=== PATIENT | female | born 1945 | race Caucasian/White ===

== ENCOUNTER → 2016-05-12 | Outpatient (CLI) | payer OTHER ==
[~2016-05-12] MED LIST: ADVIN25050 INH; ALBUAER INH; ALBUAER2 INH; AMOX500C3 PO; ASPCH81X PO; ATOR10TA88 PO; FLUO20CA20 PO; LISI-461 PO
--- NOTE | 2016-05-12 15:21 | MAMMOGRAPHY REPORT ---
BILATERAL DIGITAL SCREENING MAMMOGRAM WITH CAD: 05/12/2016 CLINICAL HISTORY: Routine screening examination. TECHNIQUE: Bilateral CC and MLO views were obtained. Current study was also evaluated with a Comput er Aided Detection (CAD) system. COMPARISON: Comparison is made to exams dated: 03/15/2015 mammogram, 03/14/2014 mammogram, 03/06/2013 m ammogram, and 02/27/2010 mammogram - [facility]. BREAST COMPOSITION: There are scattered areas of fibroglandular density in both breasts. FINDINGS: There are possible clustered microcalcifications in the central left breast, for which ad ditional spot magnification views are recommended. There are mild vascular calcifications and benign rim calcifications elsewhere in the breasts. No ot her suspicious mass, architectural distortion or cluster of microcalcifications is seen. IMPRESSION: ACR BI-RADS CATEGORY 0: INCOMPLETE EVALUATION: NEED ADDITIONAL IMAGING EVALUATION The possible clustered microcalcifications in the central left breast needs additional evaluation. The patient will be called to schedule an appointment. Approximately 10% of breast cancers are not detected with mammography. A negative mammographic repor t should not delay biopsy if a clinically suggestive mass is present. Viry Dey M.D. ay/:05/12/2016 12:51:31 Nuclear Control Operator: Ivanna THOMAS(Gay)(M), [facility] letter sent: Addl Imaging 0 BI-RADS Code: ACR BI-RADS Category 0: Incomplete Evaluation: Need Additional Imaging Evaluation
== END | disposition home or self-care (01) ==
LOC: C.MAMM 11:00
PROVIDERS: ATTEND Obstetrics & Gynecology
DX: Z12.31 Encounter for screening mammogram for malignant neoplasm of breast (principal); R92.8 Other abnormal and inconclusive findings on diagnostic imaging of breast

== ENCOUNTER → 2016-05-21 | Outpatient (CLI) | payer OTHER ==
--- NOTE | 2016-05-21 12:40 | MAMMOGRAPHY REPORT ---
UNILATERAL LEFT DIGITAL DIAGNOSTIC MAMMOGRAM: 05/21/2016 CLINICAL HISTORY: Callback from screening mammogram for left breast calcifications. TECHNIQUE: Spot magnification left CC and ML views were obtained. COMPARISON: Comparison is made to exams dated: 05/12/2016 mammogram, 03/15/2015 mammogram, 03/04/2012 m ammogram, 03/14/2014 mammogram, 03/06/2013 mammogram, and 03/03/2011 mammogram - [facility]. BREAST COMPOSITION: There are scattered areas of fibroglandular density in the left breast. FINDINGS: Spot magnification views of the left breast demonstrate scattered benign-appearing calcif ications within the left breast, which are predominantly coarse and therefore clearly benign, with a few fainter calcifications seen within the left central breast. On spot magnification views, the c alcifications appear stable dating back to at least the March 2014 exam, and are considered benign given the long-term stability and benign morphology. No suspicious or new cluster of calcification s is seen. IMPRESSION: ACR BI-RADS CATEGORY 2: BENIGN The left breast calcifications appear stable dating back to the 2014 exam, and are considered benign given the long-term stability and morphology. There is no mammographic evidence of malignancy. A 1 year screening mammogram is recommended. The patient has been verbally notified of the results. Approximately 10% of breast cancers are not detected with mammography. A negative mammographic repor t should not delay biopsy if a clinically suggestive mass is present. Ginger David M.D. ah/:05/21/2016 10:15:01 Patient Registration Representative: Ivanna ASHLEY)(Natali), [facility] letter sent: Normal 1/2 BI-RADS Code: ACR BI-RADS Category 2: Benign
== END | disposition home or self-care (01) ==
LOC: C.MAMM 09:54
PROVIDERS: ATTEND Obstetrics & Gynecology
DX: R92.1 Mammographic calcification found on diagnostic imaging of breast (principal)

== ENCOUNTER → 2016-07-31 | Outpatient (CLI) | payer OTHER ==
[~2016-07-31] MED LIST changes: +ATOR10TA82 PO; -ATOR10TA88 PO
== END | disposition home or self-care (01) ==
LOC: C.PATHSPEC 14:14
PROVIDERS: ATTEND Dermatology
DX: C44.112 Basal cell carcinoma of skin of right eyelid, including canthus (principal)

== ENCOUNTER → 2016-08-20 | Outpatient (CLI) | payer OTHER | END | disposition home or self-care (01) | LOC: C.PATHSPEC 16:55 | PROVIDERS: ATTEND Plastic Surgery | DX: C44.112 Basal cell carcinoma of skin of right eyelid, including canthus (principal) ==

== ENCOUNTER → 2016-09-18 | Outpatient (CLI) | payer OTHER ==
[~2016-09-18] MED LIST changes: -ATOR10TA82 PO; +ATOR10TA88 PO
--- NOTE | 2016-09-18 14:54 | DIAGNOSTIC IMAGING REPORT ---
CHEST 2 VIEWS ROUTINE CLINICAL HISTORY: Cough. Dyspnea on exertion. COMPARISON STUDY: 12/10/2010 FINDINGS: The cardiac and mediastinal contours are normal. There is no evidence of focal pulmonary consolidation. There is no evidence of failure. No pleural effusions are visualized.[ IMPRESSION: No active disease in the chest. Electronically signed by: Jordan De Luna M.D. 09/18/2016 2:53 PM Dictated Date/Time: 09/18/2016 2:52 PM
== END | disposition home or self-care (01) ==
LOC: C.RAD1850 14:41
PROVIDERS: ATTEND Nurse Practitioner
DX: R06.09 Other forms of dyspnea (principal)

== ENCOUNTER → 2016-10-23 | Outpatient (CLI) | payer OTHER | END | disposition home or self-care (01) | LOC: C.LABBFT 13:22 | PROVIDERS: ATTEND Physician Assistant Medical | DX: J02.9 Acute pharyngitis, unspecified (principal) ==

== ENCOUNTER → 2017-03-18 | Outpatient (CLI) | payer OTHER ==
[~2017-03-18] MED LIST changes: +ATOR10TA82 PO; -ATOR10TA88 PO
[2017-03-18 17:46] LABS: BASO % 0.2 %; BASO ABS # 0.02 K/uL (0-0.2); EOS % 6.5 %; EOS ABS # 0.57 K/uL (0-0.5); HEMATOCRIT 42.1 % (37-47); HEMOGLOBIN 13.5 g/dL (12.0-16.0); IG# 0.01 K/uL (0.00-0.02); LYMPH % 34.7 %; LYMPH ABS # 3.06 K/uL (1.2-3.4); MEAN CELL VOLUME 92.5 fL (80-100); MEAN CORPUSCULAR HEMOGLOBIN 29.7 pg (25-34); MEAN CORPUSCULAR HGB CONC 32.1 g/dl (32-36); MEAN PLATELET VOLUME 11.3 fL (7.4-10.4); MONO % 5.5 %; MONO ABS # 0.49 K/uL (0.11-0.59); NEUT ABS # 4.68 K/uL (1.4-6.5); PLATELET COUNT 215 K/uL (130-400); RED CELL DISTRIBUTION WIDTH CV 13.3 % (11.5-14.5); RED CELL DISTRIBUTION WIDTH SD 44.9 fL (36.4-46.3); WHITE BLOOD COUNT 8.83 K/uL (4.8-10.8)
[2017-03-18 18:21] LABS: ALBUMIN 3.8 gm/dl (3.4-5.0); ALT/SGPT 28 U/L (12-78); AST/SGOT 17 U/L (15-37); BLOOD UREA NITROGEN 22 mg/dl (7-18); CALCIUM 9.4 mg/dl (8.5-10.1); CARBON DIOXIDE 31 mmol/L (21-32); CHOLESTEROL 165 mg/dl (0-200); CREATININE 0.48 mg/dl (0.60-1.20); GLUCOSE 95 mg/dl (70-99); POTASSIUM 4.3 mmol/L (3.5-5.1); SODIUM 138 mmol/L (136-145); TOTAL PROTEIN 7.7 gm/dl (6.4-8.2)
[2017-03-18 18:24] LABS: ALKALINE PHOSPHATASE 65 U/L (45-117); LDL CHOLESTEROL CALCULATED 73 mg/dl
[2017-03-19 07:07] LABS: HEMOGLOBIN A1C 5.8 % (4.5-5.6)
== END | disposition home or self-care (01) ==
LOC: C.LABBFT 13:09
PROVIDERS: ATTEND Nurse Practitioner
DX: E78.5 Hyperlipidemia, unspecified (principal); R73.01 Impaired fasting glucose; R06.09 Other forms of dyspnea

== ENCOUNTER → 2017-05-25 | Outpatient (CLI) | payer OTHER ==
--- NOTE | 2017-05-25 14:58 | MAMMOGRAPHY REPORT ---
BILATERAL DIGITAL SCREENING MAMMOGRAM TOMOSYNTHESIS WITH CAD: 05/25/2017 CLINICAL HISTORY: Routine screening. Patient has no complaints. TECHNIQUE: Breast tomosynthesis in addition to standard 2D mammography was performed. Current study was also evaluated with a Computer Aided Detection (CAD) system. COMPARISON: Comparison is made to exams dated: 05/21/2016 mammogram, 05/12/2016 mammogram, 03/15/2015 mandy mogram, 03/14/2014 mammogram, 03/06/2013 mammogram, and 03/04/2012 mammogram - [facility]. BREAST COMPOSITION: There are scattered areas of fibroglandular density in both breasts. FINDINGS: No suspicious masses, calcifications, or areas of architectural distortion are noted in ei ther breast. There has been no significant interval change compared to prior exams. Scattered bilater al benign-appearing calcifications are not significantly changed. IMPRESSION: ACR BI-RADS CATEGORY 2: BENIGN There is no mammographic evidence of malignancy. A 1 year screening mammogram is recommended. The pa tient will receive written notification of the results. Approximately 10% of breast cancers are not detected with mammography. A negative mammographic report should not delay biopsy if a clinically suggestive mass is present. Ginger David M.D. /:05/25/2017 12:48:24 Support Associate: Danielle ASHLEY)(Natali), [facility] letter sent: Normal 1/2 BI-RADS Code: ACR BI-RADS Category 2: Benign
== END | disposition home or self-care (01) ==
LOC: C.MAMM 11:07
PROVIDERS: ATTEND Obstetrics & Gynecology
DX: Z12.31 Encounter for screening mammogram for malignant neoplasm of breast (principal)

== ENCOUNTER 2018-07-02 14:19 | Inpatient (IN) ==
[2018-07-02] MEDS ORDERED: ALBUT/IPRATROP 3MG/0.5MG NEB 3 ML VIAL INH STA (14:35)
[2018-07-02] MEDS ORDERED: LEVOFLOXACIN/D5W 750 MG/150 ML BAG IV STA (14:35)
[2018-07-02] MEDS ORDERED: methylPREDNISolone 125 MG/2 ML VIAL IV STA (14:35)
[2018-07-02] MEDS ORDERED: SODIUM CHLORIDE 0.9% 1000ML 1,000 ML IV SCH (14:45)
[2018-07-02 14:53] LABS: Base Excess VBG 3.9 mEq/L; Oxygen Saturation VBG 76.8 %; pH VBG 7.34 (7.36-7.41)
--- NOTE | 2018-07-02 14:54 | XRay Report ---
XR chest 1V portable CLINICAL HISTORY: Dyspnea dyspnea COMPARISON STUDY: 11/07/2009 FINDINGS: The bones soft tissues and hemidiaphragms are normal. The cardiomediastinal silhouette is n ormal. The lungs are clear. The pulmonary vasculature is normal. IMPRESSION: Negative chest. The above report was generated using voice recognition software. It may contain grammatical, syntax or spelling errors. Electronically signed by: Brent Wu M.D. 07/02/2018 2:53 PM
[2018-07-02 14:55] LABS: Basophils # (auto) 0.02 K/uL (0-0.2); Basophils % (auto) 0.2 %; Eosinophils # (auto) 0.28 K/uL (0-0.5); Hematocrit (blood only) 40.7 % (37-47); Hemoglobin 13.2 g/dL (12.0-16.0); Immature Granulocytes # (auto) 0.01 K/uL (0.00-0.02); Immature Granulocytes % (auto) 0.1 %; Lymphocytes # (auto) 1.31 K/uL (1.2-3.4); Lymphocytes % (auto) 13.8 %; Mean Corpuscular Hgb Conc 32.4 g/dL (32-36); Mean Corpuscular Volume 91.5 fL (80-100); Mean Platelet Volume 11.1 fL (7.4-10.4); Monocytes # (auto) 0.61 K/uL (0.11-0.59); Monocytes % (auto) 6.4 %; Neutrophils # (auto) 7.26 K/uL (1.4-6.5); Neutrophils % (auto) 76.5 %; Platelet Count 170 K/uL (130-400); RDW Coefficient of Variation 12.9 % (11.5-14.5); RDW Standard Deviation 43.4 fL (36.4-46.3); Red Blood Count 4.45 M/uL (4.2-5.4); White Blood Count 9.49 K/uL (4.8-10.8)
[2018-07-02 15:12] LABS: INR 1.1 (0.9-1.1); Partial Thromboplastin Ratio 0.9; Partial Thromboplastin Time 25.4 Seconds (21.0-31.0); Prothrombin Time 11.4 Seconds (9.0-12.0)
[2018-07-02 15:13] LABS: Alanine Aminotransferase 27 U/L (12-78); Albumin Level 3.8 gm/dl (3.4-5.0); Aspartate Aminotransferase 19 U/L (15-37); Blood Urea Nitrogen 20 mg/dl (7-18); Calcium 9.1 mg/dl (8.5-10.1); Carbon Dioxide 31 mmol/L (21-32); Chloride 101 mmol/L (98-107); Creatinine Clr Calc Pharmacy 100.6 ml/min; Est GFR (African American) 111.2; Glucose 103 mg/dl (70-99); Potassium 3.9 mmol/L (3.5-5.1); Sodium 135 mmol/L (136-145)
[2018-07-02 15:17] LABS: Influenza A virus by PCR Neg for Influ A (Neg); Influenza B virus by PCR Neg for Influ B (Neg)
[2018-07-02 15:18] LABS: Albumin Globulin Ratio 0.9 (0.9-2); Alkaline Phosphatase 75 U/L (45-117); Bilirubin,Total 0.4 mg/dl (0.2-1); Globulin 4.3 gm/dl (2.5-4.0); Total Protein 8.1 gm/dl (6.4-8.2); Troponin I < 0.015 ng/ml (0-0.045)
[2018-07-02 15:20] LABS: D Dimer 710 ug/L FEU (0-500)
[2018-07-02] MEDS ORDERED: OPTIRAY 320 125ml IV PRN (16:03)
--- NOTE | 2018-07-02 16:15 | CT Scan Report ---
CT angio chest PE protocol CT DOSE: 578.29 mGy.cm HISTORY: Dyspnea. Chest pain. +dd sob, tachy TECHNIQUE: Multiaxial CT images of the chest were performed following the intravenous administration of contrast to evaluate the pulmonary arteries. Maximal intensity projection images were also obtaine d. A dose lowering technique was utilized adhering to the principles of ALARA. COMPARISON STUDY: None. FINDINGS: Moderate atherosclerotic change thoracic aorta. The pulmonary vasculature enhances appropri ately. There are no significant filling defects. Evaluation of lung parenchyma shows the lungs to be generally clear. There are minimal interstitial changes in the left infrahilar region with atelectati c changes at the right posterior costophrenic angle. Findings of mild hepatosplenomegaly. IMPRESSION: 1. No evidence for pulmonary embolus. 2. Lungs are grossly clear with only minimal basilar interstitial and atelectatic change. 3. Mild hepatosplenomegaly. 4. Considerable degenerative change throughout the entire thoracic spine. No evidence for compression deformity. The above report was generated using voice recognition software. It may contain grammatical, syntax or spelling errors. Electronically signed by: Brent Wu M.D. 07/02/2018 4:12 PM
--- NOTE | 2018-07-02 17:11 | Emergency Department Note ---
Entered by Vincent Giraldo acting as a scribe for Surjit Maldonado DO History of Present Illness General Chief complaint: Shortness of Breath/Dyspnea Stated complaint: SOB Time Seen by Provider: 07/02/18 14:24 Source: patient History of Present Illness Onset (ago): day(s) 2 Location: chest (lungs) Pain Consistency: + other (persistent) Quality: + other (shortness of breath) Relieved By: + other (inhalers) Associated symptoms: + other (chills); no chest pain, no cough and no nausea/vomiting The patient is a 72 year old female with asthma who presents to the Emergency Room with complaints of persistent shortness of breath beginning two days ago. The patient reports that her symptoms started with chills and tickling in the throat. The nurse states that the patients oxygen saturation was in the low 80s prior to arrival. The patient reports that her symptoms have been improved with inhalers. She states that she does not wear supplemental oxygen or use CPAP at home. She denies chest pain, coughing, congestion, nausea, vomiting, diarrhea, leg swelling, or history of CHF. She notes that she has felt similar symptoms in the past associated with pneumonia but is unsure if she had a cough at that time. Home Medications Home Medications Medication Instructions Recorded Confirmed Type albuterol sulfate 90 mcg/actuation 2 puffs INH Q6H PRN 11/18/17 07/02/18 History breath activated powder inhaler atorvastatin 10 mg tablet 10 mg PO QPM 11/18/17 07/02/18 History fluoxetine 20 mg capsule 20 mg PO QPM 11/18/17 07/02/18 History fluticasone 250 mcg-salmeterol 50 1 inha INH BID 11/18/17 07/02/18 History mcg/dose blistr powdr for inhalation lisinopril 10 mg tablet 10 mg PO QPM 11/18/17 07/02/18 History meloxicam 15 mg tablet 15 mg PO DAILY #30 tab 05/25/18 07/02/18 Rx aspirin-caffeine 500 mg-32.5 mg 1 tab PO BID PRN tab 06/28/18 07/02/18 History tablet gabapentin 300 mg capsule See Rx Instructions PO TID cap 06/28/18 07/02/18 History Allergies Allergy/AdvReac Type Severity Reaction Status Date / Time Bactrim Allergy Unknown RASH Verified 09/11/15 10:06 hydrochlorothiazide Allergy Unknown UNKN Verified 07/02/18 15:09 sulfamethoxazole Allergy Unknown RASH Verified 07/02/18 15:09 trimethoprim Allergy Unknown RASH Verified 07/02/18 15:09 Past Med/Surg History Medical History Hypertension (Chronic) Lumbar spinal stenosis (Chronic) Moderate to severe at L4-5 Asthma uses prn inh 1-2 x daily. 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 Cardiac murmur Depression Hyperlipidemia Hypertension Osteoarthritis Spinal stenosis Surgical History History of colonoscopy w/ polypectomy History of total knee replacement left Family History Brother Family history of diabetes mellitus Social History Preferred Language: Congolese Communication Ability: Effective Hearing Ability: Normal Beliefs That Will Affect Care: None marital status: / Current Living Situation: Family Current Living Situation Comment: lives w/ great nephew current occupational status: retired Feels Safe at Home: Yes Smoking Status: Never smoker Second Hand Exposure: No Hx Alcohol Use: No Hx Substance Use: No Review of Systems See HPI for pertinent positives & negatives. and A total of 10 systems reviewed and were otherwise negative Physical Exam Vital Signs Vital Signs - 24 hr 07/02/18 14:21 07/02/18 14:32 07/02/18 14:38 Temperature 37 C Temperature Source Oral Sepsis Recent Fever Within 48 Hours No Sepsis New/Unexplained Change in Mental Status No Sepsis Action Taken by Nursing No Action Required Pulse Rate 109 H Pulse Rate [Left Finger] Respiratory Rate 24 Respiratory Effort / Characteristics Non-Labored Respiratory Depth Normal Respiratory Pattern Blood Pressure 153/67 H Blood Pressure [Left Arm] Blood Pressure Mean 95 Blood Pressure Mean [Left Arm] Pulse Oximetry 83 L 92 Oxygen Delivery Method Room Air Nasal Cannula Nasal Cannula Oxygen Flow Rate 3 07/02/18 14:58 07/02/18 15:36 07/02/18 16:30 Temperature Temperature Source Sepsis Recent Fever Within 48 Hours Sepsis New/Unexplained Change in Mental Status Sepsis Action Taken by Nursing Pulse Rate Pulse Rate [Left Finger] 102 H 103 H Respiratory Rate 18 15 15 Respiratory Effort / Characteristics Spontaneous Labored Non-Labored Non-Labored Respiratory Depth Normal Normal Respiratory Pattern Regular Regular Blood Pressure Blood Pressure [Left Arm] 101/79 114/66 Blood Pressure Mean Blood Pressure Mean [Left Arm] 86 82 Pulse Oximetry 96 100 94 Oxygen Delivery Method Nasal Cannula Nebulizer Room Air Oxygen Flow Rate 3 GENERAL: sitting up in bed, dyspneic with conversation, on 3 L nasal cannula EYE EXAM: normal conjunctiva. OROPHARYNX: no exudate, no erythema, lips, buccal mucosa, and tongue normal and mucous membranes are moist NECK: supple, no nuchal rigidity, no adenopathy, non-tender LUNGS: Poor air movement with diffuse wheezing. Normal chest wall mechanics HEART: no murmurs, S1 normal and S2 normal ABDOMEN: abdomen soft, non-tender, normo-active bowel sounds, no masses, no rebound or guarding. BACK: Back is symmetrical on inspection and there is no deformity, no midline tenderness, no CVA tenderness. Tenderness in the right lateral lower lumbar r egion SKIN: no rashes and no bruising UPPER EXTREMITIES: upper extremities are grossly normal. LOWER EXTREMITIES: No pitting edema. Calves are equal bilaterally. NEURO EXAM: Normal sensorium, cranial nerves II-XII grossly intact, normal speech, no gross weakness of arms, no gross weakness of legs. Gross sensation intact. Course ED COURSE: Vital signs were reviewed and showed hypoxia The patients medical record was reviewed The above diagnostic studies were performed and reviewed. ED treatments and interventions as stated above. 1428: The patient was evaluated in room A3. A complete history and physical examination was performed. 1618: I updated the patient on current results. 1623: I consulted [facility] Chan[facility] Hospitalist. The patient will be reevaluated for hospitalization. Based on the patients age, coexisting illnesses, exam and lab findings the decision to treat as an inpatient was made. The patient remained stable while under my care. The patient will be evaluated for further management. Administered Medications Ioversol (Optiray 320 125ml) 119 ml IV ONCE PRN PRN Reason: Interaction Checking Stop: 07/06/18 16:02 Last Admin: 07/02/18 16:03 Dose: 119 ml Documented by: [id number] Discontinued Medications Albuterol (Duoneb) 9 ml INH NOW STA Stop: 07/02/18 14:36 Last Admin: 07/02/18 14:57 Dose: 9 ml Documented by: [id number] Levofloxacin/Dextrose (Levaquin/D5w) 750 mg in 150 mls @ 100 mls/hr IV NOW STA Stop: 07/02/18 16:04 Last Infusion: 07/02/18 16:45 Dose: 0 mls/hr Documented by: [id number] Admin: 07/02/18 14:53 Dose: 100 mls/hr Documented by: [id number] Sodium Chloride (Nss 1000ml) 1,000 mls @ 999 mls/hr IV .Q1H1M LUNA Stop: 07/02/18 15:45 Last Infusion: 07/02/18 15:51 Dose: 0 mls/hr Documented by: [id number] Admin: 07/02/18 14:53 Dose: 999 mls/hr Documented by: [id number] Methylprednisolone (Solumedrol) 60 mg IV NOW STA Stop: 07/02/18 14:36 Last Admin: 07/02/18 14:53 Dose: 60 mg Documented by: [id number] Medical Decision Making Differential Diagnosis Differential diagnoses includes but is not limited to pneumonia, bronchitis, COPD/Asthma exacerbation, pneumothorax, pulmonary embolism, congestive heart failure, acute coronary syndrome Medical Records Attestation: I reviewed the patient's medical records. Home Medications Current Medication List: was personally reviewed by me Laboratory Data Attestation: I reviewed the patient's lab results. Result diagrams: 07/02/18 14:45 07/02/18 14:45 Lab Results 07/02/18 07/02/18 07/02/18 Range/Units 14:39 14:42 14:45 WBC 9.49 (4.8-10.8) K/uL RBC 4.45 (4.2-5.4) M/uL Hgb 13.2 (12.0-16.0) g/dL Hct 40.7 (37-47) % MCV 91.5 (80-100) fL MCH 29.7 (25-34) pg MCHC 32.4 (32-36) g/dL RDW Std Deviation 43.4 (36.4-46.3) fL RDW Coeff of Giulia 12.9 (11.5-14.5) % Plt Count 170 (130-400) K/uL MPV 11.1 H (7.4-10.4) fL Immature Gran % (Auto) 0.1 % Neut % (Auto) 76.5 % Lymph % (Auto) 13.8 % Aurora % (Auto) 6.4 % Eos % (Auto) 3.0 % Baso % (Auto) 0.2 % Immature Gran # (Auto) 0.01 (0.00-0.02) K/uL Neut # (Auto) 7.26 H (1.4-6.5) K/uL Lymph # (Auto) 1.31 (1.2-3.4) K/uL Aurora # (Auto) 0.61 H (0.11-0.59) K/uL Eos # (Auto) 0.28 (0-0.5) K/uL Baso # (Auto) 0.02 (0-0.2) K/uL PT (9.0-12.0) Seconds INR (0.9-1.1) APTT (21.0-31.0) Seconds PTT Ratio D-Dimer (0-500) ug/L FEU VBG pH 7.34 L (7.36-7.41) VBG pCO2 59 H (38-50) mmHg VBG pO2 44 mmHg VBG HCO3 31 mmol/L VBG O2 Saturation 76.8 % VBG Base Excess 3.9 mEq/L Barometric Pressure 725.0 mm/Hg Sodium (136-145) mmol/L Potassium (3.5-5.1) mmol/L Chloride (98-107) mmol/L Carbon Dioxide (21-32) mmol/L Anion Gap (3-11) BUN (7-18) mg/dl Creatinine (0.6-1.2) mg/dl Est Cr Clr Drug Dosing ml/min Est GFR ( Amer) Est GFR (Non-Af Amer) BUN/Creatinine Ratio (10-20) Glucose (70-99) mg/dl Calcium (8.5-10.1) mg/dl Total Bilirubin (0.2-1) mg/dl AST (15-37) U/L ALT (12-78) U/L Alkaline Phosphatase (45-117) U/L Troponin I (0-0.045) ng/ml Total Protein (6.4-8.2) gm/dl Albumin (3.4-5.0) gm/dl Globulin (2.5-4.0) gm/dl Albumin/Globulin Ratio (0.9-2) Influenza Type A (PCR) Neg for Influ A (Neg) Influenza Type B (PCR) Neg for Influ B (Neg) 07/02/18 07/02/18 Range/Units 14:45 14:45 WBC (4.8-10.8) K/uL RBC (4.2-5.4) M/uL Hgb (12.0-16.0) g/dL Hct (37-47) % MCV (80-100) fL MCH (25-34) pg MCHC (32-36) g/dL RDW Std Deviation (36.4-46.3) fL RDW Coeff of Giulia (11.5-14.5) % Plt Count (130-400) K/uL MPV (7.4-10.4) fL Immature Gran % (Auto) % Neut % (Auto) % Lymph % (Auto) % Aurora % (Auto) % Eos % (Auto) % Baso % (Auto) % Immature Gran # (Auto) (0.00-0.02) K/uL Neut # (Auto) (1.4-6.5) K/uL Lymph # (Auto) (1.2-3.4) K/uL Aurora # (Auto) (0.11-0.59) K/uL Eos # (Auto) (0-0.5) K/uL Baso # (Auto) (0-0.2) K/uL PT 11.4 (9.0-12.0) Seconds INR 1.1 (0.9-1.1) APTT 25.4 (21.0-31.0) Seconds PTT Ratio 0.9 D-Dimer 710 H* (0-500) ug/L FEU VBG pH (7.36-7.41) VBG pCO2 (38-50) mmHg VBG pO2 mmHg VBG HCO3 mmol/L VBG O2 Saturation % VBG Base Excess mEq/L Barometric Pressure mm/Hg Sodium 135 L (136-145) mmol/L Potassium 3.9 (3.5-5.1) mmol/L Chloride 101 (98-107) mmol/L Carbon Dioxide 31 (21-32) mmol/L Anion Gap 3.0 (3-11) BUN 20 H (7-18) mg/dl Creatinine 0.49 L (0.6-1.2) mg/dl Est Cr Clr Drug Dosing 100.6 ml/min Est GFR ( Amer) 111.2 Est GFR (Non-Af Amer) 96.0 BUN/Creatinine Ratio 40.0 H (10-20) Glucose 103 H (70-99) mg/dl Calcium 9.1 (8.5-10.1) mg/dl Total Bilirubin 0.4 (0.2-1) mg/dl AST 19 (15-37) U/L ALT 27 (12-78) U/L Alkaline Phosphatase 75 (45-117) U/L Troponin I < 0.015 (0-0.045) ng/ml Total Protein 8.1 (6.4-8.2) gm/dl Albumin 3.8 (3.4-5.0) gm/dl Globulin 4.3 H (2.5-4.0) gm/dl Albumin/Globulin Ratio 0.9 (0.9-2) Influenza Type A (PCR) (Neg) Influenza Type B (PCR) (Neg) Imaging Data Radiologist's Impression: Radiology results as stated below per my review and the radiologist's interpretation: CT angio chest PE protocol CT DOSE: 578.29 mGy.cm HISTORY: Dyspnea. Chest pain. +dd sob, tachy TECHNIQUE: Multiaxial CT images of the chest were performed following the intravenous administration of contrast to evaluate the pulmonary arteries. Maximal intensity projection images were also obtained. A dose lowering technique was utilized adhering to the principles of ALARA. COMPARISON STUDY: None. FINDINGS: Moderate atherosclerotic change thoracic aorta. The pulmonary vasculature enhances appropriately. There are no significant filling defects. Evaluation of lung parenchyma shows the lungs to be generally clear. There are minimal interstitial changes in the left infrahilar region with atelectatic changes at the right posterior costophrenic angle. Findings of mild hepatosplenomegaly. IMPRESSION: 1. No evidence for pulmonary embolus. 2. Lungs are grossly clear with only minimal basilar interstitial and atelectatic change. 3. Mild hepatosplenomegaly. 4. Considerable degenerative change throughout the entire thoracic spine. No evidence for compression deformity. The above report was generated using voice recognition software. It may contain grammatical, syntax or spelling errors. Electronically signed by: Brent Wu M.D. 07/02/2018 4:12 PM XR chest 1V portable CLINICAL HISTORY: Dyspnea dyspnea COMPARISON STUDY: 11/07/2009 FINDINGS: The bones soft tissues and hemidiaphragms are normal. The cardiomediastinal silhouette is normal. The lungs are clear. The pulmonary vasculature is normal. IMPRESSION: Negative chest. The above report was generated using voice recognition software. It may contain grammatical, syntax or spelling errors. Electronically signed by: Brent Wu M.D. 07/02/2018 2:53 PM ECG Data Attestation: I personally reviewed and interpreted this ECG as follows: Indication: SOB/dyspnea Rate (beats per minute): 100 Rhythm: sinus tachycardia Findings: + other (normal axis); no PVC Blood Pressure Blood Pressure Findings: Normal blood pressure Blood Pressure Disposition: did not require urgent referral MDM Narrative Patient is a 72-year-old female with past medical history of asthma presents the ER for shortness of breath. Upon presentation she was found to be hypoxic at 82% on room air. She was placed on 4 L nasal cannula. IV was established blood work was obtained. Only complaints are weakness and shortness of breath since this past . Labs show no significant leukocytosis or anemia. D-dimer was positive and consequently a CT PE was performed but that was unremarkable. VBG pH 7.34. CO2 was slightly elevated at 59. BMP was unremarkable along with LFTs bilirubin and a negative troponin. Influenza was negative. Patient was given IV steroids, Levaquin and 3 neb treatments. She did have improvement of her symptoms. Chest x-ray was unremarkable. EKG was unremarkable. Case was discussed with hospitalist. Pulse ox improved to mid 90s on nasal cannula patient was admitted to the hospital for further work-up. Impression & Plan Hypoxia, Asthma exacerbation Critical Care Time I have personally spent 35 minutes of critical care time in the direct management of this patient. This includes bedside care, interpretation of diagnostic studies, and testing, discussion with consultants, patient, and family members, and other required patient management activities. This 35 minutes is in excess of all separately billable procedures. Critical Care Time: Yes Total Critical Care Time: 35 Discharge Plan Visit Data Chief Complaint: Shortness of Breath/Dyspnea Stated Complaint: SOB ED Provider: Surjit Maldonado Discharge Problem: Hypoxia, Asthma exacerbation Patient Disposition: Being Evaluated by Hospitalist Forms Stand Alone Forms: My [facility] Prescriptions Prescriptions: No Action fluticasone propion-salmeterol [Advair Diskus] 250-50 mcg/dose blister with de vice 1 inha INH BID RF: 0 atorvastatin 10 mg tablet 10 mg PO QPM RF: 0 lisinopril 10 mg tablet 10 mg PO QPM RF: 0 fluoxetine 20 mg capsule 20 mg PO QPM RF: 0 albuterol sulfate 90 mcg/actuation aerosol powdr breath activated 2 puffs INH Q6H PRN (Reason: Shortness Of Breath) RF: 0 meloxicam 15 mg tablet 15 mg PO DAILY Qty: 30 RF: 2 Audrey Back and Body 500-32.5 mg tablet 1 tab PO BID PRN (Reason: Pain) RF: 0 gabapentin 300 mg capsule See Patient Comments mg PO TID RF: 0 Referrals Referrals: Neymar Lopes MD [Primary Care Provider] - Discharge Problem: Asthma exacerbation Qualifiers: Asthma severity: unspecified severity Asthma persistence: unspecified Qualified Code(s): J45.901 - Unspecified asthma with (acute) exacerbation The scribe's documentation has been prepared under my direction and personally reviewed by me in its entirety. I confirm that the note above accurately reflects all work, treatment, procedures, and medical decision making performed by me.
--- NOTE | 2018-07-02 17:38 | History & Physical Report ---
Date of Service July 02, 2018 Assessment & Plan (1) Asthma exacerbation: Mild wheezing on exam with new, mild O2 requirement (88-89% on room air in the ED). CTA chest on 07/02 did not show any infiltrate. - DuoNebs standing and PRN - Continue home Advair - Prednisone - Procalcitonin - Hold abx. unless procalcitonin returns positive as her CTA showed no pneumonia - Sputum cx - Wean O2 as able (2) Hypertension: BP was 125/75 in the ED. - Continue home lisinopril (3) DVT prophylaxis: SCDs - Low risk per admission calculator History of Present Illness Primary Care Provider: Wade Lopes MD 72-year-old female with a history of asthma who presents with asthma exacerbation. Patient reports that she was in her normal state of health until evening when she began to experience increased shortness of breath and cough. The cough is nonproductive. Shortness of breath improves with her albuterol inhaler, but returns prior to her 4 hours. She has had no other associated symptoms, denying any fevers, chills, nausea, vomiting, sweats, pain in the chest or abdomen. She has some haziness about whether she takes her Advair every single day versus as needed. We did discuss good inhaler usage. Allergies Allergy/AdvReac Type Severity Reaction Status Date / Time Bactrim Allergy Unknown RASH Verified 09/11/15 10:06 hydrochlorothiazide Allergy Unknown UNKN Verified 07/02/18 15:09 sulfamethoxazole Allergy Unknown RASH Verified 07/02/18 15:09 trimethoprim Allergy Unknown RASH Verified 07/02/18 15:09 Home Medications Home Medications Medication Instructions Recorded Confirmed Type albuterol sulfate 90 mcg/actuation 2 puffs INH Q6H PRN 11/18/17 07/02/18 History breath activated powder inhaler atorvastatin 10 mg tablet 10 mg PO QPM 11/18/17 07/02/18 History fluoxetine 20 mg capsule 20 mg PO QPM 11/18/17 07/02/18 History fluticasone 250 mcg-salmeterol 50 1 inha INH BID 11/18/17 07/02/18 History mcg/dose blistr powdr for inhalation lisinopril 10 mg tablet 10 mg PO QPM 11/18/17 07/02/18 History meloxicam 15 mg tablet 15 mg PO DAILY #30 tab 05/25/18 07/02/18 Rx aspirin-caffeine 500 mg-32.5 mg 1 tab PO BID PRN tab 06/28/18 07/02/18 History tablet gabapentin 300 mg capsule See Rx Instructions PO TID cap 06/28/18 07/02/18 History Past Med/Surg History Medical History Hypertension (Chronic) Lumbar spinal stenosis (Chronic) Moderate to severe at L4-5 Asthma uses prn inh 1-2 x daily. 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 Cardiac murmur Depression Hyperlipidemia Hypertension Osteoarthritis Spinal stenosis Surgical History History of colonoscopy w/ polypectomy History of total knee replacement left Family History Brother Family history of diabetes mellitus Social History Preferred Language: Setswana Communication Ability: Effective Hearing Ability: Normal Mail Technician Required: No Beliefs That Will Affect Care: None marital status: / Current Living Situation: Family Current Living Situation Comment: lives with great nephew current occupational status: retired Other Information That Helps Us Care for You: No Feels Safe at Home: Yes Safety Concerns: Feels Safe At This Time Smoking Status: Former smoker Do You Dip or Chew Tobacco: No Second Hand Exposure: No Tobacco Cessation Education Requested by Patient: No Hx Alcohol Use: No Hx Substance Use: No Review of Systems Constitutional: no fever, no chills and no sweats Eyes: no diplopia Ear, Nose, Mouth, Throat: no ear trauma, no nasal discharge and no dental pain Respiratory: + cough and + dyspnea; no chest congestion Cardiovascular: no chest pain, no dyspnea on exertion, no palpitations and no syncope Gastrointestinal: no abdominal pain, no belching, no constipation, no diarrhea/loose stools, no blood in stools and no melena Musculoskeletal: no back pain, no joint pain and no muscle weakness Integumentary: no rash, no skin ulcer and no erythema Neurologic: no generalized weakness, no loss of sensation, no numbness and no paresthesia Psychiatric: no depression and no anxiety Endocrine: no fatigue, no polydipsia and no polyphagia Physical Exam Constitutional: WD/WN, vitals as above + acute distress and cooperative Eyes: EOM intact bilaterally; no conjunctival abnormality ENMT: external ear and nose normal, oropharynx normal Neck: trachea midline, no thyromegaly normal visual inspection Respiratory: normal respiratory effort, lungs clear to auscultation no respiratory distress Auscultation: + diminished lung sounds and + wheezes Cardiovascular: RRR, no murmur, no edema Gastrointestinal (Abdomen): Inspection/Auscultation: abdomen normal to inspection; abdomen not distended Musculoskeletal: no cyanosis or clubbing, extremities motor strength 5/5 Skin: no rashes, warm and dry Neurologic: moves all extremities and awake Psychiatric: Orientation: alert, oriented to person and cooperative Results & Data Vital Signs (Past 12 Hours) Vital Signs Temp Pulse Pulse Resp BP BP Pulse Ox 07/02/18 17:31 95 H 15 124/74 93 07/02/18 16:30 103 H 15 114/66 94 07/02/18 15:36 102 H 15 101/79 100 07/02/18 14:58 18 96 07/02/18 14:38 92 07/02/18 14:21 37 C 109 H 24 153/67 H 83 L (1) Asthma exacerbation Asthma persistence: unspecified Asthma severity: unspecified severity Qualified Code(s): J45.901 - Unspecified asthma with (acute) exacerbation
[2018-07-02] MEDS ORDERED: ACETAMINOPHEN 325 MG TAB PO PRN (20:24)
[2018-07-02] MEDS: ALBUT/IPRATROP 3MG/0.5MG NEB 3 ML VIAL NEB SCH ×2 (21:00→23:33)
[2018-07-02] MEDS: LISINOPRIL 10 MG TAB PO SCH (22:10)
[2018-07-02] MEDS: FLUTICASONE/SALMETEROL 250/50 (ADVAIR) 14 PUFF/1 INHALER INH SCH (22:10)
[2018-07-02] MEDS: FLUOXETINE HCL 20 MG CAP PO SCH (22:11)
[2018-07-02] MEDS: ATORVASTATIN 10 MG TAB PO SCH (22:11)
[2018-07-03] MEDS: ALBUT/IPRATROP 3MG/0.5MG NEB 3 ML VIAL NEB SCH ×6 (03:55→23:02)
[2018-07-03 06:46] LABS: Hematocrit (blood only) 38.5 % (37-47); Hemoglobin 12.1 g/dL (12.0-16.0); Mean Corpuscular Hgb Conc 31.4 g/dL (32-36); Mean Corpuscular Volume 91.4 fL (80-100); Mean Platelet Volume 10.8 fL (7.4-10.4); Platelet Count 162 K/uL (130-400); RDW Coefficient of Variation 12.9 % (11.5-14.5); RDW Standard Deviation 43.3 fL (36.4-46.3); Red Blood Count 4.21 M/uL (4.2-5.4); White Blood Count 9.09 K/uL (4.8-10.8)
[2018-07-03 07:21] LABS: BUN Creatinine Ratio 32.8 (10-20); Calcium 8.9 mg/dl (8.5-10.1); Creatinine Clr Calc Pharmacy 104.9 ml/min; Est GFR (African American) 112.8; Est GFR (Non-African American) 97.3; Magnesium 1.9 mg/dl (1.8-2.4); Potassium 3.8 mmol/L (3.5-5.1)
[2018-07-03] MEDS: predniSONE 50 MG TAB PO SCH (07:26)
[2018-07-03] MEDS: FLUTICASONE/SALMETEROL 250/50 (ADVAIR) 14 PUFF/1 INHALER INH SCH ×2 (07:26→21:50)
--- NOTE | 2018-07-03 11:53 | Hospitalist Progress Note ---
Date of Service July 03, 2018 Assessment & Plan (1) Asthma exacerbation: Improving with oral steroid therapy and nebulizers. (2) Acute bronchitis: Intravenous Levaquin, day 1. Obtain sputum culture if sputum is produced Present on Admission?: Yes (3) Hypoxia: Resolved. The patient is now on room air. Present on Admission?: Yes (4) Hypertension: Stable. Continue home lisinopril (5) DVT prophylaxis: SCDs - Low risk per admission calculator Subjective The patient is feeling better. She is receiving oral prednisone and nebulizer treatments. She does have a cough consistent with bronchitis but is unable to to produce any sputum for culture. There is no evidence of pneumonia on chest x-ray or CT scan. No evidence of pulmonary embolism either. Room air oxygen saturation has improved. Hopefully she will be able to go home in a day or 2. Review of Systems Review of Systems: All systems reviewed & are unremarkable except as noted in HPI & below Respiratory: + cough and + wheezing Physical Exam Constitutional: WD/WN, vitals as above no acute distress Eyes: PERRL, conjunctivae normal, anicteric sclerae ENMT: external ear and nose normal, oropharynx normal Neck: trachea midline, no thyromegaly Respiratory: normal respiratory effort and + cough; does not use accessory muscles Auscultation: + wheezes Cardiovascular: RRR, no murmur, no edema Gastrointestinal (Abdomen): normal bowel sounds, soft, nontender, no hepatosplenomegaly Musculoskeletal: no cyanosis or clubbing, extremities motor strength 5/5 Skin: no rashes, warm and dry Neurologic: CN's II-XI intact bilaterally; no focal motor deficits Results & Data Vital Signs (Past 12 Hours) Vital Signs Temp Pulse Resp BP BP Pulse Ox 07/03/18 11:08 96 H 18 90 07/03/18 07:40 36.3 C L 104 H 20 147/72 H 97 07/03/18 07:05 106 H 16 90 07/03/18 03:55 102 H 16 91 07/03/18 00:50 37 C 107 H 20 161/75 H 93 Laboratory Results 07/03/18 06:36 07/03/18 06:36 (1) Asthma exacerbation Asthma persistence: unspecified Asthma severity: unspecified severity Qualified Code(s): J45.901 - Unspecified asthma with (acute) exacerbation
[2018-07-03] MEDS: LEVOFLOXACIN/D5W 500 MG/100 ML BAG IV SCH (14:36)
[2018-07-03] MEDS: LISINOPRIL 10 MG TAB PO SCH (21:51)
[2018-07-03] MEDS: FLUOXETINE HCL 20 MG CAP PO SCH (21:51)
[2018-07-03] MEDS: ATORVASTATIN 10 MG TAB PO SCH (21:51)
[2018-07-04] MEDS: ALBUT/IPRATROP 3MG/0.5MG NEB 3 ML VIAL NEB SCH ×6 (03:19→23:16)
[2018-07-04] MEDS: FLUTICASONE/SALMETEROL 250/50 (ADVAIR) 14 PUFF/1 INHALER INH SCH ×2 (07:45→20:57)
[2018-07-04] MEDS: predniSONE 50 MG TAB PO SCH (07:45)
[2018-07-04] MEDS: LEVOFLOXACIN/D5W 500 MG/100 ML BAG IV SCH (14:30)
--- NOTE | 2018-07-04 15:39 | Hospitalist Progress Note ---
Date of Service July 04, 2018 Assessment & Plan (1) Asthma exacerbation: Improving with oral steroid therapy and nebulizers. May have an element of COPD - patient smoked until about 10 years ago. She doesn't have any PFTs that I can find in her outpatient records nor has she been seen by a heavy line technician. She will need to do both on follow up 2 step today showed a need continuous O2 when she has never needed before. Will repeat again tomorrow. (2) Acute bronchitis: Intravenous Levaquin started 07/03. Sputum culture showed normal axel (3) Hypoxia: As above (4) Hypertension: Stable. Continue home lisinopril (5) DVT prophylaxis: SCDs - Low risk per admission calculator Dispo: hopefully another day of treatment will lead to further improvement and we can avoid sending her home with O2. Will keep her tonight and repeat 2 step tomorrow. Likely dc tomorrow. Subjective Ms. Dotson feels better today however she is still requiring O2. Cough is improving. Review of Systems Review of Systems: All systems reviewed & are unremarkable except as noted in HPI & below Physical Exam Physical Exam: General: no distress Eyes: normal inspection, PERLL Respiratory: chest non tender, clear to auscultation, normal breath sounds, no respiratory distress, no accessory muscle use Cardiac: regular rate and rhythm, no rub or gallop, no murmur, no edema, no jvd GI/: active bowel sounds, no abd pain or tenderness, soft, non distended Extremities: normal range of motion, normal strength, non tender Neuro/Psych: alert and oriented x 3, normal mood and affect Skin: normal color, dry Results & Data Vital Signs (Past 12 Hours) Vital Signs Temp Pulse Pulse Pulse Pulse Pulse Pulse 07/04/18 15:18 95 H 07/04/18 11:40 98 H 107 H 118 H 100 H 90 07/04/18 11:11 93 H 07/04/18 07:29 36.9 C 90 07/04/18 07:27 109 H Resp Resp Resp Resp Resp Resp BP 07/04/18 15:18 18 07/04/18 11:40 18 20 20 18 18 07/04/18 11:11 18 07/04/18 07:29 18 151/77 H 07/04/18 07:27 18 Pulse Ox Pulse Ox Pulse Ox Pulse Ox Pulse Ox Pulse Ox 07/04/18 15:18 93 07/04/18 11:40 92 91 86 L 93 86 L 07/04/18 11:11 92 07/04/18 07:29 94 07/04/18 07:27 87 L (1) Asthma exacerbation Asthma persistence: unspecified Asthma severity: unspecified severity Qualified Code(s): J45.901 - Unspecified asthma with (acute) exacerbation
[2018-07-04] MEDS: ATORVASTATIN 10 MG TAB PO SCH (20:57)
[2018-07-04] MEDS: LISINOPRIL 10 MG TAB PO SCH (20:57)
[2018-07-04] MEDS: FLUOXETINE HCL 20 MG CAP PO SCH (20:57)
[2018-07-05] MEDS: ALBUT/IPRATROP 3MG/0.5MG NEB 3 ML VIAL NEB SCH ×4 (03:32→15:12)
[2018-07-05] MEDS: predniSONE 50 MG TAB PO SCH (08:13)
[2018-07-05] MEDS: FLUTICASONE/SALMETEROL 250/50 (ADVAIR) 14 PUFF/1 INHALER INH SCH (08:13)
[2018-07-05] MEDS ORDERED: SODIUM CHLORIDE 0.65% NA SOLN 45 ML (OCEAN) ONE (08:14)
[2018-07-05 09:38] LABS: Basophils # (auto) 0.03 K/uL (0-0.2); Basophils % (auto) 0.3 %; Eosinophils # (auto) 0.29 K/uL (0-0.5); Eosinophils % (auto) 3.1 %; Hematocrit (blood only) 38.5 % (37-47); Hemoglobin 12.3 g/dL (12.0-16.0); Immature Granulocytes # (auto) 0.02 K/uL (0.00-0.02); Immature Granulocytes % (auto) 0.2 %; Lymphocytes # (auto) 2.62 K/uL (1.2-3.4); Lymphocytes % (auto) 28.1 %; Mean Corpuscular Hgb Conc 31.9 g/dL (32-36); Mean Corpuscular Volume 92.5 fL (80-100); Mean Platelet Volume 10.5 fL (7.4-10.4); Monocytes # (auto) 0.79 K/uL (0.11-0.59); Monocytes % (auto) 8.5 %; Neutrophils # (auto) 5.57 K/uL (1.4-6.5); Neutrophils % (auto) 59.8 %; Platelet Count 177 K/uL (130-400); RDW Coefficient of Variation 13.2 % (11.5-14.5); RDW Standard Deviation 44.4 fL (36.4-46.3); Red Blood Count 4.16 M/uL (4.2-5.4); White Blood Count 9.32 K/uL (4.8-10.8)
[2018-07-05 10:14] LABS: BUN Creatinine Ratio 40.3 (10-20); Calcium 8.9 mg/dl (8.5-10.1); Est GFR (African American) 108.4; Est GFR (Non-African American) 93.5; Potassium 3.3 mmol/L (3.5-5.1)
[2018-07-05] MEDS ORDERED: POTASSIUM CHLORIDE 20 MEQ TABCR PO STA (13:30)
[2018-07-05] MEDS: LEVOFLOXACIN/D5W 500 MG/100 ML BAG IV SCH (13:48)
--- NOTE | 2018-07-05 14:12 | Discharge Summary ---
Date of Service July 05, 2018 Admission HPI Per Admitting Provider 72-year-old female with a history of asthma who presents with asthma exacerbation. Patient reports that she was in her normal state of health until evening when she began to experience increased shortness of breath and cough. The cough is nonproductive. Shortness of breath improves with her albuterol inhaler, but returns prior to her 4 hours. She has had no other associated symptoms, denying any fevers, chills, nausea, vomiting, sweats, pain in the chest or abdomen. She has some haziness about whether she takes her Advair every single day versus as needed. We did discuss good inhaler usage. Principal Diagnosis Asthma exacerbation Discharge Exam Constitutional WD/WN, vitals as above Respiratory normal respiratory effort; no respiratory distress and no labored breathing Auscultation: + wheezes (faint, bilateral) Cardiovascular Rate/Rhythm: regular rate and regular rhythm Heart Sounds: + murmur Gastrointestinal (Abdomen) normal bowel sounds, soft, nontender, no hepatosplenomegaly Musculoskeletal no cyanosis or clubbing, extremities motor strength 5/5 Skin no rashes, warm and dry Neurologic moves all extremities and awake Psychiatric A+Ox3, euthymic affect Discharge Data Allergies Allergy/AdvReac Type Severity Reaction Status Date / Time Bactrim Allergy Unknown RASH Verified 09/11/15 10:06 hydrochlorothiazide Allergy Unknown UNKN Verified 07/02/18 15:09 sulfamethoxazole Allergy Unknown RASH Verified 07/02/18 15:09 trimethoprim Allergy Unknown RASH Verified 07/02/18 15:09 Consultations 07/02/18 16:26 ED Decision to Admit Stat Ordered Studies 07/02/18 15:30 CT angio chest PE protocol Stat Hospital Course (1) Asthma exacerbation: Improving with oral steroid therapy and nebulizers. May have an element of COPD - patient smoked until about 10 years ago. She doesn't have any PFTs that I can find in her outpatient records nor has she been seen by a mental health coordinator. She will need to do both on follow up Discharge with 12 day steroid taper and Combivent 2 step showed a need continuous O2 which will be provided at discharge (2) Acute bronchitis: Intravenous Levaquin started 07/03. Sputum culture showed normal axel Will give 2 more days for a five day total regimen (3) Hypoxia: As above (4) Hypertension: Stable. Continue home lisinopril (5) DVT prophylaxis: SCDs - Low risk per admission calculator Total Time Total Time Spent Total Time Spent (In Minutes): greater than 30 minutes Discharge Plan Discharge Items Patient Disposition: Home - Self-Care Reason For Visit: ASTHMA/COPD EXACERBATION Discharge Diagnosis: asthma/copd exacerbation Discharge Goals: Improve disease control Activity: Resume your previous activity Non-emergency contact: Primary Care Provider Call non-emergency contact if: you have any medication questions Follow-up/Referrals: Neymar Lopes MD [Primary Care Provider] - 07/11/18 2:00 pm (Please, follow up at Dr. Lopes's office with his associate, Katlyn PACE, on WednesdayJuly 11 at 2:00 pm. *If you need to change this appointment, call the office at [phone].) Gia Carrington PA-C [Physician Soap Chipper] - 07/18/18 10:15 am (Please, follow up at [facility] Pul[facility] Office with Gia Carrington PA-C on WednesdayJuly 18 at 10:15 am. *This office is located in [address] of [facility] - the big building located next to this [facility]. If you need to change this appointment, call the office at [phone].) Diet: Regular Addtl Provider Instructions: Please continue to use your oxygen 2 liters at night and 3 liters with exertion until you follow up with pulmonology. I have added a new inhaler called Combivent for you to use four times per day as needed. This medication has albuterol (the inhaler you were using) combined with another medication to help open your airways. Prescriptions: New prednisone 20 mg tablet 20 mg PO DAILY Qty: 15 RF: 0 levofloxacin 500 mg tablet 500 mg PO DAILY 2 Days Qty: 2 RF: 0 Combivent Respimat 20-100 mcg/actuation mist 1 puffs INH Q6H Qty: 4 RF: 0 Continued fluticasone propion-salmeterol [Advair Diskus] 250-50 mcg/dose blister with device 1 inha INH BID RF: 0 atorvastatin 10 mg tablet 10 mg PO QPM RF: 0 lisinopril 10 mg tablet 10 mg PO QPM RF: 0 fluoxetine 20 mg capsule 20 mg PO QPM RF: 0 albuterol sulfate 90 mcg/actuation aerosol powdr breath activated 2 puffs INH Q6H PRN (Reason: Shortness Of Breath) RF: 0 meloxicam 15 mg tablet 15 mg PO DAILY Qty: 30 RF: 2 Audrey Back and Body 500-32.5 mg tablet 1 tab PO BID PRN (Reason: Pain) RF: 0 gabapentin 300 mg capsule See Patient Comments mg PO TID RF: 0 Stand-Alone Forms: [facility]/Other Patient Handouts: Ipratropium [place] Albuterol Sulfate Inhaler Discharge Orders: Discharge Order (Routine); Ordered 07/05/18 Ordered By: Selam Dixon Admission Data Admit Date/Time: 07/02/18 17:19 Attending Provider: Sreekanth Amador Admit Provider: Fletcher Chanel Primary Care Provider: Neymar Lopes Other Providers: Fletcher Chanel ; Selam Dixon Service: Medical Other Interventions: Discharge Summary Assessment (RN) Last Done: 07/05/18 12:07 DC Date/Time DO NOT enter until pt leaves facility: 07/05/18 16:17
[2018-07-06] MEDS ORDERED: predniSONE 20 MG TAB PO SCH (09:00)
== END 2018-07-05 16:17 | disposition home or self-care (01) | DRG 202 ==
LOC: ED 14:19 → 4E 17:19 → SUATTDRO 17:19 → 4E 18:14
DX: E78.5 Hyperlipidemia, unspecified; J44.0 Chronic obstructive pulmonary disease with (acute) lower respiratory infection; J20.9 Acute bronchitis, unspecified; Z88.1 Allergy status to other antibiotic agents; Z79.899 Other long term (current) drug therapy; R09.02 Hypoxemia; Z88.8 Allergy status to other drugs, medicaments and biological substances; R79.1 Abnormal coagulation profile; Z79.82 Long term (current) use of aspirin; Z88.2 Allergy status to sulfonamides; F32.9 Major depressive disorder, single episode, unspecified; I10 Essential (primary) hypertension; Z87.891 Personal history of nicotine dependence; J45.901 Unspecified asthma with (acute) exacerbation

== ENCOUNTER 2020-12-16 20:30 | Observation (INO) ==
--- NOTE | 2020-12-16 22:09 | XRay Report ---
XR chest 1V portable INDICATION: MN ^SOB . TECHNIQUE: Single frontal radiograph of the chest was obtained. Comparison: Comparison is made to chest one view 07/02/2018 FINDINGS: No lines and tubes are seen. The aorta is tortuous. The remainder of the cardiomediastinal silhouette is unremarkable. The lungs are clear. No evidence of pleural effusion or pneumothorax. IMPRESSION: No acute chest disease. ACT 112: Negative or not required by law. Electronically signed by: Jeromy Robertson M.D. 12/16/2020 10:08 PM
[2020-12-16] MEDS ORDERED: methylPREDNISolone 125 MG/2 ML VIAL IV STA (22:15)
[2020-12-16] MEDS ORDERED: ALBUT/IPRATROP 3MG/0.5MG NEB 3 ML VIAL NEB STA (22:15)
[2020-12-16 22:32] LABS: Basophils # (auto) 0.01 K/uL (0-0.2); Basophils % (auto) 0.1 %; Eosinophils # (auto) 0.57 K/uL (0-0.5); Eosinophils % (auto) 5.9 %; Hematocrit (blood only) 41.5 % (37-47); Hemoglobin 13.4 g/dL (12.0-16.0); Immature Granulocytes # (auto) 0.02 K/uL (0.00-0.02); Immature Granulocytes % (auto) 0.2 %; Lymphocytes # (auto) 1.13 K/uL (1.2-3.4); Lymphocytes % (auto) 11.6 %; Mean Corpuscular Hgb Conc 32.3 g/dL (32-36); Mean Corpuscular Volume 92.8 fL (80-100); Mean Platelet Volume 10.8 fL (7.4-10.4); Monocytes # (auto) 0.75 K/uL (0.11-0.59); Monocytes % (auto) 7.7 %; Neutrophils # (auto) 7.25 K/uL (1.4-6.5); Neutrophils % (auto) 74.5 %; Platelet Count 194 K/uL (130-400); RDW Coefficient of Variation 13.3 % (11.5-14.5); RDW Standard Deviation 45.3 fL (36.4-46.3); Red Blood Count 4.47 M/uL (4.2-5.4); White Blood Count 9.73 K/uL (4.8-10.8)
[2020-12-16 22:41] LABS: INR 1.1 (0.9-1.1); Partial Thromboplastin Time 25.4 Seconds (21.0-31.0); Prothrombin Time 10.9 Seconds (9.0-12.0)
[2020-12-16 22:56] LABS: Alanine Aminotransferase 28 U/L (12-78); Albumin Level 3.7 gm/dl (3.4-5.0); Aspartate Aminotransferase 23 U/L (15-37); BUN Creatinine Ratio 19.1 (10-20); Blood Urea Nitrogen 13 mg/dl (7-18); Calcium 9.3 mg/dl (8.5-10.1); Carbon Dioxide 31 mmol/L (21-32); Chloride 101 mmol/L (98-107); Creatinine Clr Calc Pharmacy 68.4 ml/min; Est GFR (Non-African American) 84.6 ml/min; Glucose 135 mg/dl (70-99); Potassium 4.2 mmol/L (3.5-5.1); Sodium 137 mmol/L (136-145)
[2020-12-16 23:01] LABS: Albumin Globulin Ratio 0.8 (0.9-2); Alkaline Phosphatase 76 U/L (45-117); Bilirubin,Total 0.4 mg/dl (0.2-1); Globulin 4.4 gm/dl (2.5-4.0); NT Pro B Type Natriuretic Pept 118 pg/ml (0-1800); Total Protein 8.1 gm/dl (6.4-8.2); Troponin I < 0.015 ng/ml (0-0.045)
[2020-12-17] MEDS ORDERED: ALBUT/IPRATROP 3MG/0.5MG NEB 3 ML VIAL NEB STA (01:31)
--- NOTE | 2020-12-17 01:35 | Emergency Department Note ---
History of Present Illness General Chief complaint: Respiratory Problems Stated complaint: COLD,CAN'T BREATHE History of Present Illness Maximum Pain Intensity: 0 This 74-year-old with COPD presents to the ER complaining of COPD exacerbation Location: Chest Quality: Hard to breathe Severity: Moderate Duration: Past few days Timing: Started few days ago Context: Symptoms got worse and patient came in Modifying factors: better with oxygen; worse with activity Patient states she does not normally wear oxygen during the day. She has been having to wear it the past few days. Patient denies chest pain, fevers, abdominal pain, flulike illness. She has received the Covid vaccine. Home Medications Medication Instructions Recorded Confirmed Type ipratropium 20 mcg-albuterol 100 1 puffs INHALATION Q6H PRN #4 gm 07/27/19 12/17/20 Rx mcg/actuation mist for inhalation (Combivent Respimat) aspirin 81 mg tablet,delayed 81 mg PO DAILY #90 tab 04/04/20 12/17/20 Rx release atorvastatin 10 mg tablet 10 mg PO QPM #90 tab 04/04/20 12/17/20 Rx lisinopril 10 mg tablet 10 mg PO QPM #90 tab 04/04/20 12/17/20 Rx albuterol sulfate 90 mcg/actuation 2 puff INH QID PRN #6.7 gm 04/29/20 12/17/20 Rx aerosol inhaler (Ventolin HFA) triamcinolone acetonide 0.1 % 1 applic TOPICAL BID #30 g 07/23/20 12/17/20 Rx topical cream isosorbide mononitrate 30 mg 30 mg PO DAILY #90 tab 09/09/20 12/17/20 Rx tablet,extended release 24 hr meloxicam 15 mg tablet 15 mg PO DAILY #30 tab 11/18/20 12/17/20 Rx omeprazole 20 mg capsule,delayed 20 mg PO DAILY #30 cap 12/05/20 12/17/20 Rx release ciprofloxacin HCl 250 mg tablet 250 mg PO BID 7 Days #14 tab 12/13/20 12/17/20 Rx fluoxetine 10 mg capsule 10 mg PO DAILY #30 cap 12/16/20 12/17/20 Rx fluoxetine 20 mg capsule 20 mg PO DAILY 12/17/20 12/17/20 History fluticasone 250 mcg-salmeterol 50 1 inh INH BID 12/17/20 12/17/20 History mcg/dose blistr powdr for inhalation (Advair Diskus) Allergies Allergy/AdvReac Type Severity Reaction Status Date / Time sulfamethoxazole [Bactrim] Allergy Mild RASH Verified 12/17/20 01:31 trimethoprim [Bactrim] Allergy Mild RASH Verified 12/17/20 01:31 hydrochlorothiazide Allergy Unknown UNKN Verified 12/17/20 01:31 Past Med/Surg History Medical History Acute bronchitis Aortic stenosis Asthma uses prn inh 1-2 x daily. 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 Dr. Drew Family History Brother Family history of diabetes mellitus Diabetes Coronary arteriosclerosis Mother Myocardial infarction Coronary arteriosclerosis Coronary heart disease Father Myocardial infarction Coronary arteriosclerosis Coronary heart disease Denies family history of Ovarian cancer Prostate cancer Breast cancer Colorectal cancer Social History (Updated 12/17/20 @ 02:46 by Stacey Pelletier DO) Smoking Status: Former smoker Tobacco Type: Cigarettes Age Started Using Tobacco: 14; Age Quit Using Tobacco: 59; Second Hand Exposure: No; Hx Alcohol Use: No Hx Substance Use: No Preferred Language: Spanish Communication Ability: Effective Hearing Ability: Normal 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 Beliefs That Will Affect Care: None marital status: / Current Living Situation: Family Current Living Situation Comment: Granddaughter and live with her current occupational status: retired Feels Safe at Home: Yes Childhood Exposure to Second-Hand Smoke: Yes caffeine: Yes during the past year weight has: remained stable Dental Care, Regularly: No Physical Activity Frequency: Does not Exercise Seatbelt Use: always Sunscreen Use: Yes Review of Systems A total of 10 systems reviewed and were otherwise negative Physical Exam Vital Signs Vital Signs - 24 hr 12/16/20 20:44 12/16/20 22:25 10/11/21 22:27 Temperature 36.7 C Temperature Source Temporal Artery Scan Pulse Rate 104 H Pulse Rate [Finger] 107 H 105 H Pulse Rhythm [Finger] Regular Respiratory Rate 22 22 22 Respiratory Effort / Characteristics Non-Labored Spontaneous Spontaneous Labored Retracting Short of Breath SOB on Exertion Respiratory Depth Normal Respiratory Pattern Regular Blood Pressure 152/81 H Blood Pressure [Right Arm] Blood Pressure Mean 104 Blood Pressure Mean [Right Arm] Blood Pressure Position Sitting Pulse Oximetry 96 92 93 Oxygen Delivery Method Nasal Cannula Nasal Cannula Nasal Cannula Oxygen Flow Rate 3 4 Sepsis Recent Fever Within 48 Hours No Sepsis New/Unexplained Change in Mental Status No Sepsis Action Taken by Nursing No Action Required 12/17/20 01:05 12/17/20 01:06 12/17/20 01:30 Temperature Temperature Source Pulse Rate 75 Pulse Rate [Finger] 95 H Pulse Rhythm [Finger] Respiratory Rate 20 20 18 Respiratory Effort / Characteristics Non-Labored Spontaneous Non-Labored Spontaneous Respiratory Depth Normal Respiratory Pattern Blood Pressure Blood Pressure [Right Arm] 180/138 H Blood Pressure Mean Blood Pressure Mean [Right Arm] 152 Blood Pressure Position Pulse Oximetry 95 95 93 Oxygen Delivery Method Nasal Cannula Nasal Cannula Nasal Cannula Oxygen Flow Rate 3 3 3 Sepsis Recent Fever Within 48 Hours Sepsis New/Unexplained Change in Mental Status Sepsis Action Taken by Nursing 12/17/20 01:43 Temperature Temperature Source Pulse Rate Pulse Rate [Finger] 92 H Pulse Rhythm [Finger] Respiratory Rate 20 Respiratory Effort / Characteristics Spontaneous SOB on Exertion Respiratory Depth Respiratory Pattern Blood Pressure Blood Pressure [Right Arm] Blood Pressure Mean Blood Pressure Mean [Right Arm] Blood Pressure Position Pulse Oximetry 91 Oxygen Delivery Method Nasal Cannula Oxygen Flow Rate 4 Sepsis Recent Fever Within 48 Hours Sepsis New/Unexplained Change in Mental Status Sepsis Action Taken by Nursing VITALS: Vitals are noted on the nurse's note and reviewed by myself. Vital signs 85% on room air which improved on nasal cannula. GENERAL: Elderly female working to breathe, SKIN: The skin was without rashes, erythema, edema, or bruising. There is no tenting of the skin. Capillary reflex less than 2 seconds. HEAD: Normocephalic atraumatic. EARS: External auditory canals clear, EYES: Pupils equal round and reactive to light and accommodation. Conjunctivae without injection, sclerae without icterus. Extraocular movements intact. NOSE: Patent, turbinates without inflammation or discharge. MOUTH: Mucous membranes moist. Pharynx without erythema or exudate. Uvula midline. Airway patent. Tongue does not deviate. NECK: Supple without nuchal rigidity. No lymphadenopathy. No thyromegaly. Cervical spine is nontender. No JVD. HEART: Regular rate and rhythm LUNGS: Diffuse inspiratory and end expiratory wheezes, rales or rhonchi. No retractions or accessory muscle use. ABDOMEN: Positive bowel sounds x 4. Normal tympanic percussion. Soft, nontender, without masses or organomegaly. Suggs sign negative. No guarding or rebound tenderness. No CVA tenderness MUSCULOSKELETAL: No muscle atrophy, noted. NEURO: Patient was alert and oriented to person place and time. Normal sensation to light and sharp touch. No focal neurological deficits. Course Administered Medications Discontinued Medications Albuterol (Albut/Ipratrop 3mg/0.5mg Neb 3 Ml Vial) 3 ml NEB NOW STA Stop: 12/16/20 22:16 Last Admin: 12/16/20 22:27 Dose: 3 ml Documented by: [id number] Albuterol (Albut/Ipratrop 3mg/0.5mg Neb 3 Ml Vial) 3 ml NEB NOW STA Stop: 12/17/20 01:32 Last Admin: 12/17/20 01:43 Dose: 3 ml Documented by: [id number] Azithromycin (Azithromycin 250 Mg Tab) 500 mg PO NOW ONE Stop: 12/17/20 02:21 Last Admin: 12/17/20 02:25 Dose: 500 mg Documented by: [id number] Methylprednisolone (Methylprednisolone 125 Mg/2 Ml Vial) 125 mg IV NOW STA Stop: 12/16/20 22:16 Last Admin: 12/16/20 22:34 Dose: 125 mg Documented by: [id number] Medical Decision Making Medical Records Attestation: I reviewed the patient's medical records. Home Medications Current Medication List: was personally reviewed by me Laboratory Data Attestation: I reviewed the patient's lab results. Result diagrams: 12/16/20 22:15 12/16/20 22:15 Lab Results 12/16/20 12/16/20 12/16/20 Range/Units 22:15 22:15 22:15 WBC 9.73 (4.8-10.8) K/uL RBC 4.47 (4.2-5.4) M/uL Hgb 13.4 (12.0-16.0) g/dL Hct 41.5 (37-47) % MCV 92.8 (80-100) fL MCH 30.0 (25-34) pg MCHC 32.3 (32-36) g/dL RDW Std Deviation 45.3 (36.4-46.3) fL RDW Coeff of Giulia 13.3 (11.5-14.5) % Plt Count 194 (130-400) K/uL MPV 10.8 H (7.4-10.4) fL Immature Gran % (Auto) 0.2 % Neut % (Auto) 74.5 % Lymph % (Auto) 11.6 % Meagher % (Auto) 7.7 % Eos % (Auto) 5.9 % Baso % (Auto) 0.1 % Neut # (Auto) 7.25 H (1.4-6.5) K/uL Lymph # (Auto) 1.13 L (1.2-3.4) K/uL Meagher # (Auto) 0.75 H (0.11-0.59) K/uL Eos # (Auto) 0.57 H (0-0.5) K/uL Baso # (Auto) 0.01 (0-0.2) K/uL Immature Gran # (Auto) 0.02 (0.00-0.02) K/uL PT 10.9 (9.0-12.0) Seconds INR 1.1 (0.9-1.1) APTT 25.4 (21.0-31.0) Seconds PTT Ratio 1.0 Sodium 137 (136-145) mmol/L Potassium 4.2 (3.5-5.1) mmol/L Chloride 101 (98-107) mmol/L Carbon Dioxide 31 (21-32) mmol/L Anion Gap 5.0 (3-11) BUN 13 (7-18) mg/dl Creatinine 0.69 (0.6-1.2) mg/dl Est Cr Clr Drug Dosing 68.4 ml/min Est GFR ( Amer) 98.0 ml/min Est GFR (Non-Af Amer) 84.6 ml/min BUN/Creatinine Ratio 19.1 (10-20) Glucose 135 H (70-99) mg/dl Calcium 9.3 (8.5-10.1) mg/dl Magnesium 2.0 (1.8-2.4) mg/dl Total Bilirubin 0.4 (0.2-1) mg/dl AST 23 (15-37) U/L ALT 28 (12-78) U/L Alkaline Phosphatase 76 (45-117) U/L Troponin I < 0.015 (0-0.045) ng/ml NT-Pro-B Natriuret Pep 118 (0-1800) pg/ml Total Protein 8.1 (6.4-8.2) gm/dl Albumin 3.7 (3.4-5.0) gm/dl Globulin 4.4 H (2.5-4.0) gm/dl Albumin/Globulin Ratio 0.8 L (0.9-2) COVID-19 Eval Order SARS-CoV-2 (PCR) (Negative) 12/16/20 12/16/20 Range/Units 22:15 22:15 WBC (4.8-10.8) K/uL RBC (4.2-5.4) M/uL Hgb (12.0-16.0) g/dL Hct (37-47) % MCV (80-100) fL MCH (25-34) pg MCHC (32-36) g/dL RDW Std Deviation (36.4-46.3) fL RDW Coeff of Giulia (11.5-14.5) % Plt Count (130-400) K/uL MPV (7.4-10.4) fL Immature Gran % (Auto) % Neut % (Auto) % Lymph % (Auto) % Meagher % (Auto) % Eos % (Auto) % Baso % (Auto) % Neut # (Auto) (1.4-6.5) K/uL Lymph # (Auto) (1.2-3.4) K/uL Meagher # (Auto) (0.11-0.59) K/uL Eos # (Auto) (0-0.5) K/uL Baso # (Auto) (0-0.2) K/uL Immature Gran # (Auto) (0.00-0.02) K/uL PT (9.0-12.0) Seconds INR (0.9-1.1) APTT (21.0-31.0) Seconds PTT Ratio Sodium (136-145) mmol/L Potassium (3.5-5.1) mmol/L Chloride (98-107) mmol/L Carbon Dioxide (21-32) mmol/L Anion Gap (3-11) BUN (7-18) mg/dl Creatinine (0.6-1.2) mg/dl Est Cr Clr Drug Dosing ml/min Est GFR ( Amer) ml/min Est GFR (Non-Af Amer) ml/min BUN/Creatinine Ratio (10-20) Glucose (70-99) mg/dl Calcium (8.5-10.1) mg/dl Magnesium (1.8-2.4) mg/dl Total Bilirubin (0.2-1) mg/dl AST (15-37) U/L ALT (12-78) U/L Alkaline Phosphatase (45-117) U/L Troponin I (0-0.045) ng/ml NT-Pro-B Natriuret Pep (0-1800) pg/ml Total Protein (6.4-8.2) gm/dl Albumin (3.4-5.0) gm/dl Globulin (2.5-4.0) gm/dl Albumin/Globulin Ratio (0.9-2) COVID-19 Eval Order Covid19 at [facility] SARS-CoV-2 (PCR) NEGATIVE (Negative) Imaging Data Attestation: I personally reviewed and interpreted this imaging study as follows: Radiologist's Impression: Chest X-Ray 12/16/20 21:58 XR chest 1V portable INDICATION: MN ^SOB . TECHNIQUE: Single frontal radiograph of the chest was obtained. Comparison: Comparison is made to chest one view 07/02/2018 FINDINGS: No lines and tubes are seen. The aorta is tortuous. The remainder of the cardiomediastinal silhouette is unremarkable. The lungs are clear. No evidence of pleural effusion or pneumothorax. IMPRESSION: No acute chest disease. ACT 112: Negative or not required by law. Electronically signed by: Jeromy Robertson M.D. 12/16/2020 10:08 PM [facility] Narrative Prior records/ancillary studies reviewed. Triage Nursing notes reviewed. Additional history obtained from the family. The patient's history was concerning for respiratory difficulties. Differential diagnosis: Etiologies such as infections, reactive airway disease, pneumonia, pneumothorax, COPD, CHF, cardiac ischemia, pulmonary embolism, musculoskeletal, gastrointestinal, as well as others were entertained. Physical examination: As above. ER treatment provided: An order was placed for continuous cardiac monitoring. The monitor shows a rate of 60-1 20 with a sinus rhythm. Nebulizer, Solu-Medrol On reassessment the patient felt better. Diagnostic interpretation by me: The electrocardiogram was negative for acute ischemic or pathologic change. Order for dyspnea EKG: Poor baseline, no acute ST-T wave changes, rate of 105. Normal axis. Impression sinus tachycardia interpreted by myself I think arrhythmia is unlikely. EKG shows normal sinus rhythm with no interval abnormalities such as QT prolongation or WPW. There are no findings to suggest Brugada syndrome. Cardiac monitoring in the emergency department reveals no tachycardic or bradycardic dysrhythmia. Hypertrophic cardiomyopathy was considered but there are no clear historical elements pointing toward this. EKG is not suggestive. The QRS voltage is not extremely large and there are no suggestive Q waves. The labs revealed negative Covid, negative troponin Imaging studies: Chest x-ray as above. Consultation: A consultation was placed with the hospitalist. The case was discussed and diagnostics were reviewed. The patient was evaluated in the ER for further treatment. This appears to be consistent with COPD exacerbation who is hypoxic. She was given steroids and nebulizers. Ambulation trial was attempted and failed. Patient is agreeable yo treatment plan admission. Medicine was consulted. By the evaluation outlined above emergent etiologies such as CHF, cardiac ischemia, pulmonary embolism, reactive airway disease, pneumonia, pneumothorax, musculoskeletal, serious bacterial infections, as well as others were deemed relatively unlikely. The pt informed about the findings as listed above. All questions were answered and pleased with the treatment. The chart was completed utilizing [employer] Speech voice recognition software. Grammatical errors, random word insertions, pronoun errors, and incomplete sentences are an occassional consequence of this system due to software limitations, ambient noise, and hardware issues. Any formal questions or concerns about the content, text, or information contained within the body of this dictation should be directly addressed to the physician academic affairs assistant for clarification. Impression & Plan Acute exacerbation of chronic obstructive airways disease Discharge Plan Visit Data Chief Complaint: Respiratory Problems Stated Complaint: COLD,CAN'T BREATHE ED Provider: Marshal Gonsalez ED Midlevel Provider: Daisy Mcgee Discharge Problem: Acute exacerbation of chronic obstructive airways disease Patient Disposition: Admitted As Inpatient Condition: Fair
[2020-12-17] MEDS ORDERED: IPRATROPIUM BROMIDE/ALBUTEROL respimat INH INH PRN (02:20)
[2020-12-17] MEDS ORDERED: AZITHROMYCIN 250 MG TAB PO ONE (02:20)
--- NOTE | 2020-12-17 02:39 | History & Physical Report ---
Date of Service December 17, 2020 Assessment & Plan (1) Acute exacerbation of chronic obstructive airways disease: (2) Prediabetes: (3) Depression: (4) Hypertension: (5) Hyperlipidemia: (6) Urinary tract infection: Plan: 74 yo F Hx COPD, impaired fasting glucose, HTN, HLD, depression admitted for acute hypoxic respiratory failure 2/2 COPD exacerbation. Acute hypoxic respiratory failure, COPD exacerbation: Presented with increased oxygen demand; patient has recommendations for ambulatory O2 however does not often use it. Symptoms in the setting of recent contact with family member with non-COVID 19 URI. Received Solumedrol 125mg IV x1 in the ER; will continue Solumedrol 40mg IV q8h and transition when able to PO prednisone. Scheduled Duonebs with albuterol nebs q2h prn SOB/wheezing. Guaifenesin 1200mg BID. Continue home Advair BID. Currently saturating to 91% on 4LNC; titrate oxygen as able. Two step on discharge to ultimately determine oxygen need. Further education on need for oxygen by day team. Can consider CT Chest if symptoms worsening despite treatment. Prediabetes: A1c 6.2% on 09/2020. BSG on admission of 135. DM2 diet with qACHS BSG checks given robust IV steroid dosing. UTI: Prescribed Abx cipro for UTI 7 day course, to complete on 12/20. Will continue while admitted. No current urinary symptoms. HTN, HLD: Continue home lisinopril, atorvastatin. Depression: Continue home fluoxetine. Code Status: FULL CODE FEN: DM2 diet DVT ppx: Lovenox 40mg BID Dispo: Med/Surg with Telemetry History of Present Illness Chief Complaint: shortness of breath, cough Primary Care Provider: Wade Lopes MD 74 yo F Hx COPD, impaired fasting glucose, HTN, HLD, depression presented to [facility] ER for URI symptoms since Wednesday, with development of worsening SOB particularly on exertion requiring her to use her home supplemental oxygen. She was spending time with her grandchild over the weekend and he had a URI. She denies chest pain, lightheadedness, nausea or vomiting, fevers or chills. She is currently on cipro for a UTI (completes her regimen on 12/20). No current UTI symptoms. She has O2 at home but admits that she only uses it "when she needs it", which is not often. She states that typically she is about 92% on room air at rest. She had an appointment with Pulmonology in 08/2019 during which a two step revealed hypoxia to 89% with activity. She is vaccinated against COVID 19. In the ER patient was hypoxic to 85% on room air, and at time of my interview is on 4LNC saturating to 91%. CBC normal no elevated WBC count. BMP normal with glu of 135. Negative troponin, COVID 19 testing negative. XR without evidence of pulmonary edema or pneumonia. Patient reported significant improvement in symptoms following a nebulizer treatment. Allergies Allergy/AdvReac Type Severity Reaction Status Date / Time sulfamethoxazole [Bactrim] Allergy Mild RASH Verified 12/17/20 01:31 trimethoprim [Bactrim] Allergy Mild RASH Verified 12/17/20 01:31 hydrochlorothiazide Allergy Unknown UNKN Verified 12/17/20 01:31 Home Medications Medication Instructions Recorded Confirmed Type ipratropium 20 mcg-albuterol 100 1 puffs INHALATION Q6H PRN #4 gm 07/27/19 12/17/20 Rx mcg/actuation mist for inhalation (Combivent Respimat) aspirin 81 mg tablet,delayed 81 mg PO DAILY #90 tab 04/04/20 12/17/20 Rx release atorvastatin 10 mg tablet 10 mg PO QPM #90 tab 04/04/20 12/17/20 Rx lisinopril 10 mg tablet 10 mg PO QPM #90 tab 04/04/20 12/17/20 Rx albuterol sulfate 90 mcg/actuation 2 puff INH QID PRN #6.7 gm 04/29/20 12/17/20 Rx aerosol inhaler (Ventolin HFA) triamcinolone acetonide 0.1 % 1 applic TOPICAL BID #30 g 07/23/20 12/17/20 Rx topical cream isosorbide mononitrate 30 mg 30 mg PO DAILY #90 tab 09/09/20 12/17/20 Rx tablet,extended release 24 hr meloxicam 15 mg tablet 15 mg PO DAILY #30 tab 11/18/20 12/17/20 Rx omeprazole 20 mg capsule,delayed 20 mg PO DAILY #30 cap 12/05/20 12/17/20 Rx release ciprofloxacin HCl 250 mg tablet 250 mg PO BID 7 Days #14 tab 12/13/20 12/17/20 Rx fluoxetine 10 mg capsule 10 mg PO DAILY #30 cap 12/16/20 12/17/20 Rx fluoxetine 20 mg capsule 20 mg PO DAILY 12/17/20 12/17/20 History fluticasone 250 mcg-salmeterol 50 1 inh INH BID 12/17/20 12/17/20 History mcg/dose blistr powdr for inhalation (Advair Diskus) Past Med/Surg History Medical History Acute bronchitis Aortic stenosis Asthma uses prn inh 1-2 x daily. 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 Dr. Drew Family History Brother Family history of diabetes mellitus Diabetes Coronary arteriosclerosis Mother Myocardial infarction Coronary arteriosclerosis Coronary heart disease Father Myocardial infarction Coronary arteriosclerosis Coronary heart disease Denies family history of Ovarian cancer Prostate cancer Breast cancer Colorectal cancer Social History (Updated 12/17/20 @ 02:46 by Stacey Pelletier DO) Smoking Status: Former smoker Tobacco Type: Cigarettes Age Started Using Tobacco: 14; Age Quit Using Tobacco: 59; Second Hand Exposure: No; Hx Alcohol Use: No Hx Substance Use: No Preferred Language: Georgian Communication Ability: Effective Hearing Ability: Normal Machine Iii Coremaker Required: No Beliefs That Will Affect Care: None marital status: / Current Living Situation: Family Current Living Situation Comment: Granddaughter and live with her current occupational status: retired Other Information That Helps Us Care for You: No Feels Safe at Home: Yes Safety Concerns: Feels Safe At This Time Childhood Exposure to Second-Hand Smoke: Yes caffeine: Yes during the past year weight has: remained stable Dental Care, Regularly: No Physical Activity Frequency: Does not Exercise Seatbelt Use: always Sunscreen Use: Yes Assistive Devices: Oxygen - Continuous Assistive Devices Comment: upper here, lower at home Review of Systems Review of Systems: All systems reviewed & are unremarkable except as noted in HPI & below Constitutional: no fever, no chills and no malaise Respiratory: + cough and + dyspnea Cardiovascular: no chest pain, no palpitations and no edema Gastrointestinal: no abdominal pain, no constipation and no diarrhea/loose stools Genitourinary: no dysuria and no hematuria Physical Exam Constitutional: WD/WN, vitals as above + obese; no acute distress Eyes: PERRL, conjunctivae normal, anicteric sclerae ENMT: external ear and nose normal, oropharynx normal Neck: normal visual inspection Respiratory: good air movement, however with inspiratory and expiratory wheezes diffusely and bilaterally No decreased breath sounds Cardiovascular: Rate/Rhythm: regular rate and regular rhythm Heart Sounds: + murmur (2/6 systolic RUSB murmur) Extremities: + edema (trace) Gastrointestinal (Abdomen): normal bowel sounds, soft, nontender, no hepatosplenomegaly protuberant abdomen Musculoskeletal: no cyanosis or clubbing, extremities motor strength 5/5 Skin: no rashes, warm and dry Neurologic: AAOx3, normal speech. Bilateral UE, LE, and face without sensory or motor deficits. Psychiatric: A+Ox3, euthymic affect Results & Data Results & Data ([facility]) Vital Signs (Past 12 Hours) Vital Signs Temp Pulse Pulse Resp BP BP Pulse Ox 12/17/20 01:43 92 H 20 91 12/17/20 01:30 95 H 18 180/138 H 93 12/17/20 01:06 75 20 95 12/17/20 01:05 20 95 12/16/20 22:27 105 H 22 93 12/16/20 22:25 107 H 22 92 12/16/20 20:44 36.7 C 104 H 22 152/81 H 96 Code Status & VTE Plan VTE Prophylaxis Plan VTE Prophylaxis will be ordered: Yes Supervising Physician Co-Signing Physician Notes Attending addendum: I have physically seen this patient, have supervised the medical residents activities, and agree with the H&P unless as otherwise noted. Assessment and Plan: Acute respiratory failure with hypoxia/COPD exacerbation- Give Solu-Medrol 125 mg IV now then 40 mg IV every 8 hours Duonebs every 4 hours while awake and every 2 hours when necessary. Continue nasal cannula oxygen, titrate to keep pulse ox 92 to 94% Guaifenesin extended release 12 mg p.o. twice daily Azithromycin 500 mg IV daily Urinary tract infection- 7-day course of Cipro to be completed on 12/20, will continue treatment while admitted Remaining orders and notations as noted Resident Activity Tracking Resident Involvement: Resident Care Provided Care Provided: Adult Hospital Medicine
[2020-12-17] MEDS ORDERED: ALBUTEROL 0.083% NEBU SOLN 3 ML VIAL NEB PRN (03:17)
[2020-12-17] MEDS ORDERED: ACETAMINOPHEN 325 MG TAB PO PRN (03:38)
[2020-12-17] MEDS ORDERED: ONDANSETRON INJ 2 MG/ML 2 ML VIAL IV PRN (03:38)
[2020-12-17] MEDS ORDERED: POLYETHYLENE (MIRALAX) 17 GM PACK PO PRN (03:38)
[2020-12-17] MEDS: ALBUT/IPRATROP 3MG/0.5MG NEB 3 ML VIAL INH SCH ×3 (07:11→19:38)
[2020-12-17 07:30] LABS: Basophils # (auto) 0.01 K/uL (0-0.2); Basophils % (auto) 0.1 %; Hematocrit (blood only) 42.8 % (37-47); Hemoglobin 13.8 g/dL (12.0-16.0); Immature Granulocytes # (auto) 0.02 K/uL (0.00-0.02); Immature Granulocytes % (auto) 0.2 %; Lymphocytes % (auto) 5.8 %; Mean Corpuscular Hemoglobin 30.1 pg (25-34); Mean Corpuscular Hgb Conc 32.2 g/dL (32-36); Mean Corpuscular Volume 93.2 fL (80-100); Mean Platelet Volume 10.6 fL (7.4-10.4); Monocytes # (auto) 0.06 K/uL (0.11-0.59); Monocytes % (auto) 0.7 %; Neutrophils # (auto) 8.09 K/uL (1.4-6.5); Neutrophils % (auto) 93.2 %; Platelet Count 205 K/uL (130-400); RDW Coefficient of Variation 13.2 % (11.5-14.5); RDW Standard Deviation 45.1 fL (36.4-46.3); Red Blood Count 4.59 M/uL (4.2-5.4); White Blood Count 8.68 K/uL (4.8-10.8)
[2020-12-17 08:12] LABS: BUN Creatinine Ratio 19.5 (10-20); Calcium 9.3 mg/dl (8.5-10.1); Creatinine Clr Calc Pharmacy 74.9 ml/min; Est GFR (Non-African American) 87.1 ml/min; Potassium 4.4 mmol/L (3.5-5.1)
[2020-12-17] MEDS: guaiFENesin 600 MG TABCR PO SCH ×2 (08:58→21:49)
[2020-12-17] MEDS: MELOXICAM 7.5 MG TAB PO SCH (08:58)
[2020-12-17] MEDS: ENOXAPARIN INJ 40 MG/0.4 ML SYR SQ SCH ×2 (08:58→21:49)
[2020-12-17] MEDS: methylPREDNISolone 40 MG in SYRINGE 0 ML IV SCH ×2 (08:58→19:34)
[2020-12-17] MEDS: ISOSORBIDE MONO EXTENDED REL 30 MG TABCR PO SCH (08:59)
[2020-12-17] MEDS: ASPIRIN 81 MG ECTAB PO SCH (08:59)
[2020-12-17] MEDS: CIPROFLOXACIN 250 MG TAB PO SCH ×2 (08:59→21:49)
[2020-12-17] MEDS: FLUoxetine HCL 10 MG CAP PO SCH (08:59)
[2020-12-17] MEDS: PANTOprazole 40 MG TAB PO SCH (08:59)
[2020-12-17] MEDS: FLUoxetine HCL 20 MG CAP PO SCH (08:59)
[2020-12-17] MEDS: FLUTICASONE/VILANTEROL 200/25MCG 14 PUFFS/INHALER INH SCH (09:07)
[2020-12-17 09:35] LABS: Estimated Average Glucose 128 mg/dl; Hemoglobin A1C 6.1 % (4.5-5.6)
--- NOTE | 2020-12-17 15:19 | Electrocardiogram Report ---
Test Reason : Blood Pressure : / mmHG Vent. Rate : 105 BPM Atrial Rate : 105 BPM P-R Int : 122 ms QRS Dur : 078 ms QT Int : 338 ms P-R-T Axes : 067 086 065 degrees QTc Int : 446 ms Poor data quality, interpretation may be adversely affected Sinus tachycardia Nonspecific ST abnormality Abnormal ECG When compared with ECG of 02-JUL-2018 14:35, No significant change was found Confirmed by Jeremy Rojas ([id number]) on 12/17/2020 3:18:40 PM Referred By: REFERRED SELF Confirmed By:Jeremy Rojas
--- NOTE | 2020-12-17 18:51 | Hospitalist Progress Note ---
Date of Service December 17, 2020 Assessment & Plan (1) Acute exacerbation of chronic obstructive airways disease: Plan: - Appears she has an underlying restrictive lung disease; do not see PFTs to review - Presents with acute hypoxic respiratory failure - improving - At baseline does have O2 for ambulation but reports she normally doesnt use it and doesn't need O2 at rest - Will continue Solu-Medrol 40 mg IV Q8H and likely can convert to orals maybe even tomorrow pending on clinical status - Continue Duonebs; Mucinex 1200 mg BID (2) Prediabetes: Plan: - A1c 6.1 - Maintain dietary control; may run slightly higher given steroids (3) Urinary tract infection: Plan: - Found as outpatient - reports symptom resolution - Continue Cipro BID until 12/20 (4) Hypertension: Plan: - (5) Hyperlipidemia: Plan: - Fluctuating and will monitor - Continue Lisinopril 10 mg daily (6) Depression: Plan: - Continue Fluoxetine 20 mg daily Plan: - Continue active treatment and pending on clinical improvement may be able to D/C next 1-2 days; does have home O2 Admission and Anticipated Discharge Date Admission Date: December 17, 2020 Subjective Reports feeling a bit better since admission early this AM. Has weaned down to 2 L on mask but still with expiratory wheeze. Remains afebrile. Completing treatment for UTI and reports no issues there. Review of Systems Review of Systems: REVIEW OF SYSTEMS General/Constitutional: Denies fever/chills, fatigue, weakness ENT: Denies nasal drainage, sore throat, trouble swallowing Cardiovascular: Denies chest pain, palpitations, edema Respiratory: + SOB (improving), + cough GI: Denies nausea, vomiting, abdominal pain, constipation, diarrhea : Denies dysuria Musculoskeletal: Denies joint/muscle aches Neurologic: Denies dizziness/lightheadedness Skin: Denies rash, itch Physical Exam Physical Exam: PHYSICAL EXAM General Appearance: WDWN in NAD who is A&O x 3 HEENT: Head is normocephalic/atraumatic; Hearing grossly intact; Mucous membranes moist Neck: Supple; Trachea midline; Neg JVD Heart: RRR with no M/G/R Lungs: Exp wheeze noted diffusely; diminished at bases; Respirations unlabored; Neg accessory muscle use Abdomen: Soft, non-tender, non-distended; Positive BS x 4 quadrants Extremities: Neg cyanosis or edema Neurological: Speech clear; Gross motor/sensory function intact; Neg focal neurologic deficits Psychiatric: Appropriate mood/affect Skin: Normal Color; Warm/Dry Results & Data Results & Data ([facility]) Vital Signs (Past 12 Hours) Vital Signs Temp Pulse Pulse Resp BP BP Pulse Ox 12/17/20 18:23 36.7 C 94 H 20 142/65 H 93 12/17/20 17:22 36.8 C 92 H 23 150/83 H 94 12/17/20 16:30 94 12/17/20 16:20 95 12/17/20 16:10 92 12/17/20 16:00 91 12/17/20 15:50 93 12/17/20 15:40 94 12/17/20 15:30 94 12/17/20 15:20 93 12/17/20 15:10 93 12/17/20 15:00 95 12/17/20 14:50 97 H 16 92 12/17/20 14:40 97 H 23 93 12/17/20 14:30 105 H 20 90 12/17/20 14:20 100 H 19 91 12/17/20 14:10 95 H 19 92 12/17/20 14:00 92 H 20 93 12/17/20 13:50 98 H 21 92 12/17/20 13:40 101 H 18 90 12/17/20 13:30 97 H 22 92 12/17/20 13:20 105 H 22 92 12/17/20 13:10 110 H 15 90 12/17/20 13:00 102 H 17 90 12/17/20 12:51 105 H 19 98/70 L 93 12/17/20 12:50 105 H 23 98/70 L 88 L 12/17/20 12:40 91 H 18 98 12/17/20 12:30 89 88 16 96 12/17/20 12:20 93 12/17/20 12:10 92 12/17/20 12:00 92 12/17/20 11:50 92 12/17/20 11:40 94 12/17/20 11:30 94 12/17/20 11:20 93 12/17/20 11:10 93 12/17/20 11:00 94 12/17/20 10:50 96 12/17/20 10:40 93 12/17/20 10:30 94 12/17/20 10:20 21 94 12/17/20 10:10 108 H 25 H 92 12/17/20 10:00 102 H 15 92 12/17/20 09:50 99 H 18 94 12/17/20 09:40 97 H 17 95 12/17/20 09:36 97 H 17 132/106 H 94 12/17/20 09:30 97 H 22 92 12/17/20 09:20 106 H 21 92 12/17/20 09:10 106 H 23 92 12/17/20 09:00 104 H 106 H 16 161/113 H 161/113 H 94 12/17/20 08:50 92 12/17/20 08:40 93 12/17/20 08:30 88 20 94 12/17/20 08:20 99 H 18 95 12/17/20 07:18 90 19 140/97 98 12/17/20 07:11 90 20 92 PG Care Time/CCT Total # of Minutes Spent Total Time Spent with Patient: Total time spent is greater than 50% in coordination of care (as documented) at patient's floor/unit and/or counseling patient: Coding Level of Care Code None Diagnoses Acute exacerbation of chronic obstructive airways disease J44.1 Prediabetes R73.03 Urinary tract infection N39.0 Hypertension I10 Hyperlipidemia E78.5 Depression F32.9
[2020-12-17] MEDS: TRIAMCINOLONE ACET 0.1% CR 15 GM TUBE TOP SCH ×2 (20:27→21:48)
[2020-12-17] MEDS: ATORVASTATIN 10 MG TAB PO SCH (21:49)
[2020-12-17] MEDS: lisinopril 10 MG TAB PO SCH (21:49)
--- NOTE | 2020-12-17 22:43 | Billing Data ---
Date of Service December 17, 2020 Coding Level of Care Code 74969 Initial Inpt Care Lvl 3
[2020-12-18] MEDS: ALBUT/IPRATROP 3MG/0.5MG NEB 3 ML VIAL INH SCH ×2 (00:35→07:21)
[2020-12-18] MEDS: methylPREDNISolone 40 MG in SYRINGE 0 ML IV SCH ×3 (01:25→17:19)
[2020-12-18] MEDS: FLUTICASONE/VILANTEROL 200/25MCG 14 PUFFS/INHALER INH SCH (08:43)
[2020-12-18] MEDS: FLUoxetine HCL 20 MG CAP PO SCH (08:44)
[2020-12-18] MEDS: AZITHROMYCIN 250 MG TAB PO SCH (08:44)
[2020-12-18] MEDS: FLUoxetine HCL 10 MG CAP PO SCH (08:44)
[2020-12-18] MEDS: guaiFENesin 600 MG TABCR PO SCH ×2 (08:44→21:28)
[2020-12-18] MEDS: ISOSORBIDE MONO EXTENDED REL 30 MG TABCR PO SCH (08:44)
[2020-12-18] MEDS: MELOXICAM 7.5 MG TAB PO SCH (08:44)
[2020-12-18] MEDS: TRIAMCINOLONE ACET 0.1% CR 15 GM TUBE TOP SCH ×2 (08:45→21:24)
[2020-12-18] MEDS: CIPROFLOXACIN 250 MG TAB PO SCH ×2 (08:45→21:28)
[2020-12-18] MEDS: ASPIRIN 81 MG ECTAB PO SCH (08:45)
[2020-12-18] MEDS: PANTOprazole 40 MG TAB PO SCH (08:45)
[2020-12-18] MEDS: ENOXAPARIN INJ 40 MG/0.4 ML SYR SQ SCH ×2 (09:58→21:28)
--- NOTE | 2020-12-18 17:07 | Hospitalist Progress Note ---
Date of Service December 18, 2020 Assessment & Plan (1) Acute exacerbation of chronic obstructive airways disease: Plan: - Appears she has an underlying restrictive lung disease; do not see PFTs to review - Presents with acute hypoxic respiratory failure - improving - At baseline does have O2 for ambulation but reports she normally doesnt use it and doesn't need O2 at rest - Will continue Solu-Medrol 40 mg IV Q8H and likely can convert to orals maybe even tomorrow pending on clinical status - Continue Duonebs; Mucinex 1200 mg BID (2) Prediabetes: Plan: - A1c 6.1 - Maintain dietary control; may run slightly higher given steroids (3) Urinary tract infection: Plan: - Found as outpatient - reports symptom resolution - Continue Cipro BID until 12/20 (4) Hypertension: Plan: - Continue Lisinopril 10 mg daily (5) Hyperlipidemia: Plan: - Continue Atorvastatin 10 mg daily (6) Depression: Plan: - Continue Fluoxetine 20 mg daily Plan: - Continue active treatment and pending on clinical improvement may be able to D/C next 1-2 days; does have home O2 Admission and Anticipated Discharge Date Admission Date: December 17, 2020 Subjective Continues to improve. Less wheezing this afternoon but requiring supplemental O2. She feels like she has some mucous she cannot cough up but otherwise feels like she is improving. Review of Systems Review of Systems: REVIEW OF SYSTEMS General/Constitutional: Denies fever/chills, fatigue, weakness ENT: Denies nasal drainage, sore throat, trouble swallowing Cardiovascular: Denies chest pain, palpitations, edema Respiratory: + SOB (improving), + cough GI: Denies nausea, vomiting, abdominal pain, constipation, diarrhea : Denies dysuria Musculoskeletal: Denies joint/muscle aches Neurologic: Denies dizziness/lightheadedness Skin: Denies rash, itch Physical Exam Physical Exam: PHYSICAL EXAM General Appearance: WDWN in NAD who is A&O x 3 HEENT: Head is normocephalic/atraumatic; Hearing grossly intact; Mucous membranes moist Neck: Supple; Trachea midline; Neg JVD Heart: RRR with no M/G/R Lungs: Exp wheeze noted mostly just lower lobes b/l; Respirations unlabored; Neg accessory muscle use Abdomen: Soft, non-tender, non-distended; Positive BS x 4 quadrants Extremities: Neg cyanosis or edema Neurological: Speech clear; Gross motor/sensory function intact; Neg focal neurologic deficits Psychiatric: Appropriate mood/affect Skin: Normal Color; Warm/Dry Results & Data Results & Data ([facility]) Vital Signs (Past 12 Hours) Vital Signs Temp Pulse Pulse Resp BP Pulse Ox 12/18/20 16:08 95 H 12/18/20 15:14 36.9 C 88 20 126/73 90 12/18/20 11:26 36.6 C 96 H 20 117/65 92 12/18/20 11:00 90 12/18/20 07:40 36.9 C 103 H 20 126/59 L 12/18/20 07:22 78 20 84 L PG Care Time/CCT Total # of Minutes Spent Total Time Spent with Patient: Total time spent is greater than 50% in coordination of care (as documented) at patient's floor/unit and/or counseling patient: Coding Level of Care Code 38605 Subseq Hosp Care Lvl 3 Diagnoses Acute exacerbation of chronic obstructive airways disease J44.1 Prediabetes R73.03 Urinary tract infection N39.0 Hypertension I10 Hyperlipidemia E78.5 Depression F32.9
[2020-12-18] MEDS: lisinopril 10 MG TAB PO SCH (21:28)
[2020-12-18] MEDS: ATORVASTATIN 10 MG TAB PO SCH (21:28)
[2020-12-19] MEDS: methylPREDNISolone 40 MG in SYRINGE 0 ML IV SCH ×2 (02:06→08:43)
[2020-12-19] MEDS: PANTOprazole 40 MG TAB PO SCH (08:37)
[2020-12-19] MEDS: AZITHROMYCIN 250 MG TAB PO SCH (08:38)
[2020-12-19] MEDS: MELOXICAM 7.5 MG TAB PO SCH (08:38)
[2020-12-19] MEDS: FLUoxetine HCL 20 MG CAP PO SCH (08:38)
[2020-12-19] MEDS: ISOSORBIDE MONO EXTENDED REL 30 MG TABCR PO SCH (08:39)
[2020-12-19] MEDS: ASPIRIN 81 MG ECTAB PO SCH (08:40)
[2020-12-19] MEDS: guaiFENesin 600 MG TABCR PO SCH (08:41)
[2020-12-19] MEDS: CIPROFLOXACIN 250 MG TAB PO SCH (08:41)
[2020-12-19] MEDS: ENOXAPARIN INJ 40 MG/0.4 ML SYR SQ SCH (08:41)
[2020-12-19] MEDS: FLUoxetine HCL 10 MG CAP PO SCH (08:42)
[2020-12-19] MEDS: FLUTICASONE/VILANTEROL 200/25MCG 14 PUFFS/INHALER INH SCH (08:43)
[2020-12-19] MEDS: TRIAMCINOLONE ACET 0.1% CR 15 GM TUBE TOP SCH (08:44)
--- NOTE | 2020-12-19 18:56 | Discharge Summary ---
Date of Service December 19, 2020 Admission HPI Per Admitting Provider 74 yo F Hx COPD, impaired fasting glucose, HTN, HLD, depression presented to the ER for URI symptoms since Wednesday, with development of worsening SOB particularly on exertion requiring her to use her home supplemental oxygen. She was spending time with her grandchild over the weekend and he had a URI. She denies chest pain, lightheadedness, nausea or vomiting, fevers or chills. She is currently on cipro for a UTI (completes her regimen on 12/20). No current UTI symptoms. She has O2 at home but admits that she only uses it "when she needs it", which is not often. She states that typically she is about 92% on room air at rest. She had an appointment with Pulmonology in 08/2019 during which a two step revealed hypoxia to 89% with activity. She is vaccinated against COVID 19. In the ER patient was hypoxic to 85% on room air, and at time of my interview is on 4LNC saturating to 91%. CBC normal no elevated WBC count. BMP normal with glu of 135. Negative troponin, COVID 19 testing negative. XR without evidence of pulmonary edema or pneumonia. Patient reported significant improvement in symptoms following a nebulizer treatment. Principal Diagnosis Acute Exacerbation of COPD Discharge Exam PHYSICAL EXAM General Appearance: WDWN in NAD who is A&O x 3 HEENT: Head is normocephalic/atraumatic; Hearing grossly intact; Mucous membranes moist Neck: Supple; Trachea midline; Neg JVD Heart: RRR with no M/G/R Lungs: Exp wheeze noted mid lung b/l but good aeration; Respirations unlabored; Neg accessory muscle use; mildly moist cough Abdomen: Soft, non-tender, non-distended; Positive BS x 4 quadrants Extremities: Neg cyanosis or edema Neurological: Speech clear; Gross motor/sensory function intact; Neg focal n eurologic deficits Psychiatric: Appropriate mood/affect Skin: Normal Color; Warm/Dry Discharge Data Allergies Allergy/AdvReac Type Severity Reaction Status Date / Time sulfamethoxazole [Bactrim] Allergy Mild RASH Verified 12/17/20 01:31 trimethoprim [Bactrim] Allergy Mild RASH Verified 12/17/20 01:31 hydrochlorothiazide Allergy Unknown UNKN Verified 12/17/20 01:31 Consultations 12/17/20 01:30 ED Decision to Admit Stat Ordered Studies Chest X-Ray 12/16/20 21:58 XR chest 1V portable INDICATION: MN ^SOB . TECHNIQUE: Single frontal radiograph of the chest was obtained. Comparison: Comparison is made to chest one view 07/02/2018 FINDINGS: No lines and tubes are seen. The aorta is tortuous. The remainder of the cardiomediastinal silhouette is unremarkable. The lungs are clear. No evidence of pleural effusion or pneumothorax. IMPRESSION: No acute chest disease. ACT 112: Negative or not required by law. Electronically signed by: Jeromy Robertson M.D. 12/16/2020 10:08 PM Hospital Course (1) Acute exacerbation of chronic obstructive airways disease: - Appears she has an underlying restrictive lung disease; do not see PFTs to review - Presents with acute hypoxic respiratory failure - improving - At baseline does have O2 for ambulation but reports she normally doesn't use it and doesn't need O2 at rest -- She does have adequate O2 supplies at home and two step suggests 2 L with rest and 3 L with ambulation. Patient has nebulizer machine at home as well. She is very knowledgeable about the management of this a feel she can safely transition home with supplemental O2 and monitor her O2 saturations and wean as needed - Treated with IV steroids and converted to Prednisone 40 mg daily and will taper down - Continue Duonebs; home inhalers, Mucinex 1200 mg BID, and will cover with 2 more days of Zithromax (2) Prediabetes: - A1c 6.1 - Maintain dietary control; may run slightly higher given steroids however no intervention needed at this time (3) Urinary tract infection: - Found as outpatient - reports symptom resolution - Continue Cipro BID until 12/20 to complete treatment course (4) Hypertension: - Continue Lisinopril 10 mg daily (5) Hyperlipidemia: - Continue Atorvastatin 10 mg daily (6) Depression: - Continue Fluoxetine 20 mg daily - Recommend follow-up with PCP to monitor for continued improvement - Did renew her albuterol inhaler and nebs Total Time Total Time Spent Total Time Spent (In Minutes): Spent greater than 30 minutes preparing patient for discharge. This includes discussion with patient/family, assessment, intervention, medication reconciliation, and coordination of care. Discharge Plan Discharge Items Patient Disposition: Home - Self-Care Reason For Visit: COPD EXACERBATION Discharge Diagnosis: COPD Exacerbation Condition on Discharge: Fair Activity: Resume your previous activity Non-emergency contact: Primary Care Provider Call non-emergency contact if: you have any medication questions, your symptoms worsen and you have a fever Follow-up/Referrals: Wade Lopes MD [Primary Care Provider] - 12/30/20 11:00 am Diet: Carb Consistent or DM2 Addtl Attending Provider Instructions: Exacerbation of COPD/Restrictive Lung Disease: - You were admitted due to an exacerbation of your restrictive lung disease. - Luckily there is no pneumonia on your imaging and should feel better each day but definitely want to take it easy for the next few days. Get plenty of rest and stay hydrated - Recommend to continue your nebulizer and inhalers. - For now, recommend to wear 2 L of oxygen at rest and 3 L with walking. - You will finish a course of Prednisone as follows. Start this tomorrow as you had steroids today -- Prednisone 40 mg x 3 days then 30 mg x 3 days, then 20 mg x 3 days then 10 mg x 3 days - Continue the Mucinex twice a day - We will also do two more days of Zithromax and you can start this tomorrow since you had a dose today UTI: - Please continue your antibiotics for the urine as previously prescribed Home Medications: - Please continue home medications as previously prescribed as we did not make adjustments to these Pending Studies at Discharge: No Stand-Alone Forms: My [facility] [employer], Smoking Cessation Medications and DC Order Prescriptions: New azithromycin 250 mg Tablet 250 mg PO QAM Qty: 2 RF: 0 guaifenesin [Mucinex] 600 mg Tablet Extended Release 12hr 1,200 mg PO BID 7 Days Qty: 28 RF: 0 albuterol sulfate 2.5 mg /3 mL (0.083 %) Solution For Nebulization 2.5 mg NEB Q4H PRN (Reason: shortness of breath or wheezing) 14 Days Qty: 90 RF: 0 prednisone 10 mg tablet 10 mg PO UD Qty: 30 RF: 0 Continued Combivent Respimat 20-100 mcg/actuation mist 1 puffs inhalation Q6H PRN (Reason: shortness of breath or wheezing) Qty: 4 RF: 3 aspirin 81 mg tablet,delayed release (DR/EC) 81 mg PO DAILY Qty: 90 RF: 3 atorvastatin 10 mg tablet 10 mg PO QPM Qty: 90 RF: 3 lisinopril 10 mg tablet 10 mg PO QPM Qty: 90 RF: 3 meloxicam 15 mg tablet 15 mg PO DAILY Qty: 30 RF: 11 ciprofloxacin HCl 250 mg tablet 250 mg PO BID 7 Days Qty: 14 RF: 0 fluoxetine 10 mg capsule 10 mg PO DAILY Qty: 30 RF: 3 triamcinolone acetonide 0.1 % cream 1 applic topical BID Qty: 30 RF: 2 isosorbide mononitrate 30 mg tablet extended release 24 hr 30 mg PO DAILY Qty: 90 RF: 2 omeprazole 20 mg capsule,delayed release(DR/EC) 20 mg PO DAILY Qty: 30 RF: 5 fluticasone propion-salmeterol [Advair Diskus] 250-50 mcg/dose blister with device 1 inh INH BID RF: 0 fluoxetine 20 mg capsule 20 mg PO DAILY RF: 0 albuterol sulfate [Ventolin HFA] 90 mcg/actuation HFA aerosol inhaler 2 puff INH QID PRN (Reason: shortness of breath or wheezing) Qty: 6.7 RF: 3 Discharge Orders: Discharge Order (Routine); Ordered 12/19/20 Ordered By: Shelley Agrawal/Other Patient Handouts: A1C, Prediabetes, 5 Steps for Eating Healthier Admission Data Admit Date/Time: 12/17/20 02:20 Attending Provider: Jeromy Stack Admit Provider: Stacey Pelletier Primary Care Provider: Wade Lopes Other Providers: Julio Holliday Other Interventions: Discharge Summary Assessment (RN) Last Done: 12/19/20 15:13 Supervising Physician Co-Signing Physician Notes Attending note: patient seen and examined with Shelley Flores PA-C. I agree with her discharge summary. I personally reviewed the labs and imaging findings. patient doing much better, breathing easier, no fever, minimal cough, no chest pain she confirms that she feels well enough to go home - COPD exacerbation, chronic hypoxic respiratory failure discharge on Prednisone taper, has nebulizers at home has home oxygen, needs 2L at rest and 3L on exertion based on 2 step evaluation Coding Level of Care Code D/C DAY MANAGEMENT >30 MINS Diagnoses Acute exacerbation of chronic obstructive airways disease J44.1 Prediabetes R73.03 Urinary tract infection N39.0 Hypertension I10 Hyperlipidemia E78.5 Depression F32.9
== END 2020-12-19 16:26 | disposition home or self-care (01) ==
LOC: ED 20:30 → SUATTDRO 12-17 02:20 → EDINP 12-17 02:20 → INTOOBSV 12-17 02:20 → EDINP 12-17 03:20 → 2W 12-17 18:04

== ENCOUNTER 2022-05-06 14:22 | Observation (INO) ==
[2022-05-06 15:18] LABS: Basophils # (auto) 0.03 K/uL (0-0.2); Basophils % (auto) 0.4 %; Eosinophils # (auto) 0.55 K/uL (0-0.50); Eosinophils % (auto) 6.9 %; Hemoglobin 8.5 g/dl (12.0-16.0); Immature Granulocytes # (auto) 0.02 K/uL (0.01-0.20); Immature Granulocytes % (auto) 0.3 %; Lymphocytes # (auto) 2.11 K/uL (1.2-3.4); Lymphocytes % (auto) 26.6 %; Mean Corpuscular Hemoglobin 25.7 pg (25.0-34.0); Mean Corpuscular Hgb Conc 30.4 g/dL (32.0-36.0); Mean Corpuscular Volume 84.6 fL (80.0-100.0); Mean Platelet Volume 11.1 fL (9.4-12.4); Monocytes # (auto) 0.49 K/uL (0.11-0.59); Monocytes % (auto) 6.2 %; Neutrophils # (auto) 4.72 K/uL (1.40-6.50); Neutrophils % (auto) 59.6 %; Platelet Count 269 K/uL (130-400); RDW Coefficient of Variation 14.1 % (11.5-14.5); RDW Standard Deviation 43.3 fL (36.4-46.3); Red Blood Count 3.31 M/uL (4.20-5.40); White Blood Count 7.92 K/ul (4.8-10.8)
--- NOTE | 2022-05-06 15:29 | Electrocardiogram Report ---
Test Reason : Blood Pressure : / mmHG Vent. Rate : 083 BPM Atrial Rate : 083 BPM P-R Int : 142 ms QRS Dur : 082 ms QT Int : 382 ms P-R-T Axes : 063 074 065 degrees QTc Int : 448 ms Poor data quality, interpretation may be adversely affected Normal sinus rhythm Nonspecific ST abnormality Abnormal ECG When compared with ECG of 18-FEB-2022 12:52, No significant change was found Confirmed by Jeremy Rojas ([id number]) on 05/06/2022 3:29:22 PM Referred By: Confirmed By:Jeremy Rojas
--- NOTE | 2022-05-06 15:32 | XRay Report ---
XR chest 2V PA/lateral HISTORY: Shortness of breath. COMPARISON: Chest 02/18/2022. FINDINGS: The lungs are clear. The cardiac silhouette remains borderline enlarged. No pleural effusio ns. No pneumothorax. No evidence for pulmonary edema. There are calcifications within the aortic knob . Degenerative changes within the thoracic spine. IMPRESSION: No significant change compared to the prior study. No acute process. ACT 112: Negative or not required by law. Electronically signed by: Chalo Arroyo M.D. 05/06/2022 3:30 PM
[2022-05-06 15:38] LABS: Alanine Aminotransferase 12 U/L (7-52); Albumin Globulin Ratio 1.3 (0.9-2); Albumin Level 4.1 gm/dl (3.4-5.0); Alkaline Phosphatase 64 U/L (34-104); Anion Gap 4 (3-11); Aspartate Aminotransferase 15 U/L (13-39); BUN Creatinine Ratio 36.7 (10-20); Bilirubin,Total 0.3 mg/dl (0.2-1.0); Blood Urea Nitrogen 22 mg/dl (6-23); Calcium 9.4 mg/dl (8.5-10.1); Carbon Dioxide 30 mmol/L (21-32); Chloride 105 mmol/L (98-107); Est GFR (African American) 101.2 ml/min; Est GFR (Non-African American) 87.3 ml/min; Globulin 3.1 gm/dl (2.5-4.0); Glucose 112 mg/dl (70-99(Fasting)); Magnesium 1.9 mg/dl (1.7-2.4); Sodium 139 mmol/L (136-145); Total Protein 7.2 gm/dl (6.0-8.3)
[2022-05-06 15:43] LABS: INR 1.1 (0.9-1.1); Partial Thromboplastin Ratio 0.8; Partial Thromboplastin Time 23.1 Seconds (21.0-31.0)
[2022-05-06 15:44] LABS: Troponin I High Sensitivity 4.6 pg/ml (0-14)
[2022-05-06 15:46] LABS: Influenza A virus by PCR Negative (Neg); Influenza B virus by PCR Negative (Neg); RSV by PCR Negative (Neg); SARS CoV2 RNA(COVID-19) Ceph NEGATIVE (Negative)
--- NOTE | 2022-05-06 15:59 | Emergency Department Note ---
History of Present Illness General Chief complaint: Shortness of Breath/Dyspnea Stated complaint: SHORT OF BREATH Time Seen by Provider: 05/06/22 15:33 Source: patient, RN notes reviewed and old records reviewed Mode of arrival: ambulatory Limitations: no limitations History of Present Illness Maximum Pain Intensity: 9 This patient is 76-year-old female who comes in after feeling short of breath for the last couple days she staying with her brother lives on the third floor is mostly dyspnea on exertion. No chest pain no cough no fever no blood or melena stool no abdominal pain she has chronic back pain from spinal stenosis which is unchanged no lower extremity pain or swelling no focal numbness or weakness. No abdominal pain. She does have a history of breast cancer was recently diagnosed about 3 weeks ago she had a right-sided lumpectomy and has not yet had chemo or radiation she says she is waiting on the results denies history of diabetes or cardiac disease she has asthma and uses inhalers but fe els that stable and this is not different. She has no history of GI bleed or stomach issues. Home Medications Medication Instructions Recorded Confirmed Type albuterol sulfate 90 mcg/actuation 2 puff inhalation QID PRN 02/25/22 05/06/22 Rx aerosol inhaler (Ventolin HFA) shortness of breath or wheezing #8.5 grams fluticasone 250 mcg-salmeterol 50 1 inh inhalation BID #60 ea 02/25/22 05/06/22 Rx mcg/dose blistr powdr for inhalation (Advair Diskus) ipratropium 20 mcg-albuterol 100 1 puff inhalation Q6H PRN 02/25/22 05/06/22 Rx mcg/actuation mist for inhalation shortness of breath or wheezing #4 (Combivent Respimat) grams aspirin 81 mg tablet,delayed 81 mg PO HS 02/26/22 05/06/22 History release atorvastatin 10 mg tablet 10 mg PO HS 02/26/22 05/06/22 History fluoxetine 40 mg capsule 40 mg PO HS 02/26/22 05/06/22 History lisinopril 10 mg tablet 10 mg PO HS 02/26/22 05/06/22 History meloxicam 15 mg tablet 15 mg PO HS 02/26/22 05/06/22 History omeprazole 20 mg capsule,delayed 20 mg PO HS 02/26/22 05/06/22 History release isosorbide mononitrate 30 mg 30 mg PO HS 05/06/22 05/06/22 History tablet,extended release 24 hr Allergies Allergy/AdvReac Type Severity Reaction Status Date / Time hydrochlorothiazide Allergy Intermediate Rash Verified 05/06/22 17:04 sulfamethoxazole [Bactrim] Allergy Intermediate RASH Verified 05/06/22 17:04 trimethoprim [Bactrim] Allergy Intermediate RASH Verified 05/06/22 17:04 Past Med/Surg History Medical History Aortic stenosis Moderate to severe AV stenosis per 12/03/21 ECHO Asthma On inhalers Breast cancer Right Cancer Skin cancer to face- s/p removal Depression GERD (gastroesophageal reflux disease) History of COVID-19 07/2021, home test, not hosp; mild symptoms>resolved. Hyperlipidemia Hypertension Lumbar facet joint syndrome Lumbar spinal stenosis Moderate to severe at L4-5 Prediabetes Hgb A1C 6.0 06/2021 Surgical History H/O right breast biopsy (03/19/22) Right Breast Lumpectomy with Localization Using Wire Localization, Right Wallback Lymph Node Biopsy(Right) - Vincent Fierro DO History of cataract surgery lt/rt History of colonoscopy w/ polypectomy History of lumpectomy of right breast Wallback node biopsy. 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 Dr. Drew Family History Brother Family history of diabetes mellitus Diabetes Coronary arteriosclerosis Mother Myocardial infarction Coronary arteriosclerosis Coronary heart disease Heart disease Father Myocardial infarction Coronary arteriosclerosis Coronary heart disease Heart disease Other Breast cancer Denies family history of Ovarian cancer Prostate cancer Colorectal cancer Social History Smoking Status: Former smoker Tobacco Type: Cigarettes Age Started Using Tobacco: 14; Age Quit Using Tobacco: 59; Second Hand Exposure: No; Hx Alcohol Use: No Hx Substance Use: No Preferred Language: Tanzanian Communication Ability: Effective Visual Impairment: No Limitations Hearing Ability: Normal 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 Healthcare Required: No Beliefs That Will Affect Care: None marital status: / Current Living Situation: Family Current Living Situation Comment: Granddaughter + family and brother current occupational status: retired Feels Safe at Home: Yes Childhood Exposure to Second-Hand Smoke: Yes caffeine: Yes during the past year weight has: remained stable Dental Care, Regularly: No Physical Activity Frequency: Does not Exercise Seatbelt Use: sometimes Assistive Devices: Denture - Upper and Denture - Lower Immunizations: Family history- Parents CAD Social historydoes not smoke but quit 15 to 16 years ago. Denies alcohol or drug use. Review of Systems A total of 10 systems reviewed and were otherwise negative Physical Exam Vital Signs Vital Signs - 24 hr 05/06/22 14:32 05/06/22 16:15 05/06/22 14:36 Temperature 36.7 C Temperature Source Temporal Artery Scan Pulse Rate 83 81 Respiratory Rate 22 Respiratory Effort / Characteristics Non-Labored Spontaneous Respiratory Depth Normal Respiratory Pattern Regular Blood Pressure 116/58 L Blood Pressure Mean 77 Pulse Oximetry 96 Oxygen Delivery Method Room Air Room Air Sepsis Recent Fever Within 48 Hours No Sepsis New/Unexplained Change in Mental Status No Sepsis Action Taken by Nursing No Action Required 05/06/22 20:27 Temperature Temperature Source Pulse Rate 79 Respiratory Rate Respiratory Effort / Characteristics Respiratory Depth Respiratory Pattern Blood Pressure Blood Pressure Mean Pulse Oximetry Oxygen Delivery Method Sepsis Recent Fever Within 48 Hours Sepsis New/Unexplained Change in Mental Status Sepsis Action Taken by Nursing General: Well developed well nourished older female who appears in no acute distress, breathing comfortably on room air. Normal speech HEENT: Normal cephalic atraumatic. Pupils are equal round and reactive to light. Extraocular movements are intact. Oropharynx is pink with moist mucous membranes. No swelling of the mouth lips or tongue. Neck: Supple with a midline trachea. No meningeal signs or stiffness, no JVD or bruits. No Stridor. Chest: Clear to auscultation bilaterally. No wheezes or rhonchi. No increased work of breathing. Heart: Regular rate and rhythm without murmurs or gallops. Abdomen: Soft nontender, nondistended without rebound guarding or rigidity. Rectal: Performed in the presence of female nurse shipper/receiver. Brown stool. Guaiac positive. Extremities: No cyanosis clubbing or edema. No calf tenderness or assymetry Spine/Back. Non tender to palpation. No CVA tenderness Skin: Good turgor without rashes. Neurologic exam: Cranial nerves two through 12 are intact. Motor and sensation are intact and symmetrical throughout. Medical Decision Making Differential Diagnosis Acute coronary syndrome, arrhythmia, infection, CHF, electrolyte or metabolic abnormality, PE, anemia Medical Records Attestation: I reviewed the patient's medical records. Home Medications Current Medication List: was personally reviewed by me Laboratory Data Attestation: I reviewed the patient's lab results. 05/06/22 14:50 05/06/22 14:50 Lab Results 05/06/22 05/06/22 05/06/22 Range/Units 14:50 14:50 14:50 WBC 7.92 (4.8-10.8) K/ul RBC 3.31 L (4.20-5.40) M/uL Hgb 8.5 L (12.0-16.0) g/dl Hct 28.0 L (37.0-47.0) % MCV 84.6 (80.0-100.0) fL MCH 25.7 (25.0-34.0) pg MCHC 30.4 L (32.0-36.0) g/dL RDW Std Deviation 43.3 (36.4-46.3) fL RDW Coeff of Giulia 14.1 (11.5-14.5) % Plt Count 269 (130-400) K/uL MPV 11.1 (9.4-12.4) fL Immature Gran % (Auto) 0.3 % Neut % (Auto) 59.6 % Lymph % (Auto) 26.6 % Branch % (Auto) 6.2 % Eos % (Auto) 6.9 % Baso % (Auto) 0.4 % Neut # (Auto) 4.72 (1.40-6.50) K/uL Lymph # (Auto) 2.11 (1.2-3.4) K/uL Branch # (Auto) 0.49 (0.11-0.59) K/uL Eos # (Auto) 0.55 H (0-0.50) K/uL Baso # (Auto) 0.03 (0-0.2) K/uL Immature Gran # (Auto) 0.02 (0.01-0.20) K/uL PT 12.0 (9.0-12.0) Seconds INR 1.1 (0.9-1.1) APTT 23.1 (21.0-31.0) Seconds PTT Ratio 0.8 D-Dimer (0-500) ug/L FEU Sodium 139 (136-145) mmol/L Potassium 4.0 (3.5-5.1) mmol/L Chloride 105 (98-107) mmol/L Carbon Dioxide 30 (21-32) mmol/L Anion Gap 4 (3-11) BUN 22 (6-23) mg/dl Creatinine 0.60 (0.6-1.2) mg/dl Est Cr Clr Drug Dosing Not Reportable Est GFR ( Amer) 101.2 ml/min Est GFR (Non-Af Amer) 87.3 ml/min BUN/Creatinine Ratio 36.7 H (10-20) Glucose 112 H (70-99(Fasting)) mg/dl Calcium 9.4 (8.5-10.1) mg/dl Magnesium 1.9 (1.7-2.4) mg/dl Total Bilirubin 0.3 (0.2-1.0) mg/dl AST 15 (13-39) U/L ALT 12 (7-52) U/L Alkaline Phosphatase 64 (34-104) U/L Troponin I High Sens 4.6 (0-14) pg/ml B-Natriuretic Peptide (0-100) pg/ml Total Protein 7.2 (6.0-8.3) gm/dl Albumin 4.1 (3.4-5.0) gm/dl Globulin 3.1 (2.5-4.0) gm/dl Albumin/Globulin Ratio 1.3 (0.9-2) SARS-CoV-2 (PCR) (Negative) Influenza Type A (PCR) (Neg) Influenza Type B (PCR) (Neg) RSV (RT-PCR) (Neg) Blood Type Antibody Screen Crossmatch 05/06/22 05/06/22 05/06/22 Range/Units 14:50 16:03 16:03 WBC (4.8-10.8) K/ul RBC (4.20-5.40) M/uL Hgb (12.0-16.0) g/dl Hct (37.0-47.0) % MCV (80.0-100.0) fL MCH (25.0-34.0) pg MCHC (32.0-36.0) g/dL RDW Std Deviation (36.4-46.3) fL RDW Coeff of Giulia (11.5-14.5) % Plt Count (130-400) K/uL MPV (9.4-12.4) fL Immature Gran % (Auto) % Neut % (Auto) % Lymph % (Auto) % Branch % (Auto) % Eos % (Auto) % Baso % (Auto) % Neut # (Auto) (1.40-6.50) K/uL Lymph # (Auto) (1.2-3.4) K/uL Branch # (Auto) (0.11-0.59) K/uL Eos # (Auto) (0-0.50) K/uL Baso # (Auto) (0-0.2) K/uL Immature Gran # (Auto) (0.01-0.20) K/uL PT (9.0-12.0) Seconds INR (0.9-1.1) APTT (21.0-31.0) Seconds PTT Ratio D-Dimer 620 H* (0-500) ug/L FEU Sodium (136-145) mmol/L Potassium (3.5-5.1) mmol/L Chloride (98-107) mmol/L Carbon Dioxide (21-32) mmol/L Anion Gap (3-11) BUN (6-23) mg/dl Creatinine (0.6-1.2) mg/dl Est Cr Clr Drug Dosing Est GFR ( Amer) ml/min Est GFR (Non-Af Amer) ml/min BUN/Creatinine Ratio (10-20) Glucose (70-99(Fasting)) mg/dl Calcium (8.5-10.1) mg/dl Magnesium (1.7-2.4) mg/dl Total Bilirubin (0.2-1.0) mg/dl AST (13-39) U/L ALT (7-52) U/L Alkaline Phosphatase (34-104) U/L Troponin I High Sens (0-14) pg/ml B-Natriuretic Peptide 129 H (0-100) pg/ml Total Protein (6.0-8.3) gm/dl Albumin (3.4-5.0) gm/dl Globulin (2.5-4.0) gm/dl Albumin/Globulin Ratio (0.9-2) SARS-CoV-2 (PCR) NEGATIVE (Negative) Influenza Type A (PCR) Negative (Neg) Influenza Type B (PCR) Negative (Neg) RSV (RT-PCR) Negative (Neg) Blood Type Antibody Screen Crossmatch 05/06/22 Range/Units 16:47 WBC (4.8-10.8) K/ul RBC (4.20-5.40) M/uL Hgb (12.0-16.0) g/dl Hct (37.0-47.0) % MCV (80.0-100.0) fL MCH (25.0-34.0) pg MCHC (32.0-36.0) g/dL RDW Std Deviation (36.4-46.3) fL RDW Coeff of Giulia (11.5-14.5) % Plt Count (130-400) K/uL MPV (9.4-12.4) fL Immature Gran % (Auto) % Neut % (Auto) % Lymph % (Auto) % Branch % (Auto) % Eos % (Auto) % Baso % (Auto) % Neut # (Auto) (1.40-6.50) K/uL Lymph # (Auto) (1.2-3.4) K/uL Branch # (Auto) (0.11-0.59) K/uL Eos # (Auto) (0-0.50) K/uL Baso # (Auto) (0-0.2) K/uL Immature Gran # (Auto) (0.01-0.20) K/uL PT (9.0-12.0) Seconds INR (0.9-1.1) APTT (21.0-31.0) Seconds PTT Ratio D-Dimer (0-500) ug/L FEU Sodium (136-145) mmol/L Potassium (3.5-5.1) mmol/L Chloride (98-107) mmol/L Carbon Dioxide (21-32) mmol/L Anion Gap (3-11) BUN (6-23) mg/dl Creatinine (0.6-1.2) mg/dl Est Cr Clr Drug Dosing Est GFR ( Amer) ml/min Est GFR (Non-Af Amer) ml/min BUN/Creatinine Ratio (10-20) Glucose (70-99(Fasting)) mg/dl Calcium (8.5-10.1) mg/dl Magnesium (1.7-2.4) mg/dl Total Bilirubin (0.2-1.0) mg/dl AST (13-39) U/L ALT (7-52) U/L Alkaline Phosphatase (34-104) U/L Troponin I High Sens (0-14) pg/ml B-Natriuretic Peptide (0-100) pg/ml Total Protein (6.0-8.3) gm/dl Albumin (3.4-5.0) gm/dl Globulin (2.5-4.0) gm/dl Albumin/Globulin Ratio (0.9-2) SARS-CoV-2 (PCR) (Negative) Influenza Type A (PCR) (Neg) Influenza Type B (PCR) (Neg) RSV (RT-PCR) (Neg) Blood Type O Positive Antibody Screen NEGATIVE Crossmatch See Detail Imaging Data Attestation: I personally reviewed and interpreted this imaging study as follows: My Impression: Chest x-rayno acute infiltrate, failure, pneumothorax seen Radiologist's Impression: Chest X-Ray 05/06/22 14:36 XR chest 2V PA/lateral HISTORY: Shortness of breath. COMPARISON: Chest 02/18/2022. FINDINGS: The lungs are clear. The cardiac silhouette remains borderline enlarged. No pleural effusions. No pneumothorax. No evidence for pulmonary edema. There are calcifications within the aortic knob. Degenerative changes within the thoracic spine. IMPRESSION: No significant change compared to the prior study. No acute process. ACT 112: Negative or not required by law. Electronically signed by: Chalo Arroyo M.D. 05/06/2022 3:30 PM ECG Data Attestation: I personally reviewed and interpreted this ECG as follows: Indication: + SOB/dyspnea Rate (beats per minute): 83 Rhythm: + normal sinus ECG Intervals/blocks: + Normal QRS, + Normal QT and + Normal CO ECG [place]: + Normal ECG ST segments: + Nonspecific ST abnormalities ECG Findings: no PACs or no PVCs Comparison ECG Date: from (02/18/22) Change: no significant change MDM Narrative This patient is a 76-year-old female who comes in after an dyspnea on exertion. I did see her out in triage initially to help expedite her care. Blood work had been previously ordered. EKG shows some nonspecific ST abnormalities which are unchanged compared to old. Her hemoglobin was low at 8.5 she reports no GI bleeding type symptoms. It was 11 on the February 18 of last year and December 2019 was 13.8 so she has had a drop. Some that could be from recent surgery. Chest x-ray shows no acute infiltrate, failure, pneumothorax. She has no significant electrolyte or metabolic abnormalities. I did do a rectal exam and while it was grossly did not look melanotic or bloody it was guaiac positive. This was done in the presence of female nurse shipper/receiver. Her D-dimer is mildly elevated do not think she likely has a PE I think this is all related to a GI bleed her symptoms are dyspnea on exertion I have typed and crossed her for possible transfusion if her symptoms get worse. I have discussed the case with the [facility] hospitalist team and they will be admitted for further inpatient treatment and evaluation. Continuous cardiac monitoring: An order was placed in EMR for continuous compliance monitor. Upon my interpretation the patient was noted to be in normal sinus rhythm rate of 80 Impression & Plan Acute GI bleeding, Weakness, RIOS (dyspnea on exertion), Anemia, Lab test negative for COVID-19 virus Discharge Plan Visit Data Chief Complaint: Shortness of Breath/Dyspnea Stated Complaint: SHORT OF BREATH ED Provider: Mike Desir Discharge Problem: Acute GI bleeding, Weakness, RIOS (dyspnea on exertion), Anemia, Lab test negative for COVID-19 virus Forms Stand Alone Forms: My [facility] Prescriptions Prescriptions: No Action albuterol sulfate [Ventolin HFA] 90 mcg/actuation HFA aerosol inhaler 2 puff INH QID PRN (Reason: shortness of breath or wheezing) Qty: 8.5 3RF Combivent Respimat 20-100 mcg/actuation mist 1 puff inhalation Q6H PRN (Reason: shortness of breath or wheezing) Qty: 4 3RF fluticasone propion-salmeterol [Advair Diskus] 250-50 mcg/dose blister with device 1 inh INH BID Qty: 60 3RF Rx Instructions: inhale 1 dose INH BID; fluoxetine 40 mg capsule 40 mg PO HS Rx Instructions: 40 mg orally every evening; atorvastatin 10 mg tablet 10 mg PO HS meloxicam 15 mg tablet 15 mg PO HS Rx Instructions: 15 mg orally every evening; aspirin 81 mg tablet,delayed release (DR/EC) 81 mg PO HS Rx Instructions: 81 mg orally every evening; lisinopril 10 mg tablet 10 mg PO HS omeprazole 20 mg capsule,delayed release(DR/EC) 20 mg PO HS isosorbide mononitrate 30 mg tablet extended release 24 hr 30 mg PO HS Referrals Referrals: Wade Lopes MD [Primary Care Provider] -
[2022-05-06] MEDS ORDERED: SODIUM CHLORIDE 0.9% 250 ML IV PRN (16:43)
[2022-05-06 17:16] LABS: D Dimer 620 ug/L FEU (0-500)
--- NOTE | 2022-05-06 18:07 | History & Physical Report ---
Date of Service May 06, 2022 Assessment & Plan (1) Anemia: Plan: Patient was admitted with RIOS and found to have anemia with Hgb 8.5 down from 11 in February and in December Heme + stool - Admit to PCU - Clear liquid diet - NPO at midnight - Protonix 40mg IV BID - Continue to monitor H&H - Transfuse if necessary - Continue to monitor stools for evidence of active bleeding - Consult GI - Hold meloxicam - Monitor Hgb q 8H x 3 (2) RIOS (dyspnea on exertion): Plan: Will continue to monitor see above #1 Hx of asthma Resume inhalers (3) Hypertension: Plan: - Continue Isosorbide - Continue Lisinopril (4) Hyperlipidemia: Plan: - continue Atorvastatin (5) Vitamin D deficiency: Plan: last vitamin D level 27.3 06/2021 repeat vitamin D level (6) Aortic stenosis: Plan: Follows with Dr Gao Last echo 11/2021 Admitted to PCU (severe with ABLA) D Dimer 620 BNP 129 (7) Restrictive lung disease: Plan: follows with Dr Johnson Continue inhalers History of Present Illness Chief Complaint: Dyspnea on exertion Primary Care Provider: Wade Lopes MD Skye Olivo is a 76 year old female with a past medical history of moderate to severe AV stenosis, newly diagnosed Right Breast cancer, HTN, hyperlipidemia, lumbar spinal stenosis and prediabetes who presented to the ER today for complaints of progressive dyspnea on exertion x the past 4-5 days. patient's brother was admitted last week to the 4th floor here at [facility] and she noticed that walking from the parking garage to the elevator she was having SOB and needed to stop and rest. She denies any chest pain. She states she does have a hx of asthma and does not feel it was her asthma. She denies any congestion, cough. She does admit to having a dark black stool X one today. She denies any nausea, vomiting, hematemesis, hematochezia, or BRB WY. She states she had a colonoscopy here about 5 years ago and she thinks she had some polyps. She denies ever having a EGD in the past. She does admit to some indigestion but denies any abdominal pain. She was found to have a Hgb of 8.5 (down from 11 in February and 13 prior to that. ) She denies ever having a GI bleeding the past and only takes an occasional IBU for headaches. BUT patient is on Meloxicam daily for OA. Allergies Allergy/AdvReac Type Severity Reaction Status Date / Time hydrochlorothiazide Allergy Intermediate Rash Verified 05/06/22 17:04 sulfamethoxazole [Bactrim] Allergy Intermediate RASH Verified 05/06/22 17:04 trimethoprim [Bactrim] Allergy Intermediate RASH Verified 05/06/22 17:04 Home Medications Medication Instructions Recorded Confirmed Type albuterol sulfate 90 mcg/actuation 2 puff inhalation QID PRN 02/25/22 05/06/22 Rx aerosol inhaler (Ventolin HFA) shortness of breath or wheezing #8.5 grams fluticasone 250 mcg-salmeterol 50 1 inh inhalation BID #60 ea 02/25/22 05/06/22 Rx mcg/dose blistr powdr for inhalation (Advair Diskus) ipratropium 20 mcg-albuterol 100 1 puff inhalation Q6H PRN 02/25/22 05/06/22 Rx mcg/actuation mist for inhalation shortness of breath or wheezing #4 (Combivent Respimat) grams aspirin 81 mg tablet,delayed 81 mg PO HS 02/26/22 05/06/22 History release atorvastatin 10 mg tablet 10 mg PO HS 02/26/22 05/06/22 History fluoxetine 40 mg capsule 40 mg PO HS 02/26/22 05/06/22 History lisinopril 10 mg tablet 10 mg PO HS 02/26/22 05/06/22 History meloxicam 15 mg tablet 15 mg PO HS 02/26/22 05/06/22 History omeprazole 20 mg capsule,delayed 20 mg PO HS 02/26/22 05/06/22 History release isosorbide mononitrate 30 mg 30 mg PO HS 05/06/22 05/06/22 History tablet,extended release 24 hr Past Med/Surg History Medical History Aortic stenosis Moderate to severe AV stenosis per 12/03/21 ECHO Asthma On inhalers Breast cancer Right Cancer Skin cancer to face- s/p removal Depression GERD (gastroesophageal reflux disease) History of COVID-19 07/2021, home test, not hosp; mild symptoms>resolved. Hyperlipidemia Hypertension Lumbar facet joint syndrome Lumbar spinal stenosis Moderate to severe at L4-5 Prediabetes Hgb A1C 6.0 06/2021 Surgical History H/O right breast biopsy (03/19/22) Right Breast Lumpectomy with Localization Using Wire Localization, Right [place] Lymph Node Biopsy(Right) - Vincent Fierro, History of cataract surgery lt/rt History of colonoscopy w/ polypectomy History of lumpectomy of right breast [place] node biopsy. 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 Dr. Drew Family History Brother Family history of diabetes mellitus Diabetes Coronary arteriosclerosis Mother Myocardial infarction Coronary arteriosclerosis Coronary heart disease Heart disease Father Myocardial infarction Coronary arteriosclerosis Coronary heart disease Heart disease Other Breast cancer Denies family history of Ovarian cancer Prostate cancer Colorectal cancer Social History Smoking Status: Former smoker Tobacco Type: Cigarettes Age Started Using Tobacco: 14; Age Quit Using Tobacco: 59; Second Hand Exposure: No; Hx Alcohol Use: No Hx Substance Use: No Preferred Language: Citizen Of [place] Communication Ability: Effective Visual Impairment: No Limitations Hearing Ability: Normal Pricing Lead Required: No Beliefs That Will Affect Care: None marital status: / Current Living Situation: Family Current Living Situation Comment: Granddaughter + family and brother current occupational status: retired Feels Safe at Home: Yes Childhood Exposure to Second-Hand Smoke: Yes caffeine: Yes during the past year weight has: remained stable Dental Care, Regularly: No Physical Activity Frequency: Does not Exercise Seatbelt Use: sometimes Assistive Devices: Denture - Upper and Denture - Lower Review of Systems 2 Review of Systems: All ROS negative unless what was stated + in the HPI Physical Exam Constitutional: WD/WN, vitals as above Eyes: Conjunctival pallor ENMT: external ear and nose normal, oropharynx normal Neck: trachea midline, no thyromegaly Respiratory: normal respiratory effort, lungs clear to auscultation Cardiovascular: Rate/Rhythm: regular rate and regular rhythm Heart Sounds: normal S1, normal S2 and + murmur Extremities: normal capillary refill; no calf tenderness and no edema Gastrointestinal (Abdomen): normal bowel sounds, soft, nontender, no hepatosplenomegaly Per ER physician rectal was brown Heme + stool Skin: + pallor Neurologic: PERRL, EOMI, accommodation nl, no face palsy, no dysarthria Results & Data Results & Data ([facility]) Vital Signs (Past 12 Hours) Vital Signs Temp Pulse Resp BP Pulse Ox O2 Del Method 05/06/22 14:36 Room Air 05/06/22 16:15 81 05/06/22 14:32 36.7 C 83 22 116/58 L 96 Room Air Laboratory Results Abnormal lab results 05/06/22 05/06/22 05/06/22 Range/Units 14:50 14:50 16:03 RBC 3.31 L (4.20-5.40) M/uL Hgb 8.5 L (12.0-16.0) g/dl Hct 28.0 L (37.0-47.0) % MCHC 30.4 L (32.0-36.0) g/dL Eos # (Auto) 0.55 H (0-0.50) K/uL D-Dimer 620 H* (0-500) ug/L FEU BUN/Creatinine Ratio 36.7 H (10-20) Glucose 112 H (70-99(Fasting)) mg/dl B-Natriuretic Peptide (0-100) pg/ml Crossmatch 05/06/22 05/06/22 Range/Units 16:03 16:47 RBC (4.20-5.40) M/uL Hgb (12.0-16.0) g/dl Hct (37.0-47.0) % MCHC (32.0-36.0) g/dL Eos # (Auto) (0-0.50) K/uL D-Dimer (0-500) ug/L FEU BUN/Creatinine Ratio (10-20) Glucose (70-99(Fasting)) mg/dl B-Natriuretic Peptide 129 H (0-100) pg/ml Crossmatch See Detail Diagnostic Findings Chest X-Ray 05/06/22 14:36 XR chest 2V PA/lateral HISTORY: Shortness of breath. COMPARISON: Chest 02/18/2022. FINDINGS: The lungs are clear. The cardiac silhouette remains borderline enlarged. No pleural effusions. No pneumothorax. No evidence for pulmonary edema. There are calcifications within the aortic knob. Degenerative changes within the thoracic spine. IMPRESSION: No significant change compared to the prior study. No acute process. ACT 112: Negative or not required by law. Electronically signed by: Chalo Arroyo M.D. 05/06/2022 3:30 PM Supervising Physician Co-Signing Physician Notes Patient seen and examined, chart reviewed, case discussed with Pamela Whitaker PA-C and I agree with the assessment and plan as above except as otherwise noted.Labs and images reviewed. seen at the bedside, comfortable in no acute distress. Mild pallor. Presents with anemia, fatigue, and an episode of melena. Hemoglobin is downtrending, but she is hemodynamically stable at bedside. Agree with PPI twice daily and trend hemoglobin. Hemoglobin transfusion threshold 7.0. Iron studies ordered. Patient agreeable to blood if required. At bedside no abdominal tenderness, no lightheadedness, no dizziness, no chest pain. Heart rate is regular. Agree with management above PG Care Time/CCT Total # of Minutes Spent Total Time Spent with Patient: Total time spent is greater than 50% in coordination of care (as documented) at patient's floor/unit and/or counseling patient: Coding Level of Care Code 82434 INT INP/OBS CARE 2/55MIN Diagnoses Anemia D64.9 Anemia type: unspecified type RIOS (dyspnea on exertion) R06.09 Hypertension I10 Hyperlipidemia E78.5 Vitamin D deficiency E55.9 Aortic stenosis I35.0 Restrictive lung disease J98.4 (1) Anemia Anemia type: unspecified type Qualified Code(s): D64.9 - Anemia, unspecified
[2022-05-06] MEDS ORDERED: ACETAMINOPHEN 325 MG TAB PO PRN (22:54)
[2022-05-06] MEDS ORDERED: ALBUTEROL HFA 8 GM INHALER INH PRN (22:54)
[2022-05-06] MEDS: FLUoxetine HCL 20 MG CAP PO SCH (23:46)
[2022-05-06] MEDS: ATORVASTATIN 10 MG TAB PO SCH (23:46)
[2022-05-06] MEDS: PANTOprazole 40 MG in SYRINGE 0 ML IV SCH (23:47)
[2022-05-06 23:56] LABS: Hematocrit (blood only) 28.7 % (37.0-47.0); Mean Corpuscular Hemoglobin 25.9 pg (25.0-34.0); Mean Corpuscular Hgb Conc 31.4 g/dL (32.0-36.0); Mean Corpuscular Volume 82.7 fL (80.0-100.0); Mean Platelet Volume 10.8 fL (9.4-12.4); Platelet Count 272 K/uL (130-400); RDW Coefficient of Variation 14.1 % (11.5-14.5); RDW Standard Deviation 42.1 fL (36.4-46.3); Red Blood Count 3.47 M/uL (4.20-5.40); White Blood Count 8.96 K/ul (4.8-10.8)
[2022-05-07 07:31] LABS: Hematocrit (blood only) 26.5 % (37.0-47.0); Hemoglobin 8.3 g/dl (12.0-16.0); Mean Corpuscular Hemoglobin 25.7 pg (25.0-34.0); Mean Corpuscular Hgb Conc 31.3 g/dL (32.0-36.0); Mean Platelet Volume 10.4 fL (9.4-12.4); Platelet Count 253 K/uL (130-400); RDW Coefficient of Variation 14.1 % (11.5-14.5); RDW Standard Deviation 41.9 fL (36.4-46.3); Red Blood Count 3.23 M/uL (4.20-5.40); White Blood Count 7.14 K/ul (4.8-10.8)
[2022-05-07 07:52] LABS: BUN Creatinine Ratio 26.8 (10-20); Calcium 9.3 mg/dl (8.5-10.1); Creatinine Clr Calc Pharmacy 77.5 ml/min; Est GFR (African American) 103.5 ml/min; Est GFR (Non-African American) 89.3 ml/min; Potassium 3.9 mmol/L (3.5-5.1)
[2022-05-07] MEDS: FLUTICASONE/VILANTEROL 200/25MCG 14 PUFFS/INHALER INH SCH (09:00)
[2022-05-07] MEDS: PANTOprazole 40 MG in SYRINGE 0 ML IV SCH ×2 (09:00→20:09)
--- NOTE | 2022-05-07 10:07 | Gastrointestinal Consultation ---
Date of Consultation May 07, 2022 Assessment & Plan (1) Anemia: (2) Heme positive stool: Plan Discussed with Dr. Richards who helped advise on plan. It does not seem that she is having any active GI bleeding. BUN/creatinine unremarkable. Patient tells me she had a sudden progression in shortness of breath. Her D dimer was elevated and she has a recent diagnosis of breast cancer which increases her risk of having a pulmonary emboli. Would recommend she have CTA of chest for further evaluation. - continue PPI BID. - avoid nsaids. - recommend Chest CTA to further evaluate sudden dyspnea on exertion with an elevated D dimer. - no plans for endoscopy at this time since she does not seem to be actively bleeding. - follow hgb/hct and transfuse as needed. Supervising Physician Co-Signing Physician Notes Agree with QUINTIN Mccain as above Abd: Soft, NT, ND, +BS Continue current therapy and supportive care No BM's today History of Present Illness Reason for Consultation: GIB Requesting Physician: Daisy Whitaker PA-C Attending Physician: Kanchan Torres MD History of Present Illness Patient is a 76 year old female with past medical history of aortic stenosis, htn, hyperlipidemia, asthma, newly diagnosed breast cancer 03/2022, who came to ED for evaluation of progressive shortness of breath over the past few days. She tells me that she feels fine with sitting but as soon as she goes to move around she becomes very short of breath which is abnormal for her. Upon evaluation in the ED her hgb was 9. She had rectal exam showing brown, heme positive stools. she denies any black stools to me but tells me stools have been a darker brown. she does admit to daily meloxicam use and occasional ibuprofen use for headaches. She tells me she has not moved her bowels since admission. she typically moves bowels once daily. no brbpr. Patient denies any current issues with nausea, vomiting, dysphagia, heartburn, abdominal pain, unintentional weight loss. Colonoscopy 2016 diverticulosis, internal hemorrhoids, and hyperplastic colon polyp. 05/07/22 hgb 8.3, hct 26.5, wbc 7.14, platelets 253, inr 1.1, D dimer 620, BUN 15, creatinine .56, lfts normal. Allergies Allergy/AdvReac Type Severity Reaction Status Date / Time hydrochlorothiazide Allergy Intermediate Rash Verified 05/06/22 17:04 sulfamethoxazole [Bactrim] Allergy Intermediate RASH Verified 05/06/22 17:04 trimethoprim [Bactrim] Allergy Intermediate RASH Verified 05/06/22 17:04 Home Medications Medication Instructions Recorded Confirmed Type albuterol sulfate 90 mcg/actuation 2 puff inhalation QID PRN 02/25/22 05/06/22 Rx aerosol inhaler (Ventolin HFA) shortness of breath or wheezing #8.5 grams fluticasone 250 mcg-salmeterol 50 1 inh inhalation BID #60 ea 02/25/22 05/06/22 Rx mcg/dose blistr powdr for inhalation (Advair Diskus) ipratropium 20 mcg-albuterol 100 1 puff inhalation Q6H PRN 02/25/22 05/06/22 Rx mcg/actuation mist for inhalation shortness of breath or wheezing #4 (Combivent Respimat) grams aspirin 81 mg tablet,delayed 81 mg PO HS 02/26/22 05/06/22 History release atorvastatin 10 mg tablet 10 mg PO HS 02/26/22 05/06/22 History fluoxetine 40 mg capsule 40 mg PO HS 02/26/22 05/06/22 History lisinopril 10 mg tablet 10 mg PO HS 02/26/22 05/06/22 History meloxicam 15 mg tablet 15 mg PO HS 02/26/22 05/06/22 History omeprazole 20 mg capsule,delayed 20 mg PO HS 02/26/22 05/06/22 History release isosorbide mononitrate 30 mg 30 mg PO HS 05/06/22 05/06/22 History tablet,extended release 24 hr Patient History Medical History Aortic stenosis Moderate to severe AV stenosis per 12/03/21 ECHO Asthma On inhalers Breast cancer Right Cancer Skin cancer to face- s/p removal Depression GERD (gastroesophageal reflux disease) History of COVID-19 07/2021, home test, not hosp; mild symptoms>resolved. Hyperlipidemia Hypertension Lumbar facet joint syndrome Lumbar spinal stenosis Moderate to severe at L4-5 Prediabetes Hgb A1C 6.0 06/2021 Surgical History H/O right breast biopsy (03/19/22) Right Breast Lumpectomy with Localization Using Wire Localization, Right [place] Lymph Node Biopsy(Right) - Vincent Fierro DO History of cataract surgery lt/rt History of colonoscopy w/ polypectomy History of lumpectomy of right breast [place] node biopsy. 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 Dr. Drew Family History Brother Family history of diabetes mellitus Diabetes Coronary arteriosclerosis Mother Myocardial infarction Coronary arteriosclerosis Coronary heart disease Heart disease Father Myocardial infarction Coronary arteriosclerosis Coronary heart disease Heart disease Other Breast cancer Denies family history of Ovarian cancer Prostate cancer Colorectal cancer Social History Smoking Status: Never smoker Tobacco Type: Cigarettes Age Started Using Tobacco: 14; Age Quit Using Tobacco: 59; Second Hand Exposure: No; Hx Alcohol Use: No Hx Substance Use: No Preferred Language: Sinhala Communication Ability: Effective Visual Impairment: No Limitations Hearing Ability: Normal 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 Beliefs That Will Affect Care: None marital status: / Current Living Situation: Family Current Living Situation Comment: Granddaughter + family and brother current occupational status: retired Feels Safe at Home: Yes Childhood Exposure to Second-Hand Smoke: Yes caffeine: Yes during the past year weight has: remained stable Dental Care, Regularly: No Physical Activity Frequency: Does not Exercise Seatbelt Use: sometimes Assistive Devices: None Review of Systems Review of Systems: All systems reviewed & are unremarkable except as noted in HPI & below Respiratory: + dyspnea on exertion Physical Exam Constitutional: WD/WN, vitals as above Respiratory: normal respiratory effort, lungs clear to auscultation Cardiovascular: RRR, no murmur, no edema Gastrointestinal (Abdomen): normal bowel sounds, soft, nontender, no hepatosplenomegaly Skin: no rashes, warm and dry Psychiatric: Orientation: alert and oriented x 3 Affect: euthymic affect Results & Data ([facility]) Vital Signs (Past 12 Hours) Vital Signs Temp Pulse Pulse Resp BP Pulse Ox O2 Del Method 05/07/22 07:56 Room Air 05/07/22 07:27 78 05/07/22 06:51 36.7 C 89 18 127/73 92 Room Air 05/07/22 03:16 36.6 C 81 16 123/68 92 Room Air 05/06/22 22:54 05/06/22 23:41 72 05/06/22 22:56 Room Air 05/06/22 22:56 36.8 C 79 18 170/72 H 92 Room Air 05/06/22 22:09 87 14 172/100 H 98 O2 Del Method 05/07/22 07:56 05/07/22 07:27 05/07/22 06:51 05/07/22 03:16 05/06/22 22:54 Room Air 05/06/22 23:41 05/06/22 22:56 05/06/22 22:56 05/06/22 22:09 PG Care Time/CCT Total # of Minutes Spent Total Time Spent with Patient: Total time spent is greater than 50% in coordination of care (as documented) at patient's floor/unit and/or counseling patient: Coding Level of Care Code 99898 INT INP/OBS CARE 2/55MIN Diagnoses Anemia D64.9 Anemia type: unspecified type Heme positive stool R19.5 Time Spent (min) 58 (1) Anemia Anemia type: unspecified type Qualified Code(s): D64.9 - Anemia, unspecified
[2022-05-07 16:07] LABS: Hematocrit (blood only) 29.2 % (37.0-47.0); Mean Corpuscular Hemoglobin 25.1 pg (25.0-34.0); Mean Corpuscular Hgb Conc 30.8 g/dL (32.0-36.0); Mean Corpuscular Volume 81.6 fL (80.0-100.0); Mean Platelet Volume 10.6 fL (9.4-12.4); Platelet Count 285 K/uL (130-400); RDW Coefficient of Variation 14.3 % (11.5-14.5); RDW Standard Deviation 42.2 fL (36.4-46.3); Red Blood Count 3.58 M/uL (4.20-5.40); White Blood Count 8.38 K/ul (4.8-10.8)
--- NOTE | 2022-05-07 19:05 | Hospitalist Progress Note ---
Date of Service May 07, 2022 Assessment & Plan (1) Anemia: Plan: Patient was admitted with RIOS and found to have anemia with Hgb 8.5 down from 11 in February and 13 in December Heme + stool Microcytic anemia with MCV of 81 On chronic NSAIDs and baby aspirin, with 1 dark stool the day of admission Seems most likely to be an upper GI bleed-likely slow bleed given the microcytic anemia, but with 1 black stool on the day of admission might have had an increase in the bleeding Likely related to NSAID and aspirin use Hemoglobin down to 8.3 this morning but back to 9.0 in the afternoon GI consulted-recommended CTA chest to further evaluate for PE as a cause of her dyspnea and elevated D-dimer. Also recommended no plans for endoscopy as she does not seem to be actively bleeding -Continue Protonix 40mg IV BID for now and convert to p.o. at discharge - Continue to monitor CBC in the morning - Transfuse if necessary - Continue to monitor stools for evidence of active bleeding -Discontinue meloxicam permanently, but can continue aspirin on discharge given history of moderate to severe aortic stenosis and likely CAD (2) RIOS (dyspnea on exertion): Plan: Likely secondary to worsening anemia Does have a history of asthma but no wheezing Chest x-ray is negative. [id number] all negative EKG with normal sinus rhythm, no ischemic changes. Troponin negative Pulse ox low 90s on room air, no chest pain, but given elevated D-dimer and breast cancer, will check CTA chest-negative for PE Hx of asthma Continue home inhalers (3) Hypertension: Plan: Blood pressure stable Home isosorbide and lisinopril are on hold in case of hypotension from bleeding (4) Hyperlipidemia: Plan: - continue Atorvastatin (5) Vitamin D deficiency: Plan: last vitamin D level 27.3 06/2021 (6) Aortic stenosis: Plan: Follows with Dr Gao Last echo 11/2021 with moderate-severe aortic stenosis Follow as an outpatient (7) Restrictive lung disease: Plan: follows with Dr Johnson Continue inhalers (8) Pulmonary nodule: Plan: 10 mm nodule in the left upper lobe seen on CT of chest Follow-up with repeat imaging with pulmonary Also being followed for breast cancer (9) Breast cancer, right: Plan: With recent mastectomy and sentinel lymph node biopsy Has seen radiation oncology and medical oncology and is awaiting further test results before determination will be made to pursue chemotherapy prior to radiation Follow-up with oncology after discharge Plan DVT prophylaxis-SCDs Disposition-continued stay but likely discharged home tomorrow if stable Admission and Anticipated Discharge Date Admission Date: May 06, 2022 Subjective Patient reports some dyspnea with walking long distances. Denies chest pains. Had no bowel movement since admission. Denies heartburn or abdominal pains. Telemetry with normal sinus rhythm with rates in the 90s Review of Systems Review of Systems: All systems reviewed & are unremarkable except as noted in HPI & below Physical Exam Constitutional: WD/WN, vitals as above Respiratory: normal respiratory effort, lungs clear to auscultation Cardiovascular: Rate/Rhythm: regular rate and regular rhythm Heart Sounds: + murmur (3/6 JANIE at the [facility]) Gastrointestinal (Abdomen): normal bowel sounds, soft, nontender, no hepatosplenomegaly Neurologic: no focal motor deficits and not confused Psychiatric: A+Ox3, euthymic affect Results & Data Results & Data ([facility]) Vital Signs (Past 12 Hours) Vital Signs Temp Pulse Pulse Resp BP Pulse Ox O2 Del Method 05/07/22 16:00 36.8 C 81 16 121/58 L 91 Room Air 05/07/22 15:00 71 05/07/22 11:47 37.0 C 72 17 140/64 93 Room Air 05/07/22 07:56 Room Air 05/07/22 07:27 78 Laboratory Results CBC, BMP, BNP, LFTs all reviewed Diagnostic Findings Chest CTA 05/07/22 19:04 CT angio chest PE protocol CLINICAL HISTORY: PE TECHNIQUE: Multidetector row helical CT of the chest was performed with angiographic protocol. Coronal and sagittal reformations were obtained. Coronal and sagittal MIPS were obtained from the axial data set and were submitted for review. Automated dose lowering techniques and/or adjustment according to patient size were utilized for this exam. CT DOSE: 463.22 mGy.cm Comparison: Comparison is made to CT chest 07/02/2018 FINDINGS: Lungs and pleura: There is a 10 mm groundglass nodule in the left upper lobe ( series 4 image 151). Bronchomalacia is incidentally noted. Heart and pericardium: Aortic valvular calcifications are seen. Vessels: Severe atherosclerotic changes in the aorta and coronary arteries. Mediastinum and lonnie: Unremarkable. Chest wall and lower neck: Unremarkable. Abdomen: Unremarkable. Bones: Degenerative changes in the thoracic spine. IMPRESSION: 1. No pulmonary embolus is seen. 2. 10 mm groundglass nodule is in the right left upper lobe, new from prior exam this may represent infectious/inflammatory process however 3 month follow- up is recommended to exclude adenocarcinoma. 3. Suggestion of bronchomalacia. ACT 112: Negative or not required by law. Electronically signed by: Jeromy Robertson M.D. 05/07/2022 7:52 PM PG Care Time/CCT Total # of Minutes Spent Total Time Spent with Patient: Total time spent is greater than 50% in coordination of care (as documented) at patient's floor/unit and/or counseling patient: Coding Level of Care Code 06042 SUB INP/OBS CARE 3/50MIN Diagnoses Anemia D64.9 Anemia type: unspecified type RIOS (dyspnea on exertion) R06.09 Hypertension I10 Hyperlipidemia E78.5 Vitamin D deficiency E55.9 Aortic stenosis I35.0 Restrictive lung disease J98.4 Pulmonary nodule R91.1 Breast cancer, right C50.911 (1) Anemia Anemia type: unspecified type Qualified Code(s): D64.9 - Anemia, unspecified
[2022-05-07] MEDS ORDERED: OPTIRAY 320 500ml IV ONE (19:40)
--- NOTE | 2022-05-07 19:55 | CT Scan Report ---
CT angio chest PE protocol CLINICAL HISTORY: PE TECHNIQUE: Multidetector row helical CT of the chest was performed with angiographic protocol. Garcia l and sagittal reformations were obtained. Coronal and sagittal MIPS were obtained from the axial jacinta a set and were submitted for review. Automated dose lowering techniques and/or adjustment according to patient size were utilized for this exam. CT DOSE: 463.22 mGy.cm Comparison: Comparison is made to CT chest 07/02/2018 FINDINGS: Lungs and pleura: There is a 10 mm groundglass nodule in the left upper lobe (series 4 image 151). Br onchomalacia is incidentally noted. Heart and pericardium: Aortic valvular calcifications are seen. Vessels: Severe atherosclerotic changes in the aorta and coronary arteries. Mediastinum and lonnie: Unremarkable. Chest wall and lower neck: Unremarkable. Abdomen: Unremarkable. Bones: Degenerative changes in the thoracic spine. IMPRESSION: 1. No pulmonary embolus is seen. 2. 10 mm groundglass nodule is in the right left upper lobe, new from prior exam this may represent infectious/inflammatory process however 3 month follow-up is recommended to exclude adenocarcinoma. 3. Suggestion of bronchomalacia. ACT 112: Negative or not required by law. Electronically signed by: Jeromy Robertson M.D. 05/07/2022 7:52 PM
[2022-05-07] MEDS: FLUoxetine HCL 20 MG CAP PO SCH (20:08)
[2022-05-07] MEDS: ATORVASTATIN 10 MG TAB PO SCH (20:08)
[2022-05-08 07:07] LABS: Basophils # (auto) 0.05 K/uL (0-0.2); Basophils % (auto) 0.6 %; Eosinophils # (auto) 0.49 K/uL (0-0.50); Eosinophils % (auto) 5.9 %; Hematocrit (blood only) 28.1 % (37.0-47.0); Hemoglobin 8.7 g/dl (12.0-16.0); Immature Granulocytes # (auto) 0.03 K/uL (0.01-0.20); Immature Granulocytes % (auto) 0.4 %; Lymphocytes # (auto) 2.34 K/uL (1.2-3.4); Lymphocytes % (auto) 28.3 %; Mean Corpuscular Hemoglobin 25.5 pg (25.0-34.0); Mean Corpuscular Volume 82.4 fL (80.0-100.0); Mean Platelet Volume 11.1 fL (9.4-12.4); Monocytes # (auto) 0.66 K/uL (0.11-0.59); Neutrophils % (auto) 56.8 %; Platelet Count 271 K/uL (130-400); RDW Coefficient of Variation 14.2 % (11.5-14.5); RDW Standard Deviation 42.2 fL (36.4-46.3); Red Blood Count 3.41 M/uL (4.20-5.40); White Blood Count 8.27 K/ul (4.8-10.8)
[2022-05-08 07:57] LABS: BUN Creatinine Ratio 35.6 (10-20); Calcium 9.4 mg/dl (8.5-10.1); Creatinine Clr Calc Pharmacy 59.1 ml/min; Est GFR (African American) 91.4 ml/min; Est GFR (Non-African American) 78.9 ml/min; Potassium 3.9 mmol/L (3.5-5.1)
[2022-05-08] MEDS: FLUTICASONE/VILANTEROL 200/25MCG 14 PUFFS/INHALER INH SCH (08:24)
[2022-05-08] MEDS: PANTOprazole 40 MG in SYRINGE 0 ML IV SCH (08:24)
--- NOTE | 2022-05-08 10:15 | Communication Note ---
Date of Service: May 08, 2022 Patient tells me she feels well. she had one dark brown bowel movement last night but no melena. no brbpr. no nausea, vomiting, abdominal pain. she feels he r breathing has been better. hgb stable at 8.7. she prefers to have an outpatient EGD done. I have passed this along to our office to coordinate setting up.
--- NOTE | 2022-05-08 14:04 | Discharge Summary ---
Date of Service May 08, 2022 Admission HPI Per Admitting Provider Skye Olivo is a 76 year old female with a past medical history of moderate to severe AV stenosis, newly diagnosed Right Breast cancer, HTN, hyperlipidemia, lumbar spinal stenosis and prediabetes who presented to the ER today for complaints of progressive dyspnea on exertion x the past 4-5 days. patient's brother was admitted last week to the 4th floor here at [facility] and she noticed that walking from the parking garage to the elevator she was having SOB and needed to stop and rest. She denies any chest pain. She states she does have a hx of asthma and does not feel it was her asthma. She denies any conges tion, cough. She does admit to having a dark black stool X one today. She denies any nausea, vomiting, hematemesis, hematochezia, or BRB CT. She states she had a colonoscopy here about 5 years ago and she thinks she had some polyps. She denies ever having a EGD in the past. She does admit to some indigestion but denies any abdominal pain. She was found to have a Hgb of 8.5 (down from 11 in February and 13 prior to that. ) She denies ever having a GI bleeding the past and only takes an occasional IBU for headaches. BUT patient is on Meloxicam daily for OA. Principal Diagnosis Symptomatic anemia GI Bleeding Discharge Exam Constitutional WD/WN, vitals as above Respiratory normal respiratory effort, lungs clear to auscultation Cardiovascular Rate/Rhythm: regular rate and regular rhythm Heart Sounds: + murmur (3/6 JANIE at the [facility]) Gastrointestinal (Abdomen) normal bowel sounds, soft, nontender, no hepatosplenomegaly Neurologic no focal motor deficits and not confused Psychiatric A+Ox3, euthymic affect Discharge Data Allergies Allergy/AdvReac Type Severity Reaction Status Date / Time hydrochlorothiazide Allergy Intermediate Rash Verified 05/06/22 17:04 sulfamethoxazole [Bactrim] Allergy Intermediate RASH Verified 05/06/22 17:04 trimethoprim [Bactrim] Allergy Intermediate RASH Verified 05/06/22 17:04 Consultations 05/06/22 16:53 ED Decision to Admit Stat 05/06/22 22:54 Consult Gastroenterology Routine Ordered Studies 05/07/22 19:04 CT angio chest PE protocol Stat Hospital Course (1) Anemia: Patient was admitted with RIOS and found to have anemia with Hgb 8.5 down from 11 in February and 13 in December Heme + stool Microcytic anemia with MCV of 81 On chronic NSAIDs and baby aspirin, with 1 dark stool the day of admission Seems most likely to be an upper GI bleed-likely slow bleed given the microcytic anemia, but with 1 black stool on the day of admission might have had an increase in the bleeding Likely related to NSAID and aspirin use Hemoglobin down to 8.3 at lowest and remained stable at 8.7 on day of discharge GI consulted-recommended CTA chest to further evaluate for PE as a cause of her dyspnea and elevated D-dimer. CTA neg for PE. GI also recommended no plans for endoscopy as she does not seem to be actively bleeding-plan for outpt EGD -received Protonix 40mg IV BID and convert to prtonix 40mg p.o. bid x 2 months at discharge - Continue to monitor CBC with PCP as outpt - Continue to monitor stools for evidence of active bleeding at home but had brown stool on day of discharge -Discontinue meloxicam permanently, but can continue aspirin on discharge given history of moderate to severe aortic stenosis and likely CAD -start FeSO4 325mg po qAM on discharge (2) RIOS (dyspnea on exertion): Likely secondary to worsening anemia Does have a history of asthma but no wheezing Chest x-ray is negative. [id number] all negative EKG with normal sinus rhythm, no ischemic changes. Troponin negative Pulse ox low 90s on room air, no chest pain, but given elevated D-dimer and breast cancer, checked CTA chest-negative for PE but had [place] 10 mm nodule that needs outpt follow up Hx of asthma Continue home inhalers Improved by time of discharge (3) Hypertension: Blood pressure stable continue isosorbide and lisinopril (4) Hyperlipidemia: - continue Atorvastatin (5) Vitamin D deficiency: last vitamin D level 27.3 06/2021 (6) Aortic stenosis: Follows with Dr Gao Last echo 11/2021 with moderate-severe aortic stenosis Follow as an outpatient (7) Restrictive lung disease: follows with Dr Johnson Continue inhalers (8) Pulmonary nodule: 10 mm nodule in the left upper lobe seen on CT of chest Follow-up with repeat imaging with pulmonary Also being followed for breast cancer (9) Breast cancer, right: With recent mastectomy and sentinel lymph node biopsy Has seen radiation oncology and medical oncology and is awaiting further test results before determination will be made to pursue chemotherapy prior to radiation Follow-up with oncology after discharge Plan DVT prophylaxis-SCDs Disposition-dc to home today Total Time Total Time Spent Total Time Spent (In Minutes): 35 min Discharge Plan Discharge Items Patient Disposition: Home - Self-Care Reason For Visit: DYSPNEA, ?GIB, HX Discharge Diagnosis: Symptomatic anemia, GI Bleeding Activity: As commented below Lifting: Gradually increase as tolerated Bathing: No limitations Exercise/Sports: Gradually increase as tolerated Driving/Machine Use: No limitations Non-emergency contact: Primary Care Provider and Grounds Maintenance Supervisor Call non-emergency contact if: you have any medication questions and your symptoms worsen Follow-up/Referrals: Wade Lopes MD [Primary Care Provider] - (Please follow up within 1- 2 weeks.) Diet: Heart Healthy Addtl Attending Provider Instructions: You were admitted for shortness of breath related to anemia. You are slowly losing blood in your GI tract. Most likely it is oozing from an ulcer or gastritis from using meloxicam. You were started on an antacid medication called protonix twice a day to help this heal. You should STOP taking meloxicam, but can continue taking your baby aspirin. You should take an iron pill once a day to help you build your blood level back up. You were incidentally found to have a small nodule in your left lung. Please have your PCP or your oncologist follow up on this with a repeat CT scan in the future. Pending Studies at Discharge: No Stand-Alone Forms: My [facility], Smoking Cessation Medications and DC Order Prescriptions: New ferrous sulfate 325 mg (65 mg iron) Tablet,Delayed Release (Dr/Ec) 325 mg PO DAILY Qty: 30 0RF acetaminophen 325 mg Tablet 650 mg PO Q4H PRN (Reason: pain) Qty: 30 0RF Rx Instructions: OTC pantoprazole 40 mg Tablet,Delayed Release (Dr/Ec) 40 mg PO BID Qty: 60 1RF Continued albuterol sulfate [Ventolin HFA] 90 mcg/actuation HFA aerosol inhaler 2 puff INH QID PRN (Reason: shortness of breath or wheezing) Qty: 8.5 3RF Combivent Respimat 20-100 mcg/actuation mist 1 puff inhalation Q6H PRN (Reason: shortness of breath or wheezing) Qty: 4 3RF fluticasone propion-salmeterol [Advair Diskus] 250-50 mcg/dose blister with device 1 inh INH BID Qty: 60 3RF Rx Instructions: inhale 1 dose INH BID; fluoxetine 40 mg capsule 40 mg PO HS Rx Instructions: 40 mg orally every evening; atorvastatin 10 mg tablet 10 mg PO HS aspirin 81 mg tablet,delayed release (DR/EC) 81 mg PO HS Rx Instructions: 81 mg orally every evening; lisinopril 10 mg tablet 10 mg PO HS isosorbide mononitrate 30 mg tablet extended release 24 hr 30 mg PO HS Discontinued meloxicam 15 mg tablet 15 mg PO HS Rx Instructions: 15 mg orally every evening; omeprazole 20 mg capsule,delayed release(DR/EC) 20 mg PO HS Discharge Orders: Discharge Order (Routine); Ordered 05/08/22 Ordered By: Kanchan Torres Admission Data Admit Date/Time: 05/06/22 18:36 Attending Provider: Kanchan Torres Admit Provider: Daisy Whitaker Primary Care Provider: Wade Lopes Other Providers: Zurdo Banks ; Christiano Richards Coding Level of Care Code 91982 INP/OBS DISCH >30 MIN Diagnoses Anemia D64.9 Anemia type: unspecified type RIOS (dyspnea on exertion) R06.09 Hypertension I10 Hyperlipidemia E78.5 Vitamin D deficiency E55.9 Aortic stenosis I35.0 Restrictive lung disease J98.4 Pulmonary nodule R91.1 Breast cancer, right C50.911
[2022-05-08] MEDS ORDERED: FERROUS SULFATE 325 MG TAB PO SCH (17:00)
[2022-05-08] MEDS ORDERED: PANTOprazole 40 MG TAB PO SCH (21:00)
== END 2022-05-08 16:00 | disposition home or self-care (01) ==
LOC: ED 14:22 → INTOOBSV 18:36 → 2S 18:36 → SUATTDRO 18:36 → 2S 22:15

== ENCOUNTER 2022-06-10 15:29 | Observation (INO) ==
--- NOTE | 2022-06-10 16:35 | Electrocardiogram Report ---
Test Reason : Blood Pressure : / mmHG Vent. Rate : 082 BPM Atrial Rate : 082 BPM P-R Int : 132 ms QRS Dur : 076 ms QT Int : 378 ms P-R-T Axes : 055 068 063 degrees QTc Int : 441 ms Normal sinus rhythm Diffuse Minor Nonspecific ST abnormality Abnormal ECG When compared with ECG of 06-MAY-2022 14:44, No significant change was found Confirmed by Gordon Ruvalcaba ([id number]) on 06/10/2022 4:35:37 PM Referred By: Confirmed By:Gordon Ruvalcaba
[2022-06-10 16:40] LABS: Albumin Globulin Ratio 1.4 (0.9-2); Albumin Level 4.2 gm/dl (3.4-5.0); BUN Creatinine Ratio 39.3 (10-20); Bilirubin,Total 0.4 mg/dl (0.2-1.0); Calcium 9.1 mg/dl (8.6-10.3); Creatinine Clr Calc Pharmacy 70.5 ml/min; Est GFR (African American) 100.6 ml/min; Est GFR (Non-African American) 86.8 ml/min; Potassium 4.2 mmol/L (3.5-5.1); Total Protein 7.2 gm/dl (6.0-8.3)
[2022-06-10 16:47] LABS: Troponin I High Sensitivity 5.3 pg/ml (0-14)
[2022-06-10 17:02] LABS: Hematocrit (blood only) 22.9 % (37.0-47.0); Hemoglobin 6.8 g/dl (12.0-16.0); Mean Corpuscular Hemoglobin 23.8 pg (25.0-34.0); Mean Corpuscular Hgb Conc 29.7 g/dL (32.0-36.0); Mean Corpuscular Volume 80.1 fL (80.0-100.0); Mean Platelet Volume 10.5 fL (9.4-12.4); Platelet Count 280 K/uL (130-400); RDW Coefficient of Variation 16.3 % (11.5-14.5); RDW Standard Deviation 47.6 fL (36.4-46.3); Red Blood Count 2.86 M/uL (4.20-5.40); White Blood Count 7.65 K/ul (4.8-10.8)
[2022-06-10] MEDS ORDERED: SODIUM CHLORIDE 0.9% 250 ML IV PRN (17:02)
[2022-06-10 17:04] LABS: Basophils # (auto) 0.04 K/uL (0-0.2); Basophils % (auto) 0.5 %; Eosinophils # (auto) 0.17 K/uL (0-0.50); Eosinophils % (auto) 2.2 %; Hypochromasia Present; Immature Granulocytes # (auto) 0.03 K/uL (0.01-0.20); Immature Granulocytes % (auto) 0.4 %; Lymphocytes # (auto) 1.65 K/uL (1.2-3.4); Lymphocytes % (auto) 21.6 %; Monocytes # (auto) 0.49 K/uL (0.11-0.59); Monocytes % (auto) 6.4 %; Neutrophils # (auto) 5.27 K/uL (1.40-6.50); Neutrophils % (auto) 68.9 %
[2022-06-10] MEDS ORDERED: PANTOPRAZOLE BOLUS/DRIP 1 EACH IV STA (17:12)
[2022-06-10] MEDS ORDERED: PANTOprazole 80 MG in DEXTROSE 5% 100 ML IV ONE (17:12)
--- NOTE | 2022-06-10 17:29 | Emergency Department Note ---
Impression & Plan Symptomatic anemia, Upper gastrointestinal bleed, Gastritis ED Provider Note NAME: COCO CARBALLO AGE: 76 SEX: F ARRIVES VIA: Walk-In INFORMANT: Patient ED PROVIDER(S): Philipp Huber MD CHIEF COMPLAINT: SOB PLAN: Disposition: Admit MEDICAL DECISION MAKING: The patient is a pleasant 76-year-old woman with a past medical history of hypertension, hyperlipidemia, GERD/gastritis who presents to the emergency department for evaluation of ongoing shortness of breath with minimal exertion and generalized weakness for the Past couple of days. The patient presents in the setting of being admitted to this facility approximately a month ago for concern for upper GI bleed but given her H/H remained stable plan was for outpatient EGD for further evaluation. She had her EGD performed yesterday and this demonstrated gastritis. The patient reports she has intermittent black stool in the setting of taking iron supplementation. She denies any gross red blood. She denies taking any anticoagulation. She reports feeling lightheaded today and took her blood pressure at home and this was 80s/60s. She contacted her doctor and was referred to emergency department. On arrival the patient is fatigued appearing but no acute distress, afebrile stable vital signs. She appears clinically dry. She has mild pallor. Abdomen is benign WBC and platelets within normal limits. H/H 6.8/22.9 down from 8.7/28.9 4 weeks ago. Chemistry without metabolic acidosis. Electrolytes and LFTs without significant abnormality. High-sensitivity troponin 5.3, within normal limits. COVID-19 RNA, ABA test was negative. Given the patient's symptomatic anemia patient was consented for blood transfusion and crossed for 2 units of PRBCs but ordered for 1 unit to be transferred at this time. Additionally, Protonix bolus and drip was ordered. Case was d/w Dr. Rosa, [facility] [place] who will evaluate the patient for admission. Triage Nursing notes reviewed and agree them. Prior/outside medical records reviewed Vital Signs: reviewed Differential diagnosis: Reactive airway disease, pneumonia, pneumothorax, COPD, CHF, infections, cardiac ischemia, pulmonary embolism, musculoskeletal, gastrointestinal, as well as other pathologies. ER treatment provided: See below. Diagnostics interpreted by me: ECG: NSR, 82 bpm, no ectopy, non-specific ST abnormality, no overt ST elevation or depression, QTC 441, QRS 76. Cardiac Monitoring: An order for continuous cardiac monitoring was placed and d emonstrated NSR, 82 bpm, no ectopy. Laboratory studies: See below Imaging studies: See below Consultation(s): Case was d/w Dr. Rosa, [facility] [place]ist who will evaluate the patient for admission. HPI: The patient is a pleasant 76-year-old woman with a past medical history of hypertension, hyperlipidemia, GERD/gastritis who presents to the emergency department for evaluation of ongoing shortness of breath with minimal exertion and generalized weakness for the Past couple of days. The patient presents in the setting of being admitted to this facility approximately a month ago for concern for upper GI bleed but given her H/H remained stable plan was for outpatient EGD for further evaluation. She had her EGD performed yesterday and this demonstrated gastritis. The patient reports she has intermittent black stool in the setting of taking iron supplementation. She denies any gross red b lood. She denies taking any anticoagulation. She reports feeling lightheaded today and took her blood pressure at home and this was 80s/60s. She contacted her doctor and was referred to emergency department. ROS: See above HPI for pertinent positives & negatives. A total of 10 systems reviewed and were otherwise negative. VITALS:See Below PHYSICAL EXAMINATION: GENERAL: Awake, alert, fatigued-appearing, in no distress HENT: Normocephalic, atraumatic. Oropharynx with dry mucous membranes and otherwise unremarkable. EYES: Normal conjunctiva. Sclera non-icteric. NECK: Supple. No nuchal rigidity. FROM. No JVD. RESPIRATORY: Clear to auscultation. CARDIAC: Regular rate, normal rhythm. Extremities warm and well perfused. Pulses equal. ABDOMEN: Soft, non-distended. No tenderness to palpation. No rebound or guardin g. No masses. RECTAL: Deferred. MUSCULOSKELETAL: Chest examination reveals no tenderness. The back is symmetrical on inspection without obvious abnormality. There is no CVA tenderness to palpation. No joint edema. LOWER EXTREMITIES: Calves are equal size bilaterally and non-tender. No edema. No discoloration. NEURO: Normal sensorium. No sensory or motor deficits noted. SKIN: Mild pallor. No rash or jaundice noted. Critical Care: I have personally spent greater than 45 minutes of critical care time in the direct management of this patient. This includes bedside care, interpretation of diagnostic studies, and testing, discussion with consultants, patient, and family members, and other required patient management activities. This 45 minutes is in excess of all separately billable procedures. Philipp Huber MD Past Med/Surg History Medical History Aortic stenosis Moderate to severe AV stenosis per 12/03/21 ECHO; F/U DR. LOUIS, [place] Asthma On inhalers Breast cancer HX-Right Cancer Skin cancer to face- s/p removal Depression GERD (gastroesophageal reflux disease) History of COVID-19 07/2021, home test, not hosp; mild symptoms>resolved. Hyperlipidemia Hypertension Lumbar facet joint syndrome Lumbar spinal stenosis Moderate to severe at L4-5 Prediabetes Hgb A1C 6.0 06/2021 Surgical History H/O right breast biopsy (03/19/22) Right Breast Lumpectomy with Localization Using Wire Localization, Right [place] Lymph Node Biopsy(Right) - Vincent Fierro DO History of cataract surgery lt/rt History of colonoscopy w/ polypectomy History of lumpectomy of right breast [place] node biopsy. 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 Dr. Drew Family History Brother Family history of diabetes mellitus Diabetes Coronary arteriosclerosis Mother Myocardial infarction Coronary arteriosclerosis Coronary heart disease Heart disease Father Myocardial infarction Coronary arteriosclerosis Coronary heart disease Heart disease Other Breast cancer Denies family history of Ovarian cancer Prostate cancer Colorectal cancer Social History Smoking Status: Former smoker Tobacco Type: Cigarettes Age Started Using Tobacco: 14; Age Quit Using Tobacco: 59; Second Hand Exposure: Yes (HX); Hx Alcohol Use: No Hx Substance Use: No Preferred Language: Kyrgyz Communication Ability: Effective Visual Impairment: No Limitations Hearing Ability: Normal 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 Machine Operator Required: No Beliefs That Will Affect Care: None marital status: / Current Living Situation: Family Current Living Situation Comment: Granddaughter + family and brother current occupational status: retired Feels Safe at Home: Yes Childhood Exposure to Second-Hand Smoke: Yes caffeine: Yes during the past year weight has: remained stable Dental Care, Regularly: No Physical Activity Frequency: Does not Exercise Seatbelt Use: sometimes Assistive Devices: None Allergies Allergies Allergy/AdvReac Type Severity Reaction Status Date / Time hydrochlorothiazide Allergy Intermediate Rash Verified 06/10/22 17:37 sulfamethoxazole [Bactrim] Allergy Intermediate RASH Verified 06/10/22 17:37 trimethoprim [Bactrim] Allergy Intermediate RASH Verified 06/10/22 17:37 Home Meds Home Medications Medication Instructions Recorded Confirmed aspirin 81 mg tablet,delayed 81 mg PO HS 02/26/22 06/10/22 release fluoxetine 40 mg capsule 40 mg PO HS 02/26/22 06/10/22 lisinopril 10 mg tablet 10 mg PO HS 02/26/22 06/10/22 isosorbide mononitrate 30 mg 30 mg PO HS 05/06/22 06/10/22 tablet,extended release 24 hr ferrous sulfate 325 mg (65 mg 325 mg PO QAM 05/29/22 06/10/22 iron) tablet,delayed release Previous Rx's Medication Instructions Recorded fluticasone 250 mcg-salmeterol 50 1 inh inhalation BID #60 ea 02/25/22 mcg/dose blistr powdr for inhalation (Advair Diskus) ipratropium 20 mcg-albuterol 100 1 puff inhalation Q6H PRN 02/25/22 mcg/actuation mist for inhalation shortness of breath or wheezing #4 (Combivent Respimat) grams acetaminophen 325 mg tablet 650 mg PO Q4H PRN pain #30 tabs 05/08/22 pantoprazole 40 mg tablet,delayed 40 mg PO BID #60 tabs 05/08/22 release albuterol sulfate 90 mcg/actuation 2 puff inhalation QID PRN 05/18/22 aerosol inhaler (Ventolin HFA) shortness of breath or wheezing #8.5 grams atorvastatin 20 mg tablet 20 mg PO HS #90 tabs 05/18/22 Results & Data (ED) Vital Signs Vital Signs - 24 hr 06/10/22 15:30 06/10/22 17:28 06/10/22 18:42 Temperature 36.6 C 36.7 C Temperature Source Temporal Artery Scan Oral Pulse Rate 83 71 Pulse Rate from SpO2 Sensor Pulse Rhythm Respiratory Rate 18 16 Respiratory Effort / Characteristics Non-Labored Spontaneous Respiratory Depth Normal Respiratory Pattern Regular Blood Pressure 133/68 130/62 Blood Pressure Mean 89 84 Blood Pressure Position Sitting Pulse Oximetry 94 98 Oxygen Delivery Method Room Air Room Air Sepsis Recent Fever Within 48 Hours No Sepsis New/Unexplained Change in Mental Status N/A Sepsis Action Taken by Nursing No Action Required 06/10/22 18:33 06/10/22 18:40 06/10/22 18:40 Temperature Temperature Source Pulse Rate 72 Pulse Rate from SpO2 Sensor 74 75 Pulse Rhythm Respiratory Rate 10 L Respiratory Effort / Characteristics Respiratory Depth Respiratory Pattern Blood Pressure 130/62 Blood Pressure Mean 84 Blood Pressure Position Pulse Oximetry 93 97 Oxygen Delivery Method Sepsis Recent Fever Within 48 Hours Sepsis New/Unexplained Change in Mental Status Sepsis Action Taken by Nursing 06/10/22 18:58 06/10/22 19:13 06/10/22 19:43 Temperature 36.7 C 36.7 C 36.6 C Temperature Source Oral Oral Oral Pulse Rate 72 71 75 Pulse Rate from SpO2 Sensor Pulse Rhythm Regular Respiratory Rate 18 18 18 Respiratory Effort / Characteristics Respiratory Depth Respiratory Pattern Blood Pressure 135/44 L 127/61 116/46 L Blood Pressure Mean 74 83 69 Blood Pressure Position Sitting Pulse Oximetry 98 95 95 Oxygen Delivery Method Sepsis Recent Fever Within 48 Hours Sepsis New/Unexplained Change in Mental Status Sepsis Action Taken by Nursing Laboratory Data Attestation: I reviewed the patient's lab results. 06/10/22 15:51 06/10/22 15:51 Lab Results 06/10/22 06/10/22 06/10/22 Range/Units 15:51 15:51 15:51 WBC 7.65 (4.8-10.8) K/ul RBC 2.86 L (4.20-5.40) M/uL Hgb 6.8 L* (12.0-16.0) g/dl Hct 22.9 L (37.0-47.0) % MCV 80.1 (80.0-100.0) fL MCH 23.8 L (25.0-34.0) pg MCHC 29.7 L (32.0-36.0) g/dL RDW Std Deviation 47.6 H (36.4-46.3) fL RDW Coeff of Giulia 16.3 H (11.5-14.5) % Plt Count 280 (130-400) K/uL MPV 10.5 (9.4-12.4) fL Immature Gran % (Auto) 0.4 % Neut % (Auto) 68.9 % Lymph % (Auto) 21.6 % [place] % (Auto) 6.4 % Eos % (Auto) 2.2 % Baso % (Auto) 0.5 % Reticulocyte % (Auto) (0.5-2.0) % Neut # (Auto) 5.27 (1.40-6.50) K/uL Lymph # (Auto) 1.65 (1.2-3.4) K/uL [place] # (Auto) 0.49 (0.11-0.59) K/uL Eos # (Auto) 0.17 (0-0.50) K/uL Baso # (Auto) 0.04 (0-0.2) K/uL Reticulocyte # (0.02-0.10) 10^6/uL Immature Gran # (Auto) 0.03 (0.01-0.20) K/uL Hypochromasia Present PT Cancelled INR Cancelled APTT Cancelled PTT Ratio Cancelled Sodium 137 (136-145) mmol/L Potassium 4.2 (3.5-5.1) mmol/L Chloride 100 (98-107) mmol/L Carbon Dioxide 28 (21-32) mmol/L Anion Gap 9 (3-11) BUN 24 H (6-23) mg/dl Creatinine 0.61 (0.6-1.2) mg/dl Est Cr Clr Drug Dosing 70.5 ml/min Est GFR ( Amer) 100.6 ml/min Est GFR (Non-Af Amer) 86.8 ml/min BUN/Creatinine Ratio 39.3 H (10-20) Glucose 114 H (70-99(Fasting)) mg/dl Calcium 9.1 (8.6-10.3) mg/dl Iron 184 H (35-150) mcg/dl TIBC 437 (250-450) mcg/dl Unsaturated IBC 253 (155-355) mcg/dl Transferrin 326 (200-360) mg/dl Transferrin % Sat 42 (15-50) % Ferritin 12.5 (8-388) ng/ml Total Bilirubin 0.4 (0.2-1.0) mg/dl AST 18 (13-39) U/L ALT 13 (7-52) U/L Alkaline Phosphatase 56 (34-104) U/L Troponin I High Sens 5.3 (0-14) pg/ml Total Protein 7.2 (6.0-8.3) gm/dl Albumin 4.2 (3.4-5.0) gm/dl Globulin 3.0 (2.5-4.0) gm/dl Albumin/Globulin Ratio 1.4 (0.9-2) SARS-CoV-2, RNA, NAAT (NEGATIVE) Blood Type Antibody Screen Crossmatch 06/10/22 06/10/22 06/10/22 Range/Units 17:01 17:04 17:04 WBC (4.8-10.8) K/ul RBC (4.20-5.40) M/uL Hgb (12.0-16.0) g/dl Hct (37.0-47.0) % MCV (80.0-100.0) fL MCH (25.0-34.0) pg MCHC (32.0-36.0) g/dL RDW Std Deviation (36.4-46.3) fL RDW Coeff of Giulia (11.5-14.5) % Plt Count (130-400) K/uL MPV (9.4-12.4) fL Immature Gran % (Auto) % Neut % (Auto) % Lymph % (Auto) % [place] % (Auto) % Eos % (Auto) % Baso % (Auto) % Reticulocyte % (Auto) 1.7 (0.5-2.0) % Neut # (Auto) (1.40-6.50) K/uL Lymph # (Auto) (1.2-3.4) K/uL [place] # (Auto) (0.11-0.59) K/uL Eos # (Auto) (0-0.50) K/uL Baso # (Auto) (0-0.2) K/uL Reticulocyte # 0.05 (0.02-0.10) 10^6/uL Immature Gran # (Auto) (0.01-0.20) K/uL Hypochromasia PT 11.8 INR 1.1 APTT 24.2 PTT Ratio 0.9 Sodium (136-145) mmol/L Potassium (3.5-5.1) mmol/L Chloride (98-107) mmol/L Carbon Dioxide (21-32) mmol/L Anion Gap (3-11) BUN (6-23) mg/dl Creatinine (0.6-1.2) mg/dl Est Cr Clr Drug Dosing ml/min Est GFR ( Amer) ml/min Est GFR (Non-Af Amer) ml/min BUN/Creatinine Ratio (10-20) Glucose (70-99(Fasting)) mg/dl Calcium (8.6-10.3) mg/dl Iron (35-150) mcg/dl TIBC (250-450) mcg/dl Unsaturated IBC (155-355) mcg/dl Transferrin (200-360) mg/dl Transferrin % Sat (15-50) % Ferritin (8-388) ng/ml Total Bilirubin (0.2-1.0) mg/dl AST (13-39) U/L ALT (7-52) U/L Alkaline Phosphatase (34-104) U/L Troponin I High Sens (0-14) pg/ml Total Protein (6.0-8.3) gm/dl Albumin (3.4-5.0) gm/dl Globulin (2.5-4.0) gm/dl Albumin/Globulin Ratio (0.9-2) SARS-CoV-2, RNA, NAAT (NEGATIVE) Blood Type O Positive Antibody Screen NEGATIVE Crossmatch See Detail 06/10/22 06/10/22 Range/Units 17:09 17:20 WBC (4.8-10.8) K/ul RBC (4.20-5.40) M/uL Hgb (12.0-16.0) g/dl Hct (37.0-47.0) % MCV (80.0-100.0) fL MCH (25.0-34.0) pg MCHC (32.0-36.0) g/dL RDW Std Deviation (36.4-46.3) fL RDW Coeff of Giulia (11.5-14.5) % Plt Count (130-400) K/uL MPV (9.4-12.4) fL Immature Gran % (Auto) % Neut % (Auto) % Lymph % (Auto) % [place] % (Auto) % Eos % (Auto) % Baso % (Auto) % Reticulocyte % (Auto) (0.5-2.0) % Neut # (Auto) (1.40-6.50) K/uL Lymph # (Auto) (1.2-3.4) K/uL [place] # (Auto) (0.11-0.59) K/uL Eos # (Auto) (0-0.50) K/uL Baso # (Auto) (0-0.2) K/uL Reticulocyte # (0.02-0.10) 10^6/uL Immature Gran # (Auto) (0.01-0.20) K/uL Hypochromasia PT INR APTT PTT Ratio Sodium (136-145) mmol/L Potassium (3.5-5.1) mmol/L Chloride (98-107) mmol/L Carbon Dioxide (21-32) mmol/L Anion Gap (3-11) BUN (6-23) mg/dl Creatinine (0.6-1.2) mg/dl Est Cr Clr Drug Dosing ml/min Est GFR ( Amer) ml/min Est GFR (Non-Af Amer) ml/min BUN/Creatinine Ratio (10-20) Glucose (70-99(Fasting)) mg/dl Calcium (8.6-10.3) mg/dl Iron Cancelled (35-150) mcg/dl TIBC (250-450) mcg/dl Unsaturated IBC Cancelled (155-355) mcg/dl Transferrin Cancelled (200-360) mg/dl Transferrin % Sat (15-50) % Ferritin Cancelled (8-388) ng/ml Total Bilirubin (0.2-1.0) mg/dl AST (13-39) U/L ALT (7-52) U/L Alkaline Phosphatase (34-104) U/L Troponin I High Sens (0-14) pg/ml Total Protein (6.0-8.3) gm/dl Albumin (3.4-5.0) gm/dl Globulin (2.5-4.0) gm/dl Albumin/Globulin Ratio (0.9-2) SARS-CoV-2, RNA, NAAT NEGATIVE (NEGATIVE) Blood Type Antibody Screen Crossmatch Administered Medications Discontinued Medications Pantoprazole Sodium (Protonix Bolus/Drip) 0 mls @ 1 mls/hr IV ONE STA Stop: 06/10/22 17:13 Last Admin: 06/10/22 18:56 Dose: Not Given Documented By: NICOLASA Pantoprazole Sodium 80 mg/ (Dextrose) 120 mls @ 400 mls/hr IV NOW ONE Stop: 06/10/22 17:29 Last Infusion: 06/10/22 17:55 Dose: 0 mls/hr Documented By: Admin: 06/10/22 17:37 Dose: 400 mls/hr Documented By: RADHA Discharge Plan Visit Data Chief Complaint: Hypotension Stated Complaint: LOW BP ED Provider: Philipp Huber Discharge Problem: Symptomatic anemia, Upper gastrointestinal bleed, Gastritis Forms Stand Alone Forms: [facility] 2-Observe Prescriptions Prescriptions: No Action Combivent Respimat 20-100 mcg/actuation mist 1 puff inhalation Q6H PRN (Reason: shortness of breath or wheezing) Qty: 4 3RF fluticasone propion-salmeterol [Advair Diskus] 250-50 mcg/dose blister with device 1 inh INH BID Qty: 60 3RF Rx Instructions: inhale 1 dose INH BID; atorvastatin 20 mg tablet 20 mg PO HS Qty: 90 3RF albuterol sulfate [Ventolin HFA] 90 mcg/actuation HFA aerosol inhaler 2 puff INH QID PRN (Reason: shortness of breath or wheezing) Qty: 8.5 3RF fluoxetine 40 mg capsule 40 mg PO HS Rx Instructions: 40 mg orally every evening; aspirin 81 mg tablet,delayed release (DR/EC) 81 mg PO HS Rx Instructions: 81 mg orally every evening; lisinopril 10 mg tablet 10 mg PO HS isosorbide mononitrate 30 mg tablet extended release 24 hr 30 mg PO HS acetaminophen 325 mg Tablet 650 mg PO Q4H PRN (Reason: pain) Qty: 30 0RF Rx Instructions: OTC pantoprazole 40 mg Tablet,Delayed Release (Dr/Ec) 40 mg PO BID Qty: 60 1RF ferrous sulfate 325 mg (65 mg iron) tablet,delayed release (DR/EC) 325 mg PO QAM Referrals Referrals: Wade Lopes MD [Primary Care Provider] -
[2022-06-10] MEDS ORDERED: PANTOprazole 40 MG in DEXTROSE 5% 100 ML IV SCH (17:30)
[2022-06-10 17:45] LABS: Reticulocyte % 1.7 % (0.5-2.0); Reticulocytes # 0.05 10^6/uL (0.02-0.10)
[2022-06-10 17:48] LABS: INR 1.1 (0.9-1.1); Partial Thromboplastin Ratio 0.9; Partial Thromboplastin Time 24.2 Seconds (21.0-31.0); Prothrombin Time 11.8 Seconds (9.0-12.0)
[2022-06-10 17:53] LABS: Ferritin 12.5 ng/ml (8-388)
--- NOTE | 2022-06-10 18:19 | History & Physical Report ---
Date of Service June 10, 2022 Assessment & Plan (1) Acute blood loss anemia: Plan: Hemoglobin 6.8 on admission. Suspect ongoing blood loss from last admission as last hemoglobin on May 08 8.7. Although biopsy taken during EGD and symptoms since then raises possibility of more acute bleed from procedure therefore will be NPO at midnight and consult gastroenterology for tomorrow. Transfuse 1 unit packed RBCs, repeat Hgb following this. Transfusion threshold aim Hgb > 8 in setting of ongoing bleed. Pantoprazole 40mg IV BID (2) RIOS (dyspnea on exertion): Plan: With known aortic stenosis will repeat TTE as this was ongoing durng last admission and at home when she did not need a blood transfusion (3) Hypertension: Plan: Current concern for hypotension therefore will d/c lisinopril. Continue ISMN (4) Hyperlipidemia: Plan: Continue atorvastatin (5) Aortic stenosis: Plan: Repeat TTE (6) Breast cancer, right: Plan: Undergoing radiation Plan VTE Prophylaxis - chemical prophylaxis contraindicated in setting of acute GI bleed Diet - clear liquids, NPO after midnight Disposition - admit to med/surg Admission and Anticipated Discharge Date Admission Date: June 10, 2022 History of Present Illness Chief Complaint: Shortness of breath and lightheadedness Primary Care Provider: Wade Lopes MD Skye Olivo is a 76 year old female with recent GI bleed who presents to the ER with shortness of breath and lightheadedness. She was recently admitted from May 06 - 2022 with the same symptoms and given hemoglobin stable and > 8 she did not receive and blood transfusions. Since discharge she reports progressive worsening symptoms but much worse since her EGD yesterday. She has black stool since taking iron supplementations since her last admission - no acute changes since then. No nausea, vomiting, abdominal pain or hematemesis. She also has known aortic stenosis with last echocardiogram in November 2021. Not repeated on last admission. No syncope or presyncope. Allergies Allergy/AdvReac Type Severity Reaction Status Date / Time hydrochlorothiazide Allergy Intermediate Rash Verified 06/10/22 17:37 sulfamethoxazole [Bactrim] Allergy Intermediate RASH Verified 06/10/22 17:37 trimethoprim [Bactrim] Allergy Intermediate RASH Verified 06/10/22 17:37 Home Medications Medication Instructions Recorded Confirmed Type fluticasone 250 mcg-salmeterol 50 1 inh inhalation BID #60 ea 02/25/22 06/10/22 Rx mcg/dose blistr powdr for inhalation (Advair Diskus) ipratropium 20 mcg-albuterol 100 1 puff inhalation Q6H PRN 02/25/22 06/10/22 Rx mcg/actuation mist for inhalation shortness of breath or wheezing #4 (Combivent Respimat) grams aspirin 81 mg tablet,delayed 81 mg PO HS 02/26/22 06/10/22 History release fluoxetine 40 mg capsule 40 mg PO HS 02/26/22 06/10/22 History lisinopril 10 mg tablet 10 mg PO HS 02/26/22 06/10/22 History isosorbide mononitrate 30 mg 30 mg PO HS 05/06/22 06/10/22 History tablet,extended release 24 hr acetaminophen 325 mg tablet 650 mg PO Q4H PRN pain #30 tabs 05/08/22 06/10/22 Rx pantoprazole 40 mg tablet,delayed 40 mg PO BID #60 tabs 05/08/22 06/10/22 Rx release albuterol sulfate 90 mcg/actuation 2 puff inhalation QID PRN 05/18/22 06/10/22 Rx aerosol inhaler (Ventolin HFA) shortness of breath or wheezing #8.5 grams atorvastatin 20 mg tablet 20 mg PO HS #90 tabs 05/18/22 06/10/22 Rx ferrous sulfate 325 mg (65 mg 325 mg PO QAM 05/29/22 06/10/22 History iron) tablet,delayed release Past Med/Surg History Medical History Aortic stenosis Moderate to severe AV stenosis per 12/03/21 ECHO; F/U DR. [place], [place] Asthma On inhalers Breast cancer HX-Right Cancer Skin cancer to face- s/p removal Depression GERD (gastroesophageal reflux disease) History of COVID-19 07/2021, home test, not hosp; mild symptoms>resolved. Hyperlipidemia Hypertension Lumbar facet joint syndrome Lumbar spinal stenosis Moderate to severe at L4-5 Prediabetes Hgb A1C 6.0 06/2021 Surgical History H/O right breast biopsy (03/19/22) Right Breast Lumpectomy with Localization Using Wire Localization, Right [place] Lymph Node Biopsy(Right) - Vincent Fierro DO History of cataract surgery lt/rt History of colonoscopy w/ polypectomy History of lumpectomy of right breast [place] node biopsy. 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 Dr. Drew Family History Brother Family history of diabetes mellitus Diabetes Coronary arteriosclerosis Mother Myocardial infarction Coronary arteriosclerosis Coronary heart disease Heart disease Father Myocardial infarction Coronary arteriosclerosis Coronary heart disease Heart disease Other Breast cancer Denies family history of Ovarian cancer Prostate cancer Colorectal cancer Social History Smoking Status: Never smoker Tobacco Type: Cigarettes Age Started Using Tobacco: 14; Age Quit Using Tobacco: 59; Second Hand Exposure: No; Do You Dip or Chew Tobacco: No; Tobacco Cessation Education Requested by Patient: No Hx Alcohol Use: No Hx Substance Use: No Preferred Language: Macedonian Communication Ability: Effective Visual Impairment: No Limitations Hearing Ability: Normal 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 Beliefs That Will Affect Care: None marital status: / Current Living Situation: Spouse and Family Current Living Situation Comment: Granddaughter + family and brother current occupational status: retired Other Information That Helps Us Care for You: No Feels Safe at Home: Yes Safety Concerns: Feels Safe At This Time Childhood Exposure to Second-Hand Smoke: Yes caffeine: Yes during the past year weight has: remained stable Dental Care, Regularly: No Physical Activity Frequency: Does not Exercise Seatbelt Use: sometimes Assistive Devices: None Review of Systems Review of Systems: All systems reviewed & are unremarkable except as noted in HPI & below Physical Exam Constitutional: WD/WN, vitals as above ENMT: external ear and nose normal, oropharynx normal Respiratory: normal respiratory effort, lungs clear to auscultation Cardiovascular: Rate/Rhythm: regular rate and regular rhythm Heart Sounds: + murmur (systolic ejection murmur 4/6 LUSB) Extremities: normal capillary refill; no calf tenderness and no pedal edema Gastrointestinal (Abdomen): normal bowel sounds, soft, nontender, no hepatosplenomegaly Musculoskeletal: no cyanosis or clubbing, extremities motor strength 5/5 Skin: no rashes, warm and dry Neurologic: moves all extremities and awake; not confused Psychiatric: A+Ox3, euthymic affect Results & Data Results & Data Vital Signs (Past 12 Hours) Vital Signs Temp Pulse Resp BP Pulse Ox O2 Del Method 06/10/22 17:28 Room Air 06/10/22 15:30 36.6 C 83 18 133/68 94 Room Air Laboratory Results Abnormal lab results 06/10/22 06/10/22 06/10/22 Range/Units 15:51 15:51 17:04 RBC 2.86 L (4.20-5.40) M/uL Hgb 6.8 L* (12.0-16.0) g/dl Hct 22.9 L (37.0-47.0) % MCH 23.8 L (25.0-34.0) pg MCHC 29.7 L (32.0-36.0) g/dL RDW Std Deviation 47.6 H (36.4-46.3) fL RDW Coeff of Giulia 16.3 H (11.5-14.5) % BUN 24 H (6-23) mg/dl BUN/Creatinine Ratio 39.3 H (10-20) Glucose 114 H (70-99(Fasting)) mg/dl Iron 184 H (35-150) mcg/dl Crossmatch See Detail Medications Administered ER Medications Given: Pantoprazole 80mg IV 1 units packed RBCs ECG Rate (beats per minute): 82 Rhythm: normal sinus Findings: no acute ischemic change Comparison ECG Date: from (May 06, 2022) Change: no significant change Code Status & VTE Plan Code Status Full VTE Prophylaxis Plan VTE Prophylaxis will be ordered: No PG Care Time/CCT Total # of Minutes Spent Total Time Spent with Patient: Total time spent is greater than 50% in coordination of care (as documented) at patient's floor/unit and/or counseling patient: Coding Level of Care Code 16911 INT INP/OBS CARE 2/55MIN Diagnoses Acute blood loss anemia D62 RIOS (dyspnea on exertion) R06.09 Hypertension I10 Hyperlipidemia E78.5 Aortic stenosis I35.0 Breast cancer, right C50.911
[2022-06-10] MEDS ORDERED: ACETAMINOPHEN 325 MG TAB PO PRN (20:45)
[2022-06-10] MEDS ORDERED: ALBUTEROL HFA 8 GM INHALER INH PRN (20:45)
[2022-06-10] MEDS: ATORVASTATIN 20 MG TAB PO SCH (21:45)
[2022-06-10] MEDS: FLUoxetine HCL 20 MG CAP PO SCH (21:45)
[2022-06-10] MEDS: ISOSORBIDE MONO EXTENDED REL 30 MG TABCR PO SCH (21:45)
[2022-06-10] MEDS: PANTOprazole 40 MG in SYRINGE 0 ML IV SCH (21:45)
[2022-06-11 02:12] LABS: Hematocrit (blood only) 26.8 % (37.0-47.0); Hemoglobin 8.4 g/dl (12.0-16.0); Mean Corpuscular Hemoglobin 25.4 pg (25.0-34.0); Mean Corpuscular Hgb Conc 31.3 g/dL (32.0-36.0); Mean Platelet Volume 10.1 fL (9.4-12.4); Platelet Count 260 K/uL (130-400); RDW Coefficient of Variation 16.1 % (11.5-14.5); RDW Standard Deviation 47.6 fL (36.4-46.3); Red Blood Count 3.31 M/uL (4.20-5.40); White Blood Count 7.57 K/ul (4.8-10.8)
[2022-06-11 07:10] LABS: Hematocrit (blood only) 24.7 % (37.0-47.0); Hemoglobin 7.6 g/dl (12.0-16.0); Mean Corpuscular Hemoglobin 24.6 pg (25.0-34.0); Mean Corpuscular Hgb Conc 30.8 g/dL (32.0-36.0); Mean Corpuscular Volume 79.9 fL (80.0-100.0); Mean Platelet Volume 10.5 fL (9.4-12.4); Nucleated RBC # (auto) 0.02 K/uL (0-0.12); Nucleated RBC % (auto) 0.3 %; Platelet Count 251 K/uL (130-400); RDW Standard Deviation 46.5 fL (36.4-46.3); Red Blood Count 3.09 M/uL (4.20-5.40); White Blood Count 7.68 K/ul (4.8-10.8)
[2022-06-11 07:19] LABS: BUN Creatinine Ratio 31.5 (10-20); Calcium 8.9 mg/dl (8.6-10.3); Creatinine Clr Calc Pharmacy 80.1 ml/min; Est GFR (African American) 104.8 ml/min; Est GFR (Non-African American) 90.4 ml/min; Potassium 3.8 mmol/L (3.5-5.1)
[2022-06-11] MEDS ORDERED: SODIUM CHLORIDE 0.9% 250 ML IV PRN (08:22)
--- NOTE | 2022-06-11 08:29 | Hospitalist Progress Note ---
Date of Service June 11, 2022 Assessment & Plan (1) Acute blood loss anemia: Plan: Hemoglobin 6.8 on admission, reported LIGHTHEADED/DIZZINESS/Pre-Syncope symptoms and RIOS in setting of patient w/ known aortic stenosis, suspected worsened based on exam and CONFIRMED on ECHO today Possible ongoing blood loss from last admission as last hemoglobin on May 08 8.7, vs hemolysis from her ? Check LDH * Although biopsy taken during EGD and symptoms since then raises possibility of more acute bleed from procedure therefore will be NPO at midnight and consult gastroenterology for tomorrow. * She did state she resumed her aspirin following c-scope, placed on hold for now 1u prbc on admit, hgb <8 on repeat and additional 1u PRBC ordered GI consulted --> messaged this Am to see if any planned scope, NONE --> outpt f/u CTAP w/o intra-abdominal bleeding, CXR w/o acute process (did note atelectasis) Diet advanced Continue PPI BID, can convert to PO for tomorrow Iron studies obtained but ? if after already received unit of blood, iron 184 (she is on daily supplementation) Monitor CBC on repeat (2) RIOS (dyspnea on exertion): Plan: With known aortic stenosis will repeat TTE as this was ongoing durng last admission and at home when she did not need a blood transfusion On exam, quiet S2 and symptoms concerning for worsening aortic stenosis ECHO -- compared 12/03/2021, mild progression of SEVERE aortic stenosis and LVH, moderate pulmonary HTN now seen Lasix x 1 given w/ additional PRBC to prevent volume overload Will also check overnight overnight pox study given pulm HTN Moving to monitored bed to see if having any underlying athymias contributing to symptoms as well Cards consulted given worsening , ?consideration for TAVR (3) Hypertension: Plan: Current concern for hypotension given reports lightheaded/dizziness, lisinopril discontinued Continued on ISMN for now, will plan to resume lisinopril for AM if kidney function remaining stable w/ diueretics w/ blood Monitor -- BP currently 147/77 (4) Hyperlipidemia: Plan: Continue atorvastatin (5) Aortic stenosis: Plan: Repeat TTE as above, WORSENED Monitor on med tele/consult cards as above (6) Breast cancer, right: Plan: Undergoing radiation Of note, last admit w/ GI bleed, CTA done and noted 10mm ground-glass nodule in [place]. Infectious/inflammatory suspected, but 3mo f/u to exclude underlying adenocarcinoma recommended No obvious finding on CXR as above Underwent XRT for today as arranged by CCP Will need f/u CT chest in 2 months to ensure resolution and exclude underlying adenocarcinoma Plan VTE Prophylaxis - chemical prophylaxis contraindicated in setting of acute GI bleed Admission and Anticipated Discharge Date Admission Date: June 10, 2022 Supervising Physician Co-Signing Physician Notes The patient was not seen by me. The chart was reviewed. Case discussed with RICARDA Ashford. Agree with assessment and plan Subjective eval this morning, doing alright, getting 2u PRBC. Notes some darkened stools but only since being on iron. Prior meloxicam was dc. Recent EGD w/ bx, she did hold aspirin for several days prior, resumed and took one dose following. She notes feeling slightly better after d/c last admission but having ongoing lightheadedness/dizziness and had low BP on admission. No abdominal pain or cough/sputum production. Notes significant murmur on exam c/w aortic stenosis. she notes she did have ECHO performed this morning. Discussed any angina, which patient denies. Denied any palpitations along with dizziness. Discussed if any blood in stool/abdominal pain/increased SOB to alert. 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 She will be getting CXR/CT AP for further eval. Will feed following if no issues as GI no plans for inpatient scope currently. No recent fever/chills. Questions/concerns addressed at this time. Physical Exam Physical Exam: General: WD elderly female sitting up in bed, NAD, general pallor noted HEENT: head normocephalic, mmm, trachea midline Resp: slightly diminished in the bases, no significant wheezing/crackles, on room air CV: regular rate/rhythm, SIGNIFICANT systolic murmur 5/6, S1/QUIET S2, trace Le edema/calves nontender GI: +BS, soft/NT MSK/Neuro: no focal deficit Psych: AOx3, cooperative with care, pleasant Results & Data Results & Data Vital Signs (Past 12 Hours) Vital Signs Temp Pulse Pulse Resp BP BP Pulse Ox 06/11/22 07:30 36.8 C 82 16 115/62 94 06/10/22 22:32 36.8 C 73 18 129/67 95 06/10/22 20:43 36.7 C 78 18 123/71 98 06/10/22 20:51 36.7 C 18 98 O2 Del Method 06/11/22 07:30 Room Air 06/10/22 22:32 06/10/22 20:43 06/10/22 20:51 Room Air Laboratory Results 06/11/22 06/11/22 06/11/22 Range/Units 11:52 11:52 05:59 WBC 6.17 7.68 (4.8-10.8) K/ul RBC 3.49 L 3.09 L (4.20-5.40) M/uL Hgb 8.8 L 7.6 L (12.0-16.0) g/dl Hct 28.2 L 24.7 L (37.0-47.0) % MCV 80.8 79.9 L (80.0-100.0) fL MCH 25.2 24.6 L (25.0-34.0) pg MCHC 31.2 L 30.8 L (32.0-36.0) g/dL RDW Std Deviation 47.9 H 46.5 H (36.4-46.3) fL RDW Coeff of Giulia 16.2 H 16.0 H (11.5-14.5) % Plt Count 241 251 (130-400) K/uL MPV 9.7 10.5 (9.4-12.4) fL Absolute Nucleated RBC 0.02 (0-0.12) K/uL Nucleated RBC % (auto) 0.3 % Sodium (136-145) mmol/L Potassium (3.5-5.1) mmol/L Chloride (98-107) mmol/L Carbon Dioxide (21-32) mmol/L Anion Gap (3-11) BUN (6-23) mg/dl Creatinine (0.6-1.2) mg/dl Est Cr Clr Drug Dosing ml/min Est GFR ( Amer) ml/min Est GFR (Non-Af Amer) ml/min BUN/Creatinine Ratio (10-20) Glucose (70-99(Fasting)) mg/dl Calcium (8.6-10.3) mg/dl Ferritin (8-388) ng/ml Lactate Dehydrogenase 148 (86-244) U/L SARS-CoV-2, RNA, NAAT (NEGATIVE) Blood Type Antibody Screen Crossmatch 06/11/22 06/10/22 06/10/22 Range/Units 05:59 22:49 17:20 WBC 7.57 (4.8-10.8) K/ul RBC 3.31 L (4.20-5.40) M/uL Hgb 8.4 L (12.0-16.0) g/dl Hct 26.8 L (37.0-47.0) % MCV 81.0 (80.0-100.0) fL MCH 25.4 (25.0-34.0) pg MCHC 31.3 L (32.0-36.0) g/dL RDW Std Deviation 47.6 H (36.4-46.3) fL RDW Coeff of Giulia 16.1 H (11.5-14.5) % Plt Count 260 (130-400) K/uL MPV 10.1 (9.4-12.4) fL Absolute Nucleated RBC (0-0.12) K/uL Nucleated RBC % (auto) % Sodium 136 (136-145) mmol/L Potassium 3.8 (3.5-5.1) mmol/L Chloride 102 (98-107) mmol/L Carbon Dioxide 27 (21-32) mmol/L Anion Gap 7 (3-11) BUN 17 (6-23) mg/dl Creatinine 0.54 L (0.6-1.2) mg/dl Est Cr Clr Drug Dosing 80.1 ml/min Est GFR ( Amer) 104.8 ml/min Est GFR (Non-Af Amer) 90.4 ml/min BUN/Creatinine Ratio 31.5 H (10-20) Glucose 91 (70-99(Fasting)) mg/dl Calcium 8.9 (8.6-10.3) mg/dl Ferritin (8-388) ng/ml Lactate Dehydrogenase (86-244) U/L SARS-CoV-2, RNA, NAAT NEGATIVE (NEGATIVE) Blood Type Antibody Screen Crossmatch 06/10/22 06/10/22 Range/Units 17:04 15:51 WBC (4.8-10.8) K/ul RBC (4.20-5.40) M/uL Hgb (12.0-16.0) g/dl Hct (37.0-47.0) % MCV (80.0-100.0) fL MCH (25.0-34.0) pg MCHC (32.0-36.0) g/dL RDW Std Deviation (36.4-46.3) fL RDW Coeff of Giulia (11.5-14.5) % Plt Count (130-400) K/uL MPV (9.4-12.4) fL Absolute Nucleated RBC (0-0.12) K/uL Nucleated RBC % (auto) % Sodium (136-145) mmol/L Potassium (3.5-5.1) mmol/L Chloride (98-107) mmol/L Carbon Dioxide (21-32) mmol/L Anion Gap (3-11) BUN (6-23) mg/dl Creatinine (0.6-1.2) mg/dl Est Cr Clr Drug Dosing ml/min Est GFR ( Amer) ml/min Est GFR (Non-Af Amer) ml/min BUN/Creatinine Ratio (10-20) Glucose (70-99(Fasting)) mg/dl Calcium (8.6-10.3) mg/dl Ferritin 12.5 (8-388) ng/ml Lactate Dehydrogenase (86-244) U/L SARS-CoV-2, RNA, NAAT (NEGATIVE) Blood Type O Positive Antibody Screen NEGATIVE Crossmatch See Detail Diagnostic Findings Chest X-Ray 06/11/22 10:43 XR chest 1V portable CLINICAL HISTORY: Shortness of breath. COMPARISON STUDY: Chest radiograph May 06, [address] May 07, 2022. FINDINGS: Mild elevation of the right hemidiaphragm is unchanged. No pneumothorax or pleural effusion is present. Linear bibasilar opacities favor atelectasis. There is no consolidation to suggest pneumonia. No evidence for pulmonary edema. Cardiomediastinal silhouette is stable. IMPRESSION: 1. No acute cardiopulmonary findings. 2. Mild right basilar opacity which favors atelectasis. ACT 112: Negative or not required by law. Electronically signed by: Mike Hill M.D. 06/11/2022 11:03 AM Abdomen/Pelvis CT 06/11/22 10:48 CT abd pelvis IV con only CLINICAL HISTORY: anemia, eval bleeding TECHNIQUE: Helical axial images of the abdomen and pelvis were obtained and displayed. Automated dose lowering techniques and/or adjustment according to patient size were utilized for this exam3 This exam was performed with intravenous contrast. CT DOSE: 824.61 mGycm COMPARISON: Comparison is made to CT abdomen pelvis 05/06/2011 FINDINGS: Lower chest: No acute abnormality. Liver: Unremarkable. No focal lesions are seen. Gallbladder and biliary tree: No calcified gallstones. Normal caliber wall. No intra- or extrahepatic biliary ductal dilation. Pancreas: Unremarkable, no focal lesions. Spleen: Unremarkable. Adrenals: Unremarkable. Kidneys and ureters: Renal cysts are seen. Nonobstructive stones are seen. Bladder: Limited evaluation due to underdistention. Reproductive organs: Uterus is retroverted. Bowel: The appendix is normal. A hiatal hernia is seen. Lymph nodes Retroperitoneal: Subcentimeter lymph nodes are noted. Pelvic: Unremarkable. Mesenteric: Unremarkable. Peritoneum: Normal. Vessels: Atherosclerotic calcifications are seen. Abdominal wall: Unremarkable. Bones: Degenerative changes in the visualized spine. IMPRESSION: No acute abnormalities to suggest intra-abdominal bleeding. Additional findings as above. ACT 112: Negative or not required by law. Electronically signed by: eJromy Robertson M.D. 06/11/2022 11:55 AM ECHOCARDIOGRAM - Compared w12/03/2021, mild progression of SEVERE aortic stenosis and LVH, moderate pulmonary HTN now seen. LV systolic function is normal, EF 65-70%. LV wall motion normal. Moderate concentric LVH. Diastolic dysfunction, Grade II. SEVERE aortic stenosis. Moderate mitral regurgitation. RVSP elevated 40-50mmHg. PG Care Time/CCT Total # of Minutes Spent Total Time Spent with Patient: Total time spent is greater than 50% in coordination of care (as documented) at patient's floor/unit and/or counseling patient: Coding Level of Care Code 98750 SUB INP/OBS CARE 3/50MIN Diagnoses Acute blood loss anemia D62 RIOS (dyspnea on exertion) R06.09 Hypertension I10 Hyperlipidemia E78.5 Aortic stenosis I35.0 Breast cancer, right C50.911
[2022-06-11] MEDS: PANTOprazole 40 MG in SYRINGE 0 ML IV SCH ×2 (09:42→20:19)
[2022-06-11] MEDS: FLUTICASONE/VILANTEROL 200/25MCG 14 PUFFS/INHALER INH SCH (09:43)
--- NOTE | 2022-06-11 10:04 | Gastrointestinal Consultation ---
Date of Consultation June 11, 2022 Assessment & Plan (1) Symptomatic anemia: -Continue Protonix 40 mg BID -No plans for inpatient endoscopic evaluation in absence of overt GI bleeding; Can consider outpatient colonoscopy for further evaluation of GI bleeding, but would also advise consideration of other causes of anemia given the absence of overt bleeding despite her low hemoglobin. A previous CT scan of the chest showed what was considered likely infectious vs inflammatory process vs adenocarcinoma of the lung. She has shortness of breath, which certainly could be from her anemia, however she hasn't had a chest xray to exclude any acute issues that have changed since her last imaging. Could also consider CT abd/pelvis to exclude acute lower GI pathology that could be contributing to her clinical picture. If no findings on imaging, would proceed with colonoscopy, however would consider hematology evaluation as well. The patient is in agreement with this plan. Supervising Physician Co-Signing Physician Notes Agree with QUINTIN Quiñonez as above Abd: Soft, NT, ND, +BS Continue current therapy and supportive care CT abd/pelvis reviewed and normal Consider outpatient colonoscopy History of Present Illness Reason for Consultation: Anemia Attending Physician: Oliver Miller MD History of Present Illness Patient is a 76 yo female who presents to the office for further evaluation of anemia. The patient was noted to have a hemoglobin of 6.8 on outpatient labs and was referred to the hospital by her PCP. She has been undergoing a work-up for anemia as an outpatient. She had an EGD 3 days ago that was unremarkable. Biopsies of the stomach show chronic, inactive gastritis. She is on Protonix 40 mg BID as an outpatient. She denies abdominal pain. She denies overt GI bleeding. No hematemesis, melena, coffee-ground emesis, hematochezia. She is not sure of the date of her last colonoscopy. She has had imaging studies recently in May that indicated concern for infectious/inflammatory lung nodule that follow-up was recommended for. She notes worsening shortness of breath since her EGD. She is not anticoagulated. She has received PRBCs since admission and H/H is now 7.6/24.7. Of note, her BUN is entirely unremarkable at 17. Allergies Allergy/AdvReac Type Severity Reaction Status Date / Time hydrochlorothiazide Allergy Intermediate Rash Verified 06/10/22 17:37 sulfamethoxazole [Bactrim] Allergy Intermediate RASH Verified 06/10/22 17:37 trimethoprim [Bactrim] Allergy Intermediate RASH Verified 06/10/22 17:37 Home Medications Medication Instructions Recorded Confirmed Type fluticasone 250 mcg-salmeterol 50 1 inh inhalation BID #60 ea 02/25/22 06/10/22 Rx mcg/dose blistr powdr for inhalation (Advair Diskus) ipratropium 20 mcg-albuterol 100 1 puff inhalation Q6H PRN 02/25/22 06/10/22 Rx mcg/actuation mist for inhalation shortness of breath or wheezing #4 (Combivent Respimat) grams aspirin 81 mg tablet,delayed 81 mg PO HS 02/26/22 06/10/22 History release fluoxetine 40 mg capsule 40 mg PO HS 02/26/22 06/10/22 History lisinopril 10 mg tablet 10 mg PO HS 02/26/22 06/10/22 History isosorbide mononitrate 30 mg 30 mg PO HS 05/06/22 06/10/22 History tablet,extended release 24 hr acetaminophen 325 mg tablet 650 mg PO Q4H PRN pain #30 tabs 05/08/22 06/10/22 Rx pantoprazole 40 mg tablet,delayed 40 mg PO BID #60 tabs 05/08/22 06/10/22 Rx release albuterol sulfate 90 mcg/actuation 2 puff inhalation QID PRN 05/18/22 06/10/22 Rx aerosol inhaler (Ventolin HFA) shortness of breath or wheezing #8.5 grams atorvastatin 20 mg tablet 20 mg PO HS #90 tabs 05/18/22 06/10/22 Rx ferrous sulfate 325 mg (65 mg 325 mg PO QAM 05/29/22 06/10/22 History iron) tablet,delayed release Patient History Medical History Aortic stenosis Moderate to severe AV stenosis per 12/03/21 ECHO; F/U DR. [place], [place] Asthma On inhalers Breast cancer HX-Right Cancer Skin cancer to face- s/p removal Depression GERD (gastroesophageal reflux disease) History of COVID-19 07/2021, home test, not hosp; mild symptoms>resolved. Hyperlipidemia Hypertension Lumbar facet joint syndrome Lumbar spinal stenosis Moderate to severe at L4-5 Prediabetes Hgb A1C 6.0 06/2021 Surgical History H/O right breast biopsy (03/19/22) Right Breast Lumpectomy with Localization Using Wire Localization, Right [place] Lymph Node Biopsy(Right) - [facility]ierro, History of cataract surgery lt/rt History of colonoscopy w/ polypectomy History of lumpectomy of right breast [place] node biopsy. 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 Dr. Drew Family History Brother Family history of diabetes mellitus Diabetes Coronary arteriosclerosis Mother Myocardial infarction Coronary arteriosclerosis Coronary heart disease Heart disease Father Myocardial infarction Coronary arteriosclerosis Coronary heart disease Heart disease Other Breast cancer Denies family history of Ovarian cancer Prostate cancer Colorectal cancer Social History Smoking Status: Never smoker Tobacco Type: Cigarettes Age Started Using Tobacco: 14; Age Quit Using Tobacco: 59; Second Hand Exposure: No; Do You Dip or Chew Tobacco: No; Tobacco Cessation Education Requested by Patient: No Hx Alcohol Use: No Hx Substance Use: No Preferred Language: Wolof Communication Ability: Effective Visual Impairment: No Limitations Hearing Ability: Normal Mail Processing Clerk Required: No Beliefs That Will Affect Care: None marital status: / Current Living Situation: Spouse and Family Current Living Situation Comment: Granddaughter + family and brother current occupational status: retired Other Information That Helps Us Care for You: No Feels Safe at Home: Yes Safety Concerns: Feels Safe At This Time Childhood Exposure to Second-Hand Smoke: Yes caffeine: Yes during the past year weight has: remained stable Dental Care, Regularly: No Physical Activity Frequency: Does not Exercise Seatbelt Use: sometimes Assistive Devices: None Review of Systems Respiratory: + dyspnea on exertion Cardiovascular: no chest pain Physical Exam Constitutional: well developed Respiratory: normal respiratory effort Cardiovascular: Rate/Rhythm: regular rate Gastrointestinal (Abdomen): normal bowel sounds, soft, nontender, no hepatosplenomegaly Musculoskeletal: Head/Neck/Chest: normocephalic Psychiatric: Orientation: alert and oriented x 3 Results & Data Vital Signs (Past 12 Hours) Vital Signs Temp Pulse Pulse Resp BP BP Pulse Ox 06/11/22 09:50 36.8 C 78 18 115/71 94 06/11/22 09:20 36.4 C L 77 18 124/68 95 06/11/22 09:05 36.4 C L 76 18 114/70 94 06/11/22 08:49 36.7 C 93 H 18 122/59 L 94 06/11/22 07:30 36.8 C 82 16 115/62 94 06/10/22 22:32 36.8 C 73 18 129/67 95 O2 Del Method 06/11/22 09:50 06/11/22 09:20 06/11/22 09:05 06/11/22 08:49 06/11/22 07:30 Room Air 06/10/22 22:32 PG Care Time/CCT Total # of Minutes Spent Total Time Spent with Patient: Total time spent is greater than 50% in coordination of care (as documented) at patient's floor/unit and/or counseling patient: Coding Level of Care Code 98929 INT INP/OBS CARE 3/75MIN Diagnoses Symptomatic anemia D64.9
--- NOTE | 2022-06-11 11:04 | XRay Report ---
XR chest 1V portable CLINICAL HISTORY: Shortness of breath. COMPARISON STUDY: Chest radiograph May 06, [address] May 07, 2022. FINDINGS: Mild elevation of the right hemidiaphragm is unchanged. No pneumothorax or pleural effusion is present. Linear bibasilar opacities favor atelectasis. There is no consolidation to suggest pneum onia. No evidence for pulmonary edema. Cardiomediastinal silhouette is stable. IMPRESSION: 1. No acute cardiopulmonary findings. 2. Mild right basilar opacity which favors atelectasis. ACT 112: Negative or not required by law. Electronically signed by: Mike Hill M.D. 06/11/2022 11:03 AM
[2022-06-11] MEDS ORDERED: OPTIRAY 350 100ml IV ONE (11:44)
--- NOTE | 2022-06-11 11:57 | CT Scan Report ---
CT abd pelvis IV con only CLINICAL HISTORY: anemia, eval bleeding TECHNIQUE: Helical axial images of the abdomen and pelvis were obtained and displayed. Automated dose lowering techniques and/or adjustment according to patient size were utilized for this exam3 This ex am was performed with intravenous contrast. CT DOSE: 824.61 mGycm COMPARISON: Comparison is made to CT abdomen pelvis 05/06/2011 FINDINGS: Lower chest: No acute abnormality. Liver: Unremarkable. No focal lesions are seen. Gallbladder and biliary tree: No calcified gallstones. Normal caliber wall. No intra- or extrahepatic biliary ductal dilation. Pancreas: Unremarkable, no focal lesions. Spleen: Unremarkable. Adrenals: Unremarkable. Kidneys and ureters: Renal cysts are seen. Nonobstructive stones are seen. Bladder: Limited evaluation due to underdistention. Reproductive organs: Uterus is retroverted. Bowel: The appendix is normal. A hiatal hernia is seen. Lymph nodes Retroperitoneal: Subcentimeter lymph nodes are noted. Pelvic: Unremarkable. Mesenteric: Unremarkable. Peritoneum: Normal. Vessels: Atherosclerotic calcifications are seen. Abdominal wall: Unremarkable. Bones: Degenerative changes in the visualized spine. IMPRESSION: No acute abnormalities to suggest intra-abdominal bleeding. Additional findings as above. ACT 112: Negative or not required by law. Electronically signed by: Jeromy Robertson M.D. 06/11/2022 11:55 AM
[2022-06-11 12:19] LABS: Hematocrit (blood only) 28.2 % (37.0-47.0); Hemoglobin 8.8 g/dl (12.0-16.0); Mean Corpuscular Hemoglobin 25.2 pg (25.0-34.0); Mean Corpuscular Hgb Conc 31.2 g/dL (32.0-36.0); Mean Corpuscular Volume 80.8 fL (80.0-100.0); Mean Platelet Volume 9.7 fL (9.4-12.4); Platelet Count 241 K/uL (130-400); RDW Coefficient of Variation 16.2 % (11.5-14.5); RDW Standard Deviation 47.9 fL (36.4-46.3); Red Blood Count 3.49 M/uL (4.20-5.40); White Blood Count 6.17 K/ul (4.8-10.8)
--- NOTE | 2022-06-11 16:10 | XCELERA ---
[id number] \\[id number]
[2022-06-11] MEDS ORDERED: FUROSEMIDE 40 MG/4 ML VIAL IV ONE (18:00)
[2022-06-11] MEDS: FLUoxetine HCL 20 MG CAP PO SCH (20:18)
[2022-06-11] MEDS: ATORVASTATIN 20 MG TAB PO SCH (20:18)
[2022-06-11] MEDS: ISOSORBIDE MONO EXTENDED REL 30 MG TABCR PO SCH (20:19)
[2022-06-12 07:02] LABS: Hematocrit (blood only) 28.9 % (37.0-47.0); Hemoglobin 9.5 g/dl (12.0-16.0); Mean Corpuscular Hemoglobin 25.7 pg (25.0-34.0); Mean Corpuscular Hgb Conc 32.9 g/dL (32.0-36.0); Mean Corpuscular Volume 78.3 fL (80.0-100.0); Mean Platelet Volume 10.2 fL (9.4-12.4); Platelet Count 267 K/uL (130-400); RDW Coefficient of Variation 16.3 % (11.5-14.5); RDW Standard Deviation 46.9 fL (36.4-46.3); Red Blood Count 3.69 M/uL (4.20-5.40); White Blood Count 7.81 K/ul (4.8-10.8)
[2022-06-12 07:25] LABS: Albumin Globulin Ratio 1.4 (0.9-2); Albumin Level 4.1 gm/dl (3.4-5.0); BUN Creatinine Ratio 34.8 (10-20); Bilirubin,Total 0.6 mg/dl (0.2-1.0); Calcium 9.1 mg/dl (8.6-10.3); Creatinine Clr Calc Pharmacy 62.7 ml/min; Est GFR (African American) 96.6 ml/min; Est GFR (Non-African American) 83.4 ml/min; Globulin 2.9 gm/dl (2.5-4.0); Magnesium 1.9 mg/dl (1.7-2.4); Potassium 3.5 mmol/L (3.5-5.1)
--- NOTE | 2022-06-12 07:38 | Hospitalist Progress Note ---
Date of Service June 12, 2022 Assessment & Plan (1) RIOS (dyspnea on exertion): Plan: ADmitted for low hgb, but found w/ worsening aortic stenosis (With known aortic stenosis will repeat TTE as this was ongoing during last admission and at home when she did not need a blood transfusion) On exam, quiet S2 and symptoms concerning for worsening aortic stenosis ECHO -- compared 12/03/2021, mild progression of SEVERE aortic stenosis and LVH, moderate pulmonary HTN now seen. LDH not elevated. Lasix x 1 given w/ additional PRBC to prevent volume overload Will also check overnight overnight pox study given pulm HTN Moving to monitored bed to see if having any underlying athymias contributing to symptoms as well Cards consulted given worsening , ?consideration for TAVR (2) Acute blood loss anemia: Plan: Hemoglobin 6.8 on admission, reported LIGHTHEADED/DIZZINESS/Pre-Syncope symptoms and RIOS in setting of patient w/ known aortic stenosis, suspected worsened based on exam and CONFIRMED on ECHO today Possible ongoing blood loss from last admission as last hemoglobin on May 08 8.7, vs hemolysis from her ? Check LDH * Although biopsy taken during EGD and symptoms since then raises possibility of more acute bleed from procedure therefore will be NPO at midnight and consult gastroenterology for tomorrow. * She did state she resumed her aspirin following c-scope, placed on hold for now 1u prbc on admit, hgb <8 on repeat and additional 1u PRBC ordered lasix 40mg IV x 1 provided w/ second unit GI consulted --> messaged this Am to see if any planned scope, NONE --> outpt f/u CTAP w/o intra-abdominal bleeding, CXR w/o acute process (did note atelectasis) Diet advanced Continue PPI BID, can convert to PO for tomorrow Iron studies obtained, but ? if after already received unit of blood, iron 184 (she is on daily iron supplementation at home) Monitor CBC on repeat (3) Hypertension: Plan: Current concern for hypotension given reports lightheaded/dizziness, lisinopril discontinued Continued on ISMN for now, will plan to resume lisinopril for AM if kidney function remaining stable w/ diueretics w/ blood Monitor -- BP currently 147/77 (4) Hyperlipidemia: Plan: Continue atorvastatin (5) Aortic stenosis: Plan: Repeat TTE as above, WORSENED Monitor on med tele/consult cards as above (6) Breast cancer, right: Plan: Undergoing radiation Of note, last admit w/ GI bleed, CTA done and noted 10mm ground-glass nodule in [place]. Infectious/inflammatory suspected, but 3mo f/u to exclude underlying adenocarcinoma recommended No obvious finding on CXR as above Underwent XRT for today as arranged by CCP Will need f/u CT chest in 2 months to ensure resolution and exclude underlying adenocarcinoma Plan VTE Prophylaxis - chemical prophylaxis contraindicated in setting of acute GI bleed Admission and Anticipated Discharge Date Admission Date: June 10, 2022 Results & Data Results & Data Vital Signs (Past 12 Hours) Vital Signs Temp Pulse Pulse Pulse Resp BP BP 06/12/22 05:10 82 06/12/22 04:00 37.0 C 88 20 118/62 06/12/22 04:07 85 06/12/22 00:42 88 06/11/22 23:26 87 06/11/22 23:00 37.0 C 82 19 143/67 H 06/11/22 22:30 92 H 06/11/22 20:00 36.7 C 81 18 155/81 H 06/11/22 20:00 Pulse Ox Pulse Ox O2 Del Method O2 Del Method 06/12/22 05:10 91 Room Air 06/12/22 04:00 91 Room Air 06/12/22 04:07 88 L Room Air 06/12/22 00:42 90 Room Air 06/11/22 23:26 06/11/22 23:00 97 Room Air 06/11/22 22:30 96 Room Air 06/11/22 20:00 94 Room Air 06/11/22 20:00 Room Air Laboratory Results 06/12/22 06/12/22 06/12/22 Range/Units 06:12 06:12 06:12 WBC 7.81 (4.8-10.8) K/ul RBC 3.69 L (4.20-5.40) M/uL Hgb 9.5 L (12.0-16.0) g/dl Hct 28.9 L (37.0-47.0) % MCV 78.3 L (80.0-100.0) fL MCH 25.7 (25.0-34.0) pg MCHC 32.9 (32.0-36.0) g/dL RDW Std Deviation 46.9 H (36.4-46.3) fL RDW Coeff of Giulia 16.3 H (11.5-14.5) % Plt Count 267 (130-400) K/uL MPV 10.2 (9.4-12.4) fL Sodium 136 (136-145) mmol/L Potassium 3.5 (3.5-5.1) mmol/L Chloride 100 (98-107) mmol/L Carbon Dioxide 28 (21-32) mmol/L Anion Gap 8 (3-11) BUN 24 H (6-23) mg/dl Creatinine 0.69 (0.6-1.2) mg/dl Est Cr Clr Drug Dosing 62.7 ml/min Est GFR ( Amer) 96.6 ml/min Est GFR (Non-Af Amer) 83.4 ml/min BUN/Creatinine Ratio 34.8 H (10-20) Glucose 98 (70-99(Fasting)) mg/dl Calcium 9.1 (8.6-10.3) mg/dl Magnesium 1.9 (1.7-2.4) mg/dl Total Bilirubin 0.6 (0.2-1.0) mg/dl AST 15 (13-39) U/L ALT 12 (7-52) U/L Alkaline Phosphatase 54 (34-104) U/L Lactate Dehydrogenase (86-244) U/L Total Protein 7.0 (6.0-8.3) gm/dl Albumin 4.1 (3.4-5.0) gm/dl Globulin 2.9 (2.5-4.0) gm/dl Albumin/Globulin Ratio 1.4 (0.9-2) Vitamin B12 Pending Folate Pending Blood Type Antibody Screen Crossmatch 06/11/22 06/11/22 06/10/22 Range/Units 11:52 11:52 17:04 WBC 6.17 (4.8-10.8) K/ul RBC 3.49 L (4.20-5.40) M/uL Hgb 8.8 L (12.0-16.0) g/dl Hct 28.2 L (37.0-47.0) % MCV 80.8 (80.0-100.0) fL MCH 25.2 (25.0-34.0) pg MCHC 31.2 L (32.0-36.0) g/dL RDW Std Deviation 47.9 H (36.4-46.3) fL RDW Coeff of Giulia 16.2 H (11.5-14.5) % Plt Count 241 (130-400) K/uL MPV 9.7 (9.4-12.4) fL Sodium (136-145) mmol/L Potassium (3.5-5.1) mmol/L Chloride (98-107) mmol/L Carbon Dioxide (21-32) mmol/L Anion Gap (3-11) BUN (6-23) mg/dl Creatinine (0.6-1.2) mg/dl Est Cr Clr Drug Dosing ml/min Est GFR ( Amer) ml/min Est GFR (Non-Af Amer) ml/min BUN/Creatinine Ratio (10-20) Glucose (70-99(Fasting)) mg/dl Calcium (8.6-10.3) mg/dl Magnesium (1.7-2.4) mg/dl Total Bilirubin (0.2-1.0) mg/dl AST (13-39) U/L ALT (7-52) U/L Alkaline Phosphatase (34-104) U/L Lactate Dehydrogenase 148 (86-244) U/L Total Protein (6.0-8.3) gm/dl Albumin (3.4-5.0) gm/dl Globulin (2.5-4.0) gm/dl Albumin/Globulin Ratio (0.9-2) Vitamin B12 Folate Blood Type O Positive Antibody Screen NEGATIVE Crossmatch See Detail Diagnostic Findings Chest X-Ray 06/11/22 10:43 XR chest 1V portable CLINICAL HISTORY: Shortness of breath. COMPARISON STUDY: Chest radiograph May 06, [address] May 07, 2022. FINDINGS: Mild elevation of the right hemidiaphragm is unchanged. No pneumothorax or pleural effusion is present. Linear bibasilar opacities favor atelectasis. There is no consolidation to suggest pneumonia. No evidence for pulmonary edema. Cardiomediastinal silhouette is stable. IMPRESSION: 1. No acute cardiopulmonary findings. 2. Mild right basilar opacity which favors atelectasis. ACT 112: Negative or not required by law. Electronically signed by: Mike Hill M.D. 06/11/2022 11:03 AM Abdomen/Pelvis CT 06/11/22 10:48 CT abd pelvis IV con only CLINICAL HISTORY: anemia, eval bleeding TECHNIQUE: Helical axial images of the abdomen and pelvis were obtained and displayed. Automated dose lowering techniques and/or adjustment according to patient size were utilized for this exam3 This exam was performed with intravenous contrast. CT DOSE: 824.61 mGycm COMPARISON: Comparison is made to CT abdomen pelvis 05/06/2011 FINDINGS: Lower chest: No acute abnormality. Liver: Unremarkable. No focal lesions are seen. Gallbladder and biliary tree: No calcified gallstones. Normal caliber wall. No intra- or extrahepatic biliary ductal dilation. Pancreas: Unremarkable, no focal lesions. Spleen: Unremarkable. Adrenals: Unremarkable. Kidneys and ureters: Renal cysts are seen. Nonobstructive stones are seen. Bladder: Limited evaluation due to underdistention. Reproductive organs: Uterus is retroverted. Bowel: The appendix is normal. A hiatal hernia is seen. Lymph nodes Retroperitoneal: Subcentimeter lymph nodes are noted. Pelvic: Unremarkable. Mesenteric: Unremarkable. Peritoneum: Normal. Vessels: Atherosclerotic calcifications are seen. Abdominal wall: Unremarkable. Bones: Degenerative changes in the visualized spine. IMPRESSION: No acute abnormalities to suggest intra-abdominal bleeding. Additional findings as above. ACT 112: Negative or not required by law. Electronically signed by: Jeromy Robertson M.D. 06/11/2022 11:55 AM PG Care Time/CCT Total # of Minutes Spent Total Time Spent with Patient: Total time spent is greater than 50% in coordination of care (as documented) at patient's floor/unit and/or counseling patient: Coding Diagnoses RIOS (dyspnea on exertion) R06.09 Acute blood loss anemia D62 Hypertension I10 Hyperlipidemia E78.5 Aortic stenosis I35.0 Breast cancer, right C50.911
[2022-06-12 07:47] LABS: Vitamin B12 173 pg/ml (180-914)
[2022-06-12] MEDS: PANTOprazole 40 MG in SYRINGE 0 ML IV SCH (08:26)
[2022-06-12] MEDS: FLUTICASONE/VILANTEROL 200/25MCG 14 PUFFS/INHALER INH SCH (08:26)
--- NOTE | 2022-06-12 08:41 | Cardiology Consultation ---
Date of Consultation June 12, 2022 Assessment & Plan (1) RIOS (dyspnea on exertion): (2) Severe aortic stenosis: (3) Acute blood loss anemia: (4) Acute GI bleeding: Plan 76-year-old woman with COPD/restrictive lung disease, recently diagnosed right breast cancer, and severe aortic stenosis admitted with profound anemia felt secondary to GI bleeding who is doing well after receiving a blood transfusion. She has not had angina or syncope and only noted dyspnea during her periods of marked anemia. Given that her lumbar stenosis markedly restricts ambulation, she has not had lifestyle limiting dyspnea outside the context of this anemia. Based on this, if the rate of gastrointestinal bleeding is sufficiently slow that her hemoglobin remained stable, she would likely not have any symptoms which would prompt referral for transcatheter aortic valve replacement (TAVR). On the other hand, if she has recurrent or severe GI bleeding, it may be advisable to better isolate the etiology of GI bleeding to assess whether there is a correctable pathology, since this would impact her candidacy for TAVR. It is recognized that severe aortic stenosis increases bleeding tendency through acquired von Willebrand's syndrome (turbulent flow through valve damages platelets). In the past, GI bleeding was attributed to angiodysplasia secondary to the aortic stenosis, current thinking is that increased bleeding tendency simply leads to a higher incidence of angiodysplasia identification. Regardless, most patients will have at least temporary resolution of bleeding tendencies after valve replacement, but apparently a fair number of patients have recurrence of platelet dysfunction within 6 months, so it remains unclear as to whether the bleeding syndrome alone is an indication for valve replacement. An additional complicating factor in her case is the recently diagnosed breast carcinoma, which could potentially affect actuarial survival and therefore the role of TAVR (patient should have an expected longevity of greater than 2 years to qualify for TAVR). Regardless, she does not need urgent referral for TAVR, but should be followed from a hematologic standpoint to assess the stability of her hemoglobin, with further recommendations based upon the rate at which she develops recurrent anemia. Would recommend nonurgent follow-up appointment Dr. Gao within the next few months to reassess and further discuss the role of potential future TAVR. History of Present Illness Reason for Consultation: severe , syncopal/lightheaded, RIOS Requesting Physician: Oliver Miller MD Attending Physician: Oliver Miller MD History of Present Illness 76-year-old woman with COPD/restrictive lung disease, recently diagnosed right breast cancer, and severe aortic stenosis followed by Dr. Gao who was admitted 05/06/2022 with dyspnea on exertion and found to have significant anemia (hemoglobin 8.5), meloxicam was stopped and she ultimately underwent EGD as an outpatient which showed gastritis, she was readmitted 06/10/2022 with recurrent dyspnea exertion and progressive anemia (hemoglobin 6.8), cardiology consultation obtained to evaluate role of aortic stenosis and her current symptoms. This hospitalization she received transfusion, hemoglobin improved from 6.8 to current level of 9.5. She feels much better, she can ambulate to the bathroom without dyspnea. At baseline, lumbar stenosis limits activity, she ambulates short distances slowly due to orthopedic limitations and aside from her recent periods of anemia has not been noting any dyspnea on exertion. She denies chest pain, presyncope, or syncope at any time. At the time of my evaluation this morning, she was comfortable and had no somatic complaints at rest. Allergies Allergy/AdvReac Type Severity Reaction Status Date / Time hydrochlorothiazide Allergy Intermediate Rash Verified 06/10/22 17:37 sulfamethoxazole [Bactrim] Allergy Intermediate RASH Verified 06/10/22 17:37 trimethoprim [Bactrim] Allergy Intermediate RASH Verified 06/10/22 17:37 Home Medications Medication Instructions Recorded Confirmed Type fluticasone 250 mcg-salmeterol 50 1 inh inhalation BID #60 ea 02/25/22 06/10/22 Rx mcg/dose blistr powdr for inhalation (Advair Diskus) ipratropium 20 mcg-albuterol 100 1 puff inhalation Q6H PRN 02/25/22 06/10/22 Rx mcg/actuation mist for inhalation shortness of breath or wheezing #4 (Combivent Respimat) grams aspirin 81 mg tablet,delayed 81 mg PO HS 02/26/22 06/10/22 History release fluoxetine 40 mg capsule 40 mg PO HS 02/26/22 06/10/22 History lisinopril 10 mg tablet 10 mg PO HS 02/26/22 06/10/22 History isosorbide mononitrate 30 mg 30 mg PO HS 05/06/22 06/10/22 History tablet,extended release 24 hr acetaminophen 325 mg tablet 650 mg PO Q4H PRN pain #30 tabs 05/08/22 06/10/22 Rx pantoprazole 40 mg tablet,delayed 40 mg PO BID #60 tabs 05/08/22 06/10/22 Rx release albuterol sulfate 90 mcg/actuation 2 puff inhalation QID PRN 05/18/22 06/10/22 Rx aerosol inhaler (Ventolin HFA) shortness of breath or wheezing #8.5 grams atorvastatin 20 mg tablet 20 mg PO HS #90 tabs 05/18/22 06/10/22 Rx ferrous sulfate 325 mg (65 mg 325 mg PO QAM 05/29/22 06/10/22 History iron) tablet,delayed release Patient History Medical History (Updated 06/12/22 @ 08:58 by Gordon Ruvalcaba MD) Asthma On inhalers Breast cancer HX-Right Cancer Skin cancer to face- s/p removal Depression GERD (gastroesophageal reflux disease) History of basal cell carcinoma History of COVID-19 07/2021, home test, not hosp; mild symptoms>resolved. Hyperlipidemia Hypertension Lumbar facet joint syndrome Lumbar spinal stenosis Moderate to severe at L4-5 Prediabetes Hgb A1C 6.0 06/2021 Surgical History H/O right breast biopsy (03/19/22) Right Breast Lumpectomy with Localization Using Wire Localization, Right [place]ato Lymph Node Biopsy(Right) - Vincent Fierro, History of cataract surgery lt/rt History of colonoscopy w/ polypectomy History of lumpectomy of right breast Cato node biopsy. 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 Dr. Drew Family History Brother Family history of diabetes mellitus Diabetes Coronary arteriosclerosis Mother Myocardial infarction Coronary arteriosclerosis Coronary heart disease Heart disease Father Myocardial infarction Coronary arteriosclerosis Coronary heart disease Heart disease Other Breast cancer Denies family history of Ovarian cancer Prostate cancer Colorectal cancer Social History Smoking Status: Never smoker Tobacco Type: Cigarettes Age Started Using Tobacco: 14; Age Quit Using Tobacco: 59; Second Hand Exposure: No; Do You Dip or Chew Tobacco: No; Tobacco Cessation Education Requested by Patient: No Hx Alcohol Use: No Hx Substance Use: No Preferred Language: Bots[place]an Communication Ability: Effective Visual Impairment: No Limitations Hearing Ability: Normal 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 BP 112/55 mmHg. Pulse 80 bpm and regular. Respirations 20 and unlabored. Skin: no ecchymoses or generalized lesions. HEENT: unremarkable. Neck: Jugular is pulse at the clavicle, bilateral transmitted murmur. Lungs: Moderately decreased breath sounds but clear bilaterally. No accessory muscle use. Cardiac: regular rhythm, absent aortic closure sound, 4/6 crescendo decrescendo systolic ejection murmur heard best at the right upper sternal border rating to the carotids, apex, and axilla, no diastolic murmur. Abdomen: benign. Extremities: no edema, pulses intact. Neurologic: normal affect and conversation, nonfocal. Results & Data Laboratory Results High-sensitivity troponin 5.3. Normal electrolytes, BUN 24, creatinine 0.69. Diagnostic Findings ECG showed sinus rhythm with diffuse minor nonspecific ST abnormality, unchanged from 05/06/2022 study. Echocardiogram showed EF 65 to 70% with moderate LVH and grade 2 diastolic dysfunction, severe valvular aortic stenosis (calculated valve area 0.8 cm), moderate mitral annular calcification mild mitral regurgitation and moderate pulmonary hypertension. Compared with 2021 study, mild progression of severe aortic stenosis and left ventricular hypertrophy, moderate pulmonary hypertension now seen. Chest x-ray showed no acute findings, mild right basilar opacity favors atelectasis PG Care Time/CCT Total # of Minutes Spent Total Time Spent with Patient: Total time spent is greater than 50% in coordination of care (as documented) at patient's floor/unit and/or counseling patient: Coding Level of Care Code 40727 INT INP/OBS CARE 75MIN Diagnoses RIOS (dyspnea on exertion) R06.09 Severe aortic stenosis I35.0 Acute blood loss anemia D62 Acute GI bleeding K92.2
[2022-06-12] MEDS ORDERED: CYANOCOBALAMIN 1000 MCG/ML VIAL IM SCH (09:00)
--- NOTE | 2022-06-12 10:38 | Discharge Summary ---
Date of Service June 12, 2022 Admission HPI Per Admitting Provider Skye Olivo is a 76 year old female with recent GI bleed who presents to the ER with shortness of breath and lightheadedness. She was recently admitted from May 06 - 2022 with the same symptoms and given hemoglobin stable and > 8 she did not receive and blood transfusions. Since discharge she reports progressive worsening symptoms but much worse since her EGD yesterday. She has black stool since taking iron supplementations since her last admission - no acute changes since then. No nausea, vomiting, abdominal pain or hematemesis. She also has known aortic stenosis with last echocardiogram in November 2021. Not repeated on last admission. No syncope or presyncope. Admission Exam Per Admitting Provider Constitutional: WD/WN, vitals as above ENMT: external ear and nose normal, oropharynx normal Respiratory: normal respiratory effort, lungs clear to auscultation Cardiovascular: Rate/Rhythm: regular rate and regular rhythm Heart Sounds: + murmur (systolic ejection murmur 4/6 LUSB) Extremities: normal capillary refill; no calf tenderness and no pedal edema Gastrointestinal (Abdomen): normal bowel sounds, soft, nontender, no hepatosplenomegaly Musculoskeletal: no cyanosis or clubbing, extremities motor strength 5/5 Skin: no rashes, warm and dry Neurologic: moves all extremities and awake; not confused Psychiatric: A+Ox3, euthymic affect Principal Diagnosis Anemia, Shortness of breath, severe aortic stenosis Discharge Exam General: WD elderly female sitting up in bed, NAD, general pallor noted (improved), improved energy, reporting less fatigue HEENT: head normocephalic, mmm, trachea midline Resp: slightly diminished in the bases but improved, no significant wheezing/crackles, on room air CV: regular rate/rhythm, SIGNIFICANT systolic murmur 5/6, S1/QUIET S2, trace Le edema/calves nontender GI: +BS, soft/NT MSK/Neuro: no focal deficit Psych: AOx3, cooperative with care, pleasant Discharge Data Allergies Allergy/AdvReac Type Severity Reaction Status Date / Time hydrochlorothiazide Allergy Intermediate Rash Verified 06/10/22 17:37 sulfamethoxazole [Bactrim] Allergy Intermediate RASH Verified 06/10/22 17:37 trimethoprim [Bactrim] Allergy Intermediate RASH Verified 06/10/22 17:37 Consultations 06/10/22 17:27 ED Decision to Admit Stat 06/11/22 02:07 Consult Gastroenterology Routine 06/11/22 17:02 Consult Cardiology Routine Ordered Studies Chest X-Ray 06/11/22 10:43 XR chest 1V portable CLINICAL HISTORY: Shortness of breath. COMPARISON STUDY: Chest radiograph May 06, [address] May 07, 2022. FINDINGS: Mild elevation of the right hemidiaphragm is unchanged. No pneumothorax or pleural effusion is present. Linear bibasilar opacities favor atelectasis. There is no consolidation to suggest pneumonia. No evidence for pulmonary edema. Cardiomediastinal silhouette is stable. IMPRESSION: 1. No acute cardiopulmonary findings. 2. Mild right basilar opacity which favors atelectasis. ACT 112: Negative or not required by law. Electronically signed by: Mike Hill M.D. 06/11/2022 11:03 AM Abdomen/Pelvis CT 06/11/22 10:48 CT abd pelvis IV con only CLINICAL HISTORY: anemia, eval bleeding TECHNIQUE: Helical axial images of the abdomen and pelvis were obtained and displayed. Automated dose lowering techniques and/or adjustment according to patient size were utilized for this exam3 This exam was performed with intravenous contrast. CT DOSE: 824.61 mGycm COMPARISON: Comparison is made to CT abdomen pelvis 05/06/2011 FINDINGS: Lower chest: No acute abnormality. Liver: Unremarkable. No focal lesions are seen. Gallbladder and biliary tree: No calcified gallstones. Normal caliber wall. No intra- or extrahepatic biliary ductal dilation. Pancreas: Unremarkable, no focal lesions. Spleen: Unremarkable. Adrenals: Unremarkable. Kidneys and ureters: Renal cysts are seen. Nonobstructive stones are seen. Bladder: Limited evaluation due to underdistention. Reproductive organs: Uterus is retroverted. Bowel: The appendix is normal. A hiatal hernia is seen. Lymph nodes Retroperitoneal: Subcentimeter lymph nodes are noted. Pelvic: Unremarkable. Mesenteric: Unremarkable. Peritoneum: Normal. Vessels: Atherosclerotic calcifications are seen. Abdominal wall: Unremarkable. Bones: Degenerative changes in the visualized spine. IMPRESSION: No acute abnormalities to suggest intra-abdominal bleeding. Additional findings as above. ACT 112: Negative or not required by law. Electronically signed by: Jeromy Robertson M.D. 06/11/2022 11:55 AM ECHOCARDIOGRAM compared 12/03/2021, mild progression of SEVERE aortic stenosis and LVH, moderate pulmonary HTN now seen Hospital Course (1) Acute blood loss anemia: Hemoglobin 6.8 on admission, reported lightheadedness/RIOS in setting of patient w/ known aortic stenosis, WORSENED on repeat ECHo s/p 2u PRBC, repeat improved hgb 9.5 No bleeding reported (does have some darkened stools, on iron at home daily), no abdominal pain Of note, recent EGD/bx and resumed her ASPIRIN following, she had previously been on NSAIDs/meloxicam ECHO w/ SEVERE , LDH wnl, low susp hemolysis CTAP w/o intraabdomnal bleeding (could consider tagged scan to eval bleeding if recurs) GI consulted -- > no inpatient scope, will have outpt f/u Continued PPI BID at d/c Per discussion w/ cards for aortic stenosis, see below --> Rec DISCONTINUING her aspirin at d/c per my discussion w/ Dr Ruvalcaba. Outpt f/u Dr Gao, no need for emergent TAVR (2) Aortic stenosis: Repeat TTE as above, WORSENED Moved to telemetry, no arrhythmia to contribute to her RIOS/SOB Cards consulted -- see extensive note, no emergent need for TAVR, limited mobility w/ her lumbar stenosis and likely not overly symptomatic w/ such. She denied the lightheadedness today w/ repletion of blood counts/PRBC Outpt f/u Dr Gao (3) RIOS (dyspnea on exertion): combination of anemia/aortic stenosis s/p 2u PRBC as above, ECHO w/ worsening . Did get dose laisx IV w/ her blood to prevent overload. No significant overload on exam/diuretics for at d/c planned and will need outpt f/u with cards/heme/onc Overnight pulse ox study obtained, did drop --> has concentrator at home, CM to fax info for insurance coverage and navigator arranging for outpt sleep study given new pulm HTN on imaging (4) Hypertension: Continued ISMN, resume lisinopril at d/c (5) Hyperlipidemia: Continued atorvastatin (6) Breast cancer, right: Undergoing radiation Of note, last admit w/ GI bleed, CTA done and noted 10mm ground-glass nodule in LONODN. Infectious/inflammatory suspected, but 3mo f/u to exclude underlying adenocarcinoma recommended No obvious finding on CXR as above Underwent XRT 06/11, 06/12 prior to discharge Will need f/u CT chest in 1-2 months to ensure resolution and exclude underlying adenocarcinoma F/u heme/onc for further eval if ongoing anemia, outpt endoscopy w/ GI unrevealing Total Time Total Time Spent Total Time Spent (In Minutes): 50 Discharge Plan Discharge Items Patient Disposition: Home - Self-Care Reason For Visit: SYMPTOMATIC ANEMIA Discharge Diagnosis: Anemia Goals: You have been hospitalized for an acute medical problem. During your stay at [facility], we have made an effort to correct the problem that brought you to the hospital while keeping you as comfortable as possible. Medications were used to bring your condition under control and your discharge instructions will include directions for any medications you should take after leaving the hospital. Please make sure you see your Primary Care Provider as part of your follow up plan. 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 We have provided blood transfusions and your hemoglobin has improved and remained stable. Suspect combination of chronic anemia as well as NSAID use (in addition to resu alejandra your aspirin after recent procedure) as well as SEVERE aortic stenosis on your echo. We consulted Dr Ruvalcaba from cardiology and recommended close follow up with Dr Gao after discharge for monitoring but that we would not recommend urgent referral for valve replacement at this time. He does recommend you STOP your aspirin at discharge as well to prevent bleeding risk. I checked your B12 levels to see about any lows contributing to anemia and this was low. We gave injection prior to discharge and you should continue oral supplementation. Please follow up with primary care in the next week to monitor your progress after discharge. Please follow up with GI (DR Richards) outpatient, for colonoscopy for further investigation. Please return to the emergency department with any worsening shortness of breath, fatigue, chest pain, syncope (passing out/feeling like going to pass out), blood in your stool, or for any other symptoms concerning for you. It has been a pleasure being a part of the medical team providing for you while you have been in the hospital. Take care! Pending Studies at Discharge: No Stand-Alone Forms: My [facility] Sendmail, Smoking Cessation Medications and DC Order Prescriptions: New cyanocobalamin (vitamin B-12) 1,000 mcg capsule 1,000 mcg PO DAILY Qty: 30 0RF Continued Combivent Respimat 20-100 mcg/actuation mist 1 puff inhalation Q6H PRN (Reason: shortness of breath or wheezing) Qty: 4 3RF fluticasone propion-salmeterol [Advair Diskus] 250-50 mcg/dose blister with device 1 inh INH BID Qty: 60 3RF Rx Instructions: inhale 1 dose INH BID; atorvastatin 20 mg tablet 20 mg PO HS Qty: 90 3RF albuterol sulfate [Ventolin HFA] 90 mcg/actuation HFA aerosol inhaler 2 puff INH QID PRN (Reason: shortness of breath or wheezing) Qty: 8.5 3RF fluoxetine 40 mg capsule 40 mg PO HS Rx Instructions: 40 mg orally every evening; lisinopril 10 mg tablet 10 mg PO HS isosorbide mononitrate 30 mg tablet extended release 24 hr 30 mg PO HS acetaminophen 325 mg Tablet 650 mg PO Q4H PRN (Reason: pain) Qty: 30 0RF Rx Instructions: OTC pantoprazole 40 mg Tablet,Delayed Release (Dr/Ec) 40 mg PO BID Qty: 60 1RF ferrous sulfate 325 mg (65 mg iron) tablet,delayed release (DR/EC) 325 mg PO QAM Discontinued aspirin 81 mg tablet,delayed release (DR/EC) 81 mg PO HS Rx Instructions: 81 mg orally every evening; Discharge Orders: Discharge Order (Routine); Ordered 06/12/22 Ordered By: Nury Dennison Admission Data Admit Date/Time: 06/10/22 18:46 Attending Provider: Oliver Miller Admit Provider: Stewart Rosa Primary Care Provider: Wade Lopes Other Providers: Stewart Rosa ; Christiano Richards ; Gordon Ruvalcaba Other Interventions: Discharge Summary Assessment (RN) Last Done: 06/12/22 11:34 Supervising Physician Co-Signing Physician Notes The patient was seen by me. The chart was reviewed. Case discussed with RICARDA Ashford. Agree with assessment plan. She will be discharged home today Coding Level of Care Code 33509 INP/OBS DISCH >30 MIN Diagnoses Acute blood loss anemia D62 Aortic stenosis I35.0 RIOS (dyspnea on exertion) R06.09 Hypertension I10 Hyperlipidemia E78.5 Breast cancer, right C50.911
--- NOTE | 2022-06-12 13:21 | XRay Report ---
XR chest 2V PA/lateral CLINICAL HISTORY: f/u, eval volume overload TECHNIQUE: 2 views of the chest were obtained. Comparison: Comparison is made to chest radiograph 06/11/2022 FINDINGS: No lines and tubes are seen. Calcified aortic knob is seen. The lungs are clear. No evidence of pleur al effusion or pneumothorax. IMPRESSION: No acute chest disease. No evidence of pulmonary edema. ACT 112: Negative or not required by law. Electronically signed by: Jeromy Robertson M.D. 06/12/2022 1:20 PM
[2022-06-12] MEDS ORDERED: PANTOprazole 40 MG TAB PO SCH (21:00)
== END 2022-06-12 14:15 | disposition home or self-care (01) ==
LOC: ED 15:29 → 3W 18:46 → SUATTDRO 18:46 → INTOOBSV 18:46 → 3W 20:33 → 2N 06-11 17:03

== ENCOUNTER 2023-11-06 11:23 | Observation (INO) ==
--- NOTE | 2023-11-06 12:19 | XRay Report ---
XR chest 1V not portable CLINICAL HISTORY: Chest pain, nonspecific COMPARISON STUDY: Chest radiograph June 12, 2022. Chest radiograph February 05, 2023. FINDINGS: Lung volumes are normal. Lungs are clear. Slight asymmetric right lung interstitial thicken ing is noted. This may be treatment related. There is no pneumothorax or pleural effusion. Cardiac si ze is normal. Mediastinal contours are normal. There is no evidence for pulmonary edema. IMPRESSION: No acute cardiopulmonary findings. ACT 112: Negative or not required by law. Electronically signed by: Mike Hill M.D. 11/06/2023 12:17 PM
[2023-11-06 12:22] LABS: Albumin Globulin Ratio 1.6 (0.9-2); Albumin Level 3.9 gm/dl (3.4-5.0); BUN Creatinine Ratio 38.5 (10-20); Bilirubin,Total 0.3 mg/dl (0.2-1.0); Calcium 8.6 mg/dl (8.6-10.3); Creatinine Clr Calc Pharmacy 79.7 ml/min; Est GFR (African American) 105.3 ml/min; Est GFR (Non-African American) 90.9 ml/min; Globulin 2.4 gm/dl (2.5-4.0); Potassium 4.1 mmol/L (3.5-5.1); Total Protein 6.3 gm/dl (6.0-8.3)
[2023-11-06 12:29] LABS: Troponin I High Sensitivity 30.3 pg/ml (0-14)
[2023-11-06 12:35] LABS: Basophils # (auto) 0.03 K/uL (0.00-0.20); Basophils % (auto) 0.5 %; Eosinophils % (auto) 3.2 %; Immature Granulocytes # (auto) 0.03 K/uL (0.01-0.20); Immature Granulocytes % (auto) 0.5 %; Lymphocytes # (auto) 1.25 K/uL (1.20-3.40); Lymphocytes % (auto) 19.7 %; Mean Platelet Volume 10.8 fL (9.4-12.4); Monocytes # (auto) 0.43 K/uL (0.11-0.59); Monocytes % (auto) 6.8 %; Neutrophils # (auto) 4.39 K/uL (1.40-6.50); Neutrophils % (auto) 69.3 %; Platelet Count 202 K/uL (130-400); Polychromasia 1+; RDW Coefficient of Variation 16.4 % (11.5-14.5); Red Blood Count 2.27 M/uL (4.20-5.40); White Blood Count 6.33 K/ul (4.8-10.8)
[2023-11-06 12:36] LABS: Hematocrit (blood only) 22.7 % (37.0-47.0); Hemoglobin 6.8 g/dl (12.0-16.0)
--- NOTE | 2023-11-06 12:45 | Emergency Department Note ---
Impression & Plan UGIB (upper gastrointestinal bleed), Anemia, Elevated troponin I level ED Provider Note NAME: COCO CARBALLO AGE: 77 SEX: F : 1945 ARRIVES VIA: Walk-In INFORMANT: Patient, ED PROVIDER(S): Quinten Hi MD CHIEF COMPLAINT: Chest pain] HPI: This is a 77-year-old female presenting for chest pain. Patient notes that over the past 3 days she has noticed increasing chest pain. She notes that she pain between her shoulder blades mostly in the back but also in the front. No neck or arm involvement. She does note improvement in symptoms with walking. No chest pain or dyspnea with exertion. Otherwise no nausea, vomiting, diarrhea. She notes pain is not pleuritic. No history of blood clots. No blood thinning medications. Patient was diagnosed with COVID-19 about 2 weeks ago. ROS: See above HPI for pertinent positives & negatives. A total of 10 systems reviewed and were otherwise negative. PAST MEDICAL HISTORY: See Below PAST SURGICAL HISTORY: See Below FAMILY HISTORY: See Below SOCIAL HISTORY: See Below HOME MEDICATIONS: See Below ALLERGIES: See Below VITALS: See Below PHYSICAL EXAMINATION: General: resting comfortably in no acute distress Head: Normocephalic and atraumatic Eyes: Normal inspection, extraocular muscles intact Ear, nose, throat: Normal external exam Neck: Normal range of motion Respiratory: lungs clear to auscultation bilaterally Cardiovascular: Regular rate/rhythm, no murmur GI: soft, nontender, no guarding or rebound Extremities: nontender, moves all extremities Neuro: The patient awake and alert, appropriately conversive, no focal deficits, symmetric faces Skin: Warm, dry, and intact MEDICAL DECISION MAKING: This is a 77-year-old female presenting for chest/back pain. Consider ACS, PE, pneumonia, viral syndrome, anemia, dissection -Chest Xray independently interpreted by me showing no pneumothorax, focal opacity, or pleural effusions. -Patient's with low hemoglobin at 6.8. Patient does, she has also been having dark stools and had Hemoccult positive testing done about 2 weeks ago. She has not had a recent endoscopy/colonoscopy. -ECG independently interpreted by me with normal sinus rhythm, rate of 82, normal axis, normal MT, normal QRS, normal QTc, no ST segment elevations consistent with STEMI criteria -Patient reports that also elevated at this time, likely demand ischemia from her anemia. Lower concern for ACS clinically. -D-dimer is negative -Patient will require admission for anemia, GI bleed and elevated troponin Differential diagnosis: Upper GI bleed, lower AAA, ACS, PE, dissection, viral syndrome ER treatment provided: See below Independent History obtained from: Son Diagnostics interpreted by me: ECG: See above Cardiac Monitoring: An order was placed for continuous cardiac monitoring. The monitor shows a rate of 86 with sinus rhythm. Laboratory studies: As stated above and show below. Imaging studies: See below. Past Med/Surg History Problem List (Updated 11/06/23 @ 19:22 by Quinten Hi MD) Elevated troponin I level (Acute) Anemia (Acute) UGIB (upper gastrointestinal bleed) (Acute) Iron deficiency anemia Cervical radicular pain Carpal tunnel syndrome on both sides B12 deficiency History of iron deficiency anemia Neurogenic claudication (Chronic) Lumbar spondylosis (Chronic) Fatigue Vitamin D deficiency Restrictive lung disease secondary to obesity Dyspnea on exertion Osteopenia Left hand paresthesia Breast cancer, right History of back problems Malignant neoplasm of central portion of right breast in female, estrogen receptor positive (Chronic 01/21/22) RIOS (dyspnea on exertion) (Acute) Pulmonary nodule Severe aortic stenosis Aortic stenosis Moderate to severe AV stenosis per 12/03/21 ECHO; F/U DR. LOUIS, JENNIFFER H/O right breast biopsy (03/19/22) Right Breast Lumpectomy with Localization Using Wire Localization, Right [place] Lymph Node Biopsy(Right) - Vincent Fierro, DO Hypertension (Chronic) Lumbar spinal stenosis (Chronic) Moderate to severe at L4-5 Hyperlipidemia Depression Prediabetes Hgb A1C 6.0 06/2021 Lumbar facet joint syndrome Medical History (Updated 11/06/23 @ 19:22 by Quinten Hi MD) COPD exacerbation 07/29/22>per medical record and verified with patient; given abx tx and nebulizer prn tx>"feeling better" On home oxygen therapy 2lpm via n/c PRN sob History of basal cell carcinoma Upper gastrointestinal bleed Breast cancer HX-Right History of COVID-19 07/2021, home test, not hosp; mild symptoms>resolved. GERD (gastroesophageal reflux disease) Cancer Skin cancer to face- s/p removal Asthma On inhalers Surgical History History of esophagogastroduodenoscopy (EGD) History of lumpectomy of right breast [place] node biopsy. History of cataract surgery lt/rt History of total knee replacement (~08/2011) left. Dr. Drwe History of colonoscopy w/ polypectomy Family History Brother Coronary arteriosclerosis Mother Myocardial infarction Coronary arteriosclerosis Coronary heart disease Heart disease Father Myocardial infarction Coronary arteriosclerosis Coronary heart disease Heart disease Brother Coronary heart disease Brother Diabetes Brother Hypertension Other Breast cancer Denies family history of Ovarian cancer Prostate cancer Colorectal cancer Social History (Updated 06/17/23 @ 13:14 by SUNSHINE Maynard) Smoking Status: Former smoker Tobacco Type: Cigarettes Age Started Using Tobacco: 14; Age Quit Using Tobacco: 59; Second Hand Exposure: No; Do You Dip or Chew Tobacco: No; Tobacco Cessation Education Requested by Patient: No Hx Alcohol Use: No Preferred Language: Italian Communication Ability: Effective Visual Impairment: No Limitations Hearing Ability: Normal Collection Card Clerk Required: No Beliefs That Will Affect Care: None marital status: / Current Living Situation: Family Current Living Situation Comment: granddaughter and her current occupational status: retired current occupation: [employer]-retired Other Information That Helps Us Care for You: No Feels Safe at Home: Yes Safety Concerns: Feels Safe At This Time Childhood Exposure to Second-Hand Smoke: Yes Diet: regular caffeine: Yes during the past year weight has: remained stable Dental Care, Regularly: No Physical Activity Frequency: Does not Exercise Seatbelt Use: sometimes Assistive Devices: Denture - Upper and Oxygen - at Night Assistive Devices Comment: o2 prn Allergies Allergies Allergy/AdvReac Type Severity Reaction Status Date / Time hydrochlorothiazide Allergy Intermediate Rash Verified 11/06/23 15:37 sulfamethoxazole [Bactrim] Allergy Intermediate RASH Verified 11/06/23 15:37 trimethoprim [Bactrim] Allergy Intermediate RASH Verified 11/06/23 15:37 Home Meds Home Medications Medication Instructions Recorded Confirmed letrozole 2.5 mg tablet 2.5 mg PO DAILY 10/15/22 11/06/23 gabapentin 300 mg capsule 300 mg PO HS 11/06/23 11/06/23 Previous Rx's Medication Instructions Recorded acetaminophen 325 mg tablet 650 mg (2 x 325 mg) PO Q4H PRN 05/08/22 pain #30 tabs fluticasone 250 mcg-salmeterol 50 1 inh inhalation BID #60 ea 06/23/22 mcg/dose blistr powdr for inhalation (Advair Diskus) ipratropium 20 mcg-albuterol 100 1 puff inhalation Q6H PRN 06/23/22 mcg/actuation mist for inhalation shortness of breath or wheezing #4 (Combivent Respimat) grams ipratropium 0.5 mg-albuterol 3 mg 3 ml inhalation Q4H PRN wheezing 07/29/22 (2.5 mg base)/3 mL nebulization #180 mL soln pantoprazole 40 mg tablet,delayed 40 mg PO BID #180 tabs 12/22/22 release cholecalciferol (vitamin D3) 125 125 mcg PO DAILY #30 caps 01/18/23 mcg (5,000 unit) capsule cyanocobalamin (vitamin B-12) 1,000 mcg PO QAM #30 caps 05/14/23 1,000 mcg capsule lisinopril 10 mg tablet 10 mg PO HS #90 tabs 09/03/23 fluoxetine 40 mg capsule 40 mg PO HS #90 caps 09/27/23 albuterol sulfate 90 mcg/actuation 2 puff inhalation QID PRN 10/07/23 aerosol inhaler (Ventolin HFA) shortness of breath or wheezing #8.5 grams isosorbide mononitrate 30 mg 30 mg PO DAILY #90 tabs 10/07/23 tablet,extended release 24 hr atorvastatin 40 mg tablet 40 mg PO DAILY #90 tabs 10/12/23 ferrous sulfate 325 mg (65 mg 325 mg PO BID #180 tabs 11/05/23 iron) tablet,delayed release Results & Data (ED) Vital Signs Vital Signs - 24 hr 11/06/23 11:28 11/06/23 12:13 11/06/23 12:40 Temperature 36.5 C Temperature Source Temporal Artery Scan Pulse Rate 81 82 79 Pulse Rate from SpO2 Sensor Respiratory Rate 20 17 Respiratory Depth Normal Blood Pressure 106/48 L Blood Pressure Mean 67 Pulse Oximetry 98 97 Oxygen Delivery Method Sepsis Recent Fever Within 48 Hours No Sepsis New/Unexplained Change in Mental Status N/A Sepsis Action Taken by Nursing No Action Required 11/06/23 12:45 11/06/23 13:00 11/06/23 13:27 Temperature Temperature Source Pulse Rate 81 77 82 Pulse Rate from SpO2 Sensor 81 80 81 Respiratory Rate 18 16 16 Respiratory Depth Blood Pressure 91/63 L 109/78 Blood Pressure Mean 72 88 Pulse Oximetry 98 95 96 Oxygen Delivery Method Sepsis Recent Fever Within 48 Hours Sepsis New/Unexplained Change in Mental Status Sepsis Action Taken by Nursing 11/06/23 13:36 11/06/23 13:42 11/06/23 13:55 Temperature Temperature Source Pulse Rate 80 84 Pulse Rate from SpO2 Sensor 81 Respiratory Rate 16 19 Respiratory Depth Blood Pressure 95/63 L Blood Pressure Mean 77 Pulse Oximetry 94 Oxygen Delivery Method Sepsis Recent Fever Within 48 Hours Sepsis New/Unexplained Change in Mental Status Sepsis Action Taken by Nursing 11/06/23 14:00 11/06/23 14:12 11/06/23 14:17 Temperature 36.9 C Temperature Source Oral Pulse Rate 87 Pulse Rate from SpO2 Sensor Respiratory Rate 18 Respiratory Depth Blood Pressure 116/86 116/86 95/76 L Blood Pressure Mean 91 96 79 Pulse Oximetry 95 Oxygen Delivery Method Sepsis Recent Fever Within 48 Hours Sepsis New/Unexplained Change in Mental Status Sepsis Action Taken by Nursing 11/06/23 14:32 11/06/23 14:47 11/06/23 14:47 Temperature 36.8 C 36.6 C Temperature Source Oral Oral Pulse Rate 88 84 Pulse Rate from SpO2 Sensor Respiratory Rate 17 17 Respiratory Depth Blood Pressure 103/54 L 103/54 L 119/62 Blood Pressure Mean 70 65 81 Pulse Oximetry 97 96 Oxygen Delivery Method Sepsis Recent Fever Within 48 Hours Sepsis New/Unexplained Change in Mental Status Sepsis Action Taken by Nursing 11/06/23 14:48 11/06/23 14:53 11/06/23 14:54 Temperature Temperature Source Pulse Rate 88 89 Pulse Rate from SpO2 Sensor 88 90 Respiratory Rate 19 19 Respiratory Depth Blood Pressure 119/62 Blood Pressure Mean 75 Pulse Oximetry 97 97 Oxygen Delivery Method Sepsis Recent Fever Within 48 Hours Sepsis New/Unexplained Change in Mental Status Sepsis Action Taken by Nursing 11/06/23 15:01 11/06/23 15:03 11/06/23 15:07 Temperature Temperature Source Pulse Rate 85 Pulse Rate from SpO2 Sensor 85 Respiratory Rate 19 Respiratory Depth Blood Pressure 113/58 L Blood Pressure Mean 62 Pulse Oximetry 97 97 Oxygen Delivery Method Room Air Sepsis Recent Fever Within 48 Hours Sepsis New/Unexplained Change in Mental Status Sepsis Action Taken by Nursing 11/06/23 15:15 11/06/23 15:16 11/06/23 15:17 Temperature 36.6 C Temperature Source Oral Pulse Rate 83 83 Pulse Rate from SpO2 Sensor 83 Respiratory Rate 18 18 Respiratory Depth Blood Pressure 123/61 123/61 Blood Pressure Mean 69 81 Pulse Oximetry 98 98 Oxygen Delivery Method Sepsis Recent Fever Within 48 Hours Sepsis New/Unexplained Change in Mental Status Sepsis Action Taken by Nursing 11/06/23 15:21 11/06/23 15:24 Temperature Temperature Source Pulse Rate 84 86 Pulse Rate from SpO2 Sensor 85 87 Respiratory Rate 18 22 Respiratory Depth Blood Pressure Blood Pressure Mean Pulse Oximetry 97 96 Oxygen Delivery Method Sepsis Recent Fever Within 48 Hours Sepsis New/Unexplained Change in Mental Status Sepsis Action Taken by Nursing Laboratory Data 11/06/23 17:47 11/06/23 11:45 Lab Results 11/06/23 11/06/23 11/06/23 Range/Units 11:45 11:45 13:01 WBC 6.33 (4.8-10.8) K/ul RBC 2.27 L (4.20-5.40) M/uL Hgb 6.8 L* (12.0-16.0) g/dl Hct 22.7 L (37.0-47.0) % MCV 100.0 (80.0-100.0) fL MCH 30.0 (25.0-34.0) pg MCHC 30.0 L (32.0-36.0) g/dL RDW Std Deviation 59.0 H (36.4-46.3) fL RDW Coeff of Giulia 16.4 H (11.5-14.5) % Plt Count 202 (130-400) K/uL MPV 10.8 (9.4-12.4) fL Immature Gran % (Auto) 0.5 % Neut % (Auto) 69.3 % Lymph % (Auto) 19.7 % Miner % (Auto) 6.8 % Eos % (Auto) 3.2 % Baso % (Auto) 0.5 % Neut # (Auto) 4.39 (1.40-6.50) K/uL Lymph # (Auto) 1.25 (1.20-3.40) K/uL Miner # (Auto) 0.43 (0.11-0.59) K/uL Eos # (Auto) 0.20 (0.00-0.50) K/uL Baso # (Auto) 0.03 (0.00-0.20) K/uL Immature Gran # (Auto) 0.03 (0.01-0.20) K/uL Polychromasia 1+ PT 11.8 (9.0-12.0) Seconds INR 1.1 (0.9-1.1) APTT 23 (21-31) Seconds PTT Ratio 0.9 D-Dimer 380 Cancelled (0-500) ug/L FEU Sodium 137 (136-145) mmol/L Potassium 4.1 (3.5-5.1) mmol/L Chloride 103 (98-107) mmol/L Carbon Dioxide 29 (21-32) mmol/L Anion Gap 5 (3-11) BUN 20 (6-23) mg/dl Creatinine 0.52 L (0.6-1.2) mg/dl Est Cr Clr Drug Dosing 79.7 ml/min Est GFR ( Amer) 105.3 ml/min Est GFR (Non-Af Amer) 90.9 ml/min BUN/Creatinine Ratio 38.5 H (10-20) Glucose 114 H (70-99(Fasting)) mg/dl Calcium 8.6 (8.6-10.3) mg/dl Iron (35-150) mcg/dl TIBC (250-450) mcg/dl Unsaturated IBC (155-355) mcg/dl Transferrin % Sat (15-50) % Ferritin (8-388) ng/ml Total Bilirubin 0.3 (0.2-1.0) mg/dl AST 16 (13-39) U/L ALT 12 (7-52) U/L Alkaline Phosphatase 44 (34-104) U/L Troponin I High Sens 30.3 H (0-14) pg/ml Total Protein 6.3 (6.0-8.3) gm/dl Albumin 3.9 (3.4-5.0) gm/dl Globulin 2.4 L (2.5-4.0) gm/dl Albumin/Globulin Ratio 1.6 (0.9-2) Blood Type O Positive Antibody Screen NEGATIVE Crossmatch See Detail 11/06/23 Range/Units 14:34 WBC (4.8-10.8) K/ul RBC (4.20-5.40) M/uL Hgb (12.0-16.0) g/dl Hct (37.0-47.0) % MCV (80.0-100.0) fL MCH (25.0-34.0) pg MCHC (32.0-36.0) g/dL RDW Std Deviation (36.4-46.3) fL RDW Coeff of Giulia (11.5-14.5) % Plt Count (130-400) K/uL MPV (9.4-12.4) fL Immature Gran % (Auto) % Neut % (Auto) % Lymph % (Auto) % Miner % (Auto) % Eos % (Auto) % Baso % (Auto) % Neut # (Auto) (1.40-6.50) K/uL Lymph # (Auto) (1.20-3.40) K/uL Miner # (Auto) (0.11-0.59) K/uL Eos # (Auto) (0.00-0.50) K/uL Baso # (Auto) (0.00-0.20) K/uL Immature Gran # (Auto) (0.01-0.20) K/uL Polychromasia PT (9.0-12.0) Seconds INR (0.9-1.1) APTT (21-31) Seconds PTT Ratio D-Dimer (0-500) ug/L FEU Sodium (136-145) mmol/L Potassium (3.5-5.1) mmol/L Chloride (98-107) mmol/L Carbon Dioxide (21-32) mmol/L Anion Gap (3-11) BUN (6-23) mg/dl Creatinine (0.6-1.2) mg/dl Est Cr Clr Drug Dosing ml/min Est GFR ( Amer) ml/min Est GFR (Non-Af Amer) ml/min BUN/Creatinine Ratio (10-20) Glucose (70-99(Fasting)) mg/dl Calcium (8.6-10.3) mg/dl Iron 34 L (35-150) mcg/dl TIBC 375 (250-450) mcg/dl Unsaturated IBC 341 (155-355) mcg/dl Transferrin % Sat 9 L (15-50) % Ferritin 25.0 (8-388) ng/ml Total Bilirubin (0.2-1.0) mg/dl AST (13-39) U/L ALT (7-52) U/L Alkaline Phosphatase (34-104) U/L Troponin I High Sens 31.3 H (0-14) pg/ml Total Protein (6.0-8.3) gm/dl Albumin (3.4-5.0) gm/dl Globulin (2.5-4.0) gm/dl Albumin/Globulin Ratio (0.9-2) Blood Type Antibody Screen Crossmatch Imaging Data Radiologist's Impression: Chest X-Ray 11/06/23 11:32 XR chest 1V not portable CLINICAL HISTORY: Chest pain, nonspecific COMPARISON STUDY: Chest radiograph June 12, 2022. Chest radiograph February 05, 2023. FINDINGS: Lung volumes are normal. Lungs are clear. Slight asymmetric right lung interstitial thickening is noted. This may be treatment related. There is no pneumothorax or pleural effusion. Cardiac size is normal. Mediastinal contours are normal. There is no evidence for pulmonary edema. IMPRESSION: No acute cardiopulmonary findings. ACT 112: Negative or not required by law. Electronically signed by: Mike Hill M.D. 11/06/2023 12:17 PM Discharge Plan Visit Data Chief Complaint: Shortness of Breath/Dyspnea Stated Complaint: PAIN BETWEEN SHOULDER BLADES, HEADACHES, SOB ED Provider: Quinten Hi Discharge Problem: UGIB (upper gastrointestinal bleed), Anemia, Elevated troponin I level Patient Disposition: Admitted As Inpatient Discharge Instructions Interventions: ED Discharge Assessment Last Done: 11/06/23 16:01
[2023-11-06 12:47] LABS: D Dimer 380 ug/L FEU (0-500); INR 1.1 (0.9-1.1); Partial Thromboplastin Ratio 0.9; Partial Thromboplastin Time 23 Seconds (21-31); Prothrombin Time 11.8 Seconds (9.0-12.0)
[2023-11-06] MEDS ORDERED: SODIUM CHLORIDE 0.9% 250 ML IV PRN ×2 (12:47→19:41)
--- NOTE | 2023-11-06 14:37 | History & Physical Report ---
Date of Service November 06, 2023 Assessment & Plan (1) Anemia: Plan: Anemia History of iron deficiency anemia, prior GI bleed 06/2022 requiring 2 units of PRBCs with scopes normal as below EGD 06/2022 with no acute findings. Colonoscopy 08/2022 with hemorrhoids, othe rwise no acute findings Patient reports that she had 3 positive outpatient Hemoccult positive stools recently, but has not had melena/hematochezia. Stools are chronically dark while on iron and they have not changed BUN is not elevated, she has no abdominal or epigastric pain. Iron studies are transferrin saturation of 9%, ferritin pending consistent with severe MARIELA Continue B12/folic acid supplementation Continue PPI twice daily Patient did recently have COVID 10/20/2023 and was treated with Paxlovid. Obtain hemoglobin post first unit, then every 8 x 2 for stability. If evidence of instability, will need to evaluate for sources of acute bleeding and obtain CT at that time Transfusion threshold of 8.0 due to underlying cardiac disease (2) Aortic stenosis: Plan: +troponin, chest heaviness, history of severe aortic stenosis Patient reports she has had easy fatigue and a feeling of heaviness in her chest/back especially in the last day. She does not feel that this is painful in quality, she feels okay at rest and initially felt 4/10. chest discomfort improved on reassessment Initial troponin 30, repeat stable at 31. Suspect demand with anemia and preload dependence from her aortic stenosis Echo 06/2022: EF 65-70%, moderate concentric LVH, grade 2 diastolic dysfunction, severe valvular aortic stenosis with a valve area 0.8, RVSP 4050 EKG without acute territorial ST segment changes, normal sinus rhythm. T wave inversion in lead III Patient was pending a cardiac catheterization as part of a TAVR workup. She had a prior DSE which was low risk. (3) Iron deficiency anemia: (4) Malignant neoplasm of central portion of right breast in female, estrogen receptor positive: Plan: Breast cancer Right breast cancer, ER positive. S/p right breast lumpectomy 03/[address] Fierro which showed in situ ductal carcinoma, infiltrative ductal adenocarcinoma, sentinel lymph node 1 with metastatic adenocarcinoma of breast origin. Patient is on letrozole. This is temporarily held due to potential contribution to anemia/aplasia No acute change in management at this time Pharmacologic DVT prophylaxis is deferred due to acute anemia with positive occult blood Plan ED prophylaxis: Pharmacal prophylaxis deferred due to acute anemia Disposition: PCU due to severe aortic stenosis, severe anemia, and troponin CODE STATUS: Full code Diet: Clears History of Present Illness Primary Care Provider: Wade Lopes MD Skye is a 77-year-old female with a past medical history of iron deficiency anemia, restrictive lung disease due to body habitus, aortic stenosis, hyperlipidemia, prediabetes, depression, and a Hemoccult positive stools presents with recurrent anemia Skye reports she came in due to chest discomfort/pressure and easy fatigue/shortness of breath walking to the bathroom, and has had some chest pressure but not pain intermittently in the last week. has occured while laying in bed. +lightheadedness in the last week, none at time of visit. No abdominal pain. No diarrhea. Did have a hemoccult test this past week which was positive. She has not yet talked to her doctor about this. Her bowl movements are always black due to iron pills BID and smear a bit since being on iron, no change in texture or color int he last few weeks. No bright red blood per rectum. Reports she still follows with GI, no scope since August 2022. Denies fever, chills, sweats. No cough., Denies abd pain. Has a history of severe . Patient was thinking about having a TAVR. Is pending eval including cardiac cath. Had a low risk DSE. hx of radiation therapy. Denies chemo. s/p lumpectomy. Former tobacco No etoh use Medical History: Reviewed Medications: Reviewed Surgical History: Reviewed Family history: Reviewed Allergies: Reviewed Social History: no tobacco or etoh use Code Status: DNR/DNI Allergies Allergy/AdvReac Type Severity Reaction Status Date / Time hydrochlorothiazide Allergy Intermediate Rash Verified 06/17/23 13:09 sulfamethoxazole [Bactrim] Allergy Intermediate RASH Verified 06/17/23 13:09 trimethoprim [Bactrim] Allergy Intermediate RASH Verified 06/17/23 13:09 Home Medications Medication Instructions Recorded Confirmed Type acetaminophen 325 mg tablet 650 mg (2 x 325 mg) PO Q4H PRN 05/08/22 10/20/23 Rx pain #30 tabs fluticasone 250 mcg-salmeterol 50 1 inh inhalation BID #60 ea 06/23/22 10/20/23 Rx mcg/dose blistr powdr for inhalation (Advair Diskus) ipratropium 20 mcg-albuterol 100 1 puff inhalation Q6H PRN 06/23/22 10/20/23 Rx mcg/actuation mist for inhalation shortness of breath or wheezing #4 (Combivent Respimat) grams ipratropium 0.5 mg-albuterol 3 mg 3 ml inhalation Q4H PRN wheezing 07/29/22 10/20/23 Rx (2.5 mg base)/3 mL nebulization #180 mL soln letrozole 2.5 mg tablet 2.5 mg PO DAILY 10/15/22 10/20/23 History pantoprazole 40 mg tablet,delayed 40 mg PO BID #180 tabs 12/22/22 10/20/23 Rx release cholecalciferol (vitamin D3) 125 125 mcg PO DAILY #30 caps 01/18/23 10/20/23 Rx mcg (5,000 unit) capsule cyanocobalamin (vitamin B-12) 1,000 mcg PO QAM #30 caps 05/14/23 10/20/23 Rx 1,000 mcg capsule lisinopril 10 mg tablet 10 mg PO HS #90 tabs 09/03/23 10/20/23 Rx fluoxetine 40 mg capsule 40 mg PO HS #90 caps 09/27/23 10/20/23 Rx albuterol sulfate 90 mcg/actuation 2 puff inhalation QID PRN 10/07/23 10/20/23 Rx aerosol inhaler (Ventolin HFA) shortness of breath or wheezing #8.5 grams isosorbide mononitrate 30 mg 30 mg PO DAILY #90 tabs 10/07/23 10/20/23 Rx tablet,extended release 24 hr atorvastatin 40 mg tablet 40 mg PO DAILY #90 tabs 10/12/23 10/20/23 Rx ferrous sulfate 325 mg (65 mg 325 mg PO BID #180 tabs 11/05/23 Rx iron) tablet,delayed release gabapentin 300 mg capsule 300 mg PO HS 11/06/23 History Past Med/Surg History Problem List (Updated 06/17/23 @ 14:02 by Tabitha Pathak PA-C) Iron deficiency anemia Cervical radicular pain Carpal tunnel syndrome on both sides B12 deficiency History of iron deficiency anemia Neurogenic claudication (Chronic) Lumbar spondylosis (Chronic) Fatigue Vitamin D deficiency Restrictive lung disease secondary to obesity Dyspnea on exertion Osteopenia Left hand paresthesia Breast cancer, right History of back problems Malignant neoplasm of central portion of right breast in female, estrogen receptor positive (Chronic 01/21/22) RIOS (dyspnea on exertion) (Acute) Pulmonary nodule Severe aortic stenosis Aortic stenosis Moderate to severe AV stenosis per 12/03/21 ECHO; F/U [facility] H/O right breast biopsy (03/19/22) Right Breast Lumpectomy with Localization Using Wire Localization, Right [place] Lymph Node Biopsy(Right) - Vincent Fierro, Hypertension (Chronic) Lumbar spinal stenosis (Chronic) Moderate to severe at L4-5 Hyperlipidemia Depression Prediabetes Hgb A1C 6.0 06/2021 Lumbar facet joint syndrome Medical History (Updated 06/17/23 @ 14:02 by Tabitha Pathak PA-C) COPD exacerbation 07/29/22>per medical record and verified with patient; given abx tx and nebulizer prn tx>"feeling better" On home oxygen therapy 2lpm via n/c PRN sob History of basal cell carcinoma Upper gastrointestinal bleed Breast cancer HX-Right History of COVID-19 07/2021, home test, not hosp; mild symptoms>resolved. GERD (gastroesophageal reflux disease) Cancer Skin cancer to face- s/p removal Asthma On inhalers Surgical History History of esophagogastroduodenoscopy (EGD) History of lumpectomy of right breast [place] node biopsy. History of cataract surgery lt/rt History of total knee replacement (~08/2011) left. Dr. Drew History of colonoscopy w/ polypectomy Family History Brother Coronary arteriosclerosis Mother Myocardial infarction Coronary arteriosclerosis Coronary heart disease Heart disease Father Myocardial infarction Coronary arteriosclerosis Coronary heart disease Heart disease Brother Coronary heart disease Brother Diabetes Brother Hypertension Other Breast cancer Denies family history of Ovarian cancer Prostate cancer Colorectal cancer Social History (Updated 06/17/23 @ 13:14 by SUNSHINE Maynard) Smoking Status: Former smoker Tobacco Type: Cigarettes Age Started Using Tobacco: 14; Age Quit Using Tobacco: 59; Second Hand Exposure: No; Do You Dip or Chew Tobacco: No; Hx Alcohol Use: No Hx Substance Use: No Preferred Language: Danish Communication Ability: Effective Visual Impairment: No Limitations Hearing Ability: Normal Electronic Tester Required: No Beliefs That Will Affect Care: None marital status: / Current Living Situation: Family Current Living Situation Comment: granddaughter and her spouse and her 2 children current occupational status: retired current occupation: [email or web address]-retired Feels Safe at Home: Yes Childhood Exposure to Second-Hand Smoke: Yes Diet: regular caffeine: Yes during the past year weight has: remained stable Dental Care, Regularly: No Physical Activity Frequency: Does not Exercise Seatbelt Use: sometimes Assistive Devices: Denture - Upper, Denture - Lower and Other Physical Exam Physical Exam: General: A&Ox3. NAD. Cooperative. HEENT: Atraumatic, normocephalic. Vision/hearing grossly intact Pulm: CTAB A&P. -wheezes, -rales, -rhonchi. Symmetrical chest rise. No increased work of breathing. No respiratory distress. Cardiac: RRR, +c/d sm. Radial pulses intact and symmetrical. Abdominal: Nontender, nondistended, soft. BS present. Ext: warm, dry Results & Data Results & Data Vital Signs (Past 12 Hours) Vital Signs Temp Pulse Resp BP Pulse Ox 11/06/23 14:12 36.9 C 87 18 116/86 95 11/06/23 13:00 77 16 109/78 95 11/06/23 12:45 81 18 91/63 L 98 11/06/23 12:40 79 11/06/23 12:13 82 17 97 11/06/23 11:28 36.5 C 81 20 106/48 L 98 PG Care Time/CCT Total # of Minutes Spent Total Time Spent with Patient: Total time spent is greater than 50% in coordination of care (as documented) at patient's floor/unit and/or counseling patient: Coding Level of Care Code 76930 INT INP/OBS CARE 3/75MIN Diagnoses Anemia D64.9 Anemia type: unspecified type Nonrheumatic aortic valve stenosis I35.0 Cardiac valve disease etiology: nonrheumatic Iron deficiency anemia D50.9 Malignant neoplasm of central portion of right breast in female, estrogen receptor positive C50.111; Z17.0 (1) Anemia Anemia type: unspecified type Qualified Code(s): D64.9 - Anemia, unspecified (2) Aortic stenosis Cardiac valve disease etiology: nonrheumatic Qualified Code(s): I35.0 - Nonrheumatic aortic (valve) stenosis
[2023-11-06] MEDS ORDERED: ALBUTEROL HFA 8 GM INHALER INH PRN ×2 (16:30→16:46)
[2023-11-06] MEDS ORDERED: IPRATROPIUM BROMIDE/ALBUTEROL respimat INH INH PRN (16:30)
[2023-11-06] MEDS ORDERED: ACETAMINOPHEN 325 MG TAB PO PRN (16:30)
[2023-11-06] MEDS ORDERED: IPRATROPIUM BROMIDE HFA INHALER INH PRN (16:46)
[2023-11-06 18:10] LABS: Hematocrit (blood only) 26.1 % (37.0-47.0); Hemoglobin 8.2 g/dl (12.0-16.0)
[2023-11-06 19:27] LABS: Hematocrit (blood only) 24.3 % (37.0-47.0); Hemoglobin 7.7 g/dl (12.0-16.0)
[2023-11-06] MEDS: FLUoxetine HCL 20 MG CAP PO SCH (19:47)
[2023-11-06] MEDS: lisinopril 10 MG TAB PO SCH (19:47)
[2023-11-06] MEDS: GABAPENTIN 300 MG CAP PO SCH (19:47)
[2023-11-06] MEDS: FERROUS SULFATE 325 MG TAB PO SCH (19:48)
[2023-11-06] MEDS: PANTOprazole 40 MG TAB PO SCH (21:33)
[2023-11-07 01:51] LABS: Hematocrit (blood only) 26.7 % (37.0-47.0); Hemoglobin 8.5 g/dl (12.0-16.0)
[2023-11-07 01:52] LABS: Basophils # (auto) 0.03 K/uL (0.00-0.20); Basophils % (auto) 0.4 %; Eosinophils # (auto) 0.23 K/uL (0.00-0.50); Eosinophils % (auto) 3.4 %; Hematocrit (blood only) 27.7 % (37.0-47.0); Hemoglobin 8.6 g/dl (12.0-16.0); Immature Granulocytes # (auto) 0.01 K/uL (0.01-0.20); Immature Granulocytes % (auto) 0.1 %; Lymphocytes # (auto) 1.77 K/uL (1.20-3.40); Lymphocytes % (auto) 26.1 %; Mean Corpuscular Hemoglobin 29.7 pg (25.0-34.0); Mean Corpuscular Volume 95.5 fL (80.0-100.0); Mean Platelet Volume 10.6 fL (9.4-12.4); Monocytes # (auto) 0.53 K/uL (0.11-0.59); Monocytes % (auto) 7.8 %; Neutrophils # (auto) 4.21 K/uL (1.40-6.50); Neutrophils % (auto) 62.2 %; Platelet Count 169 K/uL (130-400); RDW Coefficient of Variation 17.4 % (11.5-14.5); RDW Standard Deviation 60.6 fL (36.4-46.3); White Blood Count 6.78 K/ul (4.8-10.8)
[2023-11-07 02:05] LABS: BUN Creatinine Ratio 30.2 (10-20); Calcium 8.6 mg/dl (8.6-10.3); Creatinine Clr Calc Pharmacy 78.2 ml/min; Est GFR (African American) 104.7 ml/min; Est GFR (Non-African American) 90.3 ml/min; Potassium 3.9 mmol/L (3.5-5.1)
--- NOTE | 2023-11-07 07:19 | Electrocardiogram Report ---
Test Reason : Blood Pressure : */* mmHG Vent. Rate : 82 BPM Atrial Rate : 82 BPM P-R Int : 152 ms QRS Dur : 76 ms QT Int : 378 ms P-R-T Axes : -18 -8 -21 degrees QTcB Int : 441 ms Normal sinus rhythm possible Inferior infarct , age undetermined Abnormal ECG When compared with ECG of 10-Jun-2022 15:46, Nonspecific T wave abnormality now evident in Inferior leads Confirmed by Wade Gao ([id number]) on 11/07/2023 7:19:27 AM Referred By: Confirmed By: Wade Gao
[2023-11-07] MEDS: FLUTICASONE/VILANTEROL 100/25MCG 14 PUFFS/INHALER INH SCH (08:47)
[2023-11-07] MEDS: ISOSORBIDE MONO EXTENDED REL 30 MG TABCR PO SCH (08:47)
[2023-11-07] MEDS: CHOLECALCIFEROL 25 MCG (1000 UNITS) TAB PO SCH (08:47)
[2023-11-07] MEDS: ATORVASTATIN 40 MG TAB PO SCH (08:47)
[2023-11-07] MEDS: CYANOCOBALAMIN (B-12) 500 MCG TABLET PO SCH (08:47)
--- NOTE | 2023-11-07 14:51 | Hospitalist Progress Note ---
Date of Service November 07, 2023 Assessment & Plan (1) Anemia: Plan: Anemia History of iron deficiency anemia, prior GI bleed 06/2022 requiring 2 units of PRBCs with scopes normal as below EGD 06/2022 with no acute findings. Colonoscopy 08/2022 with hemorrhoids, ot herwise no acute findings Patient reports that she had 3 positive outpatient Hemoccult positive stools recently, but has not had melena/hematochezia. Stools are chronically dark while on iron and they have not changed BUN is not elevated, she has no abdominal or epigastric pain. Iron studies are transferrin saturation of 9%, ferritin low consistent with severe MARIELA Continue B12/folic acid supplementation Continue PPI twice daily Patient did recently have COVID 10/20/2023 and was treated with Paxlovid. Hemoglobin has improved after transfusion. Monitor for another 24 hours Advance to a solid diet (2) Aortic stenosis: Plan: +troponin, chest heaviness, history of severe aortic stenosis Patient reports she has had easy fatigue and a feeling of heaviness in her chest/back especially in the last day. She does not feel that this is painful in quality, she feels okay at rest and initially felt 4/10. chest discomfort improved on reassessment Initial troponin 30, repeat stable at 31. Suspect demand with anemia and preload dependence from her aortic stenosis Chest pain has resolved after blood transfusion. Echo 06/2022: EF 65-70%, moderate concentric LVH, grade 2 diastolic dysfunction, severe valvular aortic stenosis with a valve area 0.8, RVSP 4050 EKG without acute territorial ST segment changes, normal sinus rhythm. T wave inversion in lead III Patient was pending a cardiac catheterization as part of a TAVR workup. She had a prior DSE which was low risk. (3) Iron deficiency anemia: (4) Malignant neoplasm of central portion of right breast in female, estrogen receptor positive: Plan: Breast cancer Right breast cancer, ER positive. S/p right breast lumpectomy 03/[address] Fierro which showed in situ ductal carcinoma, infiltrative ductal adenocarcinoma, sentinel lymph node 1 with metastatic adenocarcinoma of breast origin. Patient is on letrozole. This is temporarily held due to potential contribution to anemia/aplasia No acute change in management at this time Pharmacologic DVT prophylaxis is deferred due to acute anemia with positive occult blood Plan ED prophylaxis: Pharmacal prophylaxis deferred due to acute anemia Disposition: U due to severe aortic stenosis, severe anemia, and troponin CODE STATUS: Full code Diet: Advance to solid diet Admission and Anticipated Discharge Date Admission Date: November 06, 2023 Subjective Patient feels well today. She says that she feels more energetic today. The chest pain is gone. Not fatigued anymore. Review of Systems Review of Systems: All systems reviewed & are unremarkable except as noted in Subjective Physical Exam Physical Exam: General: Awake, conversant Heart: S1, S2/regular rate and rhythm, no murmur rubs or gallops Lungs: Clear to auscultation bilaterally. Normal effort Abdomen: Soft/nontender/nondistended. No hepatosplenomegaly Extremities: No clubbing/cyanosis. No edema Behavior: Appropriate, cooperative Results & Data Results & Data Vital Signs (Past 12 Hours) Vital Signs Temp Pulse Resp BP BP Pulse Ox O2 Del Method 11/07/23 13:59 76 11/07/23 11:00 36.5 C 96 H 18 108/69 123/68 97 Room Air 11/07/23 07:46 36.8 C 98 H 20 111/75 131/75 95 Room Air 11/07/23 04:09 36.8 C 78 18 124/66 91 Room Air Laboratory Results Abnormal lab results 11/06/23 11/06/23 11/06/23 Range/Units 13:01 14:34 17:47 RBC (4.20-5.40) M/uL Hgb 8.2 L (12.0-16.0) g/dl Hct 26.1 L (37.0-47.0) % MCHC (32.0-36.0) g/dL RDW Std Deviation (36.4-46.3) fL RDW Coeff of Giulia (11.5-14.5) % Creatinine (0.6-1.2) mg/dl BUN/Creatinine Ratio (10-20) Glucose (70-99(Fasting)) mg/dl Iron 34 L (35-150) mcg/dl Transferrin % Sat 9 L (15-50) % Troponin I High Sens 31.3 H (0-14) pg/ml Crossmatch See Detail 11/06/23 11/07/23 11/07/23 Range/Units 19:09 01:28 01:28 RBC 2.90 L (4.20-5.40) M/uL Hgb 7.7 L 8.5 L 8.6 L (12.0-16.0) g/dl Hct 24.3 L 26.7 L (37.0-47.0) % MCHC (32.0-36.0) g/dL RDW Std Deviation (36.4-46.3) fL RDW Coeff of Giulia (11.5-14.5) % Creatinine (0.6-1.2) mg/dl BUN/Creatinine Ratio (10-20) Glucose (70-99(Fasting)) mg/dl Iron (35-150) mcg/dl Transferrin % Sat (15-50) % Troponin I High Sens (0-14) pg/ml Crossmatch 11/07/23 Range/Units 01:28 RBC (4.20-5.40) M/uL Hgb (12.0-16.0) g/dl Hct 27.7 L (37.0-47.0) % MCHC 31.0 L (32.0-36.0) g/dL RDW Std Deviation 60.6 H (36.4-46.3) fL RDW Coeff of Giulia 17.4 H (11.5-14.5) % Creatinine 0.53 L (0.6-1.2) mg/dl BUN/Creatinine Ratio 30.2 H (10-20) Glucose 100 H (70-99(Fasting)) mg/dl Iron (35-150) mcg/dl Transferrin % Sat (15-50) % Troponin I High Sens (0-14) pg/ml Crossmatch PG Care Time/CCT Total # of Minutes Spent Total Time Spent with Patient: Total time spent is greater than 50% in coordination of care (as documented) at patient's floor/unit and/or counseling patient: Coding Level of Care Code 66610 SUB INP/OBS CARE 235MIN Diagnoses Anemia D64.9 Anemia type: unspecified type Nonrheumatic aortic valve stenosis I35.0 Cardiac valve disease etiology: nonrheumatic Iron deficiency anemia D50.9 Malignant neoplasm of central portion of right breast in female, estrogen receptor positive C50.111; Z17.0 (1) Anemia Anemia type: unspecified type Qualified Code(s): D64.9 - Anemia, unspecified (2) Aortic stenosis Cardiac valve disease etiology: nonrheumatic Qualified Code(s): I35.0 - Nonrheumatic aortic (valve) stenosis
[2023-11-08 07:03] LABS: Basophils # (auto) 0.02 K/uL (0.00-0.20); Basophils % (auto) 0.3 %; Eosinophils # (auto) 0.26 K/uL (0.00-0.50); Eosinophils % (auto) 4.5 %; Hematocrit (blood only) 29.1 % (37.0-47.0); Hemoglobin 9.1 g/dl (12.0-16.0); Immature Granulocytes # (auto) 0.02 K/uL (0.01-0.20); Immature Granulocytes % (auto) 0.3 %; Lymphocytes # (auto) 1.32 K/uL (1.20-3.40); Mean Corpuscular Hemoglobin 30.1 pg (25.0-34.0); Mean Corpuscular Hgb Conc 31.3 g/dL (32.0-36.0); Mean Corpuscular Volume 96.4 fL (80.0-100.0); Mean Platelet Volume 10.8 fL (9.4-12.4); Monocytes # (auto) 0.53 K/uL (0.11-0.59); Monocytes % (auto) 9.2 %; Neutrophils % (auto) 62.7 %; Platelet Count 176 K/uL (130-400); RDW Coefficient of Variation 17.3 % (11.5-14.5); RDW Standard Deviation 60.7 fL (36.4-46.3); Red Blood Count 3.02 M/uL (4.20-5.40); White Blood Count 5.75 K/ul (4.8-10.8)
[2023-11-08 07:19] LABS: Calcium 8.6 mg/dl (8.6-10.3); Est GFR (African American) 106.7 ml/min; Est GFR (Non-African American) 92.1 ml/min; Potassium 3.9 mmol/L (3.5-5.1)
[2023-11-08 07:35] VITALS: BP 115/57; RESP 18; TEMP 98.2; O2SAT 95
--- NOTE | 2023-11-08 10:25 | Discharge Summary ---
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 has occured while laying in bed. +lightheadedness in the last week, none at time of visit. No abdominal pain. No diarrhea. Did have a hemoccult test this past week which was positive. She has not yet talked to her doctor about this. Her bowl movements are always black due to iron pills BID and smear a bit since being on iron, no change in texture or color int he last few weeks. No bright red blood per rectum. Reports she still follows with GI, no scope since August 2022. Denies fever, chills, sweats. No cough., Denies abd pain. Has a history of severe . Patient was thinking about having a TAVR. Is pending eval including cardiac cath. Had a low risk DSE. hx of radiation therapy. Denies chemo. s/p lumpectomy. Former tobacco No etoh use Medical History: Reviewed Medications: Reviewed Surgical History: Reviewed Family history: Reviewed Allergies: Reviewed Social History: no tobacco or etoh use Code Status: DNR/DNI Admission Exam Per Admitting Provider General: A&Ox3. NAD. Cooperative. HEENT: Atraumatic, normocephalic. Vision/hearing grossly intact Pulm: CTAB A&P. -wheezes, -rales, -rhonchi. Symmetrical chest rise. No increased work of breathing. No respiratory distress. Cardiac: RRR, +c/d sm. Radial pulses intact and symmetrical. Abdominal: Nontender, nondistended, soft. BS present. Ext: warm, dry Principal Diagnosis Anemia most likely iron deficiency anemia. Chest pain and demand ischemia due to symptomatic anemia Discharge Exam General: Awake, conversant Heart: S1, S2/regular rate and rhythm, no murmur rubs or gallops Lungs: Clear to auscultation bilaterally. Normal effort Abdomen: Soft/nontender/nondistended. No hepatosplenomegaly Extremities: No clubbing/cyanosis. No edema Behavior: Appropriate, cooperative Discharge Data Allergies Allergy/AdvReac Type Severity Reaction Status Date / Time hydrochlorothiazide Allergy Intermediate Rash Verified 11/06/23 15:37 sulfamethoxazole [Bactrim] Allergy Intermediate RASH Verified 11/06/23 15:37 trimethoprim [Bactrim] Allergy Intermediate RASH Verified 11/06/23 15:37 Consultations 11/06/23 14:07 ED Decision to Admit Stat Hospital Course (1) Anemia: Anemia History of iron deficiency anemia, prior GI bleed 06/2022 requiring 2 units of PRBCs with scopes normal as below EGD 06/2022 with no acute findings. Colonoscopy 08/2022 with hemorrhoids, otherwise no acute findings Patient reports that she had 3 positive outpatient Hemoccult positive stools recently, but has not had melena/hematochezia. Stools are chronically dark while on iron and they have not changed BUN is not elevated, she has no abdominal or epigastric pain. Iron studies are transferrin saturation of 9%, ferritin low consistent with severe MARIELA Continue B12/folic acid supplementation Continue PPI twice daily Patient did recently have COVID 10/20/2023 and was treated with Paxlovid. Hemoglobin has improved after transfusion. Patient is tolerating solid diet All of her symptoms have resolved. No more fatigue, chest pressure, shortness of breath on exertion. Will discharge today. Advised to follow-up with PCP in 1 week Patient may need to have a capsule endoscopy done outpatient to completely rule out GI source of anemia. (2) Aortic stenosis: +troponin, chest heaviness, history of severe aortic stenosis Patient reports she has had easy fatigue and a feeling of heaviness in her chest/back especially in the last day. She does not feel that this is painful in quality, she feels okay at rest and initially felt 4/10. chest discomfort improved on reassessment Initial troponin 30, repeat stable at 31. Suspect demand with anemia and preload dependence from her aortic stenosis Chest pain has resolved after blood transfusion. Echo 06/2022: EF 65-70%, moderate concentric LVH, grade 2 diastolic dysfunction, severe valvular aortic stenosis with a valve area 0.8, RVSP 4050 EKG without acute [address] ST segment changes, normal sinus rhythm. T wave inversion in lead III Patient was pending a cardiac catheterization as part of a TAVR workup. She had a prior DSE which was low risk. (3) Iron deficiency anemia: (4) Malignant neoplasm of central portion of right breast in female, estrogen receptor positive: Breast cancer Right breast cancer, ER positive. S/p right breast lumpectomy 03/[address] Fierro which showed in situ ductal carcinoma, infiltrative ductal adenocarcinoma, sentinel lymph node 1 with metastatic adenocarcinoma of breast origin. Patient is on letrozole. This is temporarily held due to potential contribution to anemia/aplasia No acute change in management at this time Pharmacologic DVT prophylaxis is deferred due to acute anemia with positive occult blood Plan Discharge to home today Total Time Total Time Spent Total Time Spent (In Minutes): 35 Discharge Plan Discharge Items Patient Disposition: Home - Self-Care Reason For Visit: RECURRENT ANEMIA Discharge Diagnosis: Anemia most likely iron deficiency anemia. Chest pain and demand ischemia due to symptomatic anemia Activity: Resume your previous activity Non-emergency contact: Primary Care Provider Call non-emergency contact if: you have any medication questions and your symptoms worsen Follow-up/Referrals: Wade Lopes MD [Primary Care Provider] - 11/17/23 11:00 am (Scheduled with Tabitha Pathak PA-C on 11/17/23 at 11:00 am) Diet: Heart Healthy Addtl Attending Provider Instructions: Advised to follow-up with PCP in 1 week You may need to follow-up with GI again to complete the GI workup for anemia. Your PCP can help you set that up. Pending Studies at Discharge: No Stand-Alone Forms: [facility] Medications and DC Order Prescriptions: Continued letrozole 2.5 mg tablet 2.5 mg PO DAILY fluticasone propion-salmeterol [Advair Diskus] 250-50 mcg/dose blister with device 1 inh INH BID Qty: 60 3RF Rx Instructions: inhale 1 dose INH BID; Combivent Respimat 20-100 mcg/actuation mist 1 puff inhalation Q6H PRN (Reason: shortness of breath or wheezing) Qty: 4 3RF pantoprazole 40 mg tablet,delayed release (DR/EC) 40 mg PO BID Qty: 180 3RF cyanocobalamin (vitamin B-12) 1,000 mcg capsule 1,000 mcg PO QAM Qty: 30 11RF lisinopril 10 mg tablet 10 mg PO HS Qty: 90 3RF fluoxetine 40 mg capsule 40 mg PO HS Qty: 90 3RF Rx Instructions: 40 mg orally every evening; albuterol sulfate [Ventolin HFA] 90 mcg/actuation HFA aerosol inhaler 2 puff INH QID PRN (Reason: shortness of breath or wheezing) Qty: 8.5 3RF isosorbide mononitrate 30 mg tablet extended release 24 hr 30 mg PO DAILY Qty: 90 3RF atorvastatin 40 mg tablet 40 mg PO DAILY Qty: 90 3RF ferrous sulfate 325 mg (65 mg iron) tablet,delayed release (DR/EC) 325 mg PO BID Qty: 180 3RF cholecalciferol (vitamin D3) 125 mcg (5,000 unit) capsule 125 mcg PO DAILY Qty: 30 0RF ipratropium-albuterol 0.5 mg-3 mg(2.5 mg base)/3 mL solution for nebulization 3 ml inhalation Q4H PRN (Reason: wheezing) Qty: 180 1RF acetaminophen 325 mg Tablet 650 mg PO Q4H PRN (Reason: pain) Qty: 30 0RF Rx Instructions: OTC gabapentin 300 mg capsule 300 mg PO HS Discharge Orders: Discharge Order (Routine); Ordered 11/08/23 Ordered By: Avtar Duncan Admission Data Admit Date/Time: 11/06/23 15:25 Attending Provider: Avtar Duncan Admit Provider: Zurdo Banks Primary Care Provider: Wade Lopes Other Providers: Zurdo Banks Other Interventions: Discharge Summary Assessment (RN) Last Done: 11/08/23 11:55
[2023-11-08 11:54] VITALS: PULSE 86
== END 2023-11-08 12:43 | disposition home or self-care (01) | DRG 812 ==
LOC: ED 11:23 → 2S 15:25 → INTOOBSV 15:25 → SUATTDRO 15:25 → 2S 16:01

== ENCOUNTER 2024-02-03 09:47 | Observation (INO) ==
--- NOTE | 2024-02-03 10:13 | Emergency Department Note ---
Impression & Plan Acute anemia, Aortic stenosis, Acute dyspnea, Elevated troponin ED Provider Note Name: COCO CARBALLO Age: 78 Sex: Female Arrives Via: Walk-In Informant: Patient, son ED Provider: Marshal Gonsalez MD Chief Complaint: Shortness of breath Impression: As per impressions above Medical Decision Making: Pleasant 78-year-old female with recurrent anemia of unclear etiology though concern for chronic GI bleed though has not had scope yet. She arrives for evaluation of worsening weakness and shortness of breath. Exam she is anemic appearing though not in any extremis. EKG with nonspecific ST abnormalities. Not having any active chest pain. Laboratory workup does show significant anemia with elevated troponin. Suspect troponin elevation is more demand related as opposed to ACS. Notes black stools we will treat empirically as upper GI bleed given history. Was ordered 1 unit PRBC after consenting patient and second unit to be crossmatched and on hold. Patient and son agreeable to hospitalization. I do not see any emergent need for endoscopy from the ER or general surgery evaluation. Hospitalist consulted for further evaluation. Patient with soft nontender abdomen no complaints at time of hospitalization Triage/Nursing Notes reviewed by Me External Chart Review by me: Reviewed chart from cardiac catheterization on January revealing significant CAD Differential:Reactive airway disease, pneumonia, pneumothorax, COPD, CHF, infections, cardiac ischemia, pulmonary embolism, musculoskeletal, gastrointestinal, as well as other pathologies. Vital Signs: reviewed and remarkable for no significant abnormalities Interventions: Tylenol p.o., 1 unit PRBC IV Labs:ED labs Reviewed by me and remarkable for anemia elevated troponin Imagin view chest x-ray as per my interpretation no infiltrate effusion EKG:As per my interpretation. Indication shortness of breath. Normal sinus rhythm at 91 bpm with a QTc of 440. There are some nonspecific diffuse ST depressions without overt STEMI. No ectopy. Poor baseline laterally. Similar to EKG from November 06, [address] depressions a bit more pronounced. Cardiac/Tele Monitoring: Cardiac Monitoring: An Order was placed for continuous cardiac monitoring. The monitor shows a rate of 80 with a normal sinus rhythm. Consults:Discussed with Dr. [facility] of the [facility] and his team will evaluate further Plan: Disposition:Hospitalization. Condition: Good History of Present Illness: 78-year-old female arrives for evaluation of shortness of breath. Patient notes worsening shortness of breath over the last 3 to 4 days. Is seem to be worse at night when she is laying down. Does note some shortness of breath with exertion as well. No specific chest pain, syncope, abdominal pain, back pain, leg swelling, calf pain or other concerning signs or symptoms. She has chronic neck discomfort which is unchanged. No falls, trauma, injuries. Patient with a history of aortic stenosis with planned aortic valve repair at [place] along with known CAD that requires stenting. Patient also notes she has a history of anemia with frequent transfusions. Does have chronically dark stools but is unclear of where the bleeding is coming from she has not had a endoscopy that she is aware of. Past Medical History:See Below Home Medications:See Below Allergies: Bactrim, hydrochlorothiazide Vitals:Blood Pressure: 107/65, Pulse 94, RR 18, T 36.4C, O2 92% on RA Physical Exam: GENERAL: Patient is tired appearing and in minimal distress. RESPIRATORY: Mild tachypnea noted though does not appear dyspneic. Clear to auscultation and equal bilaterally. CARDIOVASCULAR: Regular rate and rhythm.Harsh systolic murmur noted GASTROINTESTINAL: Abdomen soft, non-tender, no peritonitis. EXTREMITIES: Normal motion all extremities, no cyanosis, no edema. NEUROLOGIC: Alert and oriented. No focal neurologic deficits appreciated SKIN: No rash, no jaundice, no diaphoresis. PSYCH: Appropriate GCS: 15 ED Course: Times/Reassessments: Stable throughout breathing comfortably and agreeable to hospitalization Marshal Gonsalez MD Past Med/Surg History Problem List (Updated 02/03/24 @ 12:39 by Marshal Gonsalez MD) Elevated troponin (Acute) Acute dyspnea (Acute) Aortic stenosis (Acute) Acute anemia (Acute) Dyspnea Elevated troponin I level (Acute) Anemia (Acute) UGIB (upper gastrointestinal bleed) (Acute) Iron deficiency anemia Cervical radicular pain Carpal tunnel syndrome on both sides B12 deficiency History of iron deficiency anemia Neurogenic claudication (Chronic) Lumbar spondylosis (Chronic) Fatigue Vitamin D deficiency Restrictive lung disease secondary to obesity Dyspnea on exertion Osteopenia Left hand paresthesia Breast cancer, right History of back problems Malignant neoplasm of central portion of right breast in female, estrogen receptor positive (Chronic 01/21/22) RIOS (dyspnea on exertion) (Acute) Pulmonary nodule Severe aortic stenosis Aortic stenosis Moderate to severe AV stenosis per 12/03/21 ECHO; F/U DR. LOUIS, JENNIFFER H/O right breast biopsy (03/19/22) Right Breast Lumpectomy with Localization Using Wire Localization, Right [place] Lymph Node Biopsy(Right) - Vincent Fierro DO Hypertension (Chronic) Lumbar spinal stenosis (Chronic) Moderate to severe at L4-5 Hyperlipidemia Depression Prediabetes Hgb A1C 6.0 06/2021 Lumbar facet joint syndrome Medical History (Updated 02/03/24 @ 12:39 by Marshal Gonsalez MD) COPD exacerbation 07/29/22>per medical record and verified with patient; given abx tx and nebulizer prn tx>"feeling better" On home oxygen therapy 2lpm via n/c PRN sob History of basal cell carcinoma Upper gastrointestinal bleed Breast cancer HX-Right History of COVID-19 07/2021, home test, not hosp; mild symptoms>resolved. GERD (gastroesophageal reflux disease) Cancer Skin cancer to face- s/p removal Asthma On inhalers Surgical History History of esophagogastroduodenoscopy (EGD) History of lumpectomy of right breast [place] node biopsy. History of cataract surgery lt/rt History of total knee replacement (~08/2011) left. Dr. Drew History of colonoscopy w/ polypectomy Family History Brother Coronary arteriosclerosis Mother Myocardial infarction Coronary arteriosclerosis Coronary heart disease Heart disease Father Myocardial infarction Coronary arteriosclerosis Coronary heart disease Heart disease Brother Coronary heart disease Brother Diabetes Brother Hypertension Other Breast cancer Denies family history of Ovarian cancer Prostate cancer Colorectal cancer Social History (Updated 11/17/23 @ 11:09 by Hien Chowdhury LPN) Smoking Status: Never smoker Tobacco Type: Cigarettes Age Started Using Tobacco: 14; Age Quit Using Tobacco: 59; Second Hand Exposure: No; Do You Dip or Chew Tobacco: No; Hx Alcohol Use: No Hx Substance Use: No Preferred Language: Nepali Communication Ability: Effective Visual Impairment: No Limitations Hearing Ability: Normal Vasc Tech Required: No Beliefs That Will Affect Care: None marital status: / Current Living Situation: Family Current Living Situation Comment: granddaughter and her current occupational status: retired current occupation: [employer]-retired Feels Safe at Home: Yes Childhood Exposure to Second-Hand Smoke: Yes Diet: regular caffeine: Yes during the past year weight has: remained stable Dental Care, Regularly: No Physical Activity Frequency: Does not Exercise Seatbelt Use: sometimes Assistive Devices: Denture - Upper and Oxygen - at Night Allergies Allergies Allergy/AdvReac Type Severity Reaction Status Date / Time hydrochlorothiazide Allergy Intermediate Rash Verified 01/14/24 10:47 sulfamethoxazole [Bactrim] Allergy Intermediate RASH Verified 01/14/24 10:47 trimethoprim [Bactrim] Allergy Intermediate RASH Verified 01/14/24 10:47 Home Meds Home Medications Medication Instructions Recorded Confirmed letrozole 2.5 mg tablet 2.5 mg PO DAILY 10/15/22 01/14/24 gabapentin 300 mg capsule 300 mg PO HS 11/06/23 01/14/24 Previous Rx's Medication Instructions Recorded acetaminophen 325 mg tablet 650 mg (2 x 325 mg) PO Q4H PRN 05/08/22 pain #30 tabs fluticasone 250 mcg-salmeterol 50 1 inh inhalation BID #60 ea 06/23/22 mcg/dose blistr powdr for inhalation (Advair Diskus) ipratropium 0.5 mg-albuterol 3 mg 3 ml inhalation Q4H PRN wheezing 07/29/22 (2.5 mg base)/3 mL nebulization #180 mL soln cholecalciferol (vitamin D3) 125 125 mcg PO DAILY #30 caps 01/18/23 mcg (5,000 unit) capsule cyanocobalamin (vitamin B-12) 1,000 mcg PO QAM #30 caps 05/14/23 1,000 mcg capsule lisinopril 10 mg tablet 10 mg PO HS #90 tabs 09/03/23 fluoxetine 40 mg capsule 40 mg PO HS #90 caps 09/27/23 albuterol sulfate 90 mcg/actuation 2 puff inhalation QID PRN 10/07/23 aerosol inhaler (Ventolin HFA) shortness of breath or wheezing #8.5 grams isosorbide mononitrate 30 mg 30 mg PO DAILY #90 tabs 10/07/23 tablet,extended release 24 hr atorvastatin 40 mg tablet 40 mg PO DAILY #90 tabs 10/12/23 ferrous sulfate 325 mg (65 mg 325 mg PO BID #180 tabs 11/05/23 iron) tablet,delayed release ipratropium 20 mcg-albuterol 100 1 puff inhalation Q6H PRN 12/06/23 mcg/actuation mist for inhalation shortness of breath or wheezing #4 (Combivent Respimat) grams pantoprazole 40 mg tablet,delayed 40 mg PO BID #180 tabs 12/07/23 release Results & Data (ED) Vital Signs Vital Signs - 24 hr 02/03/24 09:55 02/03/24 10:12 02/03/24 10:12 Temperature 36.4 C L Temperature Source Temporal Artery Scan Pulse Rate 94 H Pulse Rate from SpO2 Sensor Respiratory Rate 18 Respiratory Effort / Characteristics Non-Labored Respiratory Depth Normal Respiratory Pattern Regular Blood Pressure 107/65 Blood Pressure Mean 79 Pulse Oximetry 92 Oxygen Delivery Method Room Air Room Air Room Air Sepsis Recent Fever Within 48 Hours No Sepsis New/Unexplained Change in Mental Status N/A Sepsis Action Taken by Nursing No Action Required 02/03/24 10:32 02/03/24 10:33 02/03/24 10:39 Temperature Temperature Source Pulse Rate 79 78 Pulse Rate from SpO2 Sensor 80 77 Respiratory Rate 16 12 Respiratory Effort / Characteristics Respiratory Depth Respiratory Pattern Blood Pressure 110/60 Blood Pressure Mean 71 Pulse Oximetry 96 98 Oxygen Delivery Method Sepsis Recent Fever Within 48 Hours Sepsis New/Unexplained Change in Mental Status Sepsis Action Taken by Nursing 02/03/24 10:40 02/03/24 11:01 02/03/24 11:01 Temperature Temperature Source Pulse Rate 84 Pulse Rate from SpO2 Sensor Respiratory Rate Respiratory Effort / Characteristics Respiratory Depth Respiratory Pattern Blood Pressure 122/52 L 122/52 L Blood Pressure Mean 75 75 Pulse Oximetry Oxygen Delivery Method Sepsis Recent Fever Within 48 Hours Sepsis New/Unexplained Change in Mental Status Sepsis Action Taken by Nursing 02/03/24 11:03 02/03/24 11:30 02/03/24 11:31 Temperature Temperature Source Pulse Rate 81 82 Pulse Rate from SpO2 Sensor 82 Respiratory Rate 19 27 H Respiratory Effort / Characteristics Respiratory Depth Respiratory Pattern Blood Pressure 105/65 Blood Pressure Mean 98 Pulse Oximetry 93 Oxygen Delivery Method Sepsis Recent Fever Within 48 Hours Sepsis New/Unexplained Change in Mental Status Sepsis Action Taken by Nursing Laboratory Data 02/03/24 10:05 02/03/24 10:05 Lab Results 02/03/24 02/03/24 02/03/24 Range/Units 10:05 10:14 11:20 WBC 9.19 (4.8-10.8) K/ul RBC 2.20 L (4.20-5.40) M/uL Hgb 6.6 L* (12.0-16.0) g/dl Hct 21.5 L (37.0-47.0) % MCV 97.7 (80.0-100.0) fL MCH 30.0 (25.0-34.0) pg MCHC 30.7 L (32.0-36.0) g/dL RDW Std Deviation 58.3 H (36.4-46.3) fL RDW Coeff of Giulia 16.4 H (11.5-14.5) % Plt Count 212 (130-400) K/uL MPV 11.4 (9.4-12.4) fL Immature Gran % (Auto) 0.5 % Neut % (Auto) 67.3 % Lymph % (Auto) 20.9 % [place] % (Auto) 7.4 % Eos % (Auto) 3.5 % Baso % (Auto) 0.4 % Neut # (Auto) 6.18 (1.40-6.50) K/uL Lymph # (Auto) 1.92 (1.20-3.40) K/uL [place] # (Auto) 0.68 H (0.11-0.59) K/uL Eos # (Auto) 0.32 (0.00-0.50) K/uL Baso # (Auto) 0.04 (0.00-0.20) K/uL Immature Gran # (Auto) 0.05 (0.01-0.20) K/uL Absolute Nucleated RBC 0.02 (0.00-0.12) K/uL Nucleated RBC % (auto) 0.2 % Ovalocytes 1+ Sodium 135 L (136-145) mmol/L Potassium 4.1 (3.5-5.1) mmol/L Chloride 100 (98-107) mmol/L Carbon Dioxide 28 (21-32) mmol/L Anion Gap 7 (3-11) BUN 29 H (6-23) mg/dl Creatinine 0.53 L (0.6-1.2) mg/dl Est Cr Clr Drug Dosing 78.6 ml/min eGFR 93.43 BUN/Creatinine Ratio 54.7 H (10-20) Glucose 112 H (70-99(Fasting)) mg/dl Calcium 8.8 (8.6-10.3) mg/dl Magnesium 1.9 (1.7-2.4) mg/dl Total Bilirubin 0.3 (0.2-1.0) mg/dl Direct Bilirubin 0.1 (0-0.2) mg/dl AST 13 (13-39) U/L ALT 11 (7-52) U/L Alkaline Phosphatase 44 (34-104) U/L Troponin I High Sens 83.9 H* (0-14) pg/ml B-Natriuretic Peptide 174 H (0-100) pg/ml Total Protein 6.3 (6.0-8.3) gm/dl Albumin 3.9 (3.4-5.0) gm/dl TSH 3.291 (0.300-4.500) uIu/ml SARS-CoV-2 (PCR) NEGATIVE (Negative) Influenza Type A (PCR) Negative (Neg) Influenza Type B (PCR) Negative (Neg) RSV (RT-PCR) Negative (Neg) Blood Type O Positive Antibody Screen NEGATIVE Crossmatch See Detail Administered Medications Discontinued Medications Acetaminophen (Acetaminophen 500 Mg Tab) 1,000 mg PO NOW STA Stop: 02/03/24 10:14 Last Admin: 02/03/24 10:30 Dose: 1,000 mg Documented By: ALEXSANDRA Pantoprazole Sodium 80 mg/ (Dextrose) 120 mls @ 480 mls/hr IV ONE STA Stop: 02/03/24 11:37 Last Admin: 02/03/24 12:00 Dose: 480 mls/hr Documented By: ALEXSANDRA Imaging Data Radiologist's Impression: Chest X-Ray 02/03/24 10:10 EXAM: Radiograph of the Chest 1 View INDICATION: Shortness of breath. TECHNIQUE: Frontal view of the chest. COMPARISON: 11/06/2023 FINDINGS: Lungs and pleural spaces: Chronic interstitial scarring and right diaphragmatic elevation stable. No consolidation or pulmonary edema. No pleural effusion or pneumothorax. Heart: Shape and configuration within normal limits allowing for technique. Mediastinum: Normal contour. Bones/joints: Degenerative changes noted throughout the spine. No acute osseous abnormality seen. Soft tissues: No abnormality noted. No radiopaque foreign body noted. IMPRESSION: Stable chronic changes. No acute disease. ACT 112: Negative or not required by law. Electronically signed by Chastity Hallman 02-03-2024 11:23 AM Discharge Plan Visit Data Chief Complaint: Shortness of Breath/Dyspnea Stated Complaint: TROUBLE BREATHING, BACK HURTS, HAS A COLD ED Provider: Marshal Gonsalez Discharge Problem: Acute anemia, Aortic stenosis, Acute dyspnea, Elevated troponin Forms Stand Alone Forms: [facility] [place] [employer] Prescriptions Prescriptions: No Action letrozole 2.5 mg tablet 2.5 mg PO DAILY fluticasone propion-salmeterol [Advair Diskus] 250-50 mcg/dose blister with device 1 inh INH BID Qty: 60 3RF Rx Instructions: inhale 1 dose INH BID; cyanocobalamin (vitamin B-12) 1,000 mcg capsule 1,000 mcg PO QAM Qty: 30 11RF lisinopril 10 mg tablet 10 mg PO HS Qty: 90 3RF fluoxetine 40 mg capsule 40 mg PO HS Qty: 90 3RF Rx Instructions: 40 mg orally every evening; albuterol sulfate [Ventolin HFA] 90 mcg/actuation HFA aerosol inhaler 2 puff INH QID PRN (Reason: shortness of breath or wheezing) Qty: 8.5 3RF isosorbide mononitrate 30 mg tablet extended release 24 hr 30 mg PO DAILY Qty: 90 3RF atorvastatin 40 mg tablet 40 mg PO DAILY Qty: 90 3RF ferrous sulfate 325 mg (65 mg iron) tablet,delayed release (DR/EC) 325 mg PO BID Qty: 180 3RF Combivent Respimat 20-100 mcg/actuation mist 1 puff inhalation Q6H PRN (Reason: shortness of breath or wheezing) Qty: 4 3RF pantoprazole 40 mg tablet,delayed release (DR/EC) 40 mg PO BID Qty: 180 3RF cholecalciferol (vitamin D3) 125 mcg (5,000 unit) capsule 125 mcg PO DAILY Qty: 30 0RF ipratropium-albuterol 0.5 mg-3 mg(2.5 mg base)/3 mL solution for nebulization 3 ml inhalation Q4H PRN (Reason: wheezing) Qty: 180 1RF acetaminophen 325 mg Tablet 650 mg PO Q4H PRN (Reason: pain) Qty: 30 0RF Rx Instructions: OTC gabapentin 300 mg capsule 300 mg PO HS Referrals Referrals: Wade Lopes MD [Primary Care Provider] - Discharge Problem: Aortic stenosis Qualifiers: Cardiac valve disease etiology: etiology unspecified Qualified Code(s): I35.0 - Nonrheumatic aortic (valve) stenosis
[2024-02-03] MEDS: ACETAMINOPHEN 500 MG TAB PO STA (10:30)
[2024-02-03 11:05] LABS: Hematocrit (blood only) 21.5 % (37.0-47.0); Hemoglobin 6.6 g/dl (12.0-16.0); Mean Corpuscular Hgb Conc 30.7 g/dL (32.0-36.0); Mean Corpuscular Volume 97.7 fL (80.0-100.0); Mean Platelet Volume 11.4 fL (9.4-12.4); Nucleated RBC # (auto) 0.02 K/uL (0.00-0.12); Nucleated RBC % (auto) 0.2 %; Platelet Count 212 K/uL (130-400); RDW Coefficient of Variation 16.4 % (11.5-14.5); RDW Standard Deviation 58.3 fL (36.4-46.3); White Blood Count 9.19 K/ul (4.8-10.8)
[2024-02-03] MEDS ORDERED: SODIUM CHLORIDE 0.9% 100 ML IV PRN (11:10)
[2024-02-03] MEDS ORDERED: SODIUM CHLORIDE 0.9% 50 ML IV PRN (11:10)
[2024-02-03 11:20] LABS: Albumin Level 3.9 gm/dl (3.4-5.0); Bilirubin Direct 0.1 mg/dl (0-0.2); Bilirubin,Total 0.3 mg/dl (0.2-1.0); Calcium 8.8 mg/dl (8.6-10.3); Magnesium 1.9 mg/dl (1.7-2.4); Potassium 4.1 mmol/L (3.5-5.1); Troponin I High Sensitivity 83.9 pg/ml (0-14)
[2024-02-03 11:23] LABS: BUN Creatinine Ratio 54.7 (10-20); Basophils # (auto) 0.04 K/uL (0.00-0.20); Basophils % (auto) 0.4 %; Creatinine Clr Calc Pharmacy 78.6 ml/min; Eosinophils # (auto) 0.32 K/uL (0.00-0.50); Eosinophils % (auto) 3.5 %; Immature Granulocytes # (auto) 0.05 K/uL (0.01-0.20); Immature Granulocytes % (auto) 0.5 %; Lymphocytes # (auto) 1.92 K/uL (1.20-3.40); Lymphocytes % (auto) 20.9 %; Monocytes # (auto) 0.68 K/uL (0.11-0.59); Monocytes % (auto) 7.4 %; Neutrophils # (auto) 6.18 K/uL (1.40-6.50); Neutrophils % (auto) 67.3 %; Ovalocytes 1+; Total Protein 6.3 gm/dl (6.0-8.3)
--- NOTE | 2024-02-03 11:23 | XRay Report ---
EXAM: Radiograph of the Chest 1 View INDICATION: Shortness of breath. TECHNIQUE: Frontal view of the chest. COMPARISON: 11/06/2023 FINDINGS: Lungs and pleural spaces: Chronic interstitial scarring and right diaphragmatic elevation stable. No consolidation or pulmonary edema. No pleural effusion or pneumothorax. Heart: Shape and configuration within normal limits allowing for technique. Mediastinum: Normal contour. Bones/joints: Degenerative changes noted throughout the spine. No acute osseous abnormality seen. Soft tissues: No abnormality noted. No radiopaque foreign body noted. IMPRESSION: Stable chronic changes. No acute disease. ACT 112: Negative or not required by law. Electronically signed by Chastity Hallman 02-03-2024 11:23 AM
[2024-02-03 11:26] LABS: Thyroid Stimulating Hormone 3.291 uIu/ml (0.300-4.500)
[2024-02-03 11:37] LABS: Influenza A virus by PCR Negative (Neg); Influenza B virus by PCR Negative (Neg); RSV by PCR Negative (Neg); SARS CoV2 RNA(COVID-19) Ceph NEGATIVE (Negative)
--- NOTE | 2024-02-03 11:41 | History & Physical Report ---
Date of Service February 03, 2024 Assessment & Plan (1) Anemia: Plan: patient has a history of iron deficiency anemia requiring multiple blood transfusions in the past symptoms of dyspnea, chronic melena, dizziness EGD 06/2022 negative for acute changes Colonoscopy 08/2022 showed small diverticuli in sigmoid colon and nonbleeding internal hemorrhoids - was seen by GI 12/23/2023 who recommended repeat EGD/ colonoscopy, patient has not yet completed - Hgb 6.6 in ED -> 1 unit pRBC - blood consent form signed by ED provider - continue pantoprazole 40 mg IV BID - continue home iron and B12 supplements - consult GI - possibility of repeat EGD and colonoscopy - Will repeat H&H after transfusion and Q6H - 1 unit pRBC on hold - transfuse 1 unit for Hgb <7 (2) Elevated troponin I level: Plan: Suspect secondary to severe aortic stenosis - 83.9 in ED - EKG without ischemic changes - Patient denies chest pain - Will continue to trend troponin (3) Dyspnea: Plan: Likely secondary to anemia, aortic stenosis, and RLD history of restrictive lung disease secondary to obesity - Non-hypoxic on admission - BNP 174, baseline - CXR negative - Continue home inhalers - will likely improve with treatment above (4) Aortic stenosis: Plan: History of aortic stenosis, hyperlipidemia, coronary artery disease - Echo 06/2022 showed grade 2 diastolic dysfunction, LVH, severe aortic stenosis, moderate mitral annular calcification, mild mitral regurg - Cardiac cath 01/07/2024 without stent placement - Planning for aortic valve replacement in near future, no date set - continue statin, isosorbide mononitrate, and baby ASA - defer need for diuresis in between blood transfusions, no concern for fluid overload at this time Plan Chronic stable diagnoses: breast cancer - in remission, finished radiation ~6 months ago, continue letrozole depression - continue fluoxetine HTN - hypotensive on admission, continue lisinopril with holding parameters VTE ppx: SCDs; Defer pharmacologic therapy given anemia Diet: heart healthy Code status: full code Dispo: med/surg Admission and Anticipated Discharge Date Admission Date: 02/03/24 History of Present Illness Chief Complaint: Dyspnea Primary Care Provider: Wade Lopes MD Patient is an 78-year-old female with a past medical history of iron deficiency anemia requiring transfusions, restrictive lung disease due to body habitus, aortic stenosis planning for valve repair, HLD/CAD, prediabetes, depression, breast cancer. She presents today due to dyspnea. She was found to have a hemoglobin of 6.6 on arrival; 1 unit pRBC transfused. The patient was evaluated bedside, she stated that she has had dyspnea on exertion and orthopnea for the past 3 to 4 days. She stated she has had the same symptoms in the past when she needed blood transfusions. She also endorses dizziness. She stated that she has had chronic melena for about 1 year, since she began her iron supplement; denies bright red blood in stool. She endorses cough and sore throat since ; feels it is due to a cold. The patient also endorses chronic numbness in her bilateral hands. Patient denies fever, chills, headache, vision changes, chest pain, abdominal pain, nausea, vomiting, diarrhea, constipation, dysuria, hematuria, edema, tingling. She did not take her home medications this morning; will order on admission. She wishes to be full code at this time. She does not use oxygen at baseline. Patient's son was updated at bedside. Allergies Allergy/AdvReac Type Severity Reaction Status Date / Time hydrochlorothiazide Allergy Intermediate Rash Verified 02/03/24 12:37 sulfamethoxazole [Bactrim] Allergy Intermediate RASH Verified 02/03/24 12:37 trimethoprim [Bactrim] Allergy Intermediate RASH Verified 02/03/24 12:37 Home Medications Medication Instructions Recorded Confirmed Type acetaminophen 325 mg tablet 650 mg (2 x 325 mg) PO Q4H PRN 05/08/22 02/03/24 Rx pain #30 tabs letrozole 2.5 mg tablet 2.5 mg PO DAILY 10/15/22 02/03/24 History cyanocobalamin (vitamin B-12) 1,000 mcg PO QAM #30 caps 05/14/23 02/03/24 Rx 1,000 mcg capsule lisinopril 10 mg tablet 10 mg PO HS #90 tabs 09/03/23 02/03/24 Rx fluoxetine 40 mg capsule 40 mg PO HS #90 caps 09/27/23 02/03/24 Rx albuterol sulfate 90 mcg/actuation 2 puff inhalation QID PRN 10/07/23 02/03/24 Rx aerosol inhaler (Ventolin HFA) shortness of breath or wheezing #8.5 grams isosorbide mononitrate 30 mg 30 mg PO DAILY #90 tabs 10/07/23 02/03/24 Rx tablet,extended release 24 hr atorvastatin 40 mg tablet 40 mg PO DAILY #90 tabs 10/12/23 02/03/24 Rx ferrous sulfate 325 mg (65 mg 325 mg PO BID #180 tabs 11/05/23 02/03/24 Rx iron) tablet,delayed release gabapentin 300 mg capsule 300 mg PO HS 11/06/23 02/03/24 History ipratropium 20 mcg-albuterol 100 1 puff inhalation Q6H PRN 12/06/23 02/03/24 Rx mcg/actuation mist for inhalation shortness of breath or wheezing #4 (Combivent Respimat) grams pantoprazole 40 mg tablet,delayed 40 mg PO BID #180 tabs 12/07/23 02/03/24 Rx release aspirin 81 mg tablet,delayed 81 mg PO DAILY 02/03/24 02/03/24 History release calcium carbonate 500 mg PO DAILY 02/03/24 02/03/24 History Past Med/Surg History Problem List (Updated 02/03/24 @ 12:39 by Marshal Gonsalez MD) Elevated troponin (Acute) Acute dyspnea (Acute) Aortic stenosis (Acute) Acute anemia (Acute) Dyspnea Elevated troponin I level (Acute) Anemia (Acute) UGIB (upper gastrointestinal bleed) (Acute) Iron deficiency anemia Cervical radicular pain Carpal tunnel syndrome on both sides B12 deficiency History of iron deficiency anemia Neurogenic claudication (Chronic) Lumbar spondylosis (Chronic) Fatigue Vitamin D deficiency Restrictive lung disease secondary to obesity Dyspnea on exertion Osteopenia Left hand paresthesia Breast cancer, right History of back problems Malignant neoplasm of central portion of right breast in female, estrogen receptor positive (Chronic 01/21/22) RIOS (dyspnea on exertion) (Acute) Pulmonary nodule Severe aortic stenosis Aortic stenosis Moderate to severe AV stenosis per 12/03/21 ECHO; F/U DR. LOUIS, JENNIFFER H/O right breast biopsy (03/19/22) Right Breast Lumpectomy with Localization Using Wire Localization, Right [place] Lymph Node Biopsy(Right) - Vincent Fierro, Hypertension (Chronic) Lumbar spinal stenosis (Chronic) Moderate to severe at L4-5 Hyperlipidemia Depression Prediabetes Hgb A1C 6.0 06/2021 Lumbar facet joint syndrome Medical History (Updated 02/03/24 @ 12:39 by Marshal Gonsalez MD) COPD exacerbation 07/29/22>per medical record and verified with patient; given abx tx and nebulizer prn tx>"feeling better" On home oxygen therapy 2lpm via n/c PRN sob History of basal cell carcinoma Upper gastrointestinal bleed Breast cancer HX-Right History of COVID-19 07/2021, home test, not hosp; mild symptoms>resolved. GERD (gastroesophageal reflux disease) Cancer Skin cancer to face- s/p removal Asthma On inhalers Surgical History History of esophagogastroduodenoscopy (EGD) History of lumpectomy of right breast [place] node biopsy. History of cataract surgery lt/rt History of total knee replacement (~08/2011) left. Dr. Drew History of colonoscopy w/ polypectomy Family History Brother Coronary arteriosclerosis Mother Myocardial infarction Coronary arteriosclerosis Coronary heart disease Heart disease Father Myocardial infarction Coronary arteriosclerosis Coronary heart disease Heart disease Brother Coronary heart disease Brother Diabetes Brother Hypertension Other Breast cancer Denies family history of Ovarian cancer Prostate cancer Colorectal cancer Social History (Updated 11/17/23 @ 11:09 by Hien Chowdhury LPN) Smoking Status: Former smoker Tobacco Type: Cigarettes Age Started Using Tobacco: 14; Age Quit Using Tobacco: 59; Second Hand Exposure: No; Do You Dip or Chew Tobacco: No; Tobacco Cessation Education Requested by Patient: No Hx Alcohol Use: No Hx Substance Use: Yes Last Used Substance Other:: 9 months ago. Preferred Language: Mauritian Communication Ability: Effective Visual Impairment: No Limitations Hearing Ability: Normal Jacquard Fixer Required: No Beliefs That Will Affect Care: None marital status: / Current Living Situation: Family Current Living Situation Comment: granddaughter and her current occupational status: retired current occupation: [employer]-retired Other Information That Helps Us Care for You: No Feels Safe at Home: Yes Safety Concerns: Feels Safe At This Time Childhood Exposure to Second-Hand Smoke: Yes Diet: regular caffeine: Yes during the past year weight has: remained stable Dental Care, Regularly: No Physical Activity Frequency: Does not Exercise Seatbelt Use: sometimes Assistive Devices: Contacts, Denture - Upper and Denture - Lower Review of Systems Review of Systems: see HPI Physical Exam Physical Exam: The patient is awake, alert and oriented 3, well developed and well nourished, normocephalic and atraumatic, in no acute distress. Non-toxic appearing. HEENT- EOMI, mucous membranes moist. Hearing grossly intact. Heart-normal S1 and S2. Murmur noted. No rubs or gallops. Lungs-clear bilaterally, no respiratory distress, no accessory muscle use. Abdomen-normal bowel sounds and soft. No ascites noted. Non-tender. Extremities- no clubbing, cyanosis, or edema. Rheumatologic-normal range of motion. Psychiatric-normal affect. Results & Data Results & Data Vital Signs (Past 12 Hours) Vital Signs Temp Pulse Resp BP Pulse Ox O2 Del Method 02/03/24 11:01 122/52 L 02/03/24 10:40 84 02/03/24 10:39 78 12 98 02/03/24 10:33 79 16 96 02/03/24 10:32 110/60 02/03/24 10:12 Room Air 02/03/24 10:12 Room Air 02/03/24 09:55 36.4 C L 94 H 18 107/65 92 Room Air Code Status & VTE Plan Code Status full code VTE Prophylaxis Plan VTE Prophylaxis will be ordered: Yes Supervising Physician Co-Signing Physician Notes I personally saw and examined the patient. I independently reviewed the labs, EKG, imaging, problem list, medication list, past medical history and family history. I verified all campa points and agree with Jesenia Bruno PA-C with the following exceptions and/or additions: 78 year old female presents to the ER with shortness of breath and fatigue. Multiple recurrent transfusions required with previous EGD and colonoscopy without cause. O/E HS RRR, systolic murmur, Chest CTAB, Abdo SNT A/P Symptomatic anemia - pantoprazole 40mg IV BID, Transfuse > 7. Consult gastroenterology Shortness of breath - suspect aortic stenosis mostly contributing towards this with planned TAVR in the near future PG Care Time/CCT Total # of Minutes Spent Total Time Spent with Patient: Total time spent is greater than 50% in coordination of care (as documented) at patient's floor/unit and/or counseling patient: Coding Level of Care Code 55383 INT INP/OBS CARE MIN Diagnoses Anemia D64.9 Elevated troponin I level R79.89 Dyspnea R06.00 Nonrheumatic aortic valve stenosis I35.0 Cardiac valve disease etiology: nonrheumatic (4) Aortic stenosis Cardiac valve disease etiology: nonrheumatic Qualified Code(s): I35.0 - Nonrheumatic aortic (valve) stenosis
[2024-02-03] MEDS: PANTOprazole 80 MG in DEXTROSE 5% 100 ML IV STA (12:00)
[2024-02-03 14:39] LABS: Appearance Urine Clear (Clear); Bacteria Urine Automated None Seen (None Seen); Bilirubin Urine Negative (Negative); Blood Urine Negative (Negative); Cast Urine Automated 0-2 /lpf (0-2); Color Urine Yellow; Epithelial Cell Urine Auto 0-2 /hpf (0-2); Glucose Urine UA Negative (Negative); Ketones Urine Negative (Negative); Leukocyte Esterase Urine 3+ (Negative); Nitrite Urine Negative (Negative); Protein Urine Negative (Negative); RBC Urine Automated 0-2 /hpf (0-2); Specific Gravity Urine 1.021 (1.000-1.030); Urobilinogen Urine Negative (Negative); WBC Urine Automated >50 /hpf (0-5); pH Urine 5.5 (4.5-7.5)
[2024-02-03] MEDS ORDERED: ALBUTEROL HFA 8 GM INHALER INH PRN ×2 (14:51→15:17)
[2024-02-03] MEDS ORDERED: DOCUSATE SODIUM 100 MG CAP PO PRN (14:51)
[2024-02-03] MEDS ORDERED: IPRATROPIUM BROMIDE/ALBUTEROL respimat INH INH PRN (14:51)
[2024-02-03] MEDS ORDERED: ACETAMINOPHEN 325 MG TAB PO PRN (14:51)
[2024-02-03] MEDS ORDERED: IPRATROPIUM BROMIDE HFA INHALER INH PRN (15:17)
[2024-02-03 16:39] LABS: Hematocrit (blood only) 24.8 % (37.0-47.0); Hemoglobin 7.9 g/dl (12.0-16.0)
[2024-02-03] MEDS: CYANOCOBALAMIN (B-12) 500 MCG TABLET PO SCH (17:45)
[2024-02-03] MEDS: ATORVASTATIN 40 MG TAB PO SCH (17:45)
[2024-02-03] MEDS: FERROUS SULFATE 325 MG TAB PO SCH (17:46)
[2024-02-03] MEDS: ISOSORBIDE MONO EXTENDED REL 30 MG TABCR PO SCH (17:47)
[2024-02-03] MEDS: LETROZOLE 2.5 MG TAB PO SCH (17:47)
--- NOTE | 2024-02-03 18:30 | Gastrointestinal Consultation ---
Date of Consultation February 03, 2024 Assessment & Plan (1) Iron deficiency anemia: Patient has a history of anemia she had an EGD and a colonoscopy in 2022 the EGD showed a small hiatal hernia and some gastritis the colonoscopy showed some sigmoid diverticuli and internal hemorrhoids but was otherwise normal no bleeding lesion was seen currently she is anemic again most likely the etiology is a small bowel source however in view of the fact that she is anemic and having dark stools I would recommend 1. Schedule EGD in a.m. 2. Continue with PPI 3. If EGD is negative would get video capsule endoscopy and if that is negative then would repeat colonoscopy 4. Iron replacement therapy Thank you for allowing us to take part in the care of your patient we will continue to follow her with you History of Present Illness Reason for Consultation: Anemia Attending Physician: Stewart Rosa MD History of Present Illness A very pleasant 78-year-old was a history of anemia and who has been on iron therapy she came in again complaining of shortness of breath and was found to be quite anemic of note she has been evaluated for this in the past she had an EGD and a colonoscopy in 2022 which were really nondiagnostic she has been on iron replacement therapy she was also seen by GI as outpatient at the current time she denies any dysphagia or reflux nausea or vomiting no belly pain she has 1-2 bowel movements a day which is normal for her and that is what she has been having recently also she states the stools have been dark but she has been taking iron pills also no evidence of any hematochezia Allergies Allergy/AdvReac Type Severity Reaction Status Date / Time hydrochlorothiazide Allergy Intermediate Rash Verified 02/03/24 12:37 sulfamethoxazole [Bactrim] Allergy Intermediate RASH Verified 02/03/24 12:37 trimethoprim [Bactrim] Allergy Intermediate RASH Verified 02/03/24 12:37 Home Medications Medication Instructions Recorded Confirmed Type acetaminophen 325 mg tablet 650 mg (2 x 325 mg) PO Q4H PRN 05/08/22 02/03/24 Rx pain #30 tabs letrozole 2.5 mg tablet 2.5 mg PO DAILY 10/15/22 02/03/24 History cyanocobalamin (vitamin B-12) 1,000 mcg PO QAM #30 caps 05/14/23 02/03/24 Rx 1,000 mcg capsule lisinopril 10 mg tablet 10 mg PO HS #90 tabs 09/03/23 02/03/24 Rx fluoxetine 40 mg capsule 40 mg PO HS #90 caps 09/27/23 02/03/24 Rx albuterol sulfate 90 mcg/actuation 2 puff inhalation QID PRN 10/07/23 02/03/24 Rx aerosol inhaler (Ventolin HFA) shortness of breath or wheezing #8.5 grams isosorbide mononitrate 30 mg 30 mg PO DAILY #90 tabs 10/07/23 02/03/24 Rx tablet,extended release 24 hr atorvastatin 40 mg tablet 40 mg PO DAILY #90 tabs 10/12/23 02/03/24 Rx ferrous sulfate 325 mg (65 mg 325 mg PO BID #180 tabs 11/05/23 02/03/24 Rx iron) tablet,delayed release gabapentin 300 mg capsule 300 mg PO HS 11/06/23 02/03/24 History ipratropium 20 mcg-albuterol 100 1 puff inhalation Q6H PRN 12/06/23 02/03/24 Rx mcg/actuation mist for inhalation shortness of breath or wheezing #4 (Combivent Respimat) grams pantoprazole 40 mg tablet,delayed 40 mg PO BID #180 tabs 12/07/23 02/03/24 Rx release aspirin 81 mg tablet,delayed 81 mg PO DAILY 02/03/24 02/03/24 History release calcium carbonate 500 mg PO DAILY 02/03/24 02/03/24 History Patient History Medical History (Updated 02/03/24 @ 12:39 by Marshal Gonsalez MD) COPD exacerbation 07/29/22>per medical record and verified with patient; given abx tx and nebulizer prn tx>"feeling better" On home oxygen therapy 2lpm via n/c PRN sob History of basal cell carcinoma Upper gastrointestinal bleed Breast cancer HX-Right History of COVID-19 07/2021, home test, not hosp; mild symptoms>resolved. GERD (gastroesophageal reflux disease) Cancer Skin cancer to face- s/p removal Asthma On inhalers Surgical History History of esophagogastroduodenoscopy (EGD) History of lumpectomy of right breast [place] node biopsy. History of cataract surgery lt/rt History of total knee replacement (~08/2011) left. Dr. Drew History of colonoscopy w/ polypectomy Family History Brother Coronary arteriosclerosis Mother Myocardial infarction Coronary arteriosclerosis Coronary heart disease Heart disease Father Myocardial infarction Coronary arteriosclerosis Coronary heart disease Heart disease Brother Coronary heart disease Brother Diabetes Brother Hypertension Other Breast cancer Denies family history of Ovarian cancer Prostate cancer Colorectal cancer Social History (Updated 11/17/23 @ 11:09 by Hien Chowdhury LPN) Smoking Status: Former smoker Tobacco Type: Cigarettes Age Started Using Tobacco: 14; Age Quit Using Tobacco: 59; Second Hand Exposure: No; Do You Dip or Chew Tobacco: No; Tobacco Cessation Education Requested by Patient: No Hx Alcohol Use: No Hx Substance Use: Yes Last Used Substance Other:: 9 months ago. 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 Other Information That Helps Us Care for You: No Feels Safe at Home: Yes Safety Concerns: Feels Safe At This Time Childhood Exposure to Second-Hand Smoke: Yes Diet: regular caffeine: Yes during the past year weight has: remained stable Dental Care, Regularly: No Physical Activity Frequency: Does not Exercise Seatbelt Use: sometimes Assistive Devices: Contacts, Denture - Upper and Denture - Lower Review of Systems Review of Systems: A 10 point review of systems was done Physical Exam Physical Exam: Very pleasant female appears comfortable in no distress Constitutional: Well-developed well-nourished in no acute distress ENMT: Normocephalic/atraumatic Neck: Supple Respiratory: Clear anteriorly Cardiovascular: S1 and S2 Gastrointestinal (Abdomen): Soft no tenderness or masses appreciated On rectal there was normal tone and dark brown stools Results & Data Vital Signs (Past 12 Hours) Vital Signs Temp Pulse Resp BP BP Pulse Ox O2 Del Method 02/03/24 14:57 36.8 C 83 18 102/65 94 02/03/24 14:41 Room Air 02/03/24 14:35 36.6 C 20 104/65 96 Room Air 02/03/24 14:08 116/52 L 02/03/24 14:03 88 20 02/03/24 14:00 97 H 20 02/03/24 14:00 85/69 L 02/03/24 13:49 36.5 C 90 20 104/60 96 02/03/24 13:39 85 16 95 02/03/24 13:21 108/61 02/03/24 13:19 36.4 C L 83 15 108/61 96 02/03/24 13:19 85 16 115/64 94 02/03/24 13:12 84 15 94 02/03/24 13:04 36.5 C 82 16 115/64 93 02/03/24 13:01 101/45 L 02/03/24 12:44 111/74 02/03/24 12:44 36.6 C 85 20 111/74 92 02/03/24 12:36 84 16 93 02/03/24 12:31 94/40 L 02/03/24 12:30 81 13 94 02/03/24 12:15 81 18 95 02/03/24 12:08 117/50 L 02/03/24 11:57 82 18 02/03/24 11:36 83 20 02/03/24 11:31 105/65 02/03/24 11:30 82 27 H 02/03/24 11:03 81 19 93 02/03/24 11:01 122/52 L 02/03/24 11:01 122/52 L 02/03/24 10:40 84 02/03/24 10:39 78 12 98 02/03/24 10:33 79 16 96 02/03/24 10:32 110/60 02/03/24 10:12 Room Air 02/03/24 10:12 Room Air 02/03/24 09:55 36.4 C L 94 H 18 107/65 92 Room Air O2 Flow Rate 02/03/24 14:57 02/03/24 14:41 02/03/24 14:35 02/03/24 14:08 02/03/24 14:03 02/03/24 14:00 02/03/24 14:00 02/03/24 13:49 02/03/24 13:39 02/03/24 13:21 02/03/24 13:19 02/03/24 13:19 02/03/24 13:12 02/03/24 13:04 0 02/03/24 13:01 02/03/24 12:44 02/03/24 12:44 0 02/03/24 12:36 02/03/24 12:31 02/03/24 12:30 02/03/24 12:15 02/03/24 12:08 02/03/24 11:57 02/03/24 11:36 02/03/24 11:31 02/03/24 11:30 02/03/24 11:03 02/03/24 11:01 02/03/24 11:01 02/03/24 10:40 02/03/24 10:39 02/03/24 10:33 02/03/24 10:32 02/03/24 10:12 02/03/24 10:12 02/03/24 09:55 Laboratory Results Reviewed PG Care Time/CCT Total # of Minutes Spent Total Time Spent with Patient: Total time spent is greater than 50% in coordination of care (as documented) at patient's floor/unit and/or counseling patient: Coding Level of Care Code 46441 IN/OBS CONSULT LVL 3,45M Diagnoses Iron deficiency anemia D50.9
[2024-02-03 18:54] LABS: Hematocrit (blood only) 24.6 % (37.0-47.0); Hemoglobin 7.9 g/dl (12.0-16.0)
[2024-02-03] MEDS: lisinopril 10 MG TAB PO SCH (22:30)
[2024-02-03] MEDS: FLUoxetine HCL 20 MG CAP PO SCH (22:31)
[2024-02-03] MEDS: PANTOprazole 40 MG/10 ML SYR IV SCH (22:33)
[2024-02-03] MEDS: GABAPENTIN 300 MG CAP PO SCH (22:33)
[2024-02-04 00:28] LABS: Basophils # (auto) 0.03 K/uL (0.00-0.20); Basophils % (auto) 0.4 %; Eosinophils # (auto) 0.25 K/uL (0.00-0.50); Eosinophils % (auto) 3.4 %; Hematocrit (blood only) 22.4 % (37.0-47.0); Hemoglobin 7.1 g/dl (12.0-16.0); Immature Granulocytes # (auto) 0.04 K/uL (0.01-0.20); Immature Granulocytes % (auto) 0.5 %; Lymphocytes # (auto) 1.54 K/uL (1.20-3.40); Lymphocytes % (auto) 20.8 %; Mean Corpuscular Hemoglobin 29.8 pg (25.0-34.0); Mean Corpuscular Hgb Conc 31.7 g/dL (32.0-36.0); Mean Corpuscular Volume 94.1 fL (80.0-100.0); Mean Platelet Volume 10.7 fL (9.4-12.4); Monocytes # (auto) 0.59 K/uL (0.11-0.59); Neutrophils # (auto) 4.94 K/uL (1.40-6.50); Neutrophils % (auto) 66.9 %; Platelet Count 172 K/uL (130-400); RDW Standard Deviation 57.6 fL (36.4-46.3); Red Blood Count 2.38 M/uL (4.20-5.40)
[2024-02-04 01:45] LABS: ALC (manual) 1.26 K/uL (1.2-3.4); ANC (manual) 5.17 K/uL (1.4-6.5); Blast # (manual) 0.07 K/uL (0-0); Blast Cells % (manual) 1 %; Eosinophils # (manual) 0.67 K/uL (0-0.50); Eosinophils % (manual) 9 %; Lymphocytes # (manual) 1.26 K/uL (1.2-3.4); Lymphocytes % (manual) 17 %; Monocytes # (manual) 0.22 K/uL (0.11-0.59); Monocytes % (manual) 3 %; Neutrophils # (manual) 5.17 K/uL (1.40-6.50); Neutrophils % (manual) 70 %; Ovalocytes 1+; Polychromasia 2+
--- OUTSIDE RECORDS SUMMARY | 2024-02-04 06:14 | External Medical Summary | Continuity of Care Document ---
Author Name Unknown Organization [facility] Address [address] [place] [address] [phone] Care Team Providers Care Mortgage Manager Name Role Phone LopesWade Primary Care Physician [phone] Encounter [facility] [id number] Date(s): 02/01/24 - 02/01/[address] [id number] [phone] Discharge Disposition: Home or Self Care Attending Physician: MD Benton Moses Referring Physician: MD Benton Moses Allergies, Adverse Reactions, Alerts Substance Criticality Severity Reaction Reaction Severity Status Septra rash?? Active Medications Advair Diskus 250 mcg-50 mcg Start: 04/30/11 6:50:00 PM EST, See Instructions, 2 puff inhaled bid Start Date: 04/30/11 Status: Ordered albuterol CFC free 90 mcg/inh MDI Start: 11/09/14 9:30:00 AM EDT, 1 puff, inhaled, qid, PRN: as needed for wheezing Start Date: 11/09/14 Status: Ordered Aspirin Low Dose 81 mg oral delayed release tablet Start: 11/09/14 9:30:00 AM EDT, 1 tab, PO, Daily Start Date: 11/09/14 Status: Ordered atorvastatin 40 mg oral tablet TAKE 1 TABLET BY MOUTH DAILY Start Date: 12/23/23 Status: Ordered Combivent Respimat 20 mcg-100 mcg/inh inhalation aerosol INHALE 1 PUFF EVERY 6 HOURS NEEDED FOR SHORTNESS OF BREATH OR WHEEZING Start Date: 12/23/23 Status: Ordered ferrous sulfate 325 mg (65 mg elemental iron) oral tablet TAKE 1 TABLET BY MOUTH TWICE A DAY Start Date: 12/23/23 Status: Ordered FLUoxetine 40 mg oral capsule TAKE 1 CAPSULE BY MOUTH EVERY EVENING AT BEDTIME Start Date: 12/23/23 Status: Ordered gabapentin 300 mg oral capsule Start: 05/02/11 1:31:00 PM EST, 1 cap, PO, tid, Disp# 90 cap, Refills: 1, Pharmacy: [facility]/pharmacy #[id number] Start Date: 05/02/11 Status: Ordered isosorbide mononitrate 30 mg oral tablet, extended release TAKE 1 TABLET BY MOUTH EVERY DAY Start Date: 12/23/23 Status: Ordered lisinopril 10 mg oral tablet TAKE 1 TABLET BY MOUTH EVERYDAY AT BEDTIME Start Date: 12/23/23 Status: Ordered pantoprazole 40 mg oral delayed release tablet TAKE 1 TABLET BY MOUTH TWICE A DAY Start Date: 12/23/23 Status: Ordered Problem List Condition Confirmation Course Effective Dates Status Health [facility] Informant Asthma Confirmed Active BP (high blood pressure) Confirmed Active Degenerative joint disease Confirmed Active H/O: artificial joint Confirmed Active Knee pain, left Confirmed Active Need for prophylactic vaccination and inoculation against influenza Confirmed Active Thumb pain 1 Confirmed Active 1B/L Procedures Procedure Date Related Diagnosis Body Site Status Shave biopsy and cauterizati on of skin 1 11/09/14 Completed TKR -Total prosthetic replac ement of knee joint using cement 09/03/11 Complete d Knee pain 2 12/27/09 Completed 1with curettage 2left Results Laboratory List Name Date Creatinine, POC (RAD) (CREATININE,POC (R AD)) 02/01/24 Most recent to oldest [Reference Range]: 1 Cret, POC [0.6-1.3 mg/dL] 0.7 mg/dL (02/01/24 10:22 AM) Radiology Reports * Exam Date Time Procedure Performing Provider Status 02/01/24 11:[address] Angio Abdomen and Pelvis Cher Mujica; Final Notes: (CT Angio Abdomen and Pelvis) Reason For Exam: TAVR Protocol CT Angio Abdomen and Pelvis EXAMINATION: CT Angio Chest, CT Angio Abdomen and Pelvis CT ANGIO CHEST 3-D WITH AND WITHOUT CONTRAST CT ANGIO ABDOMEN/PELVIS AORTA CLINICAL HISTORY: TAVR Protocol I35.0: Nonrheumatic aortic (valve) stenosis; COMPARISON: Calcific CTs dated 02/05/2023 and 06/11/2022. TECHNIQUE: Noncontrast high-pitched helical CT of the chest. Retrospective ECG gated CTA of the heart followed by high-pitched helical CT of the chest (from thetop of the aortic arch), abdomen, pelvis and proximal thighs. CONTRAST: Contrast Type (IV): Omnipaque 350 Contrast Volume (IV) in ml: 100.00 Study quality: Good: minial motion or artifacts Dose: Total Reported Dose Length Product (DLP) = 994.57 mGy.cm FINDINGS: INTRA-THORACIC AORTA: Three vessel left aortic arch.. Moderate calcified atherosclerosis of the aortic arch and branching vessel takeoffs. Normal course and caliber. AORTIC MEASUREMENTS: Calcium score: 4445 Aortic Angulation: 50.1 degrees Aortic Annulus: 22.8 x 18.7 mm. Average diameter: 20.6 mm. Perimeter: 66.8 mm; Area: 3.33 cm2 Left Cusp, Distance from the aortic annulus to the origin of the left coronary artery (LM): 13.3 mm Left Cusp, Distance from the aortic annulus to the STJ (LCC): 18.2 mm Right Cusp, Distance from the aortic annulus to the origin of the right coronary artery (RCA): 14.0mm Right Cusp, Distance from the aortic annulus to the STJ (RCC): 19.8 mm Non-Coronary Cusp, Distance from the aortic annulus to STJ: 20.2 mm Sinus of Valsalva: 25.9 x 27.5 x 26.7 mm. LVOT (5 mm below): 23.8 x 18.1 mm. Average diameter 20.4 mm. Perimeter: 65.9 mm; Area: 3.27 cm2 Sinotubular junction: 25.7 x 24.5 mm. Average diameter: 24.1 mm. Perimeter: 78.4 mm; Area: 4.58 cm2 Maximum ascending diameter: 33.8 x 32.0 mm (8.30 cm2) Maximum descending diameter: 27.7 x 26.1 mm, (5.54 cm2) INTRA-ABDOMINAL AORTA: Moderate calcified atherosclerosis of the abdominal aorta and branching vessels.. No stenosis or aneurysm. MESENTERIC ARTERIES: Celiac trunk: Conventional three-vessel configuration. Moderate circumferential calcified atherosclerosis of the celiac trunk ostium. Moderate stenosis at the vessel origin. Superior mesenteric artery: Moderate circumferential calcified atherosclerosis of the ostium. No stenosis. Renal arteries: Single renal arteries bilaterally. Moderate circumferential calcified atherosclerosis of the bilateral renal artery ostia with mild stenosis bilaterally. Inferior mesenteric artery: Patent ILIOFEMORAL ARTERIES: Right iliofemoral arteries: Moderate calcified atherosclerosis of the right common iliac and internal iliac arteries. Short segment calcified atheromatous plaque of the right common femoral artery with resultant moderate stenosis. Minimum diameter of the iliac arteries: 6.1 mm Minimum diameter of the common femoral artery at the level of the femoral head: 3.6 mm Left iliofemoral arteries: Moderate calcified atherosclerosis of the right common iliac and internal iliac arteries. Short segment calcified atheromatous plaque of the right common femoral artery with resultant severe stenosis. Minimum diameter of the iliac arteries: 7.7 mm Minimum diameter of the common femoral artery at the level of the femoral head: 3.5 mm CHEST: Pleura and Lungs: Right lower lobe calcified granulomas. No suspicious pulmonary nodule. Bibasilar and apical scarring/atelectasis. Central airways: Clear. Lymph nodes: No lymphadenopathy. Thyroid and Mediastinum: Subcentimeter hypodense nodule in the left thyroid gland, unchanged from prior exam. Heart and Great vessels: Normal heart size. Mitral and aortic annular calcifications. Calcified aortic valve leaflets. No pericardial effusion. Moderate calcified atherosclerosis of the left anteriordescending coronary artery. Chest wall: Degenerative changes of the chest wall. Bilateral punctate calcifications in the breastparenchyma. ABDOMEN AND PELVIS: Liver, bile ducts, gallbladder: No focal hepatic abnormality. Hyperdense convexity of the dependentgallbladder wall body, likely adherent gallstone. No biliary ductal dilation. Pancreas: Normal. Spleen: Normal. Adrenals: Normal. Kidneys, collecting system, ureters: Symmetric renal enhancement. Bilateral nonobstructing renal calculi measuring up to 3 mm. No hydroureteronephrosis. Bowel and Mesentery: Bowel is nonobstructed. Colonic diverticulosis without diverticulitis Retroperitoneum, lymph nodes, venous structures, portal venous vasculature: No pelvic adenopathy. Bladder: For degree of distention. Uterus, ovaries \T\ adnexa: No adnexal mass. Musculoskeletal and subcutaneous tissues: Multilevel degenerative changes of the spine. Severe lumbar discovertebral degenerative change. IMPRESSION: Preprocedural planning CT for TAVR. Measurements as above. Dr. Karthik Lindo is the dictating resident. Finalized reports status indicates that the attending has reviewed the images and report and agrees with the interpretation. Preliminary report status should be regarded as NOT interpreted by the attending radiologist. [place] Act 112: This study does not meet the requirements of [place] Act 112. Workstation ID: [id number] Final Dictated by:MD Lindo Lawrence V Dictated DT/TM:02/01/2024 4:14 Resident:MD Lindo Lawrence V Signed by:MD Katz Peter N Signed (Electronic Signature):02/01/2024 4:13 p * Exam Date Time Procedure Performing Provider Status 02/01/24 11:[address] Angio Chest Cher Mujica; Final Notes: (CT Angio Chest) Reason For Exam: TAVR Protocol CT Angio Chest EXAMINATION: CT Angio Chest, CT Angio Abdomen and Pelvis CT ANGIO CHEST 3-D WITH AND WITHOUT CONTRAST CT ANGIO ABDOMEN/PELVIS AORTA CLINICAL HISTORY: TAVR Protocol I35.0: Nonrheumatic aortic (valve) stenosis; COMPARISON: Calcific CTs dated 02/05/2023 and 06/11/2022. TECHNIQUE: Noncontrast high-pitched helical CT of the chest. Retrospective ECG gated CTA of the heart followed by high-pitched helical CT of the chest (from thetop of the aortic arch), abdomen, pelvis and proximal thighs. CONTRAST: Contrast Type (IV): Omnipaque 350 Contrast Volume (IV) in ml: 100.00 Study quality: Good: minial motion or artifacts Dose: Total Reported Dose Length Product (DLP) = 994.57 mGy.cm FINDINGS: INTRA-THORACIC AORTA: Three vessel left aortic arch.. Moderate calcified atherosclerosis of the aortic arch and branching vessel takeoffs. Normal course and caliber. AORTIC MEASUREMENTS: Calcium score: 4445 Aortic Angulation: 50.1 degrees Aortic Annulus: 22.8 x 18.7 mm. Average diameter: 20.6 mm. Perimeter: 66.8 mm; Area: 3.33 cm2 Left Cusp, Distance from the aortic annulus to the origin of the left coronary artery (LM): 13.3 mm Left Cusp, Distance from the aortic annulus to the STJ (LCC): 18.2 mm Right Cusp, Distance from the aortic annulus to the origin of the right coronary artery (RCA): 14.0mm Right Cusp, Distance from the aortic annulus to the STJ (RCC): 19.8 mm Non-Coronary Cusp, Distance from the aortic annulus to STJ: 20.2 mm Sinus of Valsalva: 25.9 x 27.5 x 26.7 mm. LVOT (5 mm below): 23.8 x 18.1 mm. Average diameter 20.4 mm. Perimeter: 65.9 mm; Area: 3.27 cm2 Sinotubular junction: 25.7 x 24.5 mm. Average diameter: 24.1 mm. Perimeter: 78.4 mm; Area: 4.58 cm2 Maximum ascending diameter: 33.8 x 32.0 mm (8.30 cm2) Maximum descending diameter: 27.7 x 26.1 mm, (5.54 cm2) INTRA-ABDOMINAL AORTA: Moderate calcified atherosclerosis of the abdominal aorta and branching vessels.. No stenosis or aneurysm. MESENTERIC ARTERIES: Celiac trunk: Conventional three-vessel configuration. Moderate circumferential calcified atherosclerosis of the celiac trunk ostium. Moderate stenosis at the vessel origin. Superior mesenteric artery: Moderate circumferential calcified atherosclerosis of the ostium. No stenosis. Renal arteries: Single renal arteries bilaterally. Moderate circumferential calcified atherosclerosis of the bilateral renal artery ostia with mild stenosis bilaterally. Inferior mesenteric artery: Patent ILIOFEMORAL ARTERIES: Right iliofemoral arteries: Moderate calcified atherosclerosis of the right common iliac and internal iliac arteries. Short segment calcified atheromatous plaque of the right common femoral artery with resultant moderate stenosis. Minimum diameter of the iliac arteries: 6.1 mm Minimum diameter of the common femoral artery at the level of the femoral head: 3.6 mm Left iliofemoral arteries: Moderate calcified atherosclerosis of the right common iliac and internal iliac arteries. Short segment calcified atheromatous plaque of the right common femoral artery with resultant severe stenosis. Minimum diameter of the iliac arteries: 7.7 mm Minimum diameter of the common femoral artery at the level of the femoral head: 3.5 mm CHEST: Pleura and Lungs: Right lower lobe calcified granulomas. No suspicious pulmonary nodule. Bibasilar and apical scarring/atelectasis. Central airways: Clear. Lymph nodes: No lymphadenopathy. Thyroid and Mediastinum: Subcentimeter hypodense nodule in the left thyroid gland, unchanged from prior exam. Heart and Great vessels: Normal heart size. Mitral and aortic annular calcifications. Calcified aortic valve leaflets. No pericardial effusion. Moderate calcified atherosclerosis of the left anteriordescending coronary artery. Chest wall: Degenerative changes of the chest wall. Bilateral punctate calcifications in the breastparenchyma. ABDOMEN AND PELVIS: Liver, bile ducts, gallbladder: No focal hepatic abnormality. Hyperdense convexity of the dependentgallbladder wall body, likely adherent gallstone. No biliary ductal dilation. Pancreas: Normal. Spleen: Normal. Adrenals: Normal. Kidneys, collecting system, ureters: Symmetric renal enhancement. Bilateral nonobstructing renal calculi measuring up to 3 mm. No hydroureteronephrosis. Bowel and Mesentery: Bowel is nonobstructed. Colonic diverticulosis without diverticulitis Retroperitoneum, lymph nodes, venous structures, portal venous vasculature: No pelvic adenopathy. Bladder: For degree of distention. Uterus, ovaries \T\ adnexa: No adnexal mass. Musculoskeletal and subcutaneous tissues: Multilevel degenerative changes of the spine. Severe lumbar discovertebral degenerative change. IMPRESSION: Preprocedural planning CT for TAVR. Measurements as above. Dr. Karthik Lindo is the dictating resident. Finalized reports status indicates that the attending has reviewed the images and report and agrees with the interpretation. Preliminary report status should be regarded as NOT interpreted by the attending radiologist. [place] Act 112: This study does not meet the requirements of [place] Act 112. Workstation ID: [id number] Final Dictated by:MD Lindo Lawrence V Dictated DT/TM:02/01/2024 4:14 Resident:MD Lindo Lawrence V Signed by:MD Katz Peter N Signed (Electronic Signature):02/01/2024 4:13 p Social History Social History Type Response Smoking Status Former Smoker, quit > 1 yr Sex Female Sex Representation Female (finding) Patient Care team information Care Team Personnel Name: MD Lopes Christopher E Position: Referring DIRECT Member Role: Primary Care Provider Address: [address] [place] [id number] [place] Care Team Related Persons Name: BETTE CARBALLO
[2024-02-04 06:31] LABS: BUN Creatinine Ratio 46.2 (10-20); Calcium 8.6 mg/dl (8.6-10.3); Creatinine Clr Calc Pharmacy 64.4 ml/min; Potassium 4.1 mmol/L (3.5-5.1)
--- NOTE | 2024-02-04 06:58 | Hospitalist Progress Note ---
Date of Service February 04, 2024 Assessment & Plan (1) Acute anemia: (2) Dyspnea: (3) Elevated troponin I level: (4) UGIB (upper gastrointestinal bleed): Plan (1) Anemia: patient has a history of iron deficiency anemia requiring multiple blood alva sfusions in the past symptoms of dyspnea, chronic melena, dizziness EGD 06/2022 negative for acute changes Colonoscopy 08/2022 showed small diverticuli in sigmoid colon and nonbleeding internal hemorrhoids - was seen by GI 12/23/2023 who recommended repeat EGD/ colonoscopy, patient has not yet completed - Hgb 6.6 in ED -> 1 unit pRBC - blood consent form signed by ED provider - continue pantoprazole 40 mg IV BID - continue home iron and B12 supplements - consulted GI and EGD performed EGD --> Oozing blood noted in second part of duodenum from a 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 Hemoclip placed and bleeding stopped. 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 - repeat CBC w/ Diff ordered tomorrow (3) Elevated troponin I level #resolved Suspect secondary to severe aortic stenosis - 66.6 <-- 72.9 <-- 83.9 in ED - EKG without ischemic changes - Patient denies chest pain (4) Dyspnea Likely secondary to anemia, aortic stenosis, and RLD history of RLD (restrictive lung disease) secondary to obesity - Non-hypoxic on admission - BNP 174, baseline - CXR negative - Continue home inhalers - will likely improve with treatment above (5) Aortic stenosis History of aortic stenosis, hyperlipidemia, coronary artery disease - Echo 06/2022: grade 2 diastolic dysfunction, LVH, severe aortic stenosis, moderate mitral annular calcification, mild mitral regurg - Cardiac cath 01/07/2024 without stent placement - Planning for aortic valve replacement in near future, no date set - continue statin, isosorbide mononitrate, and baby ASA - defer need for diuresis in between blood transfusions, no concern for fluid overload at this time Plan Chronic stable diagnoses: breast cancer - in remission, finished radiation ~6 months ago, continue letrozole depression - continue fluoxetine HTN - hypotensive on admission, continue lisinopril with holding parameters VTE ppx: SCDs; Defer pharmacologic therapy given anemia Diet: heart healthy Code status: full code Dispo: med/surg Admission and Anticipated Discharge Date Admission Date: February 03, 2024 Supervising Physician Co-Signing Physician Notes I personally examined the patient and verified campa points of history and exam, discussed case, and agree with decision making and plan documented by Dr. Pa. Patient reported 1 year of dark tarry stools, EGD today revealed diffuse gastritis and bleeding lesion in duodenum. Patient given another 1 unit PRBC after EGD. Will advance diet as tolerated, currently on full liquid. Recheck CBC with differential in AM, blasts present on CBC and peripheral smear. Subjective Patient is a 78 yo F w/ a PMHx of aortic stenosis, Hx of r. breast cancer, HTN, HLD, depression, prediabetes, osteopenia, res. lung dz d/t obesity, upper GI bleed, cervical radicular pain, who presented w/ several months of dark-colored stools and increasing fatigue. Speaking with the patient earlier in the afternoon after returning from her GI procedure, she was still a bit tired while recovering from the anesthesia, feeling a little dyspneic. But no other concerns besides those that had brought her in. Speaking with her later this afternoon, patient denied any night sweats, fevers, chills, weight loss. Patient stated she wasn't really certain how long her dark-colored stools had been going on and that it could have been anywhere from 4 - 12 months. Review of Systems Constitutional: + fatigue; no fever, no chills, no weigh t loss and no insomnia Ear, Nose, Mouth, Throat: + nasal congestion, + nasal discharge an d + sore throat Respiratory: + cough, + chest congestion and + dyspne a on exertion; no hemoptysis and no pain with cough Cardiovascular: no chest pain and no palpitations Gastrointestinal: + melena; no nausea, no vomiting, no cof fee ground emesis, no constipation and no diarrhea/loose stools Genitourinary: no dysuria, no urinary frequency and no urinary incontinence Physical Exam Respiratory: Auscultation: + wheezes (left sided wheezes); no diminished lung sounds and no crackles Cardiovascular: Rate/Rhythm: regular rate and regular rhythm Heart Sounds: + murmur (systolic murmur) Extremities: normal capillary refill; no calf tenderness and no pedal edema Gastrointestinal (Abdomen): normal bowel sounds, soft, nontender, no hepatosplenomegaly Psychiatric: A+Ox3, euthymic affect Results & Data Results & Data Vital Signs (Past 12 Hours) Vital Signs Temp Pulse Resp BP BP Pulse Ox O2 Del Method 02/04/24 05:27 36.8 C 88 17 107/64 94 Room Air 02/04/24 05:00 Room Air 02/03/24 20:46 36.8 C 84 16 105/62 98 Room Air
--- NOTE | 2024-02-04 08:33 | Anesthesiology Consultation ---
Date of Service February 04, 2024 Assessment & Plan Chart Review Chart Review: Acceptable Risk for Surgery and Patient NOT seen in Pre Admission Testing Consults Requested none History Surgery Operation Date: 02/04/24 07:00 Proposed Procedures p Esophagogastroduodenoscopy - Vishal Garza MD Height/Weight Height: 5 ft Weight: 79.4 kg Allergies Allergy/AdvReac Type Severity Reaction Status Date / Time hydrochlorothiazide Allergy Intermediate Rash Verified 02/03/24 12:37 sulfamethoxazole [Bactrim] Allergy Intermediate RASH Verified 02/03/24 12:37 trimethoprim [Bactrim] Allergy Intermediate RASH Verified 02/03/24 12:37 Medications Home Medications Medication Instructions Recorded Confirmed Last Taken acetaminophen 325 mg tablet 650 mg (2 x 325 mg) PO Q4H PRN 05/08/22 02/03/24 Unknown pain #30 tabs letrozole 2.5 mg tablet 2.5 mg PO DAILY 10/15/22 02/03/24 02/02/24 cyanocobalamin (vitamin B-12) 1,000 mcg PO QAM #30 caps 05/14/23 02/03/24 02/02/24 1,000 mcg capsule lisinopril 10 mg tablet 10 mg PO HS #90 tabs 09/03/23 02/03/24 02/02/24 fluoxetine 40 mg capsule 40 mg PO HS #90 caps 09/27/23 02/03/24 02/02/24 albuterol sulfate 90 mcg/actuation 2 puff inhalation QID PRN 10/07/23 02/03/24 Unknown aerosol inhaler (Ventolin HFA) shortness of breath or wheezing #8.5 grams isosorbide mononitrate 30 mg 30 mg PO DAILY #90 tabs 10/07/23 02/03/24 02/02/24 tablet,extended release 24 hr atorvastatin 40 mg tablet 40 mg PO DAILY #90 tabs 10/12/23 02/03/24 02/02/24 ferrous sulfate 325 mg (65 mg 325 mg PO BID #180 tabs 11/05/23 02/03/24 02/02/24 iron) tablet,delayed release gabapentin 300 mg capsule 300 mg PO HS 11/06/23 02/03/24 02/02/24 ipratropium 20 mcg-albuterol 100 1 puff inhalation Q6H PRN 12/06/23 02/03/24 02/02/24 mcg/actuation mist for inhalation shortness of breath or wheezing #4 (Combivent Respimat) grams pantoprazole 40 mg tablet,delayed 40 mg PO BID #180 tabs 12/07/23 02/03/24 02/02/24 release aspirin 81 mg tablet,delayed 81 mg PO DAILY 02/03/24 02/03/24 02/02/24 release calcium carbonate 500 mg PO DAILY 02/03/24 02/03/24 02/02/24 Active Medications Generic Name Dose Route Start Last Admin Trade Name Yanet PRN Reason Stop Dose Admin Atorvastatin Calcium 40 mg 02/03/24 14:51 02/03/24 17:45 Atorvastatin 40 Mg Tab PO 03/04/24 14:50 40 mg DAILY LUNA Administration Cyanocobalamin 1,000 mcg 02/03/24 14:51 02/03/24 17:45 Cyanocobalamin (B-12) 500 Mcg Tablet PO 03/04/24 14:50 1,000 mcg QAM LUNA Administration Ferrous Sulfate 325 mg 02/03/24 14:51 02/03/24 22:32 Ferrous Sulfate 325 Mg Tab PO 03/04/24 14:50 325 mg BID LUNA Administration Fluoxetine HCl 40 mg 02/03/24 21:00 02/03/24 22:31 Fluoxetine Hcl 20 Mg Cap PO 03/04/24 20:59 40 mg HS LUNA Administration Gabapentin 300 mg 02/03/24 21:00 02/03/24 22:33 Gabapentin 300 Mg Cap PO 03/04/24 20:59 300 mg HS LUNA Administration Pantoprazole Sodium 40 mg in 10 mls @ 5 mls/min 02/03/24 21:00 02/03/24 22:33 Protonix IV 03/04/24 20:59 5 mls/min BID LUNA Administration Isosorbide Mononitrate 30 mg 02/03/24 14:51 02/03/24 17:47 Isosorbide [place] Extended Rel 30 Mg Tabcr PO 03/04/24 14:50 30 mg DAILY LUNA Administration Letrozole 2.5 mg 02/03/24 14:51 02/03/24 17:47 Letrozole 2.5 Mg Tab PO 03/04/24 14:50 2.5 mg DAILY LUNA Administration Lisinopril 10 mg 02/03/24 21:00 02/03/24 22:30 Lisinopril 10 Mg Tab PO 03/04/24 20:59 10 mg HS LUNA Administration Past Medical History Medical History (Updated 02/03/24 @ 12:39 by Marshal Gonsalez MD) COPD exacerbation 07/29/22>per medical record and verified with patient; given abx tx and nebulizer prn tx>"feeling better" On home oxygen therapy 2lpm via n/c PRN sob History of basal cell carcinoma Upper gastrointestinal bleed Breast cancer HX-Right History of COVID-19 07/2021, home test, not hosp; mild symptoms>resolved. GERD (gastroesophageal reflux disease) Cancer Skin cancer to face- s/p removal Asthma On inhalers Past Family History Family History Brother Coronary arteriosclerosis Mother Myocardial infarction Coronary arteriosclerosis Coronary heart disease Heart disease Father Myocardial infarction Coronary arteriosclerosis Coronary heart disease Heart disease Brother Coronary heart disease Brother Diabetes Brother Hypertension Other Breast cancer Denies family history of Ovarian cancer Prostate cancer Colorectal cancer Past Surgical History Surgical History History of esophagogastroduodenoscopy (EGD) History of lumpectomy of right breast [place] node biopsy. History of cataract surgery lt/rt History of total knee replacement (~08/2011) left. Dr. Drew History of colonoscopy w/ polypectomy Social History Smoking Status: Former smoker tobacco type: cigarettes Do You Dip or Chew Tobacco: No Hx Alcohol Use: No Hx Substance Use: Yes substance use type: marijuana Last Used Substance Other:: 9 months ago. Physical Exam Vital Signs Last Vital Signs Temp 36.8 C 02/04/24 05:27 Pulse 88 02/04/24 05:27 Resp 17 02/04/24 05:27 BP 107/64 02/04/24 05:27 Pulse Ox 94 02/04/24 05:27 O2 Del Method Room Air 02/04/24 05:27 O2 Flow Rate 0 02/03/24 13:04 Testing Laboratory Results 02/04/24 00:10 02/04/24 05:11 Urine Color Yellow 02/03/24 14:19 Urine Appearance Clear (Clear) 02/03/24 14:19 Urine pH 5.5 (4.5-7.5) 02/03/24 14:19 Ur Specific [place] 1.021 (1.000-1.030) 02/03/24 14:19 Urine Protein Negative (Negative) 02/03/24 14:19 Urine Glucose (UA) Negative (Negative) 02/03/24 14:19 Urine Ketones Negative (Negative) 02/03/24 14:19 Urine Nitrite Negative (Negative) 02/03/24 14:19 Ur Leukocyte Esterase 3+ (Negative) H 02/03/24 14:19 Urine WBC (Auto) >50 /hpf (0-5) H 02/03/24 14:19 Urine RBC (Auto) 0-2 /hpf (0-2) 02/03/24 14:19 U Hyaline Cast (Auto) 0-2 /lpf (0-2) 02/03/24 14:19 U Epithel Cells (Auto) 0-2 /hpf (0-2) 02/03/24 14:19 Urine Bacteria (Auto) None Seen (None Seen) 02/03/24 14:19 Blood Type O Positive 02/03/24 11:20 Antibody Screen NEGATIVE 02/03/24 11:20 02/03/24 14:19 Urine Culture - Preliminary Urine,Clean Catch Pin-point growth present, reincubating.
[2024-02-04] MEDS: LACTATED RINGER'S 1,000 ML IV SCH (08:41)
[2024-02-04] MEDS ORDERED: ATROPINE SULFATE 0.1 MG/ML 10ML SYR IV PRN (08:47)
[2024-02-04] MEDS ORDERED: ePHEDrine sulfate 50 MG/ML AMP IV PRN (08:47)
--- NOTE | 2024-02-04 09:09 | History & Physical Bridge Note ---
Date of Service February 04, 2024 History & Physical Bridge Note I have examined the patient, reviewed the History & Physical and in the interval since the performance of the History & Physical I have noted the following changes of clinical significance: no changes noted
[2024-02-04] MEDS ORDERED: LIDOCAINE 2% 2 ML VIAL/AMP(20MG/ML) INFIL ONE (09:21)
[2024-02-04] MEDS ORDERED: PROPOFOL IV EMULSION 10 MG/ML 20 ML VIAL IV ONE ×2 (09:21→09:51)
[2024-02-04 09:49] LABS: White Blood Count 7.39 K/ul (4.8-10.8)
[2024-02-04] MEDS ORDERED: PHENYLEPHRINE 100MCG/ML 5ML SYR ONE ×2 (09:51→10:04)
--- NOTE | 2024-02-04 10:02 | GI REPORT ---
[facility] Patient: COCO CARBALLO : 1945 Sex at : Female Age: 78 Years Procedure: Upper GI endoscopy Date: 02/04/2024 Attending Physician: Vishal Garza MD Referring MD: Meri Kang DO Indications: - Anemia Medications: - Monitored Anesthesia Care Complications: - No immediate complications. Estimated Blood Loss: - Estimated blood loss: None. Procedure: - The egd scope was introduced through the mouth and advanced to the third part of the duodenum. - The upper GI endoscopy was accomplished with ease. - The patient tolerated the procedure well. - The upper GI endoscopy was accomplished without difficulty. Findings: - There was Grade A esophagitis. Diffuse gastritis Biopsy nit done in view of active bleeding. 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 A hemoclip was placed on the bleeding lesion and the bleeding stopped. Impression: - There was Grade A esophagitis. Diffuse gastritis Biopsy nit done in view of active bleeding. 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 A hemoclip was placed on the bleeding lesion and the bleeding stopped. - No specimens collected. Recommendation: - PPI BID. Follow H and H every 8 hours for 24 hours. Will need VCE as OP and testing for H. Pylori once off PPI Procedure Code(s): - 75942, Esophagogastroduodenoscopy, flexible, transoral; diagnostic, including collection of specimen(s) by brushing or washing, when performed (separate procedure) CPT(R) - 2023 copyright [employer]. All Rights Reserved. The CPT codes, CCI edits and ICD codes generated are intended as suggestions and were generated based on input data. These codes are preliminary and upon plant nursery worker review may be revised to meet current compliance and payer requirements. The provider is responsible for the final determination of appropriate codes, and modifiers. Vishal Garza MD This document has been electronically signed. Note Initiated:02/04/2024 Note Completed:02/04/2024 10:01 AM \\[id number]
--- NOTE | 2024-02-04 10:58 | Anesthesiology Progress Note ---
Date of Service February 04, 2024 Anesthesia Post Procedure Vital Signs Vital Signs: Temp Pulse Pulse Pulse Resp BP BP 02/04/24 10:35 36.4 C L 75 14 104/64 02/04/24 10:25 73 14 96/55 L 02/04/24 10:15 74 16 96/52 L 02/04/24 10:05 79 16 93/43 L 02/04/24 09:59 36.3 C L 79 15 90/52 L 02/04/24 08:33 36.7 C 85 22 108/52 L 02/04/24 05:27 36.8 C 88 17 107/64 02/04/24 05:00 02/03/24 20:46 36.8 C 84 16 02/03/24 14:57 36.8 C 83 18 102/65 02/03/24 14:41 02/03/24 14:35 36.6 C 20 104/65 02/03/24 14:08 116/52 L 02/03/24 14:03 88 20 02/03/24 14:00 97 H 20 02/03/24 14:00 85/69 L 02/03/24 13:49 36.5 C 90 20 104/60 02/03/24 13:39 85 16 02/03/24 13:21 108/61 02/03/24 13:19 36.4 C L 83 15 108/61 02/03/24 13:19 85 16 115/64 02/03/24 13:12 84 15 02/03/24 13:04 36.5 C 82 16 115/64 02/03/24 13:01 101/45 L 02/03/24 12:44 111/74 02/03/24 12:44 36.6 C 85 20 111/74 02/03/24 12:36 84 16 02/03/24 12:31 94/40 L 02/03/24 12:30 81 13 02/03/24 12:15 81 18 02/03/24 12:08 117/50 L 02/03/24 11:57 82 18 02/03/24 11:36 83 20 02/03/24 11:31 105/65 02/03/24 11:30 82 27 H 02/03/24 11:03 81 19 02/03/24 11:01 122/52 L 02/03/24 11:01 122/52 L BP Pulse Ox O2 Del Method O2 Flow Rate 02/04/24 10:35 96 Nasal Cannula 2 02/04/24 10:25 96 Nasal Cannula 2 02/04/24 10:15 97 Nasal Cannula 2 02/04/24 10:05 97 Nasal Cannula 2 02/04/24 09:59 97 Nasal Cannula 2 02/04/24 08:33 92 Room Air 02/04/24 05:27 94 Room Air 02/04/24 05:00 Room Air 02/03/24 20:46 105/62 98 Room Air 02/03/24 14:57 94 02/03/24 14:41 Room Air 02/03/24 14:35 96 Room Air 02/03/24 14:08 02/03/24 14:03 02/03/24 14:00 02/03/24 14:00 02/03/24 13:49 96 02/03/24 13:39 95 02/03/24 13:21 02/03/24 13:19 96 02/03/24 13:19 94 02/03/24 13:12 94 02/03/24 13:04 93 0 02/03/24 13:01 02/03/24 12:44 02/03/24 12:44 92 0 02/03/24 12:36 93 02/03/24 12:31 02/03/24 12:30 94 02/03/24 12:15 95 02/03/24 12:08 02/03/24 11:57 02/03/24 11:36 02/03/24 11:31 02/03/24 11:30 02/03/24 11:03 93 02/03/24 11:01 02/03/24 11:01 Transfer of Care Handoff Completed per policy Notes Mental Status: alert / awake / arousable Patient Amnestic to Procedure: Yes Nausea / Vomiting: adequately controlled Pain: adequately controlled Airway Patency, RR, SpO2: stable & adequate BP & HR: stable & adequate Hydration State: stable & adequate Anesthetic Complications: no major complications apparent and Pt Satisfied with anesthetic care
[2024-02-04] MEDS: ASPIRIN 81 MG ECTAB PO SCH (11:43)
[2024-02-04] MEDS ORDERED: SODIUM CHLORIDE 0.9% 50 ML IV PRN (11:54)
[2024-02-04] MEDS ORDERED: SODIUM CHLORIDE 0.9% 100 ML IV PRN (11:54)
[2024-02-04 17:28] LABS: Hematocrit (blood only) 27.5 % (37.0-47.0); Hemoglobin 8.7 g/dl (12.0-16.0)
[2024-02-04 22:50] VITALS: RESP 16
[2024-02-05 06:17] LABS: Basophils # (auto) 0.03 K/uL (0.00-0.20); Basophils % (auto) 0.4 %; Eosinophils # (auto) 0.36 K/uL (0.00-0.50); Eosinophils % (auto) 4.9 %; Hematocrit (blood only) 26.5 % (37.0-47.0); Hemoglobin 8.6 g/dl (12.0-16.0); Immature Granulocytes # (auto) 0.04 K/uL (0.01-0.20); Immature Granulocytes % (auto) 0.5 %; Lymphocytes # (auto) 1.42 K/uL (1.20-3.40); Lymphocytes % (auto) 19.2 %; Mean Corpuscular Hemoglobin 28.6 pg (25.0-34.0); Mean Corpuscular Hgb Conc 32.5 g/dL (32.0-36.0); Mean Platelet Volume 10.5 fL (9.4-12.4); Monocytes # (auto) 0.55 K/uL (0.11-0.59); Monocytes % (auto) 7.4 %; Neutrophils # (auto) 4.99 K/uL (1.40-6.50); Neutrophils % (auto) 67.6 %; Platelet Count 176 K/uL (130-400); RDW Coefficient of Variation 25.1 % (11.5-14.5); Red Blood Count 3.01 M/uL (4.20-5.40); White Blood Count 7.39 K/ul (4.8-10.8)
[2024-02-05 06:42] LABS: Anisocytosis Present; Polychromasia 1+
[2024-02-05 06:45] LABS: BUN Creatinine Ratio 33.3 (10-20); Calcium 8.7 mg/dl (8.6-10.3); Creatinine Clr Calc Pharmacy 87.2 ml/min; Potassium 4.2 mmol/L (3.5-5.1)
--- NOTE | 2024-02-05 07:06 | Discharge Summary ---
Date of Service February 05, 2024 Admission HPI Per Admitting Provider Patient is an 78-year-old female with a past medical history of iron deficiency anemia requiring transfusions, restrictive lung disease due to body habitus, aortic stenosis planning for valve repair, HLD/CAD, prediabetes, depression, breast cancer. She presents today due to dyspnea. She was found to have a hemoglobin of 6.6 on arrival; 1 unit pRBC transfused. The patient was evaluated bedside, she stated that she has had dyspnea on exertion and orthopnea for the past 3 to 4 days. She stated she has had the same symptoms in the past when she needed blood transfusions. She also endorses dizziness. She stated that she has had chronic melena for about 1 year, since she began her iron supplement; denies bright red blood in stool. She endorses cough and sore throat since ; feels it is due to a cold. The patient also endorses chronic numbness in her bilateral hands. Patient denies fever, chills, headache, vision changes, chest pain, abdominal pain, nausea, vomiting, diarrhea, constipation, dysuria, hematuria, edema, tingling. She did not take her home medications this morning; will order on admission. She wishes to be full code at this time. She does not use oxygen at baseline. Patient's son was updated at bedside. Admission Exam Per Admitting Provider The patient is awake, alert and oriented 3, well developed and well nourished, normocephalic and atraumatic, in no acute distress. Non-toxic appearing. HEENT- EOMI, mucous membranes moist. Hearing grossly intact. Heart-normal S1 and S2. Murmur noted. No rubs or gallops. Lungs-clear bilaterally, no respiratory distress, no accessory muscle use. Abdomen-normal bowel sounds and soft. No ascites noted. Non-tender. Extremities- no clubbing, cyanosis, or edema. Rheumatologic-normal range of motion. Psychiatric-normal affect. 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 Discharge Exam Respiratory Auscultation: + wheezes (left sided wheezes); no diminished lung sounds and no crackles Cardiovascular Rate/Rhythm: regular rate and regular rhythm Heart Sounds: + murmur (systolic murmur) Extremities: normal capillary refill; no calf tenderness and no pedal edema Gastrointestinal (Abdomen) normal bowel sounds, soft, nontender, no hepatosplenomegaly Psychiatric A+Ox3, euthymic affect Discharge Data Allergies Allergy/AdvReac Type Severity Reaction Status Date / Time hydrochlorothiazide Allergy Intermediate Rash Verified 02/03/24 12:37 sulfamethoxazole [Bactrim] Allergy Intermediate RASH Verified 02/03/24 12:37 trimethoprim [Bactrim] Allergy Intermediate RASH Verified 02/03/24 12:37 Consultations 02/03/24 11:44 ED Decision to Admit Stat 02/03/24 12:28 Consult Gastroenterology Routine Procedures Performed Operation Date: 02/04/24 07:00 Actual Procedures p Esophagogastroduodenoscopy(Not Applicable) - Vishal Garza MD Hospital Course (1) Acute anemia: (2) Dyspnea: (3) Elevated troponin I level: (4) UGIB (upper gastrointestinal bleed): Plan (1) Anemia: patient has a history of iron deficiency anemia requiring multiple blood transfusions in the past symptoms of dyspnea, chronic melena, dizziness EGD 06/2022 negative for acute changes Colonoscopy 08/2022 showed small diverticuli in sigmoid colon and nonbleeding internal hemorrhoids - was seen by GI 12/23/2023 who recommended repeat EGD/ colonoscopy, patient has not yet completed - Hgb 6.6 in ED -> 1 unit pRBC - blood consent form signed by ED provider - continue pantoprazole 40 mg IV BID - continue home iron and B12 supplements - consulted GI and EGD performed EGD --> Oozing blood noted in second part of duodenum from a 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 Hemoclip placed and bleeding stopped. Esophagitis also noted on EGD. - 1 unit of pRBCs given after procedure and repeat H&H w/ Hgb, 8.7 - Hgb, 8.6 <-- 8.7, change on morning of discharge - diet of full liquids advanced to solid foods - GI recommended to continue pantoprazole, 40 mg, PO, BID - GI recommended to continue iron supplement, ferrous sulfate, 325 mg, PO, BID - pt recommended to avoid NSAID medications and use Tylenol instead for pain control 2) New blast cells - patient w/out any B symptoms such as night sweats, fevers, chills, weight loss - 1 blast cell found on CBC w/ Diff, 02/03 labs - blood smear confirmed that it was a lymphocyte blast cell - repeat CBC w/ Diff this morning, 02/04, no findings of a blast cell (CBC w/ Diff on 02/02 also showed no blasts) (3) Elevated troponin I level #resolved Suspect secondary to severe aortic stenosis - 66.6 <-- 72.9 <-- 83.9 in ED - EKG without ischemic changes - Patient denies chest pain (4) Dyspnea Likely secondary to anemia, aortic stenosis, and RLD history of RLD (restrictive lung disease) secondary to obesity - Non-hypoxic on admission - BNP 174, baseline - CXR negative - Continue home inhalers - will likely improve with treatment above (5) Aortic stenosis History of aortic stenosis, hyperlipidemia, coronary artery disease - Echo 06/2022: grade 2 diastolic dysfunction, LVH, severe aortic stenosis, moderate mitral annular calcification, mild mitral regurg - Cardiac cath 01/07/2024 without stent placement - Planning for aortic valve replacement in near future, no date set - continue statin, isosorbide mononitrate, and baby ASA - defer need for diuresis in between blood transfusions, no concern for fluid overload at this time Plan Chronic stable diagnoses: breast cancer - in remission, finished radiation ~6 months ago, continue letrozole depression - continue fluoxetine HTN - hypotensive on admission, continue lisinopril with holding parameters Total Time Total Time Spent Total Time Spent (In Minutes): see attending attestation Discharge Plan Discharge Items Patient Disposition: Home - Self-Care Reason For Visit: ANEMIA Discharge Diagnosis: Duodenal bleed, 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 You were treated by use of a hemoclip to stop the bleeding during a GI procedure (an EGD). A discharge summary will be sent to your primary care physician to ensure continuity of care. Please bring this discharge summary with you to your next office appointment so that your provider can review it at that time. Follow-up appointments: We have requested a follow-up appointment with your primary care physician within one week of discharge. Please call their office if you do not hear from them. Keep all your follow-up appointments as already scheduled. If you cannot make an appointment, notify your provider. Medications: Your medication list has been reviewed and reconciled upon discharge to ensure accuracy and continuity of care. An updated list of all your medications is inc luded with your hospital discharge paperwork. Please review this list closely, and make note of any changes. Take your medications as instructed; do not skip a dose of your medicines. Make sure all of your doctors know every medicine you are taking (including vczr-[id number] medicines, vitamins, and supplements). Call your primary care provider before taking any new medicines (including tymg-ywy-lxwxvly medicines, vitamins, and supplements), because some of these may interact with your current medications, or may make your symptoms worse. Tell your primary care provider if you cannot afford your medications. CONTACT YOUR PRIMARY CARE PROVIDER if you experience any of the following: shortness of breath, increased heart rate, increasing paleness dark-colored stools, coffee-ground vomit, bloody stools or bloody vomit Difficulty following your treatment plan, or difficulty taking medications CALL 911 OR GO TO THE EMERGENCY DEPARTMENT if you experience any of the following: Sudden, severe abdominal pain or nausea/vomiting Severe chest pain, or chest pain that radiates (moves) to your jaw or arm Sudden, severe shortness of breath or difficulty breathing Thank you for allowing us to participate in your care Pending Studies at Discharge: No Stand-Alone Forms: My [facility], Smoking Cessation Medications and DC Order Prescriptions: Continued letrozole 2.5 mg tablet 2.5 mg PO DAILY cyanocobalamin (vitamin B-12) 1,000 mcg capsule 1,000 mcg PO QAM Qty: 30 11RF lisinopril 10 mg tablet 10 mg PO HS Qty: 90 3RF fluoxetine 40 mg capsule 40 mg PO HS Qty: 90 3RF Rx Instructions: 40 mg orally every evening; albuterol sulfate [Ventolin HFA] 90 mcg/actuation HFA aerosol inhaler 2 puff INH QID PRN (Reason: shortness of breath or wheezing) Qty: 8.5 3RF isosorbide mononitrate 30 mg tablet extended release 24 hr 30 mg PO DAILY Qty: 90 3RF atorvastatin 40 mg tablet 40 mg PO DAILY Qty: 90 3RF ferrous sulfate 325 mg (65 mg iron) tablet,delayed release (DR/EC) 325 mg PO BID Qty: 180 3RF Combivent Respimat 20-100 mcg/actuation mist 1 puff inhalation Q6H PRN (Reason: shortness of breath or wheezing) Qty: 4 3RF pantoprazole 40 mg tablet,delayed release (DR/EC) 40 mg PO BID Qty: 180 3RF acetaminophen 325 mg Tablet 650 mg PO Q4H PRN (Reason: pain) Qty: 30 0RF Rx Instructions: OTC gabapentin 300 mg capsule 300 mg PO HS aspirin 81 mg Tablet,Delayed Release (Dr/Ec) 81 mg PO DAILY calcium carbonate 500 mg calcium (1,250 mg) Tablet 500 mg PO DAILY Discharge Orders: Discharge Order (Routine); Ordered 02/05/24 Ordered By: Wade Agrawal/Other Patient Handouts: Anemia Admission Data Admit Date/Time: 02/03/24 12:27 Attending Provider: Meri Kang Admit Provider: Stewart Rosa Primary Care Provider: Wade Lopes Other Providers: Stewart Rosa; Vishal Garza Other Interventions: Discharge Summary Assessment (RN) Last Done: 02/05/24 14:11 Supervising Physician Co-Signing Physician Notes I personally examined the patient and verified campa points of history and exam, discussed case, and agree with decision making and plan documented by Dr. Pa. Patient reported 1 year of dark tarry stools, EGD today revealed diffuse gastritis and bleeding lesion in duodenum. Patient with stability of CBC following Clip placement during EGD. No longer blasts presents on differential. Advised against use of NSAIDs to prevent worsening of gastritis. Patient remains on oral iron and PPI. Will schedule follow-up with PCP to discuss continued monitoring.
--- NOTE | 2024-02-05 07:11 | Electrocardiogram Report ---
Test Reason : Blood Pressure : */* mmHG Vent. Rate : 91 BPM Atrial Rate : 91 BPM P-R Int : 144 ms QRS Dur : 80 ms QT Int : 358 ms P-R-T Axes : 64 73 57 degrees QTcB Int : 440 ms Poor data quality, interpretation may be adversely affected Normal sinus rhythm Abnormal ECG When compared with ECG of 06-Nov-2023 11:38, Criteria for Inferior infarct are no longer Present Confirmed by Gerardo Segura ([id number]) on 02/05/2024 7:10:47 AM Referred By: REFERRED SELF Confirmed By: Gerardo Segura
--- NOTE | 2024-02-05 09:01 | Gastroenterology Progress Note ---
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 She was also found to have esophagitis. Patient appears to be improved as compared to admission. Would agree with advancing diet as tolerated and perhaps planning for discharge today if possible. Upon discharge the patient should be started on Protonix 40 mg twice daily for 12 weeks in addition to use of an iron supplement to help rebuild her red blood cell count. I would recommend that the patient follow-up with her regular GI provider for an outpatient upper endoscopy in 3 months to assess healing of the esophagitis. Protonix 40 mg bid x 12 weeks Iron supplement for 12 weeks repeat EGD in 3 months per OP GI provider Please call with questions, GI to Sign off. Admission and Anticipated Discharge Date Admission Date: February 03, 2024 Subjective The patient reports that overall she feels improved today, she does have a history of what she describes as indigestion and frequent heartburn-like symptoms. She underwent an upper endoscopy recently that showed evidence of esophagitis in addition to an arteriovenous malformation within the duodenum. The patient believes she is to be discharged sometime today. Results & Data Vital Signs (Past 12 Hours) Vital Signs Temp Pulse Pulse Resp BP BP Pulse Ox 02/05/24 08:00 36.3 C L 86 16 105/52 L 91 02/05/24 07:56 02/05/24 07:22 81 02/05/24 05:22 93 02/05/24 03:20 36.8 C 78 16 95/63 L 90 02/04/24 22:49 36.7 C 81 16 113/70 93 02/04/24 22:01 02/04/24 21:45 82 O2 Del Method 02/05/24 08:00 Room Air 02/05/24 07:56 Room Air 02/05/24 07:22 02/05/24 05:22 Room Air 02/05/24 03:20 Room Air 02/04/24 22:49 Room Air 02/04/24 22:01 Room Air 02/04/24 21:45 Laboratory Results Laboratory Results - last 24 hr 02/03/24 02/04/24 02/04/24 11:20 00:10 17:06 WBC 7.39 RBC 2.38 L Hgb 7.1 L 8.7 L Hct 22.4 L 27.5 L MCV 94.1 MCH 29.8 MCHC 31.7 L RDW Std Deviation 57.6 H RDW Coeff of Giulia 17.0 H Plt Count 172 MPV 10.7 Immature Gran % (Auto) 0.5 Neut % (Auto) 66.9 Lymph % (Auto) 20.8 [place] % (Auto) 8.0 Eos % (Auto) 3.4 Baso % (Auto) 0.4 Neut # (Auto) 4.94 Lymph # (Auto) 1.54 [place] # (Auto) 0.59 Eos # (Auto) 0.25 Baso # (Auto) 0.03 Immature Gran # (Auto) 0.04 Neutrophils % (Manual) 70 Lymphocytes % (Manual) 17 Monocytes % (Manual) 3 Eosinophils % (Manual) 9 Blast Cells % (Manual) 1 Neutrophils # (Manual) 5.17 Total Absolute Neuts 5.17 Lymphocytes # (Manual) 1.26 Total Abs Lymphocytes 1.26 Monocytes # (Manual) 0.22 Eosinophils # (Manual) 0.67 H Blast Cells # (Man) 0.07 H Blood Smear Review Polychromasia 2+ Anisocytosis Ovalocytes 1+ Sodium Potassium Chloride Carbon Dioxide Anion Gap BUN Creatinine Est Cr Clr Drug Dosing eGFR BUN/Creatinine Ratio Glucose Calcium Blood Type O Positive Antibody Screen NEGATIVE Crossmatch See Detail 02/05/24 05:59 WBC 7.39 RBC 3.01 L Hgb 8.6 L Hct 26.5 L MCV 88.0 D MCH 28.6 MCHC 32.5 RDW Std Deviation 77.0 H RDW Coeff of Giulia 25.1 H Plt Count 176 MPV 10.5 Immature Gran % (Auto) 0.5 Neut % (Auto) 67.6 Lymph % (Auto) 19.2 [place] % (Auto) 7.4 Eos % (Auto) 4.9 Baso % (Auto) 0.4 Neut # (Auto) 4.99 Lymph # (Auto) 1.42 [place] # (Auto) 0.55 Eos # (Auto) 0.36 Baso # (Auto) 0.03 Immature Gran # (Auto) 0.04 Neutrophils % (Manual) Lymphocytes % (Manual) Monocytes % (Manual) Eosinophils % (Manual) Blast Cells % (Manual) Neutrophils # (Manual) Total Absolute Neuts Lymphocytes # (Manual) Total Abs Lymphocytes Monocytes # (Manual) Eosinophils # (Manual) Blast Cells # (Man) Blood Smear Review Polychromasia 1+ Anisocytosis Present Ovalocytes Sodium 139 Potassium 4.2 Chloride 103 Carbon Dioxide 29 Anion Gap 7 BUN 16 Creatinine 0.48 L Est Cr Clr Drug Dosing 87.2 eGFR 95.69 BUN/Creatinine Ratio 33.3 H Glucose 92 Calcium 8.7 Blood Type Antibody Screen Crossmatch Diagnostic Findings EGD Findings: - There was Grade A esophagitis. Diffuse gastritis Biopsy nit done in view of active bleeding. 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 A hemoclip was placed on the ble eding lesion and the bleeding stopped. Impression: - There was Grade A esophagitis. Diffuse gastritis Biopsy nit done in view of active bleeding. 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 A hemoclip was placed on the bleeding lesion and the bleeding stopped. - No specimens collected. Recommendation: - PPI BID. Follow H and H every 8 hours for 24 hours. Will need VCE as OP and testing for H. Pylori once off PPI
--- OUTSIDE RECORDS SUMMARY | 2024-02-05 11:56 | External Medical Summary | Continuity of Care Document ---
Author Name Unknown Organization [facility] [address] [place] WALLACE [id number] Care Team Providers [employer] Executive Director Name Role Phone Wade Lopes Primary Care Physician [phone] Encounter [facility] NORRISBIPINR [id number] Date(s): 02/01/24 - 02/01/24 [facility] [address] [facility] [address], [address], [address] [place] [address] [phone] Encounter Diagnosis Body mass index [BMI] 33.0-33.9, adult(Discharge Diagnosis) - 02/01/24 Aortic stenosis(Discharge Diagnosis) - 02/01/24 Coronary artery disease(Discharge Diagnosis) - 02/01/24 Discharge Disposition: Home or Self Care Attending Physician: SANJEEV Sandhu Kathleen R Referring Physician: MD Gao Christopher W Allergies, Adverse Reactions, Alerts Substance Criticality Severity Reaction Reaction Severity Status Septra rash?? Active Assessment and Plan Extracted from: Title:cards Author:MD Benton Moses Date: CARDIOLOGY OUTPATIENT NOTE Name: COCO OLIVO Patient Number: [id number] : 1945 Date of Service: 02/01/2024 Chief Complaint: Aortic stenosis Coronary artery disease (50% left main stenosis) History of GI bleeding and breast cancer HPI: I had the pleasure of seeing Mrs. Olivo today at the [facility] on 02/01/2024. As you might recall, this is a pleasant 78-year-old female with history of breast cancer diagnosed in 2022 (right-sided infiltrative ductal adenocarcinoma; treated with radiation by [facility] in conjunction with [facility]. Care provided by Rashida Trinh PA-C). She also has a history of COPD and smoking (former [id number] smoker, quit 20 years ago). Additional history includes GERD, hypertension, dyslipidemia, lumbar stenosis and a BMI of 33. She has been noted to have recurrent anemia felt to be secondary to a GI source, however, a clear source of her bleed has not been found as of last endoscopies in August 2022. A capsule endoscopy has been recommended, but has not thus far been completed (she needs to repeat her endoscopies this year before this will be approved through her insurance). She was recently hospitalized in October 2023 with symptomatic anemia where her hemoglobin was found to be 6.8. She received 2 units of blood transfusion with repeat hemoglobin hovering around 9.1. So far as we know, she has not had any recurrent bleeding episodes. She currently is stable on aspirin 81 mg daily. She was seen recently by her primary dock operator in [facility] (Dr. Gao). On echocardiogram she has been found to have severe aortic stenosis. The last study available to me is from 06/11/2022 where she had normal ejection fraction and aortic valve parameters showing severe (V-max 4.5, mean gradient 45, aortic valve area of 0.8). A cardiac catheterization was also performed on 01/07/2024. On review, it appears that she may also have a hazy ostial left main lesion (approximately 50%). Previously, she has also had a dobutamine echocardiogram done in [facility] that, per reports, was an overall low risk study. She now presents to our care for further discussions regarding her noted aortic stenosis disease. She is accompanied by her son and her [id number]. Until recently, she was DNR/DNI, however, the son now insists that she is "full code". Past surgical history: Bilateral knee replacement Family history: Multiple female members with breast cancer Social history: Former smoker as mentioned above. No alcohol or drug use. Current Home Meds: (Last Updated 01/31 12:37) FLUoxetine (FLUoxetine 40 mg oral capsule) TAKE 1 CAPSULE BY MOUTH EVERY EVENING AT BEDTIME albuterol-ipratropium (Combivent Respimat 20 mcg-100 mcg/inh inhalation aerosol) INHALE 1 PUFF EVERY 6 HOURS NEEDED FOR SHORTNESS OF BREATH OR WHEEZING albuterol (albuterol CFC free 90 mcg/inh MDI) 1 puff inhaled qid PRN: as needed for wheezing aspirin (Aspirin Low Dose 81 mg oral delayed release tablet) 81 mg PO Daily atorvastatin (atorvastatin 40 mg oral tablet) TAKE 1 TABLET BY MOUTH DAILY ferrous sulfate (ferrous sulfate 325 mg (65 mg elemental iron) oral tablet) TAKE 1 TABLET BY MOUTH TWICE A DAY fluticasone-salmeterol (Advair Diskus 250 mcg-50 mcg) 2 puff inhaled bid gabapentin (gabapentin 300 mg oral capsule) 300 mg PO tid isosorbide mononitrate (isosorbide mononitrate 30 mg oral tablet, extended release) TAKE 1 TABLET BY MOUTH EVERY DAY IMDUR (isosorbide mononitrate) is a SUSTAINED RELEASE tablet typically dosed daily. Do not confuse with ISORDIL (isosorbide dinitrate) commonly dosed three times daily. Arturo Austin 12/22 13:02 lisinopril (lisinopril 10 mg oral tablet) TAKE 1 TABLET BY MOUTH EVERYDAY AT BEDTIME pantoprazole (pantoprazole 40 mg oral delayed release tablet) TAKE 1 TABLET BY MOUTH TWICE A DAY Allergies and Sensitivities: Septra(rash??) Past Medical History: Problems: Need for prophylactic vaccination and inoculation against influenza Asthma Knee pain, left Thumb pain H/O: artificial joint BP (high blood pressure) Degenerative joint disease OBJECTIVE Vitals: Last Updated 02/01/24 12:41 Date Temp BP Location Pulse RR SpO2 Pain 02/01/24 36.3 124/60 Left Arm 88 16 96 0 02/01/24 36.3 124/60 Left Arm 88 16 96 02/01/24 0 Vital Signs are the last 3 documented. No Orthostatic Data Available Height and Weight: Last Updated 02/01/24 12:41 Date BMI Wt(kg) Wt(lb) Method Ht(cm) (ft-in) Method 02/01/24 33.83 79.7 175 Standing Scale 153.5 5-0 Standing 02/01/24 33.83 79.7 175 Standing Scale 153.5 5-0 Standing 12/23/23 79.7 175 Standing Scale Heights and Weights are the last 3 documented. Physical Exam General: AAOx3, No acute distress Neuro: CN II-XII grossly intact Psych: Pleasant, calm. Normal disposition. Head: Normocephalic. CV: RRR 3 out of 6 crescendo decrescendo murmur. No rubs, or gallops. Normal JVD Pulm: Clear to auscultation bilaterally Abdomen: soft, non-tender, +bowel sounds Groin: +2 pulses bilaterally. No bruits, no rash or ecchymosis. Lower extremities: No edema bilaterally, +2 DP/PT pulses bilaterally ASSESSMENT: _ PLAN: _ In summary, this is a pleasant 78-year-old female with complex medical history including right-sided breast cancer (currently stable), COPD, ostial left main disease and severe aortic stenosis. She now presents with significant symptoms (unable to walk across the room without feeling short of breath). She has also had multiple episodes of symptomatic anemia in the past, the last episode being at the end of October 2023 when her hemoglobin was found to be 6.8 (since then, her hemoglobin has been transfused up to around 9). Her clinical situation is obviously complicated, and it is difficult to predict how much benefit she would derive from aortic valve replacement. Furthermore, it is very likely that she would also need intervention to her left main stenosis either before, during, or after aortic valve replacement. We talked about the pathophysiology of her aortic stenosis and left main disease. I described her situation to her using a drawn model. We then talked treatment options including SAVR/CABG versus TAVR +/- left main PCI. From our conversations it became clear that she is not very interested in the former option (further not, this would clearly be a higher risk procedure for her). I told her we would have to think carefully about the sequence of percutaneous procedures in her. Looking at her films closely, in some views, it appears that her stenosis is perhaps less than quite 50% (the guide may not have been well engaged during angiography?). If this is the case, we can potentially perform TAVR first and then bring her back for PCI if necessary (during TAVR we could do IVUS imaging of her left main artery). She did have a TAVR protocol CT scan completed. Her iliac arteries are marginally sized (although greater than 6 mm in diameter on average). We may consider a self-expanding valve for this reason. Lastly, I did touch on the topic of CODE STATUS with the patient and her son. I asked him to think about how aggressive they would like for us to get with her upcoming percutaneous procedures, especially as it relates to rescue. The son insists that the patient currently has a good quality of life, and that therefore they are interested in moving forward with full code. I informed the patient and the family that we would discuss her case at our next heart valve meeting and then issue a final recommendation regarding treatment options and plan. Thank you for allowing me to participate in the care of this wonderful patient. Please do not hesitate to contact me directly if there are any further questions or concerns. Will Benton MD Design Assembler, Interventional Cardiology [facility] 60 minutes were spent in total today in completing the following tasks: Chart review, review of relevant clinical study results (TAVR CT, cath, echocardiography), interviewing and counseling the patient, conducting a physical examination, and documenting our encounter. Medications Advair Diskus 250 mcg-50 mcg Start: [...] tid, Disp# 90 cap, Refills: 1, Pharmacy: [facility]/pharmacy #[id number] Start Date: 05/02/11 Status: Ordered isosorbide mononitrate 30 mg oral tablet, extended release TAKE 1 TABLET BY MOUTH EVERY DAY Start Date: 12/23/23 Status: Ordered lisinopril 10 mg oral tablet TAKE 1 TABLET BY MOUTH EVERYDAY AT BEDTIME Start Date: 12/23/23 Status: Ordered pantoprazole 40 mg oral delayed release tablet TAKE 1 TABLET BY MOUTH TWICE A DAY Start Date: 12/23/23 Status: Ordered Mental Status 02/01/24 Barriers to Learning one year None evide nt Mandatory Health Literacy Documentation Yes Health Literacy Communication Barriers U nable to assess Primary Language Welsh Problem List Condition Confirmation Course Effective Dates Status Health St atus Informant Asthma Confirmed Active BP (high blood pressure) Confirmed Active Degenerative joint disease Confirmed Active H/O: artificial joint Confirmed Active Knee pain, left Confirmed Active Need for prophylactic vaccination and inoculation against influenza Confirmed Active Thumb pain 1 Confirmed Active 1B/L Diagnosis Diagnosis Type Effective Dates Health Status Cl inical Service Informant Body mass index [BMI] 33.0-33.9, adult Discharge Diagnosis 02/01/24 Non-Specified Aortic stenosis Discharge Diagnosis 02/01/24 Coronary artery disease Discharge Diagnosis 02/01/24 Procedures Procedure Date Related Diagnosis Body Site Status Shave biopsy and cauterizati on of skin 1 11/09/14 Completed TKR -Total prosthetic replac ement of knee joint using cement 09/03/11 Complete d Knee pain 2 12/27/09 Completed 1with curettage 2left Vital Signs Most recent to oldest [Reference Range]: 1 Height 153.5 cm (02/01/24 12:38 PM) Patient Weight 79.7 kg 1 (02/01/24 12:38 PM) Body Mass Index 33.83 kg/m2 (02/01/24 12:38 PM) Temperature [36.5-37.9 DegC] 36.3 DegC *LOW* (02/01/24 12:38 PM) Heart Rate 88 bpm (02/01/24 12:38 PM) Respiratory Rate 16 br/min (02/01/24 12:38 PM) Blood Pressure 124/60mmHg (02/01/24 12:38 PM) Cuff Pulse Pressure 64 mmHg (02/01/24 12:38 PM) BP Location # 1 Left Arm (02/01/24 12:38 PM) 1Result Comment: matthias velez Social History Social History Type Response Smoking Status Former Smoker, quit > 1 yr Sex Female Sex Representation Female (finding) Cardiology Outpatient Note * MD Chetan, Will: PERFORM Event Display: Cardiology Outpt Note Authored Date: [id number] CARDIOLOGY OUTPATIENT NOTE Name: COCO OLIVO Patient Number: [id number] : 1945 Date of Service: 02/01/2024 Chief Complaint: Aortic stenosis Coronary artery disease (50% left main stenosis) History of GI bleeding and breast cancer HPI: I had the pleasure of seeing Mrs. Olivo today at the [facility] [place] [facility] on 02/01/2024. As you might recall, this is a pleasant 78-year-old female with history of breast cancer diagnosed in 2022 (right-sided infiltrative ductal adenocarcinoma; treated with radiation by [facility] with [facility]. Care provided by Rashida Trinh PA-C). She also has a history of COPD and smoking (former 20-zkpd-jrnp smoker, quit 20 years ago). Additional historyincludes GERD, hypertension, dyslipidemia, lumbar stenosis and a BMI of 33. She has been noted to have recurrent anemia felt to be secondary to a GI source, however, a clear source of her bleed has not been found as of last endoscopies in August 2022. A capsule endoscopy has been recommended, but hasnot thus far been completed (she needs to repeat her endoscopies this year before this will be approved through her insurance). She was recently hospitalized in October 2023 with symptomatic anemia where her hemoglobin was found to be 6.8. She received 2 units of blood transfusion with repeat hemoglobin hovering around 9.1. So far as we know, she has not had any recurrent bleeding episodes. She cur rently is stable on aspirin 81 mg daily. She was seen recently by her primary dock operator in [facility] (Dr. Gao). On echocardiogram she has been found to have severe aortic stenosis. The last study available to me is from 06/11/2022 where she had normal ejection fraction and aortic valve parameters showing severe (V-max 4.5, meangradient 45, aortic valve area of 0.8). A cardiac catheterization was also performed on 01/07/2024. On review, it appears that she may also have a hazy ostial left main lesion (approximately 50%). Previously, she has also had a dobutamine echocardiogram done in [facility] that, per reports, was an overall low risk study. She now presents to our care for further discussions regarding her noted aortic stenosis disease. She is accompanied by her son and her [id number]. Until recently, she was DNR/DNI, however, the son now insists that she is "full code". Past surgical history: Bilateral knee replacement Family history: Multiple female members with breast cancer Social history: Former smoker as mentioned above. No alcohol or drug use. Current Home Meds: (Last Updated 01/31 12:37) FLUoxetine (FLUoxetine 40 mg oral capsule) TAKE 1 CAPSULE BY MOUTH EVERY EVENING AT BEDTIME albuterol-ipratropium (Combivent Respimat 20 mcg-100 mcg/inh inhalation aerosol) INHALE 1 PUFF EVERY 6 HOURS NEEDED FOR SHORTNESS OF BREATH OR WHEEZING albuterol (albuterol CFC free 90 mcg/inh MDI) 1 puff inhaled qid PRN: as needed for wheezing aspirin (Aspirin Low Dose 81 mg oral delayed release tablet) 81 mg PO Daily atorvastatin (atorvastatin 40 mg oral tablet) TAKE 1 TABLET BY MOUTH DAILY ferrous sulfate (ferrous sulfate 325 mg (65 mg elemental iron) oral tablet) TAKE 1 TABLET BY MOUTH TWICE A DAY fluticasone-salmeterol (Advair Diskus 250 mcg-50 mcg) 2 puff inhaled bid gabapentin (gabapentin 300 mg oral capsule) 300 mg PO tid isosorbide mononitrate (isosorbide mononitrate 30 mg oral tablet, extended release) TAKE 1 TABLET BY MOUTH EVERY DAY IMDUR (isosorbide mononitrate) is a SUSTAINED RELEASE tablet typically dosed daily. Do not confuse with ISORDIL (isosorbide dinitrate) commonly dosed three times daily. Arturo Austin 12/22 13:02 lisinopril (lisinopril 10 mg oral tablet) TAKE 1 TABLET BY MOUTH EVERYDAY AT BEDTIME pantoprazole (pantoprazole 40 mg oral delayed release tablet) TAKE 1 TABLET BY MOUTH TWICE A DAY Allergies and Sensitivities: Septra(rash??) Past Medical History: Problems: Need for prophylactic vaccination and inoculation against influenza Asthma Knee pain, left Thumb pain H/O: artificial joint BP (high blood pressure) Degenerative joint disease OBJECTIVE Vitals: Last Updated 02/01/24 12:41 Date Temp BP Location Pulse RR SpO2 Pain 02/01/24 36.3 124/60 Left Arm 88 16 96 0 02/01/24 36.3 124/60 Left Arm 88 16 96 02/01/24 0 Vital Signs are the last 3 documented. No Orthostatic Data Available Height and Weight: Last Updated 02/01/24 12:41 Date BMI Wt(kg) Wt(lb) Method Ht(cm) (ft-in) Method 02/01/24 33.83 79.7 175 Standing Scale 153.5 5-0 Standing 02/01/24 33.83 79.7 175 Standing Scale 153.5 5-0 Standing 12/23/23 79.7 175 Standing Scale Heights and Weights are the last 3 documented. Physical Exam General: AAOx3, No acute distress Neuro: CN II-XII grossly intact Psych: Pleasant, calm. Normal disposition. Head: Normocephalic. CV: RRR 3 out of 6 crescendo decrescendo murmur. No rubs, or gallops. Normal JVD Pulm: Clear to auscultation bilaterally Abdomen: soft, non-tender, +bowel sounds Groin: +2 pulses bilaterally. No bruits, no rash or ecchymosis. Lower extremities: No edema bilaterally, +2 DP/PT pulses bilaterally ASSESSMENT: _ PLAN: _ In summary, this is a pleasant 78-year-old female with complex medical history including right-sided breast cancer (currently stable), COPD, ostial left main disease and severe aortic stenosis. She now presents with significant symptoms (unable to walk across the room without feeling short of breath). She has also had multiple episodes of symptomatic anemia in the past, the last episode being at the end of October 2023 when her hemoglobin was found to be 6.8 (since then, her hemoglobin has been transfused up to around 9). Her clinical situation is obviously complicated, and it is difficult to predict how much benefit she would derive from aortic valve replacement. Furthermore, it is very likely that she would also need intervention to her left main stenosis either before, during, or after aortic valve replacement. We talked about the pathophysiology of her aortic stenosis and left main disease. I described her situation to her using a drawn model. We then talked treatment options including SAVR/CABG versus TAVR +/- left main PCI. From our conversations it became clear that she is not very interested in the former option (further not, this would clearly be a higher risk procedure for her). I told her we would have to think carefully about the sequence of percutaneous procedures in her. Looking at her films closely, in some views, it appears that her stenosis is perhaps less than quite 50% (the guide may not have been well engaged during angiography?). If this is the case, we can potentially perform TAVR first and then bring her back for PCI if necessary (during TAVR we could do IVUS imaging of her left main artery). She did have a TAVR protocol CT scan completed. Her iliac arteries are marginally sized (although greater than 6 mm in diameter on average). We may consider a self-expanding valve for this reason. Lastly, I did touch on the topic of CODE STATUS with the patient and her son. I asked him to think about how aggressive they would like for us to get with her upcoming percutaneous procedures, especially as it relates to rescue. The son insists that the patient currently has a good quality of life,and that therefore they are interested in moving forward with full code. I informed the patient and the family that we would discuss her case at our next heart valve meeting and then issue a final recommendation regarding treatment options and plan. Thank you for allowing me to participate in the care of this wonderful patient. Please do not hesitate to contact me directly if there are any further questions or concerns. Will Benton MD Design Assembler, Interventional Cardiology [facility] 60 minutes were spent in total today in completing the following tasks: Chart review, review of relevant clinical study results (TAVR CT, cath, echocardiography), interviewing and counseling the patient, conducting a physical examination, and documenting our encounter. Electronic Signature on File CC: Wade Lopes MD [address] [facility] [id number] * CC: Wade Gao MD [address] [facility] [address] [place] [address] * CC: Rashida Trinh PA-C [facility] [address] [place] [address] * Electronically Reviewed/Signed by: Will Benton MD Author Signature Dt/Tm:02/01/2024 02:17 PM Division of Interventional Cardiology MM Patient Care team information Care Team Personnel Name: MD Marianne, Wade Hung Position: Referring DIRECT Member Role: Primary Care Provider Address: [address] [place] [address] [place] [address] [place] Care Team Related Persons Name: BETTE OLIVO
--- OUTSIDE RECORDS SUMMARY | 2024-02-05 11:56 | External Medical Summary | Continuity of Care Document ---
Author Name Unknown Organization [facility] [address] Address [address] [place] [address] RICARDA WALLACE [id number] Care Team Providers Care Tariff Supervisor Name Role Phone Wade Lopes Primary Care Physician [phone] [id number] Date(s): 02/01/24 - 02/01/24 [facility].[address], [address], [address] RICARDA Cortez [address] [phone] Encounter Diagnosis Body mass index [BMI] 33.0-33.9, adult(Discharge Diagnosis) - 02/01/24 Aortic stenosis(Discharge Diagnosis) - 02/01/24 Discharge Disposition: Home or Self Care Attending Physician: MD Tejada Abdulrhman S Referring Physician: MD Gao Christopher W Allergies, Adverse Reactions, Alerts Substance Criticality Severity Reaction Reaction Severity Status Septra rash?? Active Assessment and Plan Extracted from: Title:Office Visit Note Author:MD Terrell, Kerry Hayes Date:02/01/24 Aortic stenosis Coco has symptomatic severe aortic stenosis and severe left main coronary artery disease. Due to her advanced age and frailty, she`s not a surgical candidate. She seems to be a reasonable candidate for TAVR/PCI. Her records will be reviewed at our weekly structural heart meeting and the team`s final recommendation will be communicated to her. 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 09/03/11 Complete d Knee pain 2 12/27/09 Completed 1with curettage 2left Vital Signs Most recent to oldest [Reference Range]: 1 Height 153.5 cm (02/01/24 12:41 PM) Patient Weight 79.7 kg 1 (02/01/24 12:41 PM) Body Mass Index 33.83 kg/m2 (02/01/24 12:41 PM) Temperature [36.5-37.9 DegC] 36.3 DegC *LOW* (02/01/24 12:41 PM) Heart Rate 88 bpm (02/01/24 12:41 PM) Respiratory Rate 16 br/min (02/01/24 12:41 PM) Blood Pressure 124/60mmHg (02/01/24 12:41 PM) Cuff Pulse Pressure 64 mmHg (02/01/24 12:41 PM) BP Location # 1 Left Arm (02/01/24 12:41 PM) 1Result Comment: matthias velez Social History Social History Type Response Smoking Status Former Smoker, quit > 1 yr Sex Female Sex Representation Female (finding) Cardiac surgery Outpatient Note * [facility] S: PERFORM Event Display: Cardiac Surgery Outpt Note Authored Date: [id number] Chief Complaint CTA @ 11:00. Pt denies palpitations, chest pain, le edema. Pt c/o sob. History of Present Illness Today, I had the pleasure of meeting Coco in the office for evaluation of her aortic valve disease. The patient is a very pleasant 78 year-old woman who`s accompanied to this visit by her son and daughter. She reports being symptomatic in the form of fatigue and dyspnea on exertion. Her echocardiogram showed severe aortic valve stenosis and preserved ejection fraction. Her cardiac cath showed s evere osteal LM disease. She had a TAVR CTA showing reasonable femoral access. Review of Systems 14 point review of systems is negative except for HPI Physical Exam Vitals & Measurements T:36.3C HR:88(Monitored) RR:16 BP:124/60 SpO2:96% HT:153.5cm WT:79.700kg(Dosing) WT:79.7kg BMI:33.83 Not performed Diagnostic Results I reviewed her echo, CTA and cardiac cath Assessment/Plan Aortic stenosis Coco has symptomatic severe aortic stenosis and severe left main coronary artery disease. Due toher advanced age and frailty, she`s not a surgical candidate. She seems to be a reasonable candidate for TAVR/PCI. Her records will be reviewed at our weekly structural heart meeting and the team`s final recommendation will be communicated to her. Problem List/Past Medical History Ongoing Asthma BP (high blood pressure) Degenerative joint disease H/O: artificial joint Knee pain, left Need for prophylactic vaccination and inoculation against influenza Thumb pain Procedure/Surgical History Shave biopsy and cauterization of skin| Service Date: 11/09/2014TKR -Total prosthetic replacement of knee joint using cement| Service Date: 09/03/2011Knee pain| Service Date: 12/27/2009 Medications albuterol(albuterol CFC free 90 mcg/inh MDI), 1 puff, inhaled, qid, PRN albuterol-ipratropium(Combivent Respimat 20 mcg-100 mcg/inh inhalation aerosol) aspirin(Aspirin Low Dose 81 mg oral delayed release tablet), 81 mg= 1 tab, PO, Daily atorvastatin(atorvastatin 40 mg oral tablet) ferrous sulfate(ferrous sulfate 325 mg (65 mg elemental iron) oral tablet) FLUoxetine(FLUoxetine 40 mg oral capsule) fluticasone-salmeterol(Advair Diskus 250 mcg-50 mcg), See Instructions gabapentin(gabapentin 300 mg oral capsule), 300 mg= 1 cap, PO, tid, 1 refills isosorbide mononitrate(isosorbide mononitrate 30 mg oral tablet, extended release) lisinopril(lisinopril 10 mg oral tablet) pantoprazole(pantoprazole 40 mg oral delayed release tablet) Allergies Septrarash?? Social History Smoking Status Former Smoker, quit > 1 yr Family History Diabetes: Unknown. Heart attack: Mother and Father. Health Status Family Member(s) Recommendations Health Maintenance Pending(in the next year) OverDue Adult Influenza Vaccine due09/05/23and every 1year Due Adult COVID-19 Vaccination due02/01/24Unknown Frequency Adult Social Determinants of Health Screening due02/01/24Unknown Frequency Adult Tdap/Td Vaccine due02/01/24Unknown Frequency Medicare Annual Wellness Visit due02/01/24and every 1year Osteoporosis Screening due02/01/24One-time only Pneumococcal Vaccine Older Adults due02/01/24One-time only Shingles Vaccine due02/01/24One-time only Satisfied(in the past 1 year) Satisfied Body Mass Index on02/01/24.Satisfied by CHRISTINA Terrazas Katelyn Electronic Signature on File CC: Wade Lopes MD [address] [place] [id number] * Electronically Reviewed/Signed by: Sara Tejada MD Author Signature Dt/Tm:02/01/2024 02:41 PM Division of Cardiothoracic Surgery [facility] Patient Care team information Care Team Personnel Name: MD Marianne, Wade Hung Position: Referring DIRECT Member Role: Primary Care Provider Address: [address] [place] [id number] [place] Care Team Related Persons Name: BETTE CARBALLO"
[2024-02-05 13:07] VITALS: BP 108/53; PULSE 83; TEMP 98.1; O2SAT 90
== END 2024-02-05 16:16 | disposition home or self-care (01) ==
LOC: 3N 09:47 → ED 09:47 → SUATTDRO 12:27 → 3N 14:41 → 2N 02-04 14:53